=== PATIENT | female | born 1970 | race Caucasian/White ===

== ENCOUNTER 2023-07-17 15:14 | Outpatient (OUT) | payer MEDICAID, SELFPAY ==
[2023-07-17 16:07] LABS: Basophils Percent Auto 0.3 % (0.2-2.0); Eosinophils Absolute Auto 0.1 10^3/uL (0.0-0.7); Eosinophils Percent Auto 1.8 % (0.9-7.0); Hematocrit 46.3 % (36.0-48.0); Hemoglobin 15.2 g/dL (12.0-16.0); Immature Granulocytes Abs Auto 0.02 10^3/uL (0.00-0.03); Immature Granulocytes Pct Auto 0.3 % (0.0-0.5); Lymphocytes Absolute Auto 2.8 10^3/uL (1.2-3.8); Lymphocytes Percent Auto 35.2 % (20.5-60.0); Mean Corpuscular HGB Conc 32.8 g/dL (29.9-35.2); Mean Corpuscular Volume 88.4 fL (81.0-99.0); Mean Platelet Volume 8.9 fL (9.5-13.5); Monocytes Absolute Auto 0.5 10^3/uL (0.3-0.8); Monocytes Percent Auto 6.2 % (1.7-12.0); Neutrophils Absolute Auto 4.4 10^3/uL (1.4-6.5); Neutrophils Percent Auto 56.2 % (43.0-75.0); Platelet Count 373 10^3/uL (150-450); Red Blood Count 5.24 10^6/uL (4.20-5.40); Red Cell Distribution Width 13.2 % (11.0-15.0); White Blood Count 7.9 10^3/uL (4.0-11.0)
[2023-07-17 16:32] LABS: Alanine Aminotransferase 20 U/L (14-59); Albumin Globulin Ratio 0.8; Albumin Level 3.3 g/dL (3.4-5.0); Alkaline Phosphatase 130 U/L (46-116); Aspartate Amino Transferase 17 U/L (15-37); Bilirubin Total 0.3 mg/dL (0.2-1.0); Calcium 8.7 mg/dL (8.5-10.1); Carbon Dioxide 30.3 mmol/L (21.0-32.0); Chloride 104 mmol/L (98-107); Estimated GFR (African America >60 (>=60); Estimated GFR (Non-African Ame >60 (>=60); Globulin 3.9 g/dL; Glucose 76 mg/dL (74-106); Potassium 3.3 mmol/L (3.5-5.1); Sodium 143 mmol/L (136-145); Total Protein 7.2 g/dL (6.4-8.2)
[2023-07-17 16:43] LABS: Percent Iron Saturation 12.9 %
[2023-07-20 03:07] LABS: Vitamin B1 (Thiamine), Blood 121.6 nmol/L (66.5-200.0)
== END 2023-07-17 15:15 | disposition home or self-care (01) ==
PROVIDERS: PCP Nurse Practitioner Primary Care
DX: E55.9 Vitamin D deficiency, unspecified (principal); Z98.84 Bariatric surgery status; I10 Essential (primary) hypertension; K90.9 Intestinal malabsorption, unspecified
CPT/HCPCS: 36415; 80053; 82607; 82728; 82746; 83540; 83550; 83735; 84100; 84425; 85025

== ENCOUNTER 2023-08-09 14:00 | Emergency (ER) | payer MEDICAID, SELFPAY ==
[2023-08-09 14:04] VITALS: BP 152/90; PULSE 76; RESP 18; TEMP 37; O2SAT 99; BMI 34.5
--- OUTSIDE RECORDS SUMMARY | 2023-08-09 14:10 | XMS_ITS | CCD ---
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 Primary Care Unavailable CHRISTIE, DR RIVERA Consulting Unavailable CHRISTIE, DR RIVERA Admitting Unavailable CHRISTIE, DR RIVERA Attending Unavailable [employer] Consulting Unavailable GERA TORRES Admitting Unavailable GERA TORRES Attending Unavailable [facility] Primary Care Unavailable SOLOMON, DR KETURAH Leach Consulting Unavailable GERA TORRES Consulting Unavailable [facility] Primary Care Unavailable CHRISTIE, DR RIVERA Admitting Unavailable CHRISTIE, DR RIVERA Attending Unavailable JIMBO, DR GAMALIEL Yoo Consulting Unavailable LISET LYLE Consulting Unavailable Asaad, Imad Unavailable NO FAMILY, PHYSICIAN Primary Care Unavailable Asaad, Imad Admitting Unavailable Asaad, Imad Attending Unavailable Kristin Fernández Admitting Unavailable Kristin Fernández Attending Unavailable NO FAMILY, PHYSICIAN Primary Care Unavailable Medications Current Medications Medication Drug Class(es) Dates Sig (Normalized) Sig (Original) Calcium Citrate (3 sources) Calcium Citrate Active Capsaicin (3 sources) Capsaicin Active cyclobenzaprine hydrochloride 10 mg oral tablet (1 source) Muscle Relaxant Start: 2 take 1 tablet by mouth every twenty-four hours Cyclobenzaprine HCl 10 MG 1 tablet at bedtime as needed Orally Once a day for 7 day(s) Mar, Active 12 hr dextromethorphan hydrobromide 30 mg / guaiFENesin 600 mg extended release oral tablet (1 source) Uncompetitive V-bjmhgt-N-asparta te Receptor Antagonist, Sigma-1 Agonist Start: 2 take 1 tablet by mouth every twelve hours Mucinex DM 30-600 MG 1 tablet as needed Orally every 12 hrs Aug, Active dextromethorphan hydrobromide 1.5 mg/ml / pyrilamine maleate 1.5 mg/ml oral solution (1 source) Uncompetitive P-gbwryj-H-asparta te Receptor Antagonist, Sigma-1 Agonist Start: 3 take 10 mL by mouth every eight hours [place] DM 7.5-7.5 MG/5ML 10 mL Orally every 8 hours for 5 days May, Active Diclofenac (3 sources) Nonsteroidal Anti-inflammatory Drug Diclofenac Sodium Active enalapril maleate 5 mg oral tablet (3 sources) Angiotensin Converting Enzyme Inhibitor take 1 tablet by mouth once daily Enalapril 5 mg one tab orally daily Active Escitalopram (3 sources) Serotonin Reuptake Inhibitor Lexapro Active lovastatin 10 mg oral tablet (3 sources) HMG-CoA Reductase Inhibitor Lovastatin 10 MG Orally Once a day Active methylPREDNISolone 4 mg oral tablet (8 sources) Corticosteroid Start: 3 methylPREDNISolone 4 MG as directed Orally for daily dose take half with breakfast, half with dinner for 6 days May, Active Start: 03-31-2022 methylPREDNISo lone 4 MG as directed Orally for daily dose take half with breakfast, half with dinner for 6 days Mar, Active Start: 09-12-2021 methylPREDNISo lone 4 MG start tomorrow as directed Orally Once a day for 6 days Aug, Active Start: 10-20-2014 Depo-Medrol 40 mg Oct, 40 mg Multi For Her (3 sources) Multi For Her Ac tive predniSONE 20 mg oral tablet (1 source) Start: 08-02-2021 take 1 tablet by mouth every eight hours predniSONE 20 MG 1 tablet Orally tid for 5 day(s) Jul, Active sertraline 50 mg oral tablet (3 sources) Serotonin Reuptake Inhibitor Sertraline HCl 50 MG Oral for 32 Days Active Sertraline HCl 5 0 MG Oral for 32 Days Active Trelegy Ellipta (3 sources) Trelegy Ellipta Active Completed/Discontinued Medications Medication Drug Class(es) Dates Sig (Normalized) Sig (Original) Nebulizer (6 sources) Start: 10-22-2015 Nebulizer as directed Oct, Not-Taking nitrofurantoin, macrocrystals 25 mg / nitrofurantoin, monohydrate 75 mg oral capsule (2 sources) Nitrofuran Antibacterial Start: 03-16-2023 take 1 capsule by mouth every twelve hours Macrobid 100 MG 1 capsule with food Orally every 12 hrs for 7 days Mar, Not-Taking phenazopyridine hydrochloride 200 mg oral tablet (2 sources) Start: 03-16-2023 take 1 tablet by mouth every eight hours Pyridium 200 MG 1 tablet after meals Orally Three times a day for 2 day(s) Mar, Not-Taking Toradol 30 mg/ml (4 sources) Start: 03-31-2022 Toradol 30 mg/ml Mar, 30 mg triamcinolone acetonide 40 mg/ml injectable suspension (14 sources) Corticosteroid Start: 03-31-2022 Kenalog-40 Mar, 40 mg Start: 09-12-2021 KENALOG - 10 m g Aug, 40 mg Start: 08-02-2021 KENALOG - 10 m g Jul, 40 mg Problems Active Problems Problem Classification Problem Date Documented Date Episodic/Chronic Acute bronchitis (12 sources) Acute bronchitis; Translations: [Acute bronchitis] Episodic Chronic obstructive pulmonary disease and bronchiectasis (14 sources) Acute exacerbation of chronic obstructive airways disease; Translations: [Chronic obstructive pulmonary disease with (acute) exacerbation] Onset: 2 Resolved: 2 Chronic Disorders of lipid metabolism (1 source) Pure hypercholesterolemia, unspecified; Translations: [PURE HYPERCHOLESTEROLEMIA UNSPEC] Onset: 3 Chronic E Codes: Fall (1 source) Unspecified fall, initial encounter; Translations: [UNSPECIFIED FALL INITIAL ENCOUNTER] Onset: 3 Episodic Essential hypertension (1 source) Essential (primary) hypertension; Translations: [ESSENTIAL PRIMARY HYPERTENSION] Onset: 3 Chronic Genitourinary symptoms and ill-defined conditions (1 source) Dysuria; Translations: [Dysuria] Onset: 3 Episodic Mood disorders (1 source) Major depressive disorder, single episode, unspecified; Translations: [HAKAN DEPRESS D/O SINGLE EPIS UNS] Onset: 2 Chronic Mood disorders (1 source) Mood disorders; Translations: [DEPRESSION UNSPECIFIED] Onset: 3 Osteoarthritis (6 sources) Osteoarthritis of left knee joint; Translations: [Unilateral primary osteoarthritis, left knee] Chronic Other aftercare (1 source) Other intermission coordinator (current) drug therapy; Translations: [OTH RETIREMENT CURRENT DRUG THERAPY] Onset: 3 Episodic Other injuries and conditions due to external causes (3 sources) Unspecified injury of right wrist, hand and finger(s), initial encounter; Translations: [UNS INJ RT WRIST HAND FINGERS INIT] Onset: 2 Episodic Other injuries and conditions due to external causes (1 source) Other specified injuries of head, initial encounter; Translations: [OTH SPEC INJURIES HEAD INITIAL ENC] Onset: 3 Episodic Other liver diseases (3 sources) Focal nodular hyperplasia of liver; Translations: [Other specified diseases of liver] Chronic Other liver diseases (1 source) Other specified diseases of liver Chronic Other nutritional; endocrine; and metabolic disorders (1 source) Obesity, unspecified; Translations: [OBESITY UNSPECIFIED] Onset: 3 Chronic Other nutritional; endocrine; and metabolic disorders (1 source) Body mass index (BMI) 45.0-49.9, adult; Translations: [BODY MASS INDEX BMI 45.0-49.9 ADULT] Onset: 3 Chronic Other nutritional; endocrine; and metabolic disorders (1 source) Body mass index (BMI) 50.0-59.9, adult; Translations: [BODY MASS INDEX BMI 50.0-59.9 ADULT] Onset: 2 Chronic Other screening for suspected conditions (not mental disorders or infectious disease) (1 source) Other specified abnormal findings of blood chemistry; Translations: [Other specified abnormal findings of blood chemistry] Onset: 3 Episodic Other upper respiratory infections (1 source) Acute upper respiratory infection, unspecified Episodic Spondylosis; intervertebral disc disorders; other back problems (1 source) Muscle spasm of back Episodic Substance-related disorders (1 source) Nicotine dependence, cigarettes, uncomplicated; Translations: [NICOTINE DEPEND CIGARETTES UNCOMP] Onset: 3 Chronic Superficial injury; contusion (6 sources) Contusion of left front wall of thorax, initial encounter; Translations: [Contusion of right shoulder, initial encounter] Onset: 3 Episodic Unclassified (1 source) PERSONAL HISTORY OF COVID-19; Translations: [PERSONAL HISTORY OF COVID-19] Onset: 2 Unclassified (1 source) CONTACT W/AND (SUSP) EXPOS COVID-19; Translations: [CONTACT W/AND (SUSP) EXPOS COVID-19] Onset: 2 Past or Other Problems Problem Classification Problem Date Documented Da te Episodic/Chronic Other connective tissue disease (1 source) Other specified soft tissue disorders; Translations: [OTHER SPEC SOFT TISSUE DISORDERS] Onset: 09-15-2021 Episodic Other lower respiratory disease (4 sources) Shortness of breath; Translations: [SHORTNESS OF BREATH] Onset: 09-13-2021 Episodic Results Test Name Value Interpretation Reference Range Facil ity Urine Cultureon 03-16-2023 Bacteria identified Cx Nom (U) ORGANISM: Escherichia coli (O:ESCCOL) [place] Count >100,000 Aerobic LAZ Charge (NMIC56) ----- SUSCEPTIBILITY ---- ORGANISM: O:ESCCOL ANTIBIOTIC INTERPRETATION LAZ Amikacin S <16 Amoxacillin/K Clavulanate S <8 Ampicillin S <8 Ampicillin/Sulbactam S <4 Aztreonam S <4 Cefazolin S <2 Cefepime S <2 Ceftazidime S <1 Ceftazidime/Avibacta m S <4 Ceftolozane/Tazobact am S <2 Ceftriaxone S <1 Cefuroxime S <4 Ciprofloxacin S <0.25 Ertapenem S <0.5 Gentamicin S <2 Levofloxacin S <0.5 Meropenem S <1 Meropenem/Vaborbacta m S <2 Nitrofurantoin S <32 Piperacillin/Tazobac hallman S <8 Tetracycline S <4 Tigecycline S <2 Tobramycin S 4 Trimethoprim/Sulfame thoxazole S <0.5 S = SUSCEPTIBLE I = INTERMEDIATE R = RESISTANT BLANK = DATA NOT AVAILABLE, OR DRUG NOT ADVISABLE OR TESTED R* = RESISTANCE DUE TO EXTENDED SPECTRUM BETA-LACTAMASES ESBL = EXTENDED SPECTRUM BETA-LACTAMASE TFG = THYMIDINE-DEPENDENT STRAIN EBONIE = BETA-LACTAMASE POSITIVE IB = INDUCIBLE BETA-LACTAMASE. APPEARS IN PLACE OF 'S' WITH SPECIES KNOWN TO POSSESS INDUCIBLE BETA-LACTAMASES. POTENTIALLY THEY MAY BECOME RESISTANT TO ALL B-LACTAM DRUGS. PERFORMED BY: [place] [address] PATHOLOGIST JAVA SDET TUTU CAPONE M.D. Normal [facility] Comment on above: Performed By: #### C UU #### [address] XR RIBS LT PA Teodora 3 XR RIBS LT PA CH EXAMINATION: XR RIBS LT PA CH HISTORY: Contusion of rib ; acute right clavicle and left rib pain after falling COMPARISON: XR chest 09/13/2021 FINDINGS: LUNGS: Mild opacity within lateral right lung base. PLEURA: No pneumothorax, effusion, or pleural thickening. MEDIASTINUM: No visible mass or adenopathy. CARDIAC: No cardiomegaly or cardiac silhouette abnormality. RIBS: Normal. No significant arthropathy or acute abnormality. OTHER: Negative. IMPRESSION: 1. No appreciable rib fracture, or fracture of the scapula. 2. Trace amount of infiltrate versus atelectasis within right lateral costophrenic angle. Electronically authenticated by: KETURAH CARBAJAL Date: 2022-07-07 11:31 Normal [facility] CBC AUTO DIFFon 07-02-2022 BASO # 0.0 103/ul Normal 0.0-0.1 [facility] Comment on above: Performed By: #### C BC ####[facility] [address] [place] [address]Dr. Helen Luis Basophils/100 WBC (Bld) 0.2 % Normal 0.2-2.0 [facility] Comment on above: Performed By: #### C BC ####[facility] [address] [place] [id number] Luis EO # 0.1 103/ul Normal 0.0-0.7 [facility] Comment on above: Performed By: #### C BC ####[facility] [address] [place] [id number]. Helen Luis Eosinophils/100 WBC (Bld) 0.8 % Critically low 0.9-7.0 [facility] Comment on above: Performed By: #### C BC ####[facility] [address] [place], [place] [address]Dr. Helen Luis Erythrocyte distribution width (RBC) [Ratio] 14.3 % Normal 11.0-15.0 [facility] Comment on above: Performed By: #### C BC ####[facility] [address] [place], [place] [address]Dr. Helen Luis Hematocrit (Bld) [Volume fraction] 48.0 % Normal 36.0-48.0 [facility] Comment on above: Performed By: #### C BC ####[facility] [address] [place], [place] [address]DrApril Luis Hemoglobin (Bld) [Mass/Vol] 15.5 g/dL Normal 12.0-16.0 [facility] Comment on above: Performed By: #### C BC ####[facility] [address] [place], [place] [address]Dr. Helen Luis IG # 0.03 10e3/ul Normal 0.00-0.03 [facility] Comment on above: Performed By: #### C BC ####[facility] [address] [place], [place] [address]DrApril Luis IG % 0.3 % Normal 0.0-0.5 [facility] Comment on above: Performed By: #### C BC ####[facility] [address] [place], [place] [address]DrApril Luis LYMPH # 2.6 103/ul Normal 1.2-3.8 [facility] Comment on above: Performed By: #### C BC ####[facility] [address] [place], [place] [address]DrApril Luis Lymphocytes/100 WBC (Bld) 26.7 % Normal 20.5-60.0 [facility] Comment on above: Performed By: #### C BC ####[facility] [address] [place], [place] [address]DrApril Luis MANUAL DIFF REQ NO Normal [facility] Comment on above: Performed By: #### C BC ####[facility] [address] [place] [id number]. Helen Luis MCH (RBC) [Entitic mass] 29.3 pg Normal 26.7-34.0 [facility] Comment on above: Performed By: #### C BC ####[facility] [address] [place] [address]Dr. Helen Luis MCHC (RBC) [Mass/Vol] 32.3 g/dL Normal 29.9-35.2 [facility] Comment on above: Performed By: #### C BC ####[facility] [address] [place], [place] [address]DrApril Luis MCV (RBC) [Entitic vol] 90.7 fL Normal 81.0-99.0 [facility] Comment on above: Performed By: #### C BC ####[facility] [address] [place], [place] [address]DrApril Luis MONO # 0.7 103/ul Normal 0.3-0.8 [facility] Comment on above: Performed By: #### C BC ####[facility] [address] [place], [place] [address]DrApril Luis Monocytes/100 WBC (Bld) 7.2 % Normal 1.7-12.0 [facility] Comment on above: Performed By: #### C BC ####[facility] [address] [place], [place] [address]DrApril Luis NEUT # 6.2 103/ul Normal 1.4-6.5 [facility] Comment on above: Performed By: #### C BC ####[facility] [address] [place], [place] [address]DrApril Luis Neutrophils/100 WBC (Bld) 64.8 % Normal 43.0-75.0 [facility] Comment on above: Performed By: #### C BC ####[facility] [address] [place], [place] [address]DrApril Luis Platelet mean volume (Bld) [Entitic vol] 8.9 fL Critically low 9.5-13.5 [facility] Comment on above: Performed By: #### C BC ####[facility] [address] [place] [address]DrApril Luis PLT 413 103/ul Normal 150-450 [facility] Comment on above: Performed By: #### C BC ####[facility] [address] [place] [address]Dr. Helen Luis RBC 5.29 106/ul Normal 4.20-5.40 [facility] Comment on above: Performed By: #### C BC ####[facility] [address] [place] [address]Dr. Helen Luis WBC 9.6 103/ul Normal 4.0-11.0 [facility] Comment on above: Performed By: #### C BC ####[facility] [address] [place] [address]Dr. Helen Luis PROF CHEM 8 (BAS METB)on Anion gap [Moles/Vol] 9.3 mmol/L Normal [facility] Comment on above: Performed By: #### B MP #### [facility] [address] [address] [address] Helen Luis Calcium [Mass/Vol] 8.9 mg/dL Normal 8.5-10.1 [facility] Comment on above: Performed By: #### B MP #### [facility] [address] [address] [address] Helen Luis Chloride [Moles/Vol] 104 mmol/L Normal 98-107 [facility] Comment on above: Performed By: #### B MP #### [facility] [address] [address] [address] Helen Luis CO2 [Moles/Vol] 33.2 mmol/L Critically high 21.0-32.0 [facility] Comment on above: Performed By: #### B MP #### [facility] [address] [address] [address] Helen Luis Creatinine [Mass/Vol] 0.58 mg/dL Normal 0.55-1.02 [facility] Comment on above: Performed By: #### B MP #### [facility] [address] [address] [address] Helen Luis EGFR-AF FRENCH >60 Normal >=60 [facility] Comment on above: Performed By: #### B MP #### [facility] [address] [address] [address] Helen Luis EGFR-NON AF FRENCH >60 Normal >=60 [facility] Comment on above: Performed By: #### B MP #### [facility] [address] [address] [address] Helen Luis Glucose [Mass/Vol] 96 mg/dL Normal 74-106 [facility] Comment on above: Performed By: #### B MP #### [facility] [address] [address] [address] Helen Luis Potassium [Moles/Vol] 3.5 mmol/L Normal 3.5-5.1 [facility] Comment on above: Performed By: #### B MP #### [facility] [address] [address] [address] Helen Luis Sodium [Moles/Vol] 143 mmol/L Normal 136-145 [facility] Comment on above: Performed By: #### B MP #### [facility] [address] [address] [address] Helen Luis Urea nitrogen [Mass/Vol] 11.0 mg/dL Normal 7.0-18.0 [facility] Comment on above: Performed By: #### B MP #### [facility] [address] [address] [address] Helen Luis Urea nitrogen/Creatinine [Mass ratio] 19.0 mg/mg Normal [facility] Comment on above: Performed By: #### B MP #### [facility] [address] [address] [address] Helen Luis XR HAND RT MIN 3Von 07-02-20 22 XR HAND RT MIN 3V EXAM: PLAIN FILM HAND RIGHT INDICATION: Pain. TECHNIQUE: 3 views of right hand are submitted for review. COMPARISON: None FINDINGS: There is an age-indeterminate fracture seen involving the neck of the middle phalanx of the fifth digit right hand. Diffuse soft tissue swelling is demonstrated. Bone mineralization is decreased. Bone mineralization is within normal. Joint spaces are maintained with degenerative change.. Soft tissues are edematous greatest overlying the index finger. IMPRESSION: 1. Age-indeterminate nondisplaced fracture of the neck of the middle phalanx fifth digit right hand. 2. Soft tissue swelling, greatest overlying the index finger. Electronically authenticated by: SANFORD HAQ Date: 2022-07-02 17:24 Normal [facility] BNPon 09-13-2021 Natriuretic peptide B (Bld) [Mass/Vol] 30.0 pg/mL Normal <=900.0 [facility] Comment on above: Performed By: #### B MEMBERSHIP SALES MANAGER, HSTROPN, CMP #### [facility] [address] [place], [place] [address] Dr. Helen Luis CBC AUTO DIFFon 09-13-2021 BASO # 0.0 103/ul Normal 0.0-0.1 [facility] Comment on above: Performed By: #### C BC ####[facility] [address] [place] [address]DrApril Luis Basophils/100 WBC (Bld) 0.3 % Normal 0.2-2.0 [facility] Comment on above: Performed By: #### C BC ####[facility] [address] [place] [address]DrApril Luis EO # 0.1 103/ul Normal 0.0-0.7 [facility] Comment on above: Performed By: #### C BC ####[facility] [address] [place] [address]DrApril Luis Eosinophils/100 WBC (Bld) 1.2 % Normal 0.9-7.0 [facility] Comment on above: Performed By: #### C BC ####[facility] [address] [place] [address]DrApril Luis Erythrocyte distribution width (RBC) [Ratio] 15.8 % Critically high 11.0-15.0 [facility] Comment on above: Performed By: #### C BC ####[facility] [address] [place] [address]Dr. Helen Luis Hematocrit (Bld) [Volume fraction] 45.9 % Normal 36.0-48.0 [facility] Comment on above: Performed By: #### C BC ####[facility] [address] [place], [place] [address]Dr. Helen Luis Hemoglobin (Bld) [Mass/Vol] 14.2 g/dL Normal 12.0-16.0 [facility] Comment on above: Performed By: #### C BC ####[facility] [address] [place], [place] [address]Dr. Helen Luis IG # 0.02 10e3/ul Normal 0.00-0.03 [facility] Comment on above: Performed By: #### C BC ####[facility] [address] [place], [place] [address]Dr. Helen Luis IG % 0.3 % Normal 0.0-0.5 [facility] Comment on above: Performed By: #### C BC ####[facility] [address] [place], [place] [address]DrApril Luis LYMPH # 1.0 103/ul Critically low 1.2-3.8 [facility] Comment on above: Performed By: #### C BC ####[facility] [address] [place], [place] [address]Dr. Helen Luis Lymphocytes/100 WBC (Bld) 13.7 % Critically low 20.5-60.0 [facility] Comment on above: Performed By: #### C BC ####[facility] [address] [place], [place] [address]DrApril Luis MANUAL DIFF REQ NO Normal [facility] Comment on above: Performed By: #### C BC ####[facility] [address] [place], [place] [address]Dr. Helen Luis MCH (RBC) [Entitic mass] 28.9 pg Normal 26.7-34.0 [facility] Comment on above: Performed By: #### C BC ####[facility] [address] [place] [address]Dr. Helne Luis MCHC (RBC) [Mass/Vol] 30.9 g/dL Normal 29.9-35.2 [facility] Comment on above: Performed By: #### C BC ####[facility] [address] [place] [address]Dr. Helen Luis MCV (RBC) [Entitic vol] 93.3 fL Normal 81.0-99.0 [facility] Comment on above: Performed By: #### C BC ####[facility] [address] [place], [place] [address]DrApril Luis MONO # 0.7 103/ul Normal 0.3-0.8 [facility] Comment on above: Performed By: #### C BC ####[facility] [address] [place], [place] [address]Dr. Helen Luis Monocytes/100 WBC (Bld) 8.8 % Normal 1.7-12.0 [facility] Comment on above: Performed By: #### C BC ####[facility] [address] [place], [place] [address]Dr. Helen Luis NEUT # 5.6 103/ul Normal 1.4-6.5 [facility] Comment on above: Performed By: #### C BC ####[facility] [address] [place], [place] [address]Dr. Helen Luis Neutrophils/100 WBC (Bld) 75.7 % Critically high 43.0-75.0 [facility] Comment on above: Performed By: #### C BC ####[facility] [address] [place], [place] [address]DrApril Luis Platelet mean volume (Bld) [Entitic vol] 8.4 fL Critically low 9.5-13.5 [facility] Comment on above: Performed By: #### C BC ####[facility] [address] [place], [place] [address]Dr. Helen Luis PLT 292 103/ul Normal 150-450 [facility] Comment on above: Performed By: #### C BC ####[facility] [address] [place], [place] [address]Qz. Helen Luis RBC 4.92 106/ul Normal 4.20-5.40 [facility] Comment on above: Performed By: #### C BC ####[facility] [address] [place], [place] [address]Dl. Helen Luis WBC 7.4 103/ul Normal 4.0-11.0 [facility] Comment on above: Performed By: #### C BC ####[facility] [address] [place], [place] [address]Dh. Helen Luis Covid-19 PCR (CVDTB)on 08-31 SARS-CoV-2 (COVID-19) RNA NIKKI+probe Ql (Unsp spec) Not detected Normal NOT DETECTED [facility] Comment on above: Result Comment: When diagnostic testing is negative, the possibility of a false negative should be considered in the context of a patient's recent exposures and the presence of clinical signs and symptoms consistent with SARS-CoV-2. This test is not yet approved or cleared by the [place] FDA. When there are no FDA-approved or cleared tests available, and other criteria are met, FDA can make tests available under an emergency access mechanism called an Emergency Use Authorization (EUA). The EUA for this test is supported by the Aircraft Instrument Repairer of Health and Human Service's declaration that circumstances exist to justify the emergency use of in vitro diagnostics for the detection and/or diagnosis of the virus that causes COVID-19. This EUA will remain in effect for the duration of the COVID-19 declaration justifying emergency of IVDs, unless it is terminated or revoked by the FDA (after which the test may no longer be used). Performed By: #### C VDTBH #### [facility] [address] [place], [place] [address] Dr. Helen Luis LACTATE/LACTIC ACIDon 2021 Lactate [Moles/Vol] 1.3 mmol/L Normal 0.7-2.0 [facility] Comment on above: Performed By: #### L ACT #### [facility] [address] [place] [address] Dr. Helen Luis PROF 14(COMP METB)on 022 Albumin [Mass/Vol] 2.9 g/dL Critically low 3.5-5.0 Th [facility] Comment on above: Performed By: #### B MEMBERSHIP SALES MANAGER, HSTROPN, CMP #### [facility] [address] [place] [address] Dr. Helen Luis Albumin/Globulin [Mass ratio] 0.7 {ratio} Normal [facility] Comment on above: Performed By: #### B MEMBERSHIP SALES MANAGER, HSTROPN, CMP #### [facility] [address] [place] [address] Dr. Helen Luis ALP [Catalytic activity/Vol] 121 U/L Normal 38-126 [facility] Comment on above: Performed By: #### B MEMBERSHIP SALES MANAGER, HSTROPN, CMP #### [facility] [address] [place] [address] Dr. Helen Luis ALT [Catalytic activity/Vol] 23 U/L Normal 9-52 [facility] Comment on above: Performed By: #### B MEMBERSHIP SALES MANAGER, HSTROPN, CMP #### [facility] [address] [place] [address] Dr. Helen Luis Anion gap [Moles/Vol] 7.9 mmol/L Normal [facility] Comment on above: Performed By: #### B MEMBERSHIP SALES MANAGER, HSTROPN, CMP #### [facility] [address] [place] [address] Dr. Helen Luis AST [Catalytic activity/Vol] 14 U/L Normal 14-36 [facility] Comment on above: Performed By: #### B MEMBERSHIP SALES MANAGER, HSTROPN, CMP #### [facility] [address] [place] [address] Dr. Helen Luis Bilirubin [Mass/Vol] 0.4 mg/dL Normal 0.2-1.3 [facility] Comment on above: Performed By: #### B MEMBERSHIP SALES MANAGER, HSTROPN, CMP #### [facility] [address] [place] [address] Dr. Helen Luis Calcium [Mass/Vol] 8.4 mg/dL Normal 8.4-10.2 [facility] Comment on above: Performed By: #### B MEMBERSHIP SALES MANAGER, HSTROPN, CMP #### [facility] [address] [address] [address] Helen Luis Chloride [Moles/Vol] 102 mmol/L Normal 98-107 [facility] Comment on above: Performed By: #### B MEMBERSHIP SALES MANAGER, HSTROPN, CMP #### [facility] [address] [place] [address] Dr. Helen Luis CO2 [Moles/Vol] 34.3 mmol/L Critically high 22.0-30.0 [facility] Comment on above: Performed By: #### B MEMBERSHIP SALES MANAGER, HSTROPN, CMP #### [facility] [address] [place] [address] Dr. Helen Luis Creatinine [Mass/Vol] 1.19 mg/dL Critically high 0.52-1.04 [facility] Comment on above: Performed By: #### B MEMBERSHIP SALES MANAGER, HSTROPN, CMP #### [facility] [address] [address] [address] Helen Luis EGFR-AF FRENCH 58 mL/min/1.73m2 Critically low >=60 [facility] Comment on above: Performed By: #### B MEMBERSHIP SALES MANAGER, HSTROPN, CMP #### [facility] [address] [place] [address] Dr. Helen Luis EGFR-NON AF FRENCH 48 mL/min/1.73m2 Critically low >=60 [facility] Comment on above: Performed By: #### B MEMBERSHIP SALES MANAGER, HSTROPN, CMP #### [facility] [address] [address] [address] Helen Luis Globulin (S) [Mass/Vol] 3.9 g/dL Normal [facility] Comment on above: Performed By: #### B MEMBERSHIP SALES MANAGER, HSTROPN, CMP #### [facility] [address] [address] [address] Helen Luis Glucose [Mass/Vol] 145 mg/dL Critically high 74-106 [facility] Comment on above: Performed By: #### B MEMBERSHIP SALES MANAGER, HSTROPN, CMP #### [facility] [address] [address] [address] Helen Luis Potassium [Moles/Vol] 4.2 mmol/L Normal 3.4-5.0 [facility] Comment on above: Performed By: #### B MEMBERSHIP SALES MANAGER, HSTROPN, CMP #### [facility] [address] [address] [address] Helen Luis Protein [Mass/Vol] 6.8 g/dL Normal 6.1-8.2 [facility] Comment on above: Performed By: #### B MEMBERSHIP SALES MANAGER, HSTROPN, CMP #### [facility] [address] [place] [address] Dr. Helen Luis Sodium [Moles/Vol] 140 mmol/L Normal 137-145 [facility] Comment on above: Performed By: #### B MEMBERSHIP SALES MANAGER, HSTROPN, CMP #### [facility] [address] [place] [address] Dr. Helen Luis Urea nitrogen [Mass/Vol] 18.0 mg/dL Critically high 7.0-17.0 [facility] Comment on above: Performed By: #### B MEMBERSHIP SALES MANAGER, HSTROPN, CMP #### [facility] [address] [place] [address] Dr. Helen Luis Urea nitrogen/Creatinine [Mass ratio] 15.1 mg/mg Normal [facility] Comment on above: Performed By: #### B MEMBERSHIP SALES MANAGER, HSTROPN, CMP #### [facility] [address] [place] [address] Dr. Helen Luis PROTIMEon 09-13-2021 INR Coag (PPP) [Relative time] 1.04 {INR} Normal [facility] Comment on above: Performed By: #### P TT, PT ####[facility] [address] [address]Dr. Helen Luis INR GUIDELINES SEE BELOW Normal [facility] Comment on above: Result Comment: YOHAN RED INR: 2.0 - 3.0 CONDITIONS NOT LISTED BELOW 2.5 - 3.5 FOR PROSTHETIC HEART VALVE REPLACEMENT 2.5 - 3.5 RECURRENT THROMBOSIS Performed By: #### P TT, PT ####[facility] [id number] [id number]. Helen Luis PT Coag (PPP) [Time] 11.2 s Normal 9.0-11.6 [facility] Comment on above: Performed By: #### P TT, PT ####[facility] [address] [place], [place] [address]XpDr. Helen Luis PTTon 09-13-2021 aPTT Coag (Bld) [Time] 27.3 s Normal 22.3-36.2 [facility] Comment on above: Performed By: #### P TT, PT ####[facility] [address] [id number] Luis TROPONIN, HIGH SENSITIVITYon 09-13-2021 HSTROP 7.5 pg/mL Normal 4.0-35.5 [facility] Comment on above: Result Comment: CUT- OFF POINTS HAVE BEEN ESTABLISHED BASED ON THE FOURTH UNIVERSAL DEFINITIONS OF MYOCARDIAL INFARCTION. THE UPPER REFERENCE LIMIT (URL) OF TROPONIN, DEFINED THE 99TH PERCENTILE OF cTnI DISTRIBUTION IN A REFERENCE POPULATION, HAS BEEN CONFIRMED THE DECISION THRESHOLD FOR [place] DIAGNOSIS. Performed By: #### B MEMBERSHIP SALES MANAGER, HSTROPN, CMP #### [facility] [address] [place], [place] [address] Dr. Helen Luis XR CHEST 1 Von 09-13-2021 XR CHEST 1 V EXAMINATION: XR CHEST 1 V HISTORY: SHORTNESS OF BREATH COMPARISON: 12/28/2020 TECHNIQUE: AP portable erect FINDINGS: LUNGS: No significant pulmonary parenchymal abnormalities. VASCULATURE: No increased pulmonary vasculature. PLEURA: No pneumothorax, effusion, or pleural thickening. CARDIAC: No cardiomegaly or cardiac silhouette abnormality. MEDIASTINUM: No visible mass or adenopathy. BONES: No fracture or visible bone lesion. OTHER: Negative. IMPRESSION: No acute disease. Electronically authenticated by: GAMALIEL CHOI Date: 2021-09-13 14:10 Normal [facility] HOSPon 01-04-2017 [facility] Get Medical Advice (LOORRM) --------LUIS PEREZ ([id number]) 1970 [facility] Time Provider Department01/04/17 KIAN MENDOZA During your visit today, we recorded the following information about you:Allergies As of Date: 01/04/2017(No Known Allergies)Date Reviewed: 11/11/2016Reviewed by: Erika Fong Ma - Fully AssessedPrimary Visit Diagnosis:Plantar fasciitis [M72.2]Order(s):CONS ULT TO PHYSICAL THERAPY [9032] Order #: [id number]: 1Prescriptions as of 01/04/2017 Sig: MOBIC ORAL Take by mouth. ENALAPRIL MALEATE 2.5 MG TABL* LOVASTATIN 20 MG TABLET ALBUTEROL SULFATE 2.5 MG/3 ML*Problem List As Of Date 01/04/2017 Noted Resolved Osteoarthritis of subtalar joints, bilateral [M*INVALID FOR* Chronic ankle pain, bilateral [M25.571, G89.29,*INVALID FOR* Difficulty walking [R26.2] INVALID FOR* Essential hypertension [I10] INVALID FOR* Mixed hyperlipidemia [E78.2] INVALID FOR* Follow-up examination following surgery [Z09] INVALID FOR* Status:Closed by KIAN MENDOZA DPM on 01/19/17 Normal [facility] Vital Signs Date Time Vital Sign Value Performing Clinician Facility 05-23-2023 13:15-0500 Body height 149.86 cm Kristin Fernández Other [facility] Other 05-23-2023 13:15-0500 Body mass index (BMI) [Ratio] 34.33 kg/m2 Kristin Fernández Other [facility] Other 05-23-2023 13:15-0500 Body temperature 97.8 [degF] Kristin Fernández Other [facility] Other 05-23-2023 13:15-0500 Body weight 77.11 kg Kristin Fernández Other [facility] Other 05-23-2023 13:15-0500 Respiratory rate 20 /min Kristin Fernández Other [facility] Other 05-23-2023 13:15-0500 SaO2% (BldA) [Mass fraction] 96 % Kristin Fernández Other [facility] Other 01-12-2023 09:00-0400 Body height 149.86 cm Imad Asaad Other [facility] Other 01-12-2023 09:00-0400 Body mass index (BMI) [Ratio] 37.64 kg/m2 Imad Asaad Other [facility] Other 01-12-2023 09:00-0400 Body weight 84.55 kg Imad Asaad Other [facility] Other 01-12-2023 09:00-0400 Diastolic blood pressure 72 mm[Hg] Imad Asaad Other [facility] Other 01-12-2023 09:00-0400 Systolic blood pressure 140 mm[Hg] Imad Asaad Other [facility] Other 03-31-2022 10:00-0400 Body height 149.86 cm Kristin Fernández Other [facility] Other 03-31-2022 10:00-0400 Body temperature 97.8 [degF] Kristin Fernández Other [facility] Other 03-31-2022 10:00-0400 Diastolic blood pressure 68 mm[Hg] Kristin Fernández Other [facility] Other 03-31-2022 10:00-0400 Respiratory rate 20 /min Kristin Pradeep Other [facility] Other 03-31-2022 10:00-0400 SaO2% (BldA) [Mass fraction] 96 % Kristin Pradeep Other [facility] Other 03-31-2022 10:00-0400 Systolic blood pressure 143 mm[Hg] Kristin Pradeep Other [facility] Other 09-12-2021 15:45-0400 Body height 149.86 cm Astrid Hawkins Other [facility] Other 09-12-2021 15:45-0400 Body mass index (BMI) [Ratio] 53.52 kg/m2 Astrid Greenfieldault Other [facility] Other 09-12-2021 15:45-0400 Body temperature 96.8 [degF] Astrid Shruthi Other [facility] Other 09-12-2021 15:45-0400 Body weight 120.2 kg Astrid Greenfieldault Other [facility] Other 09-12-2021 15:45-0400 SaO2% (BldA) [Mass fraction] 94 % Astrid Greenfieldault Other [facility] Other 08-02-2021 14:45-0500 Body height 149.86 cm Zoraida Silveira Other [facility] Other 08-02-2021 14:45-0500 Body mass index (BMI) [Ratio] 53.52 kg/m2 Zoraida Silveira Other [facility] Other 08-02-2021 14:45-0500 Body temperature 97 [degF] Zoraida Silveira Other [facility] Other 08-02-2021 14:45-0500 Body weight 120.2 kg Zoraida Silveira Other [facility] Other 08-02-2021 14:45-0500 SaO2% (BldA) [Mass fraction] 97 % Zoraida Silveira Other [facility] Other Encounters Encounter Date Encounter Type Care Provider Facility Start: 05-23-2023 End: 05-23-2023 ambulatory Kristin Fernández Other [facility] Other Start: 05-23-2023 Office outpatient visit 25 minutes Kristin Fernández [facility] Start: 03-20-2023 End: 03-20-2023 ambulatory Kristin Fernández Other [facility] Other Start: 03-20-2023 Telephone encounter Kristin Fernández [facility] Start: 03-16-2023 End: 03-16-2023 ambulatory Kristin Fernández Facility:[facility] Start: 01-24-2023 End: 01-24-2023 ambulatory PHYSICIAN NO FAMILY Facility:[facility] Start: 01-12-2023 End: 01-12-2023 ambulatory Imad Asaad Other [facility] Other Start: 01-12-2023 Office outpatient ne w 45 minutes Imad Asaad [facility] Start: 07-07-2022 End: 07-08-2022 ambulatory GERA TORRES Facility:[facility] Start: 07-02-2022 End: 07-02-2022 ambulatory [facility] Facility:[facility] Start: 03-31-2022 End: 03-31-2022 ambulatory Kristin Fernández Other [facility] Other Start: 03-31-2022 Office outpatient visit 25 minutes Kristin Fernández [facility] Start: 09-13-2021 End: 09-13-2021 ambulatory [facility] Facility:[facility] Start: 09-12-2021 End: 09-12-2021 ambulatory Astrid Hawkisn Other [facility] Other Start: 09-12-2021 Office outpatient visit 15 minutes Astrid Hawkins [facility] Start: 08-02-2021 End: 08-02-2021 ambulatory Zoraida Silveira Other [facility] Other Start: 08-02-2021 Office outpatient visit 15 minutes Zoraida Silveira [facility] Payers Date Payer Category Payer Medicaid [id number] 2. [id number] 2023 Self-pay 1970 Unknown [id number] 2.16.84 [id number] 1970 Unknown [id number] 2.16.84 [id number] 1970 Unknown [id number] 2.16.84 [id number] 1960 Unknown [id number] 2.1 [id number] 1960 Unknown Unknown [id number] 2.1 [id number] Unknown [id number] 2.16.8 [id number] Unknown [id number] 2.16.8 [id number] Social History Date Type Detail Facility Unknown if ever smoked [facility] Other Sex Assigned At Sex Assigned At Bir th [facility] Other Evaluation note 05-23-2023 Note Date & Type Note Facility 05-23-2023 Evaluation note Encounter Date Diagnosis Assessment Notes May, Viral URI with cough (ICD-10 - J06.9) Patient declines/refusing testing today in office. Discussed diagnosis with patient today. Advised that we will treat as viral URI. Advised that viral illnesses may last 7-10 days, antibiotics are not indicated at this time. Symptoms do not improve in the next 2 to 3 days, may call in for Rx of antibiotic, Z-Thomas. Encouraged supportive care as directed, increase fluids and rest, Tylenol as directed, packs of steroid and [place] as Directed, OTC Flonase, cool mist humidifier, throat lozenges. Discussed infection control practices such as good hand washing and mask wearing. Patient to follow up with PCP if symptoms persist or worsen despite treatment. Immediate eval for SOB, difficulty breathing, chest pain, fevers that do not break with antipyretic or any other concerning symptoms as reviewed on patient education handout. Patient verbalizes understanding and is agreeable to treatment plan. Patient left in stable condition [facility] Other Evaluation note 01-12-2023 Note Date & Type Note Facility 01-12-2023 Evaluation note Encounter Date Diagnosis Assessment Notes Dec, Focal nodular hyperplasia of liver (ICD-10 - K76.89) [facility] Other Clinical Note 07-07-2022 Note Date & Type Note Facility 07-07-2022 Note PROCEDURE: XR CLAVIC LE RT HISTORY: Contusion ; right clavicle pain after falling COMPARISON: None. FINDINGS: BONES:Mild degenerative changes of the acromioclavicular joint. No fracture of the clavicle. Unremarkable glenohumeral joint. SOFT TISSUES:No visible soft tissue swelling. EFFUSION:None visible. OTHER: Negative. IMPRESSION: 1. No acute bone abnormality. 2. Mild degenerative joint disease of the right acromioclavicular joint. Electronically authenticated by: KETURAH CARBAJAL Date: 2022-07-07 11:33 [facility] Evaluation note 03-31-2022 Note Date & Type Note Facility 03-31-2022 Evaluation note Encounter Date Diagnosis Assessment Notes Mar, Spasm of muscle of lower back (ICD-10 - M62.830) Discussed diagnosis with patient. Toradol and Kenalog injection given today in office. Advised patient to take medications as directed. Use muscle relaxer at night time as it may cause drowsiness. May use OTC Tylenol and icy hot application for additional relief. Encouraged warm compresses, light stretches, and massage may also help with pain. Avoid strenuous activity, perform activity as tolerated, do not stay stationary for long periods of time as it might make symptoms worse. Follow up with PCP in 1 week if symptoms do not improve. Immediate eval for chest pain, shortness of breath, fever, numbness or tingling, loss of bowel or bladder control, pain becomes severe, difficulty moving neck, back, arms or legs, dizziness, headache, or any other new or concerning symptoms arise. Patient verbalizes understanding and is agreeable to treatment plan Mar, Other Back spasm home care material was printed [facility] Other Evaluation note 09-12-2021 Note Date & Type Note Facility 09-12-2021 Evaluation note Encounter Date Diagnosis Assessment Notes Aug, Chronic obstructive pulmonary disease with acute exacerbation (ICD-10 - J44.1) Steroid given in office. Start oral steroid in the morning.Take medications as directed. Use nebulizer or inhaler as directed. Take medication with food to prevent stomach upset. . Follow up with primary care provider is highly recommended since you had to cancel last appointment [facility] Other Evaluation note 08-02-2021 Note Date & Type Note Facility 08-02-2021 Evaluation note Encounter Date Diagnosis Assessment Notes Jul, COPD exacerbation (ICD-10 - J44.1) Continue your home medications as prescribed. Take the prednisone as prescribed until gone. Follow-up with your geophysical manager as soon as possible. Go to the ER for worsening symptoms or concerns. [facility] Other Evaluation note Note Date & Type Note Facility Evaluation note No Information [employer] Other History general Narrative - Reported Note Date & Type Note Facility History general Narrative - Reported Type Medical History Congestive Heart Failure Medical History hyperlipidemia Medical History Arthritis Medical History mood disorder Surgical History melanoma excision Surgical History tubal ligation Surgical History umbilical hernia repair Surgical History ankle surgery 2017 Hospitalization History depression 08/2013 Hospitalization History see above Hospitalization History upper resp 2018 [facility] Other History general Narrative - Reported Note Date & Type Note Facility History general Narrative - Reported Type Medical History Congestive Heart Failure Medical History hyperlipidemia Medical History Arthritis Medical History mood disorder Surgical History melanoma excision Surgical History tubal ligation Surgical History umbilical hernia repair Surgical History ankle surgery 2016 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 Hospitalization History depression 08/2013 Hospitalization History see above Hospitalization History [facility] 2017 [facility] Other Summary Purpose Family History No Family History Records FoundNo Family History Records FoundNo Family History Records Found Advance Directives No Advanced Directives Records FoundNo Advanced Directives Records FoundNo Advanced Directives Records Found Additional Source Comments INFORMATION SOURCE (unrecogn ized section and content) DATE CREATED AUTHOR 12/27/2017 [facility] DATE CREATED AUTHOR AUTHOR'S ORGANIZ ATION 07/14/[address] [facility] DATE CREATED AUTHOR AUTHOR'S ORGANIZ ATION 03/24/2023 [facility] REASON FOR VISIT (unrecogniz ed section and content) #8 DONALDSON EQUINOX, COUGH, MERLIN ESTION,#12 COUGH, SOBLOW BACK PAINPATIENT IS HERE AT THE REQUEST OF LESLIE GRIGSBY FOR FOCAL NODULAR HYPERPLASIA OF LIVER. CT SCAN FROM [facility] IN DI TABNo InformationCOUGH, CHEST TIGHTNESS, DRAINAGE, EARS STARTING TO BOTHER HER FOR RECORDS PERTAINING TO PATIENTS WHO ARE OR HAVE BEEN ENROLLED IN A CHEMICAL DEPENDENCY/SUBSTANCEABUSE PROGRAM, SOME INFORMATION MAY BE OMITTED. This clinical summary was aggregated from multiple sources. Caution should be exercised in using it in the provision of clinical care. This summary normalizes information from multiple sources, and as a consequence, information in this document may materially change the coding, format and clinical context of patient data. In addition, data may be omitted in some cases. CLINICAL DECISIONS SHOULD BE BASED ON THE PRIMARY CLINICAL RECORDS. [facility]. provides no warranty or guarantee of the accuracy or completeness of information in this document.
--- NOTE | 2023-08-09 14:29 | CT_ITS ---
The [address] [address] Patient Name: LUIS PEREZ MRN: [id number] date: 1970 Sex: F Assigned Patient Location: ER Current Patient Location: Accession/Order Number: [id number] Exam Date: 08/09/2023 15:20 Report Date: 08/09/2023 15:40 At the request of: MERI IVERSON Procedure: CT soft tissue neck w con EXAM: CT scan of the neck using 98 mL of IV iodinated contrast. Dose reduction technique used: Automated exposure control and/or adjustment of the mA and/or kV according to patient size and/or use of iterative reconstruction technique. REASON FOR EXAM: left mandibular/neck swelling COMPARISON: None FINDINGS: Enlargement of the left parotid gland relative to the right. Fat stranding surrounding the left parotid gland. No sialolith cholelithiasis evident. No abscess, fluid collection or soft tissue emphysema in the neck. No other inflammatory changes in the neck. No cervical lymphadenopathy. No abnormal soft tissue masses. Patent vascular structures in the neck. Remainder unremarkable. CT/CT soft tissue neck w con IMPRESSION: Findings compatible with sialadenitis of the left parotid gland. Electronically authenticated by: CHETAN ZENDEJAS Date: 08/09/2023 15:40
[2023-08-09 15:02] LABS: Basophils Percent Auto 0.3 % (0.2-2.0); Eosinophils Absolute Auto 0.2 10^3/uL (0.0-0.7); Eosinophils Percent Auto 1.4 % (0.9-7.0); Hematocrit 43.2 % (36.0-48.0); Hemoglobin 14.2 g/dL (12.0-16.0); Immature Granulocytes Abs Auto 0.02 10^3/uL (0.00-0.03); Immature Granulocytes Pct Auto 0.2 % (0.0-0.5); Lymphocytes Absolute Auto 2.6 10^3/uL (1.2-3.8); Mean Corpuscular HGB Conc 32.9 g/dL (29.9-35.2); Mean Corpuscular Volume 88.3 fL (81.0-99.0); Mean Platelet Volume 9.1 fL (9.5-13.5); Monocytes Absolute Auto 0.6 10^3/uL (0.3-0.8); Monocytes Percent Auto 5.8 % (1.7-12.0); Neutrophils Absolute Auto 7.3 10^3/uL (1.4-6.5); Neutrophils Percent Auto 68.3 % (43.0-75.0); Platelet Count 308 10^3/uL (150-450); Red Blood Count 4.89 10^6/uL (4.20-5.40); Red Cell Distribution Width 13.2 % (11.0-15.0); White Blood Count 10.7 10^3/uL (4.0-11.0)
[2023-08-09] MEDS: DEXAMETHASONE SOD PHOS 10 MG/ML VIAL IV (15:03)
[2023-08-09 15:11] LABS: Internal Control Within Normal Limits; Strep A Antigen Screen Negative
[2023-08-09 15:15] LABS: BUN Creatinine Ratio 21.4; Calcium 8.5 mg/dL (8.5-10.1); Carbon Dioxide 29.8 mmol/L (21.0-32.0); Chloride 106 mmol/L (98-107); Estimated GFR (African America >60 (>=60); Estimated GFR (Non-African Ame >60 (>=60); Glucose 96 mg/dL (74-106); Potassium 3.8 mmol/L (3.5-5.1); Sodium 143 mmol/L (136-145)
--- NOTE | 2023-08-09 15:15 | ED.GENADUL1 ---
HPI - General Adult General Chief complaint: Allergic Reaction Stated complaint: FACIAL SWELLING/TENDERNESS Time Seen by Provider: 08/09/23 14:06 Source: patient Mode of arrival: walk-in Limitations: no limitations History of Present Illness HPI narrative: 53-year-old female presents to the emergency department with chief complaint of left-sided facial swelling. First noticed by a coworker this morning. States she would not have noticed that had the coworker not said something. States she has a little tightness to the area. However, denies any signs or symptoms. Denies any fever, chills, difficulty swallowing, difficulty breathing, tenderness. Quality:?as above Severity:?moderate Timing:?first noticed today, constant Context: Normal setting and activity? Modifying factors:?none Associated symptoms: as above Related Data Previous Rx's Medication Instructions Recorded amoxicillin 875 mg-potassium 1 tab PO BID 10 days #20 tabs 08/09/23 clavulanate 125 mg tablet ibuprofen 600 mg tablet 600 mg PO QID pain, swelling #20 08/09/23 tabs Allergies Allergy/AdvReac Type Severity Reaction Status Date / Time No Known Drug Allergies Allergy Verified 08/09/23 14:06 Review of Systems ROS Narrative Constitutional: Denies fever, chills, fatigue HENT: + facial/jaw swelling. Denies congestion, ear pain, rhinorrhea, sneezing, sore throat, diff swallowing, voice change Eyes: Denies discharge, eye redness Respiratory: Denies cough, shortness of breath Cardiovascular: Denies chest pain, palpitations PFSH PFSH Social History Smoking status: Current every day smoker Exam Narrative Exam Narrative: Vital signs noted Nurses notes reviewed CONST:? Nontoxic, well appearing, well nourished, in no distress.? HENT: normocephalic, atraumatic.? Normal hearing.? Normal appearing ext ears, canals, TM's.? No nasal discharge.? Moist mucous membranes, no increased oropharyngeal erythema, edema, exudate.? No trismus, maintaining own secretions. + STS with mild tenderness at the angle of the left mandible. No erythema, induration, fluctuence. EYES: No injection, discharge NECK: supple, no lymphadenopathy CV: normal rate, regular rhythm, no murmur RESP: normal effort, speaking in complete sentences. Lung sounds clear and equal bilat.? No wheezes, rales, rhonchi? NEURO: A&Ox3, steady gait, normal station SKIN: intact, warm, dry, no pallor PSYCHIATRIC: normal mood, affect Constitutional Vital Signs, click to edit/add: Last Vital Signs Temp 98.6 F 08/09/23 14:04 Pulse 76 08/09/23 14:04 Resp 18 08/09/23 14:04 BP 152/90 H 08/09/23 14:04 Pulse Ox 99 08/09/23 14:04 O2 Del Method Room Air 08/09/23 14:04 Course Reevaluation(s) Reevaluation #1: Patient reports overall improvement of her symptoms after treatment. Discussed with patient results, plan, and disposition. She is agreeable with plan Time: 16:18 Vital Signs Vital signs: Vital Signs Temperature 98.6 F 08/09/23 14:04 Pulse Rate 76 08/09/23 14:04 Respiratory Rate 18 08/09/23 14:04 Blood Pressure 152/90 H 08/09/23 14:04 Pulse Oximetry 99 08/09/23 14:04 Oxygen Delivery Method Room Air 08/09/23 14:04 Temperature 98.6 F 08/09/23 14:04 Pulse Rate 76 08/09/23 14:04 Respiratory Rate 18 08/09/23 14:04 Blood Pressure 152/90 H 08/09/23 14:04 Pulse Oximetry 99 08/09/23 14:04 Oxygen Delivery Method Room Air 08/09/23 14:04 Medical Decision Making [facility] Narrative Medical decision making narrative: This is a pleasant 53-year-old female who presented to the emergency department with complaint of left-sided facial swelling. First noticed by a coworker today. States she has some mild tenderness to the area, tightness. Denies any fever, difficulty swallowing, shortness of breath. On arrival, afebrile, vital signs are stable. On exam, nontoxic, well-appearing patient in no apparent distress. She has mild to moderate amount of swelling at the angle of the left jaw. The tissue is soft. There is no induration, erythema, fluctuance. There is mild amount of tenderness. She is maintaining own secretions. No other remarkable findings in HEENT exam. Labs reveal no leukocytosis, anemia, electrolyte imbalance, renal impairment. CT Neck/Soft tissue with IV contrast imaging, per radiologist reveals sialadenitis. Sialadenitis favored due to H&P, imaging [place] less likely based on negative testing Abscess less likely based on imaging Patient made stable during ED course. She was treated with Decadron, given oral dose of Augmentin and will be discharged with the same. Disposition ? The patient was discharged. Plan: Patient will be discharged to home. Condition at time of disposition: stable Prescription for Augmentin and Motrin sent to her pharmacy. Patient advised to massage the area.? Advised to follow up with her provider. Advised to return for any worsening and/or development of new, concerning signs or symptoms Medical Records Medical records reviewed: Yes I reviewed the patient's medical records Lab Data Lab results reviewed: Yes I reviewed the patient's lab results Labs: Lab Results 08/09/23 08/09/23 Range/Units 14:26 14:54 WBC 10.7 (4.0-11.0) 10^3/uL RBC 4.89 (4.20-5.40) 10^6/uL Hgb 14.2 (12.0-16.0) g/dL Hct 43.2 (36.0-48.0) % MCV 88.3 (81.0-99.0) fL MCH 29.0 (26.7-34.0) pg MCHC 32.9 (29.9-35.2) g/dL RDW 13.2 (11.0-15.0) % Plt Count 308 (150-450) 10^3/uL MPV 9.1 L (9.5-13.5) fL Neut % (Auto) 68.3 (43.0-75.0) % Lymph % (Auto) 24.0 (20.5-60.0) % [place] % (Auto) 5.8 (1.7-12.0) % Eos % (Auto) 1.4 (0.9-7.0) % Baso % (Auto) 0.3 (0.2-2.0) % Neut # (Auto) 7.3 H (1.4-6.5) 10^3/uL Lymph # (Auto) 2.6 (1.2-3.8) 10^3/uL [place] # (Auto) 0.6 (0.3-0.8) 10^3/uL Eos # (Auto) 0.2 (0.0-0.7) 10^3/uL Baso # (Auto) 0.0 (0.0-0.1) 10^3/uL Abs Immat Gran (auto) 0.02 (0.00-0.03) 10^3/uL Imm/Tot Granulo (auto) 0.2 (0.0-0.5) % Sodium 143 (136-145) mmol/L Potassium 3.8 (3.5-5.1) mmol/L Chloride 106 (98-107) mmol/L Carbon Dioxide 29.8 (21.0-32.0) mmol/L Anion Gap 11.0 BUN 12.0 (7.0-18.0) mg/dL Creatinine 0.56 (0.55-1.02) mg/dL Est GFR ( Amer) >60 (>=60) Est GFR (Non-Af Amer) >60 (>=60) BUN/Creatinine Ratio 21.4 Glucose 96 (74-106) mg/dL Calcium 8.5 (8.5-10.1) mg/dL Monoscreen Negative (NEGATIVE) Streptococcus Screen Negative Imaging Data CT Soft Tissue Neck: Attestation: I have reviewed the pertinent imaging results. Radiologist's impression: ITS Impressions Soft Tissue Neck CT 08/09/23 14:29 IMPRESSION: Findings compatible with sialadenitis of the left parotid gland. Electronically authenticated by: CHETAN ZENDEJAS Date: 08/09/2023 15:40 Discharge Plan Discharge Chief Complaint: Allergic Reaction Clinical Impression: Acute parotitis, Sialadenitis Patient Disposition: Home, Self-Care Time of Disposition Decision: 15:55 Condition: Good Mode of Transportation: Private Vehicle Prescriptions / Home Meds: New ibuprofen 600 mg tablet 600 mg PO QID Qty: 20 0RF amoxicillin-pot clavulanate 875-125 mg tablet 1 tab PO BID 10 Days Qty: 20 0RF Instructions: Sialoadenitis (ED) Stand Alone Forms: Portal Instructions Referrals: LESLIE GRIGSBY APRN [Primary Care Provider] - 1 week Discharge Date/Time: 08/09/23 16:29
[2023-08-09 15:25] LABS: Mono Screen NEGATIVE (NEGATIVE)
[2023-08-09] MEDS: AMOXICILLIN/POTASSIUM CLAV 1 TAB TABLET PO (16:25)
== END 2023-08-09 16:29 | disposition home or self-care (01) ==
PROVIDERS: Physician Assistant; Emergency Provider Emergency Medicine; PCP Nurse Practitioner Primary Care
DX: K11.21 Acute sialoadenitis (principal); F17.200 Nicotine dependence, unspecified, uncomplicated
CPT/HCPCS: 36415; 70491; 80048; 85025; 86308; 87070; 87880; 96374; 99285; J1100; Q9967

== ENCOUNTER 2023-10-02 00:43 | Emergency (ER) | payer MEDICAID, SELFPAY ==
[2023-10-02 00:50] VITALS: BP 142/88; PULSE 73; TEMP 36.6; O2SAT 97; BMI 34.5
--- OUTSIDE RECORDS SUMMARY | 2023-10-02 00:50 | XMS_ITS | CCD ---
Author Organization [facility] Care Team Providers Care Product Support Engineer Name Role Phone Zoraida Silveira Unavailable Astrid Hawkins Unavailable Kristin Fernández Unavailable [facility] Primary Care Unavailable CHRISTIE, DR RIVERA Consulting Unavailable CHRISTIE, DR RIVERA Admitting Unavailable CHRISTIE, DR RIVERA Attending Unavailable [employer] Unavailable MELISSA, GERA Admitting Unavailable GERA TORRES Attending Unavailable [facility] Primary Care Unavailable SOLOMON, DR KETURAH Leach Consulting Unavailable GERA TORRES Consulting Unavailable [facility] Primary Care Unavailable CHRISTIE, DR RIVERA Admitting [...] extended release oral tablet (1 source) Uncompetitive U-bfafow-U-asparta te Receptor Antagonist, Sigma-1 Agonist Start: 2 take 1 tablet by mouth every twelve hours Mucinex DM 30-600 MG 1 tablet as needed Orally every 12 hrs Aug, Active dextromethorphan hydrobromide 1.5 mg/ml / pyrilamine maleate 1.5 mg/ml oral solution (1 source) Uncompetitive M-pcugzr-Q-asparta te Receptor Antagonist, Sigma-1 Agonist Start: 3 take 10 mL by mouth every eight hours [place] DM 7.5-7.5 MG/5ML 10 mL Orally every [...] knee] Chronic Other aftercare (1 source) Other mcfp (current) drug therapy; Translations: [OTH UI SOFTWARE DEVELOPER CURRENT DRUG THERAPY] Onset: 3 Episodic Other [...] Cx Nom (U) ORGANISM: Escherichia coli (O:ESCCOL) Amigo Count >100,000 Aerobic LAZ Charge (NMIC56) ----- [...] RESISTANT TO ALL B-LACTAM DRUGS. PERFORMED BY: [place] [address] PATHOLOGIST ONLINE SERVICES MANAGER TUTU CAPONE M.D. Normal [facility] Comment on above: Performed By: #### C UU #### [address] XR RIBS LT PA Teodora 3 [...] KETURAH CARBAJAL Date: 2022-07-07 11:31 Normal [facility] CBC AUTO DIFFon 07-02-2022 BASO # 0.0 103/ul Normal 0.0-0.1 [facility] Comment on above: Performed By: #### C BC ####[facility] [address] [place] [address]Dr. Helen Luis Basophils/100 WBC (Bld) 0.2 % Normal 0.2-2.0 [facility] Comment on above: Performed By: #### C BC ####[facility] [address] [place] [id number]. Helen Luis EO # 0.1 103/ul Normal 0.0-0.7 [facility] Comment on above: Performed By: #### C BC ####[facility] [address] [place] [id number]. Helen Luis Eosinophils/100 WBC (Bld) 0.8 % Critically low 0.9-7.0 [facility] Comment on above: Performed By: #### C BC ####[facility] [address] [place] [address]Dr. Helen Luis Erythrocyte distribution width (RBC) [Ratio] 14.3 % Normal 11.0-15.0 [facility] Comment on above: Performed By: #### C BC ####[facility] [address] [place], [place] [address]Dr. Helen Luis Hematocrit (Bld) [Volume fraction] 48.0 % Normal 36.0-48.0 [facility] Comment on above: Performed By: #### C BC ####[facility] [address] [place], [place] [address]Dr. Helen Luis Hemoglobin (Bld) [Mass/Vol] 15.5 g/dL Normal 12.0-16.0 [facility] Comment on above: Performed By: #### C BC ####[facility] [address] [place], [place] [address]Dr. Helen Luis IG # 0.03 10e3/ul Normal 0.00-0.03 [facility] Comment on above: Performed By: #### C BC ####[facility] [address] [place], [place] [address]Dr. Helen Luis IG % 0.3 % Normal 0.0-0.5 [facility] Comment on above: Performed By: #### C BC ####[facility] [address] [place], [place] [address]Dr. Helen Luis LYMPH # 2.6 103/ul Normal 1.2-3.8 [facility] Comment on above: Performed By: #### C BC ####[facility] [address] [place], [place] [address]Dr. Helen Luis Lymphocytes/100 WBC (Bld) 26.7 % Normal 20.5-60.0 [facility] Comment on above: Performed By: #### C BC ####[facility] L[address] [place], [place] [address]Dr. Helen Luis MANUAL DIFF REQ NO Normal [facility] Comment on above: Performed By: #### C BC ####[facility] [address] [place] [id number]. Helen Luis MCH (RBC) [Entitic mass] 29.3 pg Normal 26.7-34.0 [facility] Comment on above: Performed By: #### C BC ####[facility] [address]sox[address] [place] [address]Dr. Helen Toby MCHC (RBC) [Mass/Vol] 32.3 g/dL Normal 29.9-35.2 [facility] Comment on above: Performed By: #### C BC ####[facility] [address] [place] [address]Dr. Shaniapriscila Luis MCV (RBC) [Entitic vol] 90.7 fL Normal 81.0-99.0 [facility] Comment on above: Performed By: #### C BC ####[facility] [address] [place], [place] [address]Dr. Helen Luis MONO # 0.7 103/ul Normal 0.3-0.8 [facility] Comment on above: Performed By: #### C BC ####[facility] [address] [place], [place] [address]Dr. Shaniapriscila Luis Monocytes/100 WBC (Bld) 7.2 % Normal 1.7-12.0 [facility] Comment on above: Performed By: #### C BC ####[facility] [address] [place], [place] [address]Dr. Helen Luis NEUT # 6.2 103/ul Normal 1.4-6.5 [facility] Comment on above: Performed By: #### C BC ####[facility] [address] [place], [place] [address]Dr. Helen Luis Neutrophils/100 WBC (Bld) 64.8 % Normal 43.0-75.0 [facility] Comment on above: Performed By: #### C BC ####[facility] [address] [place], [place] [address]Dr. Helen Luis Platelet mean volume (Bld) [Entitic vol] 8.9 fL Critically low 9.5-13.5 [facility] Comment on above: Performed By: #### C BC ####[facility] [address] [place], [place] [address]Mf. Helen Luis PLT 413 103/ul Normal 150-450 [facility] Comment on above: Performed By: #### C BC ####[facility] [address] [place], [place] [address]Cv. Helen Luis RBC 5.29 106/ul Normal 4.20-5.40 [facility] Comment on above: Performed By: #### C BC ####[facility] [address] [place], [place] [address]Oq. Helen Luis WBC 9.6 103/ul Normal 4.0-11.0 [facility] Comment on above: Performed By: #### C BC ####[facility] [address] [place] [id number] Luis PROF CHEM 8 (BAS METB)on Anion gap [Moles/Vol] 9.3 mmol/L Normal [facility] Comment on above: Performed By: #### B MP #### [facility] [address] [place] [address] [address] Helen Luis Calcium [Mass/Vol] 8.9 mg/dL Normal 8.5-10.1 [facility] Comment on above: Performed By: #### B MP #### [facility] [address] [place] [address] [address] Helen Luis Chloride [Moles/Vol] 104 mmol/L Normal 98-107 [facility] Comment on above: Performed By: #### B MP #### [facility] [address] [place] [address] [address] Helen Luis CO2 [Moles/Vol] 33.2 mmol/L Critically high 21.0-32.0 [facility] Comment on above: Performed By: #### B MP #### [facility] [address] [address] [address] Helen Luis Creatinine [Mass/Vol] 0.58 mg/dL Normal 0.55-1.02 [facility] Comment on above: Performed By: #### B MP #### [facility] [address] [address] [address] Helen Luis EGFR-AF GAMBIAN >60 Normal >=60 [facility] Comment on above: Performed By: #### B MP #### [facility] [address] [address] [address] Helen Luis EGFR-NON AF GAMBIAN >60 Normal >=60 [facility] Comment on above: Performed By: #### B MP #### [facility] [address] [address] [address] Helen Luis Glucose [Mass/Vol] 96 mg/dL Normal 74-106 [facility] Comment on above: Performed By: #### B MP #### [facility] [address] [address] [address] Helen Luis Potassium [Moles/Vol] 3.5 mmol/L Normal 3.5-5.1 [facility] Comment on above: Performed By: #### B MP #### [facility] [address] [address] [address] Helen Luis Sodium [Moles/Vol] 143 mmol/L Normal 136-145 [facility] Comment on above: Performed By: #### B MP #### [facility] [address] [address] [address] Helen Luis Urea nitrogen [Mass/Vol] 11.0 mg/dL Normal 7.0-18.0 [facility] Comment on above: Performed By: #### B MP #### [facility] [address] [address] [address] Helen Luis Urea nitrogen/Creatinine [Mass ratio] 19.0 mg/mg Normal [facility] Comment on above: Performed By: #### B MP #### [facility] [address] [address] [address] Helen Luis XR HAND RT MIN [...] SANFORD HAQ Date: 2022-07-02 17:24 Normal [facility] BNPon 09-13-2021 Natriuretic peptide B (Bld) [Mass/Vol] 30.0 pg/mL Normal <=900.0 [facility] Comment on above: Performed By: #### B BUILDING STONECUTTER, HSTROPN, CMP #### [facility] [address] [address] [address] Helen Luis CBC AUTO DIFFon 09-13-2021 BASO # 0.0 103/ul Normal 0.0-0.1 [facility] Comment on above: Performed By: #### C BC ####[facility] [address] [place] [id number]. Helen Luis Basophils/100 WBC (Bld) 0.3 % Normal 0.2-2.0 [facility] Comment on above: Performed By: #### C BC ####[facility] [address] [place] [address]Dr. Helen Luis EO # 0.1 103/ul Normal 0.0-0.7 [facility] Comment on above: Performed By: #### C BC ####[facility] [address] [place] [address]Dr. Helen Luis Eosinophils/100 WBC (Bld) 1.2 % Normal 0.9-7.0 [facility] Comment on above: Performed By: #### C BC ####[facility] [address] [place] [address]Dr. Helen Luis Erythrocyte distribution width (RBC) [Ratio] 15.8 % Critically high 11.0-15.0 [facility] Comment on above: Performed By: #### C BC ####[facility] [address] [place] [address]Dr. Shaniapriscila Luis Hematocrit (Bld) [Volume fraction] 45.9 % Normal 36.0-48.0 [facility] Comment on above: Performed By: #### C BC ####[facility] [address] [place], [place] [address]Dr. Helen Luis Hemoglobin (Bld) [Mass/Vol] 14.2 g/dL Normal 12.0-16.0 [facility] Comment on above: Performed By: #### C BC ####[facility] [address] [place], [place] [address]Dr. Helen Luis IG # 0.02 10e3/ul Normal 0.00-0.03 [facility] Comment on above: Performed By: #### C BC ####[facility] [address] [place], [place] [address]Dr. Helen Luis IG % 0.3 % Normal 0.0-0.5 [facility] Comment on above: Performed By: #### C BC ####[facility] [address] [place], [place] [address]Dr. Helen Luis LYMPH # 1.0 103/ul Critically low 1.2-3.8 [facility] Comment on above: Performed By: #### C BC ####[facility] [address] [place], [place] [address]Dr. Helen Luis Lymphocytes/100 WBC (Bld) 13.7 % Critically low 20.5-60.0 [facility] Comment on above: Performed By: #### C BC ####[facility] [address] [place], [place] [address]Dr. Helen Luis MANUAL DIFF REQ NO Normal [facility] Comment on above: Performed By: #### C BC ####[facility] [address] [place], [place] [address]Dr. Helen Luis MCH (RBC) [Entitic mass] 28.9 pg Normal 26.7-34.0 [facility] Comment on above: Performed By: #### C BC ####[facility] [address] [place] [address]Dr. Helen Toby MCHC (RBC) [Mass/Vol] 30.9 g/dL Normal 29.9-35.2 [facility] Comment on above: Performed By: #### C BC ####[facility] [address] [place] [address]Dr. Hleen Luis MCV (RBC) [Entitic vol] 93.3 fL Normal 81.0-99.0 [facility] Comment on above: Performed By: #### C BC ####[facility] [address] [place], [place] [address]Dr. Helen Luis MONO # 0.7 103/ul Normal 0.3-0.8 [facility] Comment on above: Performed By: #### C BC ####[facility] [address] [place], [place] [address]Dr. Helen Luis Monocytes/100 WBC (Bld) 8.8 % Normal 1.7-12.0 [facility] Comment on above: Performed By: #### C BC ####[facility] [address] [place], [place] [address]Dr. Helen Luis NEUT # 5.6 103/ul Normal 1.4-6.5 [facility] Comment on above: Performed By: #### C BC ####[facility] [address] [place], [place] [address]Dr. Helen Luis Neutrophils/100 WBC (Bld) 75.7 % Critically high 43.0-75.0 [facility] Comment on above: Performed By: #### C BC ####[facility] [address] [place], [place] [address]Dr. Helen Luis Platelet mean volume (Bld) [Entitic vol] 8.4 fL Critically low 9.5-13.5 [facility] Comment on above: Performed By: #### C BC ####[facility] [address] [place], [place] [address]Dr. Helen Luis PLT 292 103/ul Normal 150-450 [facility] Comment on above: Performed By: #### C BC ####[facility] [address] [place], [place] [address]Be. Helen Luis RBC 4.92 106/ul Normal 4.20-5.40 [facility] Comment on above: Performed By: #### C BC ####[facility] [address] [place], [place] [address]Wd. Helen Luis WBC 7.4 103/ul Normal 4.0-11.0 [facility] Comment on above: Performed By: #### C BC ####[facility] [address] [place], [place] [address]Ng. Helen Luis Covid-19 PCR (CVDTBH)on 08-31 SARS-CoV-2 (COVID-19) RNA NIKKI+probe Ql (Unsp spec) Not detected Normal NOT DETECTED [facility] Comment on above: Result Comment: When diagnostic [...] for this test is supported by the [place] of Health and Human Service's declaration that [...] used). Performed By: #### C VDTBH #### [facility] [address] [place], [place] [address] Dr. Helen Luis LACTATE/LACTIC ACIDon 2021 Lactate [Moles/Vol] 1.3 mmol/L Normal 0.7-2.[address] [facility] Comment on above: Performed By: #### L ACT #### [facility] [address] [place] [id number] [address] Helen Luis PROF 14(COMP METB)on 022 Albumin [Mass/Vol] 2.9 g/dL Critically low 3.5-5.0 [facility] Comment on above: Performed By: #### B BUILDING STONECUTTER, HSTROPN, CMP #### [facility] [address] [place] [address] Dr. Helen Luis Albumin/Globulin [Mass ratio] 0.7 {ratio} Normal [facility] Comment on above: Performed By: #### B BUILDING STONECUTTER, HSTROPN, CMP #### [facility] [address] [place] [address] Dr. Helen Luis ALP [Catalytic activity/Vol] 121 U/L Normal 38-126 [facility] Comment on above: Performed By: #### B BUILDING STONECUTTER, HSTROPN, CMP #### [facility] [address] [place] [address] Dr. Helen Luis ALT [Catalytic activity/Vol] 23 U/L Normal 9-52 [facility] Comment on above: Performed By: #### B BUILDING STONECUTTER, HSTROPN, CMP #### [facility] [address] [place] [address] Dr. Helen Luis Anion gap [Moles/Vol] 7.9 mmol/L Normal [facility] Comment on above: Performed By: #### B BUILDING STONECUTTER, HSTROPN, CMP #### [facility] [address] [place] [address] Dr. Helen Luis AST [Catalytic activity/Vol] 14 U/L Normal 14-36 [facility] Comment on above: Performed By: #### B BUILDING STONECUTTER, HSTROPN, CMP #### [facility] [address] [place] [address] Dr. Helen Luis Bilirubin [Mass/Vol] 0.4 mg/dL Normal 0.2-1.3 [facility] Comment on above: Performed By: #### B BUILDING STONECUTTER, HSTROPN, CMP #### [facility] [address] [place] [address] Dr. Helen Luis Calcium [Mass/Vol] 8.4 mg/dL Normal 8.4-10.2 [facility] Comment on above: Performed By: #### B BUILDING STONECUTTER, HSTROPN, CMP #### [facility] [address] [place] [address] Dr. Helen Luis Chloride [Moles/Vol] 102 mmol/L Normal 98-107 [facility] Comment on above: Performed By: #### B BUILDING STONECUTTER, HSTROPN, CMP #### [facility] [address] [place] [address] Dr. Helen Luis CO2 [Moles/Vol] 34.3 mmol/L Critically high 22.0-30.0 [facility] Comment on above: Performed By: #### B BUILDING STONECUTTER, HSTROPN, CMP #### [facility] [address] [place] [address] Dr. Helen Luis Creatinine [Mass/Vol] 1.19 mg/dL Critically high 0.52-1.04 [facility] Comment on above: Performed By: #### B BUILDING STONECUTTER, HSTROPN, CMP #### [facility] [address] [place] [address] Dr. Helen Luis EGFR-AF GAMBIAN 58 mL/min/1.73m2 Critically low >=60 [facility] Comment on above: Performed By: #### B BUILDING STONECUTTER, HSTROPN, CMP #### [facility] [address] [place] [address] Dr. Helen Luis EGFR-NON AF GAMBIAN 48 mL/min/1.73m2 Critically low >=60 [facility] Comment on above: Performed By: #### B BUILDING STONECUTTER, HSTROPN, CMP #### [facility] [address] [place] [address] Dr. Helen Luis Globulin (S) [Mass/Vol] 3.9 g/dL Normal [facility] Comment on above: Performed By: #### B BUILDING STONECUTTER, HSTROPN, CMP #### [facility] [address] [place] [address] Dr. Helen Luis Glucose [Mass/Vol] 145 mg/dL Critically high 74-106 [facility] Comment on above: Performed By: #### B BUILDING STONECUTTER, HSTROPN, CMP #### [facility] [address] [address] [address] Helen Luis Potassium [Moles/Vol] 4.2 mmol/L Normal 3.4-5.0 [facility] Comment on above: Performed By: #### B BUILDING STONECUTTER, HSTROPN, CMP #### [facility] [address] [address] [address] Helen Luis Protein [Mass/Vol] 6.8 g/dL Normal 6.1-8.2 [facility] Comment on above: Performed By: #### B BUILDING STONECUTTER, HSTROPN, CMP #### [facility] [address] [address] [address] Helen Luis Sodium [Moles/Vol] 140 mmol/L Normal 137-145 [facility] Comment on above: Performed By: #### B BUILDING STONECUTTER, HSTROPN, CMP #### [facility] [address] [place] [address] Dr. Helen Luis Urea nitrogen [Mass/Vol] 18.0 mg/dL Critically high 7.0-17.0 [facility] Comment on above: Performed By: #### B BUILDING STONECUTTER, HSTRSHARA, CMP #### [facility] [address] [place] [address] Dr. Helen Luis Urea nitrogen/Creatinine [Mass ratio] 15.1 mg/mg Normal [facility] Comment on above: Performed By: #### B BUILDING STONECUTTER, HSTROPN, CMP #### [facility] [address] [place] [address] Dr. Helen Luis PROTIMEon 09-13-2021 INR Coag (PPP) [Relative time] 1.04 {INR} Normal [facility] Comment on above: Performed By: #### P TT, PT ####[facility] [address] [place] [address]Dr. Helen Luis INR GUIDELINES SEE BELOW Normal [facility] Comment on above: Result Comment: YOHAN RED INR: 2.0 - 3.0 CONDITIONS NOT LISTED BELOW 2.5 - 3.5 FOR PROSTHETIC HEART VALVE REPLACEMENT 2.5 - 3.5 RECURRENT THROMBOSIS Performed By: #### P TT, PT ####[facility] [address] [place] [id number] Luis PT Coag (PPP) [Time] 11.2 s Normal 9.0-11.6 [facility] Comment on above: Performed By: #### P TT, PT ####[facility] [address] [place], [place] [address]FzDr. Helen Luis PTTon 09-13-2021 aPTT Coag (Bld) [Time] 27.3 s Normal 22.3-36.2 [facility] Comment on above: Performed By: #### P TT, PT ####[facility] [address] [place] [address]Dr. Helen Luis TROPONIN, HIGH SENSITIVITYon 09-13-2021 HSTROP 7.5 pg/mL Normal 4.0-35.5 [facility] Comment on above: Result Comment: CUT- OFF POINTS HAVE BEEN ESTABLISHED BASED ON THE FOURTH UNIVERSAL DEFINITIONS OF MYOCARDIAL INFARCTION. THE UPPER REFERENCE LIMIT (URL) OF TROPONIN, DEFINED THE 99TH PERCENTILE OF cTnI DISTRIBUTION IN A REFERENCE POPULATION, HAS BEEN CONFIRMED THE DECISION THRESHOLD FOR MS DIAGNOSIS. Performed By: #### B BUILDING STONECUTTER, HSTROPN, CMP #### [facility] [address] [address] [address] Helen Luis XR CHEST 1 Von [...] GAMALIEL CHOI Date: 2021-09-13 14:10 Normal [facility] HOSPon 01-04-2017 [facility] Get Medical Advice (LOORRM) --------LUIS PEREZ ([id number]) 1970 FDate Time Provider Department01/04/17 KIAN MENDOZA During your visit today, we recorded the following information about you:Allergies As of Date: 01/04/2017(No Known Allergies)Date Reviewed: 11/11/2016Reviewed by: Erika Fong Ma - Fully AssessedPrimary Visit Diagnosis:Plantar fasciitis [M72.2]Order(s):CONS ULT TO PHYSICAL THERAPY [9032] Order #: [id number]: 1Prescriptions as of 01/04/2017 Sig: MOBIC ORAL [...] by KIAN MENDOZA DPM on 01/19/17 Normal [facility] Vital Signs Date Time Vital Sign Value Performing Clinician Facility 05-23-2023 13:15-0500 Body height 149.86 cm Kristin Fernández Other [facility] Other 05-23-2023 13:15-0500 Body mass index (BMI) [Ratio] 34.33 kg/m2 Kristin Fernández Other [facility] Other 05-23-2023 13:15-0500 Body temperature 97.8 [degF] Kristin Fernández Other [facility] Other 05-23-2023 13:15-0500 Body weight 77.11 kg Kristin Fernández Other [facility] Other 05-23-2023 13:15-0500 Respiratory rate 20 /min Kristin Fernández Other [facility] Other 05-23-2023 13:15-0500 SaO2% (BldA) [Mass fraction] 96 % Kristin Fernández Other [facility] Other 01-12-2023 09:00-0400 Body height 149.86 cm Imad Asaad Other [facility] Other 01-12-2023 09:00-0400 Body mass index (BMI) [Ratio] 37.64 kg/m2 Imad Asaad Other [facility] Other 01-12-2023 09:00-0400 Body weight 84.55 kg Imad Asaad Other [facility] Other 01-12-2023 09:00-0400 Diastolic blood pressure 72 mm[Hg] Imad Asaad Other [facility] Other 01-12-2023 09:00-0400 Systolic blood pressure 140 mm[Hg] Imad Asaad Other [facility] Other 03-31-2022 10:00-0400 Body height 149.86 cm Kristin Fernández Other [facility] Other 03-31-2022 10:00-0400 Body temperature 97.8 [degF] Kristin Fernández Other [facility] Other 03-31-2022 10:00-0400 Diastolic blood pressure 68 mm[Hg] Kristin Fernández Other [facility] Other 03-31-2022 10:00-0400 Respiratory rate 20 /min Kristin Fernández Other [facility] Other 03-31-2022 10:00-0400 SaO2% (BldA) [Mass fraction] 96 % Kristin Fernández Other [facility] Other 03-31-2022 10:00-0400 Systolic blood pressure 143 mm[Hg] Kristin Fernández Other [facility] Other 09-12-2021 15:45-0400 Body height 149.86 cm Astrid Hawkins Other [facility] Other 09-12-2021 15:45-0400 Body mass index (BMI) [Ratio] 53.52 kg/m2 Astrid Greenfieldault Other [facility] Other 09-12-2021 15:45-0400 Body temperature 96.8 [degF] Astrid Greenfieldault Other [facility] Other 09-12-2021 15:45-0400 Body weight 120.2 kg Astrid Shruthi Other [facility] Other 09-12-2021 15:45-0400 SaO2% (BldA) [Mass fraction] 94 % Astrid Shruthi Other [facility] Other 08-02-2021 14:45-0500 Body height 149.86 cm Zoraida Silveira Other [facility] Other 08-02-2021 14:45-0500 Body mass index (BMI) [Ratio] 53.52 kg/m2 Zoraida Silveira Other [facility] Other 08-02-2021 14:45-0500 Body temperature 97 [degF] Zoraida Silveira Other [facility] Other 08-02-2021 14:45-0500 Body weight 120.2 kg Zoraida Silveira Other [facility] Other 08-02-2021 14:45-0500 SaO2% (BldA) [Mass fraction] 97 % Zoraida Silveira Other [facility] Other Encounters Encounter Date Encounter Type Care Provider Facility Start: 05-23-2023 End: 05-23-2023 ambulatory Kristin Fernández Other [facility] Other Start: 05-23-2023 Office outpatient visit 25 minutes Kristin Fernández [facility] Start: 03-20-2023 End: 03-20-2023 ambulatory Kristin Fernández Other [facility] Other Start: 03-20-2023 Telephone encounter Kristin Fernández [facility] Start: 03-16-2023 End: 03-16-2023 ambulatory Kristin Fernández Facility:[facility] Start: 01-24-2023 End: 01-24-2023 ambulatory PHYSICIAN NO FAMILY Facility:[facility] Start: 01-12-2023 End: 01-12-2023 ambulatory Imad Asaad Other [facility] Other Start: 01-12-2023 Office outpatient ne w 45 minutes Imad Asaad [facility] Start: 07-07-2022 End: 07-08-2022 ambulatory GERA TORRES Facility:[facility] Start: 07-02-2022 End: 07-02-2022 ambulatory [facility] Facility:[facility] Start: 03-31-2022 End: 03-31-2022 ambulatory Kristin Fernández Other [facility] Other Start: 03-31-2022 Office outpatient visit 25 minutes Kristin Fernández [facility] Start: 09-13-2021 End: 09-13-2021 ambulatory [facility] Facility:[facility] Start: 09-12-2021 End: 09-12-2021 ambulatory Astrid Shruthi Other [facility] Other Start: 09-12-2021 Office outpatient visit 15 minutes Astridellen Hawkins [facility] Start: 08-02-2021 End: 08-02-2021 ambulatory Zoraida Silveira Other [facility] Other Start: 08-02-2021 Office outpatient visit 15 minutes Zoraida Silveira [facility] Payers Date Payer Category Payer Medicaid [id number] 2. [id number] 2023 Self-pay 1970 Unknown [id number] [id number] [id number] 1970 Unknown [id number] [id number] 1970 Unknown [id number] .16.84 [id number] 1960 Unknown [id number] 2.1 [id number] 1960 Unknown Unknown [id number] 2.1 [id number] Unknown [id number] 2.16.8 [id number] Unknown [id number] 2.16.8 [id number] Social History Date Type Detail Facility Unknown if ever smoked [facility] Other Sex Assigned At Sex Assigned At Bir th [facility] Other Evaluation note 05-23-2023 Note Date & [...] Tylenol as directed, packs of steroid and [place] as Directed, OTC Flonase, cool mist humidifier, [...] treatment plan. 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 Take the prednisone as prescribed until gone. Follow-up with your crm dynamics developer as soon as possible. Go to the ER for worsening symptoms or concerns. [facility] Other Evaluation note Note Date & Type Note Facility Evaluation note No Information [employer] Other History general Narrative - Reported Note Date & Type Note Facility History general Narrative - Reported Type Medical History Congestive Heart Failure Medical History hyperlipidemia Medical History Arthritis Medical History mood disorder Surgical History melanoma excision Surgical History tubal ligation Surgical History umbilical hernia repair Surgical History ankle surgery 2017 Hospitalization History depression 08/2013 Hospitalization History see above Hospitalization History upper resp 2017 [facility] Other History general Narrative - Reported Note Date & Type Note Facility History general Narrative - Reported Type Medical History Congestive Heart Failure Medical History hyperlipidemia Medical History Arthritis Medical History mood disorder Surgical History melanoma excision Surgical History tubal ligation Surgical History umbilical hernia repair Surgical History ankle surgery 2017 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 Hospitalization History depression 08/2013 Hospitalization History see above Hospitalization History upper resp 2017 [facility] Other Summary Purpose Family History No Family History Records FoundNo Family History Records FoundNo Family History Records Found Advance Directives No Advanced Directives Records FoundNo Advanced Directives Records FoundNo Advanced Directives Records Found Additional Source Comments INFORMATION SOURCE (unrecogn ized section and content) DATE CREATED AUTHOR 12/27/2017 [facility] DATE CREATED AUTHOR AUTHOR'S ORGANIZ ATION 07/14/2022 [facility] DATE CREATED AUTHOR AUTHOR'S ORGANIZ ATION 03/24/2023 [facility] REASON FOR VISIT (unrecogniz ed section [...] BE BASED ON THE PRIMARY CLINICAL RECORDS. [employer] provides no warranty or guarantee of the accuracy or completeness of information in this document.
--- NOTE | 2023-10-02 00:56 | ED_ITS ---
HPI HPI - General Adult General Chief complaint: Upper Respiratory Infection Stated complaint: SORE THROAT Time Seen by Provider: 10/02/23 00:47 Source: patient Mode of arrival: walk-in Limitations: no limitations History of Present Illness HPI narrative: 53-year-old female presents to the emergency department for sore throat that she has had for few days. She feels like she has some sinus drainage. She took a few leftover prednisone pills at home and it helped for a day or 2 but then it wore off. No fever or productive cough. She does not complain of shortness of breath. She was worried about having strep throat. Related Data Previous Rx's ?Medication ?Instructions ?Recorded amoxicillin 875 mg-potassium 1 tab PO BID 10 days #20 tabs 08/09/23 clavulanate 125 mg tablet ibuprofen 600 mg tablet 600 mg PO QID pain, swelling #20 08/09/23 tabs amoxicillin 500 mg capsule 500 mg PO TID 10 days #30 caps 10/02/23 Allergies Allergy/AdvReac Type Severity Reaction Status Date / Time No Known Drug Allergies Allergy Verified 10/02/23 00:50 Opioid HPI Opioid Management Most Recent Opioid Data: No Data to Display Review of Systems ROS Narrative A ten point review of systems is negative except as noted above. PFSH PFSH Social History Smoking status: Current every day smoker Exam Narrative Exam Narrative: Nurses note and vital signs reviewed and patient is not hypoxic. General: The patient appears well and in no apparent distress. Patient is resting comfortably on cart. Skin: Warm, dry, no pallor noted. There is no rash noted. Head: Normocephalic, atraumatic Eye: Normal conjunctiva, no drainage Ears, Nose, Mouth, and Throat: oral mucosa is moist. Nares patent. Pharyngeal erythema present. Uvula midline. She is handling her oral secretions well. Cardiovascular: Regular Rate and Rhythm Respiratory: Patient is in no distress, no accessory muscle use, lungs are clear to auscultation, no wheezing, rales or rhonchi Back: non-tender GI: Soft and nontender Musculoskeletal: No joint swelling Neurological: A&O, normal speech Psychiatric: Cooperative Constitutional Vital Signs, click to edit/add: Last Vital Signs Temp 97.8 F 10/02/23 00:50 Pulse 73 10/02/23 00:50 Resp 16 10/02/23 00:50 BP 142/88 H 10/02/23 00:50 Pulse Ox 97 10/02/23 00:50 O2 Del Method Room Air 10/02/23 01:03 Course Vital Signs Vital signs: Vital Signs Temperature 97.8 F 10/02/23 00:50 Pulse Rate 73 10/02/23 00:50 Respiratory Rate 16 10/02/23 00:50 Blood Pressure 142/88 H 10/02/23 00:50 Pulse Oximetry 97 10/02/23 00:50 Oxygen Delivery Method Room Air 10/02/23 00:50 Temperature 97.8 F 10/02/23 00:50 Pulse Rate 73 10/02/23 00:50 Respiratory Rate 16 10/02/23 00:50 Blood Pressure 142/88 H 10/02/23 00:50 Pulse Oximetry 97 10/02/23 00:50 Oxygen Delivery Method Room Air 10/02/23 01:03 Medical Decision Making MDM Narrative Medical decision making narrative: Strep test is positive. She was given her first dose of amoxicillin and prescribed amoxicillin. She was given IM Decadron. Treatment diagnosis and follow-up were discussed with the patient. Differential Diagnosis Differential Diagnosis: Strep throat, viral pharyngitis Lab Data Lab results reviewed: Yes I reviewed the patient's lab results Labs: Lab Results 10/02/23 Range/Units 00:55 Streptococcus Screen Positive A Discharge Plan Discharge Stand Alone Forms: Portal Instructions Chief Complaint: Upper Respiratory Infection Clinical Impression: Strep throat Patient Disposition: Home, Self-Care Time of Disposition Decision: 01:22 Condition: Good Mode of Transportation: Private Vehicle Prescriptions / Home Meds: New amoxicillin 500 mg capsule 500 mg PO TID 10 Days Qty: 30 0RF No Action ibuprofen 600 mg tablet 600 mg PO QID Qty: 20 0RF amoxicillin-pot clavulanate 875-125 mg tablet 1 tab PO BID 10 Days Qty: 20 0RF Print Language: [place] Islander Instructions: Strep Throat (ED) Referrals: LESLIE GRIGSBY APRN [Primary Care Provider] - 1 week
[2023-10-02 01:10] LABS: Internal Control Within Normal Limits; Strep A Antigen Screen Positive
[2023-10-02] MEDS: DEXAMETHASONE SOD PHOS 10 MG/ML VIAL IM (01:46)
[2023-10-02] MEDS: AMOXICILLIN 500 MG CAPSULE PO (01:46)
== END 2023-10-02 02:02 | disposition home or self-care (01) ==
PROVIDERS: Emergency Provider Emergency Medicine; PCP Nurse Practitioner Primary Care
DX: J02.0 Streptococcal pharyngitis (principal); F17.210 Nicotine dependence, cigarettes, uncomplicated
CPT/HCPCS: 87880; 99283; J1100

== ENCOUNTER 2024-02-12 16:03 | Emergency (ER) | payer OTHER, SELFPAY ==
[2024-02-12] VITALS (52 sets, daily range): BP systolic 108–205; BP diastolic 60–133; PULSE 63–117; TEMP 36.6; O2SAT 64–100; BMI 34.5
[2024-02-12 16:21] LABS: Glucometer 87 mg/dL (74-106)
--- NOTE | 2024-02-12 16:25 | ED.ABDPAIN1 ---
HPI - Abdominal Pain General Chief Complaint: Abdominal Pain Stated Complaint: Abdominal Pain Time Seen by Provider: 02/12/24 16:11 Source: patient Mode of arrival: Wheelchair History of Present Illness HPI narrative: 53-year-old female presents for abdominal pain. It is in her right upper quadrant and she has had it for months. She states she had a CAT scan a few months ago at another hospital. No fever or diarrhea. She thinks she might be constipated. There is been no trauma and she does not complain of chest pain or shortness of breath or back pain. No dysuria or hematuria or lower abdominal pain. She states the pain is severe. Related Data Home Medications ?Medication ?Instructions ?Recorded ?Confirmed bupropion HCl 300 mg 24 hr tablet, 300 mg PO DAILY 02/12/24 02/12/24 extended release hydroxyzine pamoate 25 mg capsule 25 mg PO Q8H PRN nausea and 02/12/24 02/12/24 vomiting Allergies Allergy/AdvReac Type Severity Reaction Status Date / Time No Known Drug Allergies Allergy Verified 02/12/24 16:15 Review of Systems ROS Narrative A ten point review of systems is negative except as noted above. PFSH [facility] Social History Smoking status: Current every day smoker Exam Narrative Exam Narrative: Nurses note and vital signs reviewed and patient is not hypoxic. General: The patient appears comfortable and is tearful Skin: Warm, dry, no pallor noted. There is no rash noted. Head: Normocephalic, atraumatic Eye: Normal conjunctiva, no drainage Ears, Nose, Mouth, and Throat: oral mucosa is moist. Nares patent. Cardiovascular: Regular Rate and Rhythm Respiratory: Patient is in no distress, no accessory muscle use, lungs are clear to auscultation, no wheezing, rales or rhonchi Back: non-tender GI: Soft and nondistended. Tenderness present in the right upper quadrant without mass Musculoskeletal: The patient has no evidence of calf tenderness, no pitting edema, symmetrical pulses noted bilaterally Neurological: A&O, normal speech Psychiatric: Cooperative, tearful Constitutional Vital Signs, click to edit/add: Last Vital Signs Temp 97.8 F 02/12/24 16:11 Pulse 96 H 02/12/24 18:20 Resp 20 02/12/24 18:20 BP 134/91 02/12/24 18:00 Pulse Ox 97 02/12/24 18:10 O2 Del Method Room Air 02/12/24 16:11 Course Vital Signs Vital signs: Vital Signs Temperature 97.8 F 02/12/24 16:11 Pulse Rate 72 02/12/24 16:11 Respiratory Rate 18 02/12/24 16:11 Blood Pressure 205/133 H 02/12/24 16:11 Pulse Oximetry 100 02/12/24 16:11 Oxygen Delivery Method Room Air 02/12/24 16:11 Temperature 97.8 F 02/12/24 16:11 Pulse Rate 96 H 02/12/24 18:20 Respiratory Rate 20 02/12/24 18:20 Blood Pressure 134/91 02/12/24 18:00 Pulse Oximetry 97 02/12/24 18:10 Oxygen Delivery Method Room Air 02/12/24 16:11 MDM - Abdominal Pain MDM Narrative Medical decision making narrative: Initial troponin is 75 and the repeat is 622. It is not entirely clear to me whether she has been having chest pain or not. Most of her pain over the last several months has been in the right upper quadrant of her abdomen and that was her presenting complaint. She has no personal history of heart disease. She had a stress test about 2-1/2 years ago for clearance for her bariatric surgery. She was given aspirin and started on IV heparin. Differential Diagnosis Differential diagnosis: Likely abdominal pain, constipation, gastroenteritis and pancreatitis Lab Data Attestation: I reviewed the patient's lab results. Labs: Lab Results 02/12/24 02/12/24 02/12/24 Range/Units 16:20 16:50 17:38 WBC 9.1 (4.0-11.0) 10^3/uL RBC 5.56 H (4.20-5.40) 10^6/uL Hgb 16.0 (12.0-16.0) g/dL Hct 49.3 H (36.0-48.0) % MCV 88.7 (81.0-99.0) fL MCH 28.8 (26.7-34.0) pg MCHC 32.5 (29.9-35.2) g/dL RDW 13.0 (11.0-15.0) % Plt Count 344 (150-450) 10^3/uL MPV 8.6 L (9.5-13.5) fL Neut % (Auto) 61.4 (43.0-75.0) % Lymph % (Auto) 30.7 (20.5-60.0) % [place] % (Auto) 6.5 (1.7-12.0) % Eos % (Auto) 1.0 (0.9-7.0) % Baso % (Auto) 0.2 (0.2-2.0) % Neut # (Auto) 5.6 (1.4-6.5) 10^3/uL Lymph # (Auto) 2.8 (1.2-3.8) 10^3/uL [place] # (Auto) 0.6 (0.3-0.8) 10^3/uL Eos # (Auto) 0.1 (0.0-0.7) 10^3/uL Baso # (Auto) 0.0 (0.0-0.1) 10^3/uL Abs Immat Gran (auto) 0.02 (0.00-0.03) 10^3/uL Imm/Tot Granulo (auto) 0.2 (0.0-0.5) % Sodium 143 (136-145) mmol/L Potassium 3.3 L (3.5-5.1) mmol/L Chloride 104 (98-107) mmol/L Carbon Dioxide 28.0 (21.0-32.0) mmol/L Anion Gap 14.3 BUN 16.0 (7.0-18.0) mg/dL Creatinine 0.67 (0.55-1.02) mg/dL Est GFR ( Amer) >60 (>=60) Est GFR (Non-Af Amer) >60 (>=60) BUN/Creatinine Ratio 23.9 Glucose 109 H (74-106) mg/dL Calcium 9.0 (8.5-10.1) mg/dL Total Bilirubin 0.7 (0.2-1.0) mg/dL Direct Bilirubin 0.3 H (0.0-0.2) mg/dL AST 94 H (15-37) U/L ALT 57 (14-59) U/L Alkaline Phosphatase 164 H (46-116) U/L Troponin I High Sens 75.3 H* 621.8 H* (4.0-51.3) pg/mL Total Protein 7.2 (6.4-8.2) g/dL Albumin 3.6 (3.4-5.0) g/dL Globulin 3.6 g/dL Albumin/Globulin Ratio 1.0 Amylase 63 (25-115) U/L Lipase 40.0 (16.0-77.0) U/L POC Glucose 87 (74-106) mg/dL ECG Data Attestation: I personally reviewed and interpreted this ECG as follows: (EKG on my interpretation shows normal sinus rhythm without acute change and rate of 68. The second EKG also on my interpretation shows normal sinus rhythm without acute change and a rate of 86.) Discharge Plan Discharge Chief Complaint: Abdominal Pain Clinical Impression: Non-ST elevation DE (NSTEMI) Patient Disposition: General Acute Hospital Time of Disposition Decision: 18:16 Discharge Location: [facility] Condition: Fair Mode of Transportation: Private Vehicle
--- NOTE | 2024-02-12 16:31 | ECG_ITS ---
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
[2024-02-12] MEDS: ONDANSETRON PF 4 MG/2 ML VIAL IV ×2 (16:43→18:25)
[2024-02-12] MEDS: LORAZEPAM 2 MG/ML VIAL 1 MG IV (16:50)
[2024-02-12 16:58] LABS: Basophils Percent Auto 0.2 % (0.2-2.0); Eosinophils Absolute Auto 0.1 10^3/uL (0.0-0.7); Hematocrit 49.3 % (36.0-48.0); Immature Granulocytes Abs Auto 0.02 10^3/uL (0.00-0.03); Immature Granulocytes Pct Auto 0.2 % (0.0-0.5); Lymphocytes Absolute Auto 2.8 10^3/uL (1.2-3.8); Lymphocytes Percent Auto 30.7 % (20.5-60.0); Mean Corpuscular HGB Conc 32.5 g/dL (29.9-35.2); Mean Corpuscular Hemoglobin 28.8 pg (26.7-34.0); Mean Corpuscular Volume 88.7 fL (81.0-99.0); Mean Platelet Volume 8.6 fL (9.5-13.5); Monocytes Absolute Auto 0.6 10^3/uL (0.3-0.8); Monocytes Percent Auto 6.5 % (1.7-12.0); Neutrophils Absolute Auto 5.6 10^3/uL (1.4-6.5); Neutrophils Percent Auto 61.4 % (43.0-75.0); Platelet Count 344 10^3/uL (150-450); Red Blood Count 5.56 10^6/uL (4.20-5.40); White Blood Count 9.1 10^3/uL (4.0-11.0)
--- NOTE | 2024-02-12 17:09 | XR_ITS ---
The [address] [address] Patient Name: LUIS PEREZ MRN: [id number] date: 1970 Sex: F Assigned Patient Location: ER Current Patient Location: ER Accession/Order Number: [id number] Exam Date: 02/12/2024 17:02 Report Date: 02/12/2024 19:25 At the request of: MELLISA FLORES Procedure: XR abdomen 1V EXAM: XR abdomen 1V HISTORY: Pain, possible constipation COMPARISON: None. TECHNIQUE: Supine AP view of abdomen and pelvis FINDINGS: Multiple surgical clips are seen in the epigastric region. No definite free intraperitoneal air, portal venous gas or pneumatosis intestinalis. Nondilated small and large bowel loops are seen within the [id number]-zo-arie. Moderate stool burden. No suspicious calcifications. The regional bones demonstrate degenerative changes. The soft tissues are grossly normal. XR/XR abdomen 1V IMPRESSION: Nondilated small bowel large bowel loops are seen within the [id number]. Moderate stool burden. Electronically authenticated by: VITALIY KENYON Date: 02/12/2024 19:25
[2024-02-12 17:13] LABS: Alanine Aminotransferase 57 U/L (14-59); Albumin Level 3.6 g/dL (3.4-5.0); Alkaline Phosphatase 164 U/L (46-116); Amylase 63 U/L (25-115); Anion Gap 14.3; Aspartate Amino Transferase 94 U/L (15-37); BUN Creatinine Ratio 23.9; Bilirubin Direct 0.3 mg/dL (0.0-0.2); Bilirubin Total 0.7 mg/dL (0.2-1.0); Chloride 104 mmol/L (98-107); Estimated GFR (African America >60 (>=60); Estimated GFR (Non-African Ame >60 (>=60); Globulin 3.6 g/dL; Glucose 109 mg/dL (74-106); Potassium 3.3 mmol/L (3.5-5.1); Sodium 143 mmol/L (136-145); Total Protein 7.2 g/dL (6.4-8.2)
[2024-02-12 17:17] LABS: Troponin I High Sensitivity 75.3 pg/mL (4.0-51.3)
[2024-02-12 18:07] LABS: Troponin I High Sensitivity 621.8 pg/mL (4.0-51.3)
--- NOTE | 2024-02-12 18:19 | ECG_ITS ---
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
[2024-02-12 18:27] LABS: INR 1.13; Partial Thromboplastin Time 30.3 sec (22.3-36.2); Prothrombin Time 11.8 sec (9.0-11.6)
--- NOTE | 2024-02-12 18:30 | XR_ITS ---
[address] [address] Patient Name: LUIS PEREZ MRN: [id number] date: 1970 Sex: F Assigned Patient Location: ER Current Patient Location: ER Accession/Order Number: [id number] Exam Date: 02/12/2024 19:40 Report Date: 02/12/2024 20:56 At the request of: MELLISA FLORES Procedure: XR chest 1V EXAMINATION: XR chest 1V, , 02/12/2024 7:40 PM EDT INDICATION: NSTEMI HISTORY: Ordering Provider Reason for Exam: NSTEMI Technologist Note: Additional: COMPARISON: None. TECHNIQUE: Chest x-ray: One view. FINDINGS: No pneumothorax, pleural effusion or focal airspace consolidation. Heart is normal in size. Bony thorax is unremarkable. XR/XR chest 1V IMPRESSION: No acute cardiopulmonary process. Electronically authenticated by: UDAY WICK Date: 02/12/2024 20:56
--- NOTE | 2024-02-12 18:40 | CT_ITS ---
The [address] [address] Patient Name: LUIS PEREZ MRN: [id number] date: 1970 Sex: F Assigned Patient Location: ER Current Patient Location: ER Accession/Order Number: [id number] Exam Date: 02/12/2024 18:27 Report Date: 02/12/2024 20:08 At the request of: MELLISA FLORES Procedure: CT abdomen pelvis w con CT ABDOMEN AND PELVIS WITH CONTRAST: INDICATION: Right upper quadrant pain. COMPARISON: None. TECHNIQUE: Helical CT images of the abdomen and pelvis were obtained after the administration of intravenous contrast. Dose reduction techniques were achieved by using automated exposure control and/or adjustment of mA and/or kV according to patient size and/or use of iterative reconstruction technique. FINDINGS: LOWER CHEST: Normal. LIVER: Normal in size and attenuation. No focal lesions. GALLBLADDER AND BILIARY SYSTEM: The gallbladder is mildly distended measuring 4.3 cm in width and there is layering hyperdense material suggestive of sludge. There is mild intrahepatic biliary ductal dilatation. The common bile duct measures approximately 5 mm in diameter. There is a hyperdense filling defect in the distal CBD measuring 4 x 9 mm, image 34 series 5 which is suspicious for a stone. SPLEEN: Normal. PANCREAS: Normal. ADRENAL GLANDS: Normal. KIDNEYS AND URETERS: Normal left kidney. 2.3 cm right renal cyst. VASCULATURE: Normal. RETROPERITONEUM AND LYMPH NODES: Normal, with no lymphadenopathy. GASTROINTESTINAL TRACT/MESENTERY: Small hiatal hernia. Postsurgical changes consistent with gastric bypass. Bowel mesentery otherwise appear unremarkable. The appendix is not well visualized but appears likely normal. BLADDER: Normal. REPRODUCTIVE SYSTEM: Normal uterus and adnexa. BODY WALL: Normal. BONES: Mild to moderate multilevel degenerative changes of the lumbar spine and mild levoscoliosis. CT/CT abdomen pelvis w con IMPRESSION: 1. Mild intrahepatic biliary duct dilatation. The common bile duct appears normal in diameter, however there are findings consistent with a stone in the distal common bile duct measuring 9 x 4 mm. The gallbladder is also distended with sludge. Consider further evaluation with MRCP or ERCP. 2. Small hiatal hernia. 3. Right renal cyst. Electronically authenticated by: KETURAH JEWELL Date: 02/12/2024 20:08
[2024-02-12] MEDS: ASPIRIN 81 MG TAB.CHEW 324 MG PO (18:45)
[2024-02-12] MEDS: HEPARIN SODIUM (PORCINE) 5,000 UNIT/ML VIAL 3400 UNIT IV (18:45)
[2024-02-12] MEDS: HEPARIN SODIUM,PORCINE/D5W 25,000 UNIT/500 ML IV.SOLN 14 UNIT IV (18:46)
--- NOTE | 2024-02-12 20:15 | ED_ITS ---
HPI HPI - General Adult General Chief complaint: Abdominal Pain Stated complaint: Abdominal Pain Time Seen by Provider: 02/12/24 16:11 Source: patient Mode of arrival: Wheelchair History of Present Illness HPI narrative: This 53-year-old female was signed out to me at shift change pending transfer arrangements. The patient presented with abdominal pain and then complained of chest pain. She had 2 EKGs that were normal but had an elevated troponin at 75 initially and repeat troponin was 621. Dr. Flores had ordered a CT scan of the abdomen pelvis as the patient had presented with right upper quadrant abdominal pain initially. CT scan which is included in the body of this report shows a possible stone in the distal common bile duct and sludge in the gallbladder. Recommendation is for ERCP/MRCP. We were informed by [facility] that there is a wait for a bed. In addition to this and the fact that [facility] does not do ERCPs or MRCP's a change in the plan for transfer will be required. The patient is agreeable to transfer to [facility]. She is tearful after discussion about her CT scan and the troponins. She requested something for anxiety and was given 0.5 mg of oral Ativan. She is currently stable on a heparin drip and denies any chest pain at this time. Case was discussed with Dr. Devlin, [facility] cardiology who will see the patient in consult. Case was also discussed with JARED Hoff for the hospitalist service. Patient is excepted for admission to the stepdown unit. She requested addition of a lactic acid. Repeat troponin is pending at this time. The CT scan results were discussed with her and she stated that she would need to be cleared from a cardiac perspective before she would be evaluated from GI. Repeat Troponin is 6799.8 abd lactic acid is 2.3. I ordered her a 500cc NS bolus and 100cc/hr as well as 5mg IV Lopressor as she is persistantly tachycardic since hearing of her 2 diagnosis and is quite anxious. Related Data Home Medications ?Medication ?Instructions ?Recorded ?Confirmed bupropion HCl 300 mg 24 hr tablet, 300 mg PO DAILY 02/12/24 02/12/24 extended release hydroxyzine pamoate 25 mg capsule 25 mg PO Q8H PRN nausea and 02/12/24 02/12/24 vomiting Allergies Allergy/AdvReac Type Severity Reaction Status Date / Time No Known Drug Allergies Allergy Verified 02/12/24 16:15 Opioid HPI Opioid Management Most Recent Opioid Data: 2 Last Pain Scale 8 02/12/24 16:22 PFSH PFSH Social History Smoking status: Current every day smoker Exam Constitutional Vital Signs, click to edit/add: Last Vital Signs Temp 97.8 F 02/12/24 16:11 Pulse 113 H 02/12/24 23:50 Resp 21 H 02/12/24 23:50 BP 108/60 02/12/24 23:47 Pulse Ox 91 L 02/12/24 23:50 O2 Del Method Room Air 02/12/24 19:26 Course Vital Signs Vital signs: Vital Signs Temperature 97.8 F 02/12/24 16:11 Pulse Rate 72 02/12/24 16:11 Respiratory Rate 18 02/12/24 16:11 Blood Pressure 205/133 H 02/12/24 16:11 Pulse Oximetry 100 02/12/24 16:11 Oxygen Delivery Method Room Air 02/12/24 16:11 Temperature 97.8 F 02/12/24 16:11 Pulse Rate 113 H 02/12/24 23:50 Respiratory Rate 21 H 02/12/24 23:50 Blood Pressure 108/60 02/12/24 23:47 Pulse Oximetry 91 L 02/12/24 23:50 Oxygen Delivery Method Room Air 02/12/24 19:26 Medical Decision Making Medical Records Medical records narrative: [place] [address] CT Scan Report Signed Patient: LUIS PEREZ MR#: [id number] : 1970 Acct:[id number] Age/Sex: 53 / F ADM Date: 02/12/24 Loc: ER Attending Dr: Ordering Physician: Mellisa Flores M.D. Date of Service: 02/12/24 Procedure(s): CT abdomen pelvis w con Accession Number(s): [id number] cc: [facility] ~ [place] [id number] Patient Name: LUIS PEREZ MRN: [id number] date: 1970 Sex: F Assigned Patient Location: ER Current Patient Location: ER Accession/Order Number: [id number] Exam Date: 02/12/2024 18:27 Report Date: 02/12/2024 20:08 At the request of: MELLISA FLORES Procedure: CT abdomen pelvis w con CT ABDOMEN AND PELVIS WITH CONTRAST: INDICATION: Right upper quadrant pain. COMPARISON: None. TECHNIQUE: Helical CT images of the abdomen and pelvis were obtained after the administration of intravenous contrast. Dose reduction techniques were achieved by using automated exposure control and/or adjustment of mA and/or kV according to patient size and/or use of iterative reconstruction technique. FINDINGS: LOWER CHEST: Normal. LIVER: Normal in size and attenuation. No focal lesions. GALLBLADDER AND BILIARY SYSTEM: The gallbladder is mildly distended measuring 4.3 cm in width and there is layering hyperdense material suggestive of sludge. There is mild intrahepatic biliary ductal dilatation. The common bile duct measures approximately 5 mm in diameter. There is a hyperdense filling defect in the distal CBD measuring 4 x 9 mm, image 34 series 5 which is suspicious for a stone. SPLEEN: Normal. PANCREAS: Normal. ADRENAL GLANDS: Normal. KIDNEYS AND URETERS: Normal left kidney. 2.3 cm right renal cyst. VASCULATURE: Normal. RETROPERITONEUM AND LYMPH NODES: Normal, with no lymphadenopathy. GASTROINTESTINAL TRACT/MESENTERY: Small hiatal hernia. Postsurgical changes consistent with gastric bypass. Bowel mesentery otherwise appear unremarkable. The appendix is not well visualized but appears likely normal. BLADDER: Normal. REPRODUCTIVE SYSTEM: Normal uterus and adnexa. BODY WALL: Normal. BONES: Mild to moderate multilevel degenerative changes of the lumbar spine and mild levoscoliosis. CT/CT abdomen pelvis w con IMPRESSION: 1. Mild intrahepatic biliary duct dilatation. The common bile duct appears normal in diameter, however there are findings consistent with a stone in the distal common bile duct measuring 9 x 4 mm. The gallbladder is also distended with sludge. Consider further evaluation with MRCP or ERCP. 2. Small hiatal hernia. 3. Right renal cyst. Electronically authenticated by: KETURAH JEWELL Date: 02/12/2024 20:08 Lab Data Labs: Lab Results 02/12/24 02/12/24 02/12/24 Range/Units 16:20 16:50 17:38 WBC 9.1 (4.0-11.0) 10^3/uL RBC 5.56 H (4.20-5.40) 10^6/uL Hgb 16.0 (12.0-16.0) g/dL Hct 49.3 H (36.0-48.0) % MCV 88.7 (81.0-99.0) fL MCH 28.8 (26.7-34.0) pg MCHC 32.5 (29.9-35.2) g/dL RDW 13.0 (11.0-15.0) % Plt Count 344 (150-450) 10^3/uL MPV 8.6 L (9.5-13.5) fL Neut % (Auto) 61.4 (43.0-75.0) % Lymph % (Auto) 30.7 (20.5-60.0) % [place] % (Auto) 6.5 (1.7-12.0) % Eos % (Auto) 1.0 (0.9-7.0) % Baso % (Auto) 0.2 (0.2-2.0) % Neut # (Auto) 5.6 (1.4-6.5) 10^3/uL Lymph # (Auto) 2.8 (1.2-3.8) 10^3/uL [place] # (Auto) 0.6 (0.3-0.8) 10^3/uL Eos # (Auto) 0.1 (0.0-0.7) 10^3/uL Baso # (Auto) 0.0 (0.0-0.1) 10^3/uL Abs Immat Gran (auto) 0.02 (0.00-0.03) 10^3/uL Imm/Tot Granulo (auto) 0.2 (0.0-0.5) % PT 11.8 H (9.0-11.6) sec INR 1.13 APTT 30.3 (22.3-36.2) sec Sodium 143 (136-145) mmol/L Potassium 3.3 L (3.5-5.1) mmol/L Chloride 104 (98-107) mmol/L Carbon Dioxide 28.0 (21.0-32.0) mmol/L Anion Gap 14.3 BUN 16.0 (7.0-18.0) mg/dL Creatinine 0.67 (0.55-1.02) mg/dL Est GFR ( Amer) >60 (>=60) Est GFR (Non-Af Amer) >60 (>=60) BUN/Creatinine Ratio 23.9 Glucose 109 H (74-106) mg/dL Lactate (0.4-2.0) mmol/L Calcium 9.0 (8.5-10.1) mg/dL Total Bilirubin 0.7 (0.2-1.0) mg/dL Direct Bilirubin 0.3 H (0.0-0.2) mg/dL AST 94 H (15-37) U/L ALT 57 (14-59) U/L Alkaline Phosphatase 164 H (46-116) U/L Troponin I High Sens 75.3 H* 621.8 H* (4.0-51.3) pg/mL Total Protein 7.2 (6.4-8.2) g/dL Albumin 3.6 (3.4-5.0) g/dL Globulin 3.6 g/dL Albumin/Globulin Ratio 1.0 Amylase 63 (25-115) U/L Lipase 40.0 (16.0-77.0) U/L POC Glucose 87 (74-106) mg/dL 02/12/24 Range/Units 21:35 WBC (4.0-11.0) 10^3/uL RBC (4.20-5.40) 10^6/uL Hgb (12.0-16.0) g/dL Hct (36.0-48.0) % MCV (81.0-99.0) fL MCH (26.7-34.0) pg MCHC (29.9-35.2) g/dL RDW (11.0-15.0) % Plt Count (150-450) 10^3/uL MPV (9.5-13.5) fL Neut % (Auto) (43.0-75.0) % Lymph % (Auto) (20.5-60.0) % [place] % (Auto) (1.7-12.0) % Eos % (Auto) (0.9-7.0) % Baso % (Auto) (0.2-2.0) % Neut # (Auto) (1.4-6.5) 10^3/uL Lymph # (Auto) (1.2-3.8) 10^3/uL [place] # (Auto) (0.3-0.8) 10^3/uL Eos # (Auto) (0.0-0.7) 10^3/uL Baso # (Auto) (0.0-0.1) 10^3/uL Abs Immat Gran (auto) (0.00-0.03) 10^3/uL Imm/Tot Granulo (auto) (0.0-0.5) % PT (9.0-11.6) sec INR APTT (22.3-36.2) sec Sodium (136-145) mmol/L Potassium (3.5-5.1) mmol/L Chloride (98-107) mmol/L Carbon Dioxide (21.0-32.0) mmol/L Anion Gap BUN (7.0-18.0) mg/dL Creatinine (0.55-1.02) mg/dL Est GFR ( Amer) (>=60) Est GFR (Non-Af Amer) (>=60) BUN/Creatinine Ratio Glucose (74-106) mg/dL Lactate 2.3 H* (0.4-2.0) mmol/L Calcium (8.5-10.1) mg/dL Total Bilirubin (0.2-1.0) mg/dL Direct Bilirubin (0.0-0.2) mg/dL AST (15-37) U/L ALT (14-59) U/L Alkaline Phosphatase (46-116) U/L Troponin I High Sens 6799.8 H* (4.0-51.3) pg/mL Total Protein (6.4-8.2) g/dL Albumin (3.4-5.0) g/dL Globulin g/dL Albumin/Globulin Ratio Amylase (25-115) U/L Lipase (16.0-77.0) U/L POC Glucose (74-106) mg/dL Critical Care Time Critical Care Time Total Critical Care Time: 40 Attestation: Patient received treatment for non-STEMI including IV fluids, aspirin, heparin drip, and Lopressor. Consultation with cardiology as well as hospitalist service at [facility]. Discharge Plan Discharge Chief Complaint: Abdominal Pain Clinical Impression: Non-ST elevation HI (NSTEMI), Bile duct stone Patient Disposition: [facility] Time of Disposition Decision: 21:04 Discharge Location: [facility] Condition: Fair Mode of Transportation: Private Vehicle
[2024-02-12] MEDS: LORAZEPAM 0.5 MG TABLET PO (20:26)
[2024-02-12 22:05] LABS: Lactate/Lactic Acid 2.3 mmol/L (0.4-2.0)
[2024-02-12 22:06] LABS: Troponin I High Sensitivity 6799.8 pg/mL (4.0-51.3)
[2024-02-13] VITALS (8 sets, daily range): BP systolic 95–99; BP diastolic 67–72; PULSE 95–112; O2SAT 90–93
[2024-02-13] MEDS: METOPROLOL TARTRATE 5 MG/5 ML VIAL IVP
[2024-02-13] MEDS: 0.9 % SODIUM CHLORIDE 500 ML IV
[2024-02-13] MEDS: ACETAMINOPHEN 325 MG TABLET 650 MG PO
--- NOTE | 2024-02-13 01:23 | PC.NURSE ---
Aline arrives at this time for transport.
--- NOTE | 2024-02-13 01:30 | PC.NURSE ---
Report called to JERED Castellano at [facility].
== END 2024-02-13 01:31 | disposition short-term general hospital (02) ==
PROVIDERS: Emergency Medicine; Emergency Provider Emergency Medicine
DX: I21.4 Non-ST elevation (NSTEMI) myocardial infarction (principal); F17.200 Nicotine dependence, unspecified, uncomplicated
CPT/HCPCS: 36415; 71045; 74018; 74177; 80048; 80076; 82150; 82948; 83605; 83690; 84484; 85025; 85610; 85730; 93005; 96374; 96375; 96376; 99285; J1644; J2060; J2405; Q9967

== ENCOUNTER 2024-05-11 06:35 | Emergency (ER) | payer OTHER, SELFPAY ==
[2024-05-11] VITALS (8 sets, daily range): BP systolic 134–168; BP diastolic 93–113; PULSE 50–56; O2SAT 94–100; BMI 31.3
--- OUTSIDE RECORDS SUMMARY | 2024-05-11 06:46 | XMS_ITS | CCD ---
Author Organization [facility] CliniSynv Care Team Providers Care Soda Dialyzer Name Role Phone Zoraida Silveira Unavailable ShruthiAstrid Unavailable Kristin Fernández Unavailable [facility] Primary Care Unavailable CHRISTIE, DR RIVERA Consulting Unavailable CHRISTIE, DR RIVERA Admitting Unavailable CHRISTIE, DR RIVERA Attending Unavailable Uma Petersen Consulting Unavailable GERA TORRES Admitting Unavailable GERA TORRES Attending Unavailable [facility] Primary Care Unavailable SOLOMON, DR KETURAH Leach Consulting Unavailable GERA TORRES Consulting Unavailable [facility] Primary Care Unavailable CHRISTIE, DR RIVERA Admitting Unavailable CHRISTIE, DR RIVERA Attending Unavailable JIMBO, DR GAMALIEL Yoo Consulting Unavailable LISET LYLE Consulting Unavailable Asaad, Imad Unavailable NO FAMILY, PHYSICIAN Primary Care Unavailable Asaad, Imad Admitting Unavailable Asaad, Imad Attending Unavailable Kristin Fernández Admitting Unavailable Kristin Fernández Attending Unavailable NO FAMILY, PHYSICIAN Primary Care Unavailable SHAMMO, LESLIE Primary Care Unavailable MERI AN Attending Unavailab le RUMSCHLAG, SHASHANK K Referring Unavailable RUMSCHLAG, SHASHANK K Primary Care Unavailable SHAMMO, LESLIE Referring Unavailable RUMSCHLAG, SHASHANK K Primary Care Unavailable SHAHEEN, KYLIE Primary Care Unavailable CHETAN PEREZ Attending Unavailable HARDIK DAVILA Attending Unavailable HORANI, KIARA Referring Unavailable ALLISON, RONNIE Referring Unavailable HANNAH GUERRERO Attending Unavailable HORANI, KIARA Referring Unavailable INGRIS PIERRE Referring Unavailable HORANI, KIARA Admitting Unavailable KIARA, FANG Consulting Unavailable PORTIA JOHANSEN Attending Unavailable HORANI, KIARA Referring Unavailable HORANI, KIARA Referring Unavailable HORANI, KIARA Referring Unavailable HORANI, KIARA Referring Unavailable HAILY, PORTIA T Referring Unavailable [place] Admitting Unavailable [place] Attending Unavailable HILARY COTE Referring Unavailable Medications Current Medications Medication Drug Class(es) [...] extended release oral tablet (1 source) Uncompetitive A-zsdasx-R-asparta te Receptor Antagonist, Sigma-1 Agonist Start: 2 take 1 tablet by mouth every twelve hours Mucinex DM 30-600 MG 1 tablet as needed Orally every 12 hrs Aug, Active dextromethorphan hydrobromide 1.5 mg/ml / pyrilamine maleate 1.5 mg/ml oral solution (1 source) Uncompetitive G-eknboe-I-asparta te Receptor Antagonist, Sigma-1 Agonist Start: 3 take 10 mL by mouth every eight hours [place] DM 7.5-7.5 MG/5ML 10 mL Orally every [...] sources) Acute bronchitis; Translations: [Acute bronchitis] Episodic Acute myocardial infarction (2 sources) Non-ST elevation (NSTEMI) myocardial infarction; Translations: [Non-ST elevation (NSTEMI) myocardial infarction] Onset: 02-13-20 Chronic Bacterial infection; unspecified site (2 sources) Bacteremia; Translations: [Bacteremia] Onset: 02-13-20 Episodic Biliary tract disease (2 sources) Other specified diseases of biliary tract; Translations: [Other specified diseases of biliary tract] Onset: 02-13-20 Chronic Biliary tract disease (2 sources) Acute cholecystitis; Translations: [Acute cholecystitis] Onset: 02-13-20 Episodic Chronic obstructive pulmonary disease and bronchiectasis (14 sources) Acute exacerbation of chronic obstructive airways disease; Translations: [Chronic obstructive pulmonary disease with (acute) exacerbation] Onset: 08-02-19 Resolved : 09-13-19 Chronic Congestive heart failure; nonhypertensive (4 sources) Chronic systolic (congestive) heart failure; Translations: [Acute systolic (congestive) heart failure] Onset: 02-13-20 Chronic Disorders of lipid metabolism (1 source) Pure hypercholesterolemia, unspecified; Translations: [PURE HYPERCHOLESTEROLEMIA UNSPEC] Onset: 07-05-19 Chronic E Codes: Fall (1 source) Unspecified fall, initial encounter; Translations: [UNSPECIFIED FALL INITIAL ENCOUNTER] Onset: 07-05-19 Episodic Essential hypertension (1 source) Essential (primary) hypertension; Translations: [ESSENTIAL PRIMARY HYPERTENSION] Onset: 07-05-19 Chronic Gastrointestinal hemorrhage (4 sources) Acute gastric ulcer with hemorrhage; Translations: [Melena] Onset: 02-13-20 Episodic Mood disorders (1 source) Major depressive disorder, single episode, unspecified; Translations: [HAKAN DEPRESS D/O SINGLE EPIS UNS] Onset: 09-16-19 Chronic Mood disorders (1 source) Mood disorders; Translations: [DEPRESSION UNSPECIFIED] Onset: 07-05-19 Osteoarthritis (6 sources) Osteoarthritis of left knee joint; Translations: [Unilateral primary osteoarthritis, left knee] Chronic Other aftercare (1 source) Other residential (current) drug therapy; Translations: [OTH HEAT TREATER CURRENT DRUG THERAPY] Onset: 07-05-19 Episodic Other circulatory disease (1 source) Low blood pressure Onset: 02-23-20 24 Episodic Other injuries and conditions due to external causes (3 sources) Unspecified injury of right wrist, hand and finger(s), initial encounter; Translations: [UNS INJ RT WRIST HAND FINGERS INIT] Onset: 07-02-20 Episodic Other injuries and conditions due to external causes (1 source) Other specified injuries of head, initial encounter; Translations: [OTH SPEC INJURIES HEAD INITIAL ENC] Onset: 07-05-19 Episodic Other liver diseases (3 sources) Focal nodular hyperplasia of liver; Translations: [Other specified diseases of liver] Chronic Other liver diseases (1 source) Other specified diseases of liver Chronic Other nutritional; endocrine; and metabolic disorders (1 source) Obesity, unspecified; Translations: [OBESITY UNSPECIFIED] Onset: 07-05-19 Chronic Other nutritional; endocrine; and metabolic disorders (1 source) Body mass index (BMI) 45.0-49.9, adult; Translations: [BODY MASS INDEX BMI 45.0-49.9 ADULT] Onset: 07-05-19 Chronic Other nutritional; endocrine; and metabolic disorders (1 source) Body mass index (BMI) 50.0-59.9, adult; Translations: [BODY MASS INDEX BMI 50.0-59.9 ADULT] Onset: 09-16-19 Chronic Other screening for suspected conditions (not mental disorders or infectious disease) (2 sources) Other specified abnormal findings of blood chemistry; Translations: [Encounter for screening, unspecified] Onset: 01-25-20 Episodic Other upper respiratory infections (1 source) Acute upper respiratory infection, unspecified Episodic Spondylosis; intervertebral disc disorders; other back problems (1 source) Muscle spasm of back Episodic Substance-related disorders (1 source) Nicotine dependence, cigarettes, uncomplicated; Translations: [NICOTINE DEPEND CIGARETTES UNCOMP] Onset: 07-05-19 Chronic Superficial injury; contusion (6 sources) Contusion of left front wall of thorax, initial encounter; Translations: [Contusion of right shoulder, initial encounter] Onset: 07-05-19 Episodic Unclassified (1 source) PERSONAL HISTORY OF COVID-19; Translations: [PERSONAL HISTORY OF COVID-19] Onset: 09-16-19 Unclassified (1 source) CONTACT W/AND (SUSP) EXPOS COVID-19; Translations: [CONTACT W/AND (SUSP) EXPOS COVID-19] Onset: 09-16-19 Past or Other Problems Problem Classification Problem Date Documented Da te Episodic/Chronic Abdominal pain (2 sources) Unspecified abdominal pain; Translations: [Flank pain] Onset: 10-21-2023 Episodic Genitourinary symptoms and ill-defined conditions (5 sources) Dysuria; Translations: [Hematuria, unspecified] Onset: 03-16-2023 Episodic Other connective tissue disease (1 source) Other specified soft tissue disorders; Translations: [OTHER SPEC SOFT TISSUE DISORDERS] Onset: 09-15-2021 Episodic Other lower respiratory disease (4 sources) Shortness of breath; Translations: [SHORTNESS OF BREATH] Onset: 09-13-2021 Episodic Urinary tract infections (1 source) Urinary tract infection, site not specified; Translations: [Urinary tract infection, site not specified] Onset: 10-21-2023 Episodic Results Test Name Value Interpretation Reference Range Facility [facility] 04-30-2024 History Of Present Illness Neela Medrano is a 54 y.o. female presenting for EGD in the setting of large anastamotic ulcer on 02/16/24 with hx of RYGB. She denies bleeding or abdominal pain. Past Medical History She has a past medical history of Anxiety, Cardiomyopathy (CMS/HCC), Choledocholithiasis, Depression, GI (gastrointestinal bleed), Hypertension, Myocardial infarction (CMS/HCC), and Obesity. Surgical History She has a past surgical history that includes Colonoscopy; Ankle arthroplasty; Tubal ligation; Bariatric Surgery; Hernia repair; Cardiac catheterization; and Upper gastrointestinal endoscopy. Social History She reports that she has quit smoking. Her smoking use included cigarettes. She has a 8.75 pack-year smoking history. She has been exposed to tobacco smoke. She has never used smokeless tobacco. She reports that she does not drink alcohol and does not use drugs. Family History No family history on file. Allergies Patient has no known allergies. Medications (Not in a hospital admission) Review of Systems a 14 point ROS was otherwise negative from her [facility] Last Recorded Vitals Visit Vitals OB Status Postmenopausal Smoking Status Former Physical Exam Vitals and nursing note reviewed. Constitutional: General: She is not in acute distress. Appearance: Normal appearance. She is obese. She is not ill-appearing, toxic-appearing or diaphoretic. HENT: Head: Normocephalic and atraumatic. Nose: Nose normal. Eyes: General: No scleral icterus. Pupils: Pupils are equal, round, and reactive to light. Cardiovascular: Rate and Rhythm: Normal rate and regular rhythm. Pulses: Normal pulses. Heart sounds: Normal heart sounds. Pulmonary: Effort: Pulmonary effort is normal. No respiratory distress. Breath sounds: Normal breath sounds. No wheezing. Abdominal: General: Abdomen is flat. There is no distension. Palpations: Abdomen is soft. There is no mass. Tenderness: There is no abdominal tenderness. There is no guarding. Musculoskeletal: Cervical back: Normal range of motion. Right lower leg: No edema. Left lower leg: No edema. Skin: General: Skin is warm. Coloration: Skin is not jaundiced. Neurological: General: No focal deficit present. Mental Status: She is alert and oriented to person, place, and time. Mental status is at baseline. Cranial Nerves: No cranial nerve deficit. Motor: No weakness. Gait: Gait normal. Psychiatric: Mood and Affect: Mood normal. Behavior: Behavior normal. Thought Content: Thought content normal. Judgment: Judgment normal. Relevant Lab Results Lab Results Component Value Date NA 142 02/20/2024 K 3.2 (L) 02/20/2024 CL 104 02/20/2024 CO2 31 02/20/2024 BUN 5 (L) 02/20/2024 CREATININE 0.48 (L) 02/20/2024 GLUCOSE 82 02/20/2024 CALCIUM 7.5 (L) 02/20/2024 ANIONGAP 10 02/20/2024 EGFR 112.5 02/20/2024 BCR 10.4 02/20/2024 Relevant Imaging Results Transthoracic Echo (TTE) Complete [facility] [address] [place] [address] [phone] (fax) Echocardiogram-[facility] Name: NEELA MEDRANO Study Date: 04/02/2024 07:52 AM B/P: 93 mmHg/55 mmHg HR: 48 bpm Date of : 1970 Location: [facility] Height: 59 in. Age: 54 year(s) Patient Room: Weight: 162 lb. Gender: Female Patient Status: OutPt BSA: 1.69 m2 Indication: Acute systolic heart failure, previous echo 02/13/24 showed 30 % EF, suggesting Takotsubo cardiomyopathy Examination: Echocardiogram (Complete) Image Quality: Good Patient Consent: Procedure explained to patient Conclusions Left Ventricle: The left ventricle is normal size. Global left ventricular systolic function is normal. The EF is 60 % visually. Left ventricular wall thickness is normal. No regional wall motion abnormality. Normal diastolic function. No left ventricular hypertrophy. Right Ventricle: The right ventricle is normal in size. Normal right ventricular systolic function. Doppler studies suggest mildly elevated right sided pressures. Left Atrium: The left atrium is normal in size. Measurements Left Ventricle Label Value Normal Value LVOTd 1.9 cm (18cm - 20cm) LVOT VTI 28.9 cm (18cm - 22cm) LVOT PGmax 6 mmHg LVEF visual 60 % LVDd, 2D 4.9 cm (3.9cm - 5.3cm) LVDs, 2D 3.24 cm (2.1cm - 4cm) IVSd, 2D 0.7 cm (0.6cm - 1.1cm) LVPWd, 2D 0.76 cm (0.6cm - 0.9cm) LV Mass, 2D ASE 116.76 g LV Mass Index, 2D ASE 69.1 g/m?? (44g/m?? - 88.4g/m??) RWT, MM 0.31 (0 - 0.42) LVSVI, 2D 42 ml/m2 LVOT PGmean 3 mmHg LVSV_LVOT 82 ml Right Ventricle Label Value Normal Value RVDd, 2D 3.49 cm (1.9cm - 3.8cm) TAPSE 2.4 cm Left Atrium Label Value Normal Value LA Volume, BP 54 ml (22ml - 52ml) LADs, 2D 3.8 cm (2.7cm - 3.8cm) LAESV index, BP 32 ml/m?? Right Atrium Label Value Normal Value RA Area 16.5 cm?? Aortic Valve Label Value Normal Value AV DVI 0.88 AV VTI 34.7 cm Mitral Valve Label Value Normal Valu (more content not included)... Normal [facility] POCT GLUCOSE METER UNSOLICIT ED RESULTSon 04-30-2024 Glucose [Mass/Vol] 88 mg/dL Normal 70-105 [facility] Comment on above: Order Comment: Waive d Testing in the ED is performed under the ED CLIA certificate #[id number]. Result Comment: ngro alirio Performed By: #### L [id number] ####[facility] (BEAKER)[address] [place] [address] Prep for Procedureon 024 Prep for Procedure [id number] Rikki Medrano 1970 F Date Provider Department Center 04/22/2024 Andreia-[facility] JESSICA No family history on file [facility] Orders Onlyon 03-05-2024 Orders Only [id number] Rikki Medrano ie 1970 F Date Provider Department Center 03/05/[id number] COTE [facility] No family history on file [facility] Telephoneon 03-01-2024 Telephone [id number] Rikki Medrano 1970 F Date Provider Department Center 03/01/2024 Kathy-ANDREW GARCIA [facility] Medical Pavi No family history on file [facility] Abstracton 02-29-2024 Abstract [id number] Rikki Medrano 1970 F Date Provider Department [place] 02/29/2024 Stephanie4-BOBBY SIMONS No family history on file [facility] Follow-Upon 02-28-2024 Follow-Up [id number] Rikki Medrano 1970 F Date Provider Department Center 02/28/2024 [id number] FRANK No family history on file Level of Service:37247 OK OFFICE/OUTPATIENT ESTABLISHED MOD MDM 30 MIN [facility] 36on 02-21-2024 36 Discharge date: 02/19 Call date: 02/21/24 Spoke with: patient HF Follow-up date: 02/28/24 Med reconciliation completed: yes Questions/Concerns: Home meds reviewed with pt. Per pt, she was experiencing some lightheadedness/dizzine ss yesterday, but has improved today. Pt is monitoring BP and HR. Pt was instructed to continue to move slowly when standing and walking. Pt stated BP have been stable. Pt educated on which meds will affect her BP and when to hold them and call the office. Pt mentioned her father being prescribed lisinopril and developing a cough with blood. Pt stated she did have one occurrence of coughing up clear phlegm this morning that had a couple speckles of blood. Pt instructed to call the office if this continues. Pt is monitoring daily weights. Pt is aware of her follow up appt. No other questions or concerns at this time. Normal [facility] Documentationon 02-21-2024 Documentation [id number] Rikki Medrano ie 1970 F Date Provider Department [place] 02/21/2024 [id number], MANDY C [facility] No family history on file Reason for Visit and Comments: HF inpatient satisfaction survey sent. [Other] Normal [facility] Telephoneon 02-21-2024 Telephone [id number] Rikki Medrano ie 1970 Date [facility] Department [place] 02/21/[id number], MANDY HVC VASC [facility] No family history on file Reason for Visit and Comments: HF post discharge call. [Other] Normal [facility] 30on 02-20-2024 30 The patient is Moderately Stable - Low risk of patient condition declining or worsening The patient's goals for the shift include comfort and rest The clinical goals for the shift include stable hemodynamics Normal [facility] BASIC METABOLIC PANELon 08 Anion gap [Moles/Vol] 10 mmol/L Normal - [facility] Comment on above: Performed By: #### L [id number] #### [facility] (BEAKER) [address] [place] [address] Calcium [Mass/Vol] 7.5 mg/dL Low 8.6-10.3 [facility] Comment on above: Performed By: #### L [id number] #### [facility] (BEAKER) [address] [place] [address] Chloride [Moles/Vol] 104 mmol/L Normal 98-107 [facility] Comment on above: Performed By: #### L [id number] #### [facility] ([facility]ER) [address] [place] [address] CO2 [Moles/Vol] 31 mmol/L Normal 21- [facility] Comment on above: Performed By: #### L [id number] #### [facility] (BE[facility]ER) [address] [place] [address] Creatinine [Mass/Vol] 0.48 mg/dL Low 0.60-1.20 [facility] Comment on above: Performed By: #### L [id number] #### [facility] ([facility]) [address] [place] [address] GLOMERULAR FILTRATION RATE ML/MIN/1.73 SQ M.PREDICTED 112.5 mL/min/1.73m*2 Normal >60.0 [facility] Comment on above: Result Comment: The [facility]???s estimated glomerular filtration rate (eGFR) will no longer include consideration of race in its calculation. The National Kidney Foundation???s eGFR Task Force developed new recommendations for the estimation of the glomerular filtration rate in the [place] They recommend immediate implementation of the new equation refit without the race variable in all laboratories because the calculation does not include race. In addition to not including race in the calculation and reporting, it included diversity in its development, and has acceptable performance characteristics and potential consequences that do not disproportionately affect any one group of individuals. Performed By: #### L [id number] #### [facility] ([facility]) [address] [place] [address] Glucose [Mass/Vol] 82 mg/dL Normal 70-100 [facility] Comment on above: Performed By: #### L [id number] #### [facility] ([facility]) [address] [place] [address] Potassium [Moles/Vol] 3.2 mmol/L Low 3.5-5.1 [facility] Comment on above: Performed By: #### L [id number] #### [facility] ([facility]) [address] [place] [address] Sodium [Moles/Vol] 142 mmol/L Normal 136-145 [facility] Comment on above: Performed By: #### L [id number] #### [facility] ([facility]) [address] [place] [address] Urea nitrogen [Mass/Vol] 5 mg/dL Low 7-25 [facility] Comment on above: Performed By: #### L [id number] #### [facility] ([facility]) [address] [place] [address] UREA NITROGEN/CREATININE (MASS RATIO) IN SER/PLAS 10.4 Normal [facility] Comment on above: Performed By: #### L [id number] #### [facility] ([facility]) [address] [place] [address] CBC WITH AUTO DIFFERENTIALon 02-20-2024 Basophils (Bld) [#/Vol] 0.01 10*3/uL Normal 0.00-0.20 [facility] Comment on above: Performed By: #### L [id number] ####[facility] ([facility])[address] [place] [address] Basophils/100 WBC (Bld) 0.2 % Normal 0.0-1.0 [facility] Comment on above: Performed By: #### L [id number] ####[facility] ([facility])[address] [place] [address] Eosinophils (Bld) [#/Vol] 0.12 10*3/uL Normal 0.00-0.50 [facility] Comment on above: Performed By: #### L [id number] ####[facility] ([facility])[address] [place] [address] Eosinophils/100 WBC (Bld) 1.8 % Normal 0.0-6.0 [facility] Comment on above: Performed By: #### L [id number] ####[facility] ([facility])[address] [place] [address] Erythrocyte distribution width (RBC) [Ratio] 14.2 % Normal 11.5-15.0 [facility] Comment on above: Performed By: #### L [id number] ####[facility] ([facility])[address] [place] [address] ERYTHROCYTE MEAN CORPUSCULAR HEMOGLOBIN CONCENTRATION (G/DL) BY AUTOMATED 31.9 g/dL Low 32.0-35.0 [facility] Comment on above: Performed By: #### L [id number] ####[facility] (BEAKER)[address] [place] [address] Hematocrit (Bld) [Volume fraction] 28.2 % Low 36.0-48.0 [facility] Comment on above: Performed By: #### L [id number] ####[facility] (BE[facility]ER)[address] [place] [address] Hemoglobin (Bld) [Mass/Vol] 9.0 g/dL Low 12.0-15.0 [facility] Comment on above: Performed By: #### L [id number] ####[facility] (BE[facility]ER)[address] [place] [address] Immature granulocytes (Bld) [#/Vol] 0.07 10*3/uL Normal 0.00-0.20 [facility] Comment on above: Performed By: #### L [id number] ####[facility] (BE[facility]ER)[address] [place] [address] Immature granulocytes/100 WBC (Bld) 1.1 % High 0.0-1.0 [facility] Comment on above: Performed By: #### L [id number] ####[facility] (BE[facility])[address] [place] [address] Lymphocytes (Bld) [#/Vol] 1.44 10*3/uL Normal 1.20-4.00 [facility] Comment on above: Performed By: #### L [id number] ####[facility] ([facility]ER)[address] [place] [address] Lymphocytes/100 WBC (Bld) 22.2 % Normal 20.0-45.0 [facility] Comment on above: Performed By: #### L [id number] ####[facility] (BEAKER)[address] [place] [address] MCH (RBC) [Entitic mass] 28.8 pg Normal 27.0-33.0 [facility] Comment on above: Performed By: #### L [id number] ####[facility] (BEAKER)[address] [place] [address] MCV (RBC) [Entitic vol] 90.4 fL Normal 82.0-98.0 [facility] Comment on above: Performed By: #### L [id number] ####[facility] (BE[facility])[address] [place] [address] Monocytes (Bld) [#/Vol] 0.60 10*3/uL Normal 0.10-1.00 [facility] Comment on above: Performed By: #### L [id number] ####[facility] ([facility])[address] [place] [address] Monocytes/100 WBC (Bld) 9.2 % Normal 5.0-12.0 [facility] Comment on above: Performed By: #### L [id number] ####[facility] ([facility])[address] [place] [address] Neutrophils (Bld) [#/Vol] 4.26 10*3/uL Normal 1.60-7.60 [facility] Comment on above: Performed By: #### L [id number] ####[facility] (BE[facility]ER)[address] [place] [address] Neutrophils/100 WBC (Bld) 65.5 % Normal 40.0-72.0 [facility] Comment on above: Performed By: #### L [id number] ####[facility] ([facility])[address] [place] [address] NRBC (PER 100 WBCS) BY AUTOMATED COUNT 0.0 % Normal 0 [facility] Comment on above: Performed By: #### L [id number] ####[facility] (BE[facility])[address] [place] [address] PLATELETS (10*3/UL) IN BLOOD AUTOMATED COUNT 368 10*3/uL Normal 150-400 [facility] Comment on above: Performed By: #### L [id number] ####[facility] (BE[facility]ER)[address] [place] [address] RBC (Bld) [#/Vol] 3.12 10*6/uL Low 3.80-5.00 [facility] Comment on above: Performed By: #### L [id number] ####[facility] ([facility])[address] [place] [address] WBC (Bld) [#/Vol] 6.50 10*3/uL Normal 4.00-10.60 [facility] Comment on above: Performed By: #### L [id number] ####[facility] ([facility])[address] [place] [address] HEPATIC FUNCTION PANELon Albumin [Mass/Vol] 2.8 g/dL Low 3.5-5.7 [facility] Comment on above: Performed By: #### L [id number] ####[facility] ([facility])[address] [place] [address] ALP [Catalytic activity/Vol] 77 U/L Normal 34-104 [facility] Comment on above: Performed By: #### L [id number] ####[facility] ([facility])[address] [place] [address] ALT [Catalytic activity/Vol] 15 U/L Normal 7-52 [facility] Comment on above: Performed By: #### L [id number] ####[facility] ([facility])[address] [place] [address] AST [Catalytic activity/Vol] 11 U/L Low 13-39 [facility] Comment on above: Performed By: #### L [id number] ####[facility] ([facility])[address] [place] [address] Bilirubin [Mass/Vol] 0.3 mg/dL Normal 0.3-1.0 [facility] Comment on above: Performed By: #### L [id number] ####[facility] ([facility])[address] [place] [address] Magnesium [Mass/Vol] 0.0 mg/dL Normal 0-0.2 [facility] Comment on above: Performed By: #### L [id number] ####[facility] ([facility])[address] [place] [address] Protein [Mass/Vol] 5.2 g/dL Low 6.0-8.3 [facility] Comment on above: Performed By: #### L [id number] ####[facility] ([facility])[address] [place] [address] CBCon 02-19-2024 Erythrocyte distribution width (RBC) [Ratio] 14.3 % Normal 11.5-15.0 [facility] Comment on above: Performed By: #### L [id number] ####[facility] ([facility])[address] [place] [address] ERYTHROCYTE MEAN CORPUSCULAR HEMOGLOBIN CONCENTRATION (G/DL) BY AUTOMATED 30.7 g/dL Low 32.0-35.0 [facility] Comment on above: Performed By: #### L [id number] ####[facility] ([facility])[address] [place] [address] Hematocrit (Bld) [Volume fraction] 29.3 % Low 36.0-48.0 [facility] Comment on above: Performed By: #### L [id number] ####[facility] ([facility])[address] [place] [address] Hemoglobin (Bld) [Mass/Vol] 9.0 g/dL Low 12.0-15.0 [facility] Comment on above: Performed By: #### L [id number] ####[facility] ([facility])[address] [place] [address] MCH (RBC) [Entitic mass] 28.2 pg Normal 27.0-33.0 [facility] Comment on above: Performed By: #### L [id number] ####[facility] ([facility])[address] [place] [address] MCV (RBC) [Entitic vol] 91.8 fL Normal 82.0-98.0 [facility] Comment on above: Performed By: #### L [id number] ####[facility] ([facility])[address] [place] [address] PLATELETS (10*3/UL) IN BLOOD AUTOMATED COUNT 217 10*3/uL Normal 150-400 [facility] Comment on above: Performed By: #### L [id number] ####[facility] ([facility])[address] [place] [address] RBC (Bld) [#/Vol] 3.19 10*6/uL Low 3.80-5.00 [facility] Comment on above: Performed By: #### L [id number] ####[facility] ([facility])[address] [place] [address] WBC (Bld) [#/Vol] 5.94 10*3/uL Normal 4.00-10.60 [facility] Comment on above: Performed By: #### L [id number] ####[facility] ([facility])[address] [place] [address] HEPATIC FUNCTION PANELon Albumin [Mass/Vol] 2.8 g/dL Low 3.5-5.7 [facility] Comment on above: Performed By: #### L [id number] #### [facility] ([facility]) [address] [place] [address] ALP [Catalytic activity/Vol] 85 U/L Normal 34-104 [facility] Comment on above: Performed By: #### L [id number] #### [facility] ([facility]) [address] [place] [address] ALT [Catalytic activity/Vol] 23 U/L Normal 7-52 [facility] Comment on above: Performed By: #### L [id number] #### [facility] ([facility]) [address] [place] [address] AST [Catalytic activity/Vol] 17 U/L Normal 13-39 [facility] Comment on above: Performed By: #### L [id number] #### [facility] ([facility]) [address] [place] [address] Bilirubin [Mass/Vol] 0.2 mg/dL Low 0.3-1.0 [facility] Comment on above: Performed By: #### L [id number] #### [facility] ([facility]) [address] [place] [address] Magnesium [Mass/Vol] 0.0 mg/dL Normal 0-0.2 [facility] Comment on above: Performed By: #### L [id number] #### [facility] ([facility]) [address] [place] [address] Protein [Mass/Vol] 5.4 g/dL Low 6.0-8.3 [facility] Comment on above: Performed By: #### L [id number] #### [facility] ([facility]) [address] [place] [address] POCT GLUCOSE METER UNSOLICIT ED RESULTSon 02-19-2024 Glucose [Mass/Vol] 120 mg/dL High 70-105 [facility] Comment on above: Order Comment: Waive d Testing in the ED is performed under the ED CLIA certificate #[id number]. Result Comment: [email or web address] Performed By: #### L [id number] ####[facility] ([facility])[address] [place] [address] 30on 02-18-2024 30 The patient is Moderately Stable - Low risk of patient condition declining or worsening The patient's goals for the shift include rest The clinical goals for the shift include VSS Problem: Pain - Adult Goal: Verbalizes/displays adequate comfort level or baseline comfort level Outcome: Progressing Problem: Safety - Adult Goal: Free from fall injury Outcome: Progressing Problem: Discharge Planning Goal: Discharge to home or other facility with appropriate resources Outcome: Progressing Problem: Chronic Conditions and Co-morbidities Goal: Patient's chronic conditions and co-morbidity symptoms are monitored and maintained or improved Outcome: Progressing Normal [facility] 30 The patient is Moderately Stable - Low risk of patient condition declining or worsening The patient's goals for the shift include rest The clinical goals for the shift include VSS Problem: Pain - Adult Goal: Verbalizes/displays adequate comfort level or baseline comfort level Outcome: Progressing Flowsheets (Taken 02/18/2024844) Verbalizes/displays adequate comfort level or baseline comfort level: Encourage patient to monitor pain and request assistance Problem: Safety - Adult Goal: Free from fall injury Outcome: Progressing Flowsheets (Taken 02/18/2024 09) Free from fall injury: Assess patient frequently for physical needs Problem: Discharge Planning Goal: Discharge to home or other facility with appropriate resources Outcome: Progressing Problem: Chronic Conditions and Co-morbidities Goal: Patient's chronic conditions and co-morbidity symptoms are monitored and maintained or improved Outcome: Progressing Flowsheets (Taken 02/18/2024844) Care Plan - Patient's Chronic Conditions and Co-Morbidity Symptoms are Monitored and Maintained or Improved: Monitor and assess patient's chronic conditions and comorbid symptoms for stability, deterioration, or improvement Problem: Neurosensory - Adult Goal: Achieves stable or improved neurological status Outcome: Progressing Flowsheets (Taken 02/18/2024844) Achieves stable or improved neurological status: Assess for and report changes in neurological status Goal: Absence of seizures Outcome: Progressing Flowsheets (Taken 02/18/2024844) Absence of seizures: Monitor for seizure activity. If seizure occurs, document type and location of movements and any associated apnea Goal: Remains free of injury related to seizures activity Outcome: Progressing Flowsheets (Taken 02/18/2024844) Remains free of injury related to seizure activity: Maintain airway, patient safety and administer oxygen as ordered Goal: Achieves maximal functionality and self care Outcome: Progressing Flowsheets (Taken 02/18/2024844) Achieves maximal functionality and self care: Monitor swallowing and airway patency with patient fatigue and changes in neurological status Problem: Respiratory - Adult Goal: Achieves optimal ventilation and oxygenation Outcome: Progressing Flowsheets (Taken 02/18/2024844) Achieves optimal ventilation and oxygenation: Assess for changes in respiratory status Problem: Cardiovascular - Adult Goal: Maintains optimal cardiac output and hemodynamic stability Outcome: Progressing Flowsheets (Taken 02/18/2024844) Maintains optimal cardiac output and hemodynamic stability: Monitor blood pressure and heart rate Goal: Absence of cardiac dysrhythmias or at baseline Outcome: Progressing Flowsheets (Taken 02/18/2024844) Absence of cardiac dysrhythmias or at baseline: Monitor cardiac rate and rhythm Problem: Skin/Tissue Integrity - Adult Goal: Skin integrity remains intact Outcome: Progressing Flowsheets (Taken 02/18/2024 0845) Skin integrity remains intact: Monitor for areas of redness and/or skin breakdown Goal: Incisions, wounds, or drain sites healing without S/S of infection Outcome: Progressing Flowsheets (Taken 02/18/2024844) Incisions, wounds, or drain sites healing without sign and symptoms of infection: ADMISSION and DAILY: Assess and document risk factors for pressure ulcer development Goal: Oral mucous membranes remain intact Outcome: Progressing Flowsheets (Taken 02/18/2024844) Oral mucous membranes remain intact: Assess oral mucosa and hygiene practices Problem: Musculoskeletal - Adult Goal: Return mobility to safest level of function Outcome: Progressing Flowsheets (Taken 02/18/2024844) Return mobility to safest level of function: Assess patient stability and activity tolerance for standing, transferring and ambulating with or without assistive devices Goal: Maintain proper alignment of affected body part Outcome: Progressing Flowsheets (Taken 02/18/2024844) Maintain proper alignment of affected body part: Support and protect limb and body alignment per provider's orders Goal: Return ADL status to a safe level of function Outcome: Progressing Flowsheets (Taken 02/18/2024844) Return ADL status to a safe level of function: Administer medication as ordered Problem: Gastrointestinal - Adult Goal: Minimal or absence of nausea and vomiting Outcome: Progressing Flowsheets (Taken 02/18/2024844) Minimal or absence of nausea and vomiting: Administer IV fluids as ordered to ensure adequate hydration Goal: Maintains or returns to baseline bowel function Outcome: Progressing Flowsheets (Taken 02/18/2024844) Maintains or returns to baseline bowel function: Assess bowel function Goal: Maintains adequate nutritional intake Outcome: Progressing Flowsheets (Taken 02/18/2024844) Maintains adequate nutritional intake: Monitor percentage of each meal consumed Goal: Est (more content not included)... Normal [facility] 30 The patient is Moderately Stable - Low risk of patient condition declining or worsening The patient's goals for the shift include rest The clinical goals for the shift include VSS, hemodynamically stable Problem: Cardiovascular - Adult Goal: Maintains optimal cardiac output and hemodynamic stability Outcome: Progressing Flowsheets (Taken 02/17/2024 2100) Maintains optimal cardiac output and hemodynamic stability: Monitor blood pressure and heart rate Monitor urine output and notify Licensed Independent Practitioner for values outside of normal range Problem: Gastrointestinal - Adult Goal: Maintains or returns to baseline bowel function Outcome: Progressing Problem: Gastrointestinal - Adult Goal: Maintains adequate nutritional intake Outcome: Progressing Problem: Infection - Adult Goal: Absence of infection at discharge Outcome: Progressing Problem: Metabolic/Fluid and Electrolytes - Adult Goal: Electrolytes maintained within normal limits Outcome: Progressing Normal [facility] BASIC METABOLIC PANELon 01-31 Anion gap [Moles/Vol] 12 mmol/L Normal 7-20 [facility] Comment on above: Performed By: #### L [id number] ####[facility] ([facility])[address] [facility] [address] Calcium [Mass/Vol] 7.2 mg/dL Low 8.6-10.3 [facility] Comment on above: Performed By: #### L [id number] ####[facility] ([facility])[address] [facility] [place] [address] Chloride [Moles/Vol] 110 mmol/L High 98-107 [facility] Comment on above: Performed By: #### L [id number] ####[facility])[address] [place] [address] CO2 [Moles/Vol] 22 mmol/L Normal 21-31 [facility] Comment on above: Performed By: #### L [id number] ####[facility])[address] [place] [address] Creatinine [Mass/Vol] 0.42 mg/dL Low 0.60-1.20 [facility] Comment on above: Performed By: #### L [id number] ####[facility])[address] [facility] [place] [address] GLOMERULAR FILTRATION RATE ML/MIN/1.73 SQ M.PREDICTED 116.2 mL/min/1.73m*2 Normal >60.0 [facility] Comment on above: Result Comment: The [facility]???s estimated glomerular filtration rate (eGFR) will no longer include consideration of race in its calculation. The National Kidney Foundation???s eGFR Task Force developed new recommendations for the estimation of the glomerular filtration rate in the [place] They recommend immediate implementation of the new equation refit without the race variable in all laboratories because the calculation does not include race. In addition to not including race in the calculation and reporting, it included diversity in its development, and has acceptable performance characteristics and potential consequences that do not disproportionately affect any one group of individuals. Performed By: #### L [id number] ####[facility] ([facility])[address] [place] [address] Glucose [Mass/Vol] 86 mg/dL Normal 70-100 [facility] Comment on above: Performed By: #### L [id number] ####[facility] ([facility])[address] [place] [address] Potassium [Moles/Vol] 3.5 mmol/L Normal 3.5-5.1 [facility] Comment on above: Performed By: #### L [id number] ####[facility] ([facility])[address] [place] [address] Sodium [Moles/Vol] 140 mmol/L Normal 136-145 [facility] Comment on above: Performed By: #### L [id number] ####[facility] ([facility])[address] [place] [address] Urea nitrogen [Mass/Vol] 3 mg/dL Low 7-25 [facility] Comment on above: Performed By: #### L [id number] ####[facility] ([facility])[address] [place] [address] UREA NITROGEN/CREATININE (MASS RATIO) IN SER/PLAS 7.1 Normal [facility] Comment on above: Performed By: #### L [id number] ####[facility] ([facility])[address] [place] [address] HEMOGLOBIN AND HEMATOCRIT, B LOODon 02-18-2024 Hematocrit (Bld) [Volume fraction] 27.2 % Low 36.0-48.0 [facility] Comment on above: Performed By: #### L [id number] #### [facility] ([facility]) [address] [place] [address] Hemoglobin (Bld) [Mass/Vol] 8.8 g/dL Low 12.0-15.0 [facility] Comment on above: Performed By: #### L [id number] #### [facility] ([facility]) [address] [place] [address] HEPATIC FUNCTION PANELon Albumin [Mass/Vol] 2.5 g/dL Low 3.5-5.7 [facility] Comment on above: Performed By: #### L [id number] #### [facility] ([facility]) [address] [place] [place] [address] ALP [Catalytic activity/Vol] 76 U/L Normal 34-104 [facility] Comment on above: Performed By: #### L [id number] #### [facility] ([facility]) [address] [place] [place] [address] ALT [Catalytic activity/Vol] 25 U/L Normal 7-52 [facility] Comment on above: Performed By: #### L [id number] #### [facility] ([facility]) [address] [place] [place] [address] AST [Catalytic activity/Vol] 29 U/L Normal 13-39 [facility] Comment on above: Performed By: #### L [id number] #### [facility] ([facility]) [address] [place] [address] Bilirubin [Mass/Vol] 0.3 mg/dL Normal 0.3-1.0 [facility] Comment on above: Performed By: #### L [id number] #### [facility] ([facility]) [address] [place] [address] Magnesium [Mass/Vol] 0.1 mg/dL Normal 0-0.2 [facility] Comment on above: Performed By: #### L [id number] #### [facility] ([facility]) [address] [place] [place] [address] Protein [Mass/Vol] 4.7 g/dL Low 6.0-8.3 [facility] Comment on above: Performed By: #### L [id number] #### [facility] ([facility]) [address] [place] [address] 30on 02-17-2024 30 The patient is Moderately Stable - Low risk of patient condition declining or worsening The patient's goals for the shift include comfort, rest The clinical goals for the shift include VSS, hymodynamic stability Normal [facility] 30 The patient is Moderately Stable - Low risk of patient condition declining or worsening The patient's goals for the shift include comfort, rest The clinical goals for the shift include VSS, hemodynamic stability Problem: Respiratory - Adult Goal: Achieves optimal ventilation and oxygenation Outcome: Progressing Flowsheets (Taken 02/16/20241953) Achieves optimal ventilation and oxygenation: Assess for changes in respiratory status Assess for changes in mentation and behavior Normal [facility] BASIC METABOLIC PANELon 01-31 Anion gap [Moles/Vol] 10 mmol/L Normal - [facility] Comment on above: Performed By: #### L [id number] ####[facility] ([facility])[address] [place] [address] Calcium [Mass/Vol] 6.9 mg/dL Low 8.6-10.3 [facility] Comment on above: Performed By: #### L [id number] ####[facility] ([facility])[address] [place] [address] Chloride [Moles/Vol] 109 mmol/L High 98-107 [facility] Comment on above: Performed By: #### L [id number] ####[facility] ([facility])[address] [place] [address] CO2 [Moles/Vol] 23 mmol/L Normal 21-31 [facility] Comment on above: Performed By: #### L [id number] ####[facility] ([facility])[address] [place] [address] Creatinine [Mass/Vol] 0.36 mg/dL Low 0.60-1.20 [facility] Comment on above: Performed By: #### L [id number] ####[facility] ([facility])[address] [place] [address] GLOMERULAR FILTRATION RATE ML/MIN/1.73 SQ M.PREDICTED 120.6 mL/min/1.73m*2 Normal >60.0 [facility] Comment on above: Result Comment: The [facility]???s estimated glomerular filtration rate (eGFR) will no longer include consideration of race in its calculation. The National Kidney Foundation???s eGFR Task Force developed new recommendations for the estimation of the glomerular filtration rate in the [place] They recommend immediate implementation of the new equation refit without the race variable in all laboratories because the calculation does not include race. In addition to not including race in the calculation and reporting, it included diversity in its development, and has acceptable performance characteristics and potential consequences that do not disproportionately affect any one group of individuals. Performed By: #### L [id number] ####[facility] ([facility])[address] [place] [address] Glucose [Mass/Vol] 77 mg/dL Normal 70-100 [facility] Comment on above: Performed By: #### L [id number] ####[facility] ([facility])[address] [place] [address] Potassium [Moles/Vol] 3.2 mmol/L Low 3.5-5.1 [facility] Comment on above: Performed By: #### L [id number] ####[facility] ([facility])[address] [place] [address] Sodium [Moles/Vol] 139 mmol/L Normal 136-145 [facility] Comment on above: Performed By: #### L [id number] ####[facility] ([facility])[address] [place] [address] Urea nitrogen [Mass/Vol] 4 mg/dL Low 7-25 [facility] Comment on above: Performed By: #### L [id number] ####[facility] ([facility])[address] [place] [address] UREA NITROGEN/CREATININE (MASS RATIO) IN SER/PLAS 11.1 Normal [facility] Comment on above: Performed By: #### L [id number] ####[facility] ([facility])[address] [place] [address] CBCon 08-17-2024 Erythrocyte distribution width (RBC) [Ratio] 14.1 % Normal 11.5-15.0 [facility] Comment on above: Performed By: #### L [id number] #### [facility] ([facility]) [address] [place] [place] [address] ERYTHROCYTE MEAN CORPUSCULAR HEMOGLOBIN CONCENTRATION (G/DL) BY AUTOMATED 32.5 g/dL Normal 32.0-35.0 [facility] Comment on above: Performed By: #### L [id number] #### [facility] ([facility]) [address] [place] [address] Hematocrit (Bld) [Volume fraction] 27.7 % Low 36.0-48.0 [facility] Comment on above: Performed By: #### L [id number] #### [facility] ([facility]) [address] [place] [address] Hemoglobin (Bld) [Mass/Vol] 9.0 g/dL Low 12.0-15.0 [facility] Comment on above: Performed By: #### L [id number] #### [facility] ([facility]) [address] [place] [address] MCH (RBC) [Entitic mass] 29.0 pg Normal 27.0-33.0 [facility] Comment on above: Performed By: #### L [id number] #### [facility] ([facility]) [address] [place] [address] MCV (RBC) [Entitic vol] 89.4 fL Normal 82.0-98.0 [facility] Comment on above: Performed By: #### L [id number] #### [facility] ([facility]) [address] [place] [address] PLATELETS (10*3/UL) IN BLOOD AUTOMATED COUNT 136 10*3/uL Low 150-400 [facility] Comment on above: Performed By: #### L [id number] #### [facility] ([facility]) [address] [place] [address] RBC (Bld) [#/Vol] 3.10 10*6/uL Low 3.80-5.00 [facility] Comment on above: Performed By: #### L [id number] #### [facility] ([facility]) [address] [place] [address] WBC (Bld) [#/Vol] 3.39 10*3/uL Low 4.00-10.60 [facility] Comment on above: Performed By: #### L [id number] #### [facility] ([facility]) [address] [address] FERRITINon 02-17-2024 FERRITIN (NG/ML) IN SER/PLAS 125.0 ng/mL Normal 11.0-307.0 [facility] Comment on above: Performed By: #### L [id number] ####[facility] ([facility])[address] [place] [address] HEMOGLOBIN AND HEMATOCRIT, B LOODon 02-17-2024 Hematocrit (Bld) [Volume fraction] 27.0 % Low 36.0-48.0 [facility] Comment on above: Performed By: #### L [id number] #### [facility] ([facility]) [address] [place] [address] Hemoglobin (Bld) [Mass/Vol] 8.7 g/dL Low 12.0-15.0 [facility] Comment on above: Performed By: #### L [id number] #### [facility] ([facility]) [address] [place] [address] HEPATIC FUNCTION PANELon Albumin [Mass/Vol] 2.5 g/dL Low 3.5-5.7 [facility] Comment on above: Performed By: #### L [id number] ####[facility] ([facility])[address] [place] [address] ALP [Catalytic activity/Vol] 80 U/L Normal 34-104 [facility] Comment on above: Performed By: #### L [id number] ####[facility] ([facility])[address] [place] [address] ALT [Catalytic activity/Vol] 24 U/L Normal 7-52 [facility] Comment on above: Performed By: #### L [id number] ####[facility] ([facility])[address] [place] [address] AST [Catalytic activity/Vol] 21 U/L Normal 13-39 [facility] Comment on above: Performed By: #### L [id number] ####[facility] ([facility])[address] [place] [address] Bilirubin [Mass/Vol] 0.3 mg/dL Normal 0.3-1.0 [facility] Comment on above: Performed By: #### L [id number] ####[facility] ([facility])[address] [place] [address] Magnesium [Mass/Vol] 0.0 mg/dL Normal 0-0.2 [facility] Comment on above: Performed By: #### L [id number] ####[facility] ([facility])[address] [place] [address] Protein [Mass/Vol] 4.6 g/dL Low 6.0-8.3 [facility] Comment on above: Performed By: #### L [id number] ####[facility] ([facility])[address] [place] [address] IRON AND TIBCon 02-17-2024 IRON (UG/DL) IN SER/PLAS 15 ug/dL Low 50-212 [facility] Comment on above: Performed By: #### L [id number] #### [facility] ([facility]) [address] [place] [address] IRON BINDING CAPACITY (UG/DL) IN SER/PLAS 190 ug/dL Low 250-450 [facility] Comment on above: Performed By: #### L [id number] #### [facility] ([facility]) [address] [place] [address] IRON BINDING CAPACITY.UNSATURATE D (UG/DL) IN SER/PLAS 175.0 ug/dL Normal 155.0-355.0 [facility] Comment on above: Performed By: #### L [id number] #### [facility] ([facility]) [address] [place] [address] IRON SATURATION (%) IN SER/PLAS 8 % Low 20-50 [facility] Comment on above: Performed By: #### L [id number] #### [facility]) [address] [place] [address] MAGNESIUMon 02-17-2024 Magnesium [Mass/Vol] 1.9 mg/dL Normal 1.9-2.7 [facility] Comment on above: Performed By: #### L [id number] #### [facility] [address] [place] [address] 30on 02-16-2024 30 Daily Case Managemen t Update Multidisciplinary rounds have been completed. Barriers to Discharge: continue to have RUQ pain, S/P MRCP. Hgb 8.8 this morning (10.7), due to this drop patient went for EGD today, plan for PPI drip for 72 hours. Discharge dispo: When patient is medically ready plan at this time is for patient to dc home. Diet: Dietary Orders (From admission, onward) Start Ordered 02/16/24 1254 Special Kitchen Request Once Comments: Please send 1 jello any flavor, 2 beef broths. Thank you 02/16/24 1254 02/16/24 1116 Clear Liquid Diet Diet effective now Question: Room Service? Answer: No 02/16/24 1115 02/15/24 1811 Special Kitchen Request Once Comments: Please send chicken broth, beef broth, and jello. Thanks! 02/15/24 1810 02/14/24 1839 Special Kitchen Request Once Comments: Please send 2 regular cans of sprite 02/14/24 1838 Physician Expected Discharge Date: 02/16/2024 Discharge Delays: PT Six Click Score: 24 OT Six Click Score: PT Recommendations: OT Recommendations: New Consults: Normal [facility] 30 Problem: Pain - Adul t Goal: Verbalizes/displays adequate comfort level or baseline comfort level 02/16/2024 1047 by Georgina Soto RN Outcome: Progressing 02/16/2024 1047 by Georgina Soto RN Outcome: Progressing Problem: Safety - Adult Goal: Free from fall injury 02/16/20241046 by Georgina Soto RN Outcome: Progressing 02/16/20241046 by Georgina Soto RN Outcome: Progressing Problem: Discharge Planning Goal: Discharge to home or other facility with appropriate resources Outcome: Progressing Problem: Chronic Conditions and Co-morbidities Goal: Patient's chronic conditions and co-morbidity symptoms are monitored and maintained or improved Outcome: Progressing The patient is Moderately Stable - Low risk of patient condition declining or worsening The patient's goals for the shift include comfort The clinical goals for the shift include VSS, hemodynamic stability Normal [facility] 30 The patient is Moderately Stable - Low risk of patient condition declining or worsening The patient's goals for the shift include comfort The clinical goals for the shift include VSS, hemodynamically stable Problem: Respiratory - Adult Goal: Achieves optimal ventilation and oxygenation Outcome: Progressing Flowsheets (Taken 02/15/20241943) Achieves optimal ventilation and oxygenation: Assess for changes in respiratory status Assess for changes in mentation and behavior Problem: Cardiovascular - Adult Goal: Maintains optimal cardiac output and hemodynamic stability Outcome: Progressing Flowsheets (Taken 02/15/20241943) Maintains optimal cardiac output and hemodynamic stability: Monitor blood pressure and heart rate Monitor urine output and notify Licensed Independent Practitioner for values outside of normal range Problem: Gastrointestinal - Adult Goal: Minimal or absence of nausea and vomiting Outcome: Progressing Flowsheets (Taken 02/15/20241943) Minimal or absence of nausea and vomiting: Administer IV fluids as ordered to ensure adequate hydration Administer ordered antiemetic medications as needed Provide nonpharmacologic comfort measures as appropriate Problem: Gastrointestinal - Adult Goal: Maintains or returns to baseline bowel function Outcome: Progressing Flowsheets (Taken 02/15/20241943) Maintains or returns to baseline bowel function: Assess bowel function Administer IV fluids as ordered to ensure adequate hydration Encourage oral fluids to ensure adequate hydration Problem: Gastrointestinal - Adult Goal: Maintains adequate nutritional intake Outcome: Progressing Flowsheets (Taken 02/15/20241943) Maintains adequate nutritional intake: Monitor percentage of each meal consumed Identify factors contributing to decreased intake, treat as appropriate Problem: Hematologic - Adult Goal: Maintains hematologic stability Outcome: Progressing Normal [facility] BASIC METABOLIC PANELon 08- Anion gap [Moles/Vol] 9 mmol/L Normal 7-20 [facility] Comment on above: Performed By: #### L [id number] ####[facility] ([facility])[address] [place] [address] Calcium [Mass/Vol] 6.9 mg/dL Low 8.6-10.3 [facility] Comment on above: Performed By: #### L [id number] ####[facility] ([facility])[address] [place] [address] Chloride [Moles/Vol] 110 mmol/L High 98-107 [facility] Comment on above: Performed By: #### L [id number] ####[facility] ([facility])[address] [place] [address] CO2 [Moles/Vol] 24 mmol/L Normal 21-31 [facility] Comment on above: Performed By: #### L [id number] ####[facility] ([facility])[address] [place] [address] Creatinine [Mass/Vol] 0.38 mg/dL Low 0.60-1.20 [facility] Comment on above: Performed By: #### L [id number] ####[facility] ([facility])[address] [place] [address] GLOMERULAR FILTRATION RATE ML/MIN/1.73 SQ M.PREDICTED 119.0 mL/min/1.73m*2 Normal >60.0 [facility] Comment on above: Result Comment: The [facility]???s estimated glomerular filtration rate (eGFR) will no longer include consideration of race in its calculation. The National Kid[employer] Foundation???s eGFR Task Force developed new recommendations for the estimation of the glomerular filtration rate in the [place] They recommend immediate implementation of the new equation refit without the race variable in all laboratories because the calculation does not include race. In addition to not including race in the calculation and reporting, it included diversity in its development, and has acceptable performance characteristics and potential consequences that do not disproportionately affect any one group of individuals. Performed By: #### L [id number] ####[facility] ([facility])[address] [place] [address] Glucose [Mass/Vol] 79 mg/dL Normal 70-100 [facility] Comment on above: Performed By: #### L [id number] ####[facility] ([facility])[address] [place] [address] Potassium [Moles/Vol] 3.3 mmol/L Low 3.5-5.1 [facility] Comment on above: Performed By: #### L [id number] ####[facility] ([facility])[address] [place] [address] Sodium [Moles/Vol] 140 mmol/L Normal 136-145 [facility] Comment on above: Performed By: #### L [id number] ####[facility] ([facility])[address] [place] [address] Urea nitrogen [Mass/Vol] 9 mg/dL Normal 7-25 [facility] Comment on above: Performed By: #### L [id number] ####[facility] ([facility])[address] [place] [address] UREA NITROGEN/CREATININE (MASS RATIO) IN SER/PLAS 23.7 Normal [facility] Comment on above: Performed By: #### L [id number] ####[facility] ([facility])[address] [place] [address] CBCon 02-16-2024 Erythrocyte distribution width (RBC) [Ratio] 14.0 % Normal 11.5-15.0 [facility] Comment on above: Performed By: #### L [id number] ####[facility] ([facility])[address] [place] [address] ERYTHROCYTE MEAN CORPUSCULAR HEMOGLOBIN CONCENTRATION (G/DL) BY AUTOMATED 32.6 g/dL Normal 32.0-35.0 [facility] Comment on above: Performed By: #### L [id number] ####[facility] ([facility])[address] [place] [address] Hematocrit (Bld) [Volume fraction] 27.0 % Low 36.0-48.0 [facility] Comment on above: Performed By: #### L [id number] ####[facility] ([facility])[address] [place] [address] Hemoglobin (Bld) [Mass/Vol] 8.8 g/dL Low 12.0-15.0 [facility] Comment on above: Performed By: #### L [id number] ####[facility] ([facility])[address] [place] [address] MCH (RBC) [Entitic mass] 28.5 pg Normal 27.0-33.0 [facility] Comment on above: Performed By: #### L [id number] ####[facility] ([facility])[address] [address] MCV (RBC) [Entitic vol] 87.4 fL Normal 82.0-98.0 [facility] Comment on above: Performed By: #### L [id number] ####[facility] ([facility])[address] [place] [address] PLATELETS (10*3/UL) IN BLOOD AUTOMATED COUNT 102 10*3/uL Low 150-400 [facility] Comment on above: Performed By: #### L [id number] ####[facility] ([facility])[address] [address] RBC (Bld) [#/Vol] 3.09 10*6/uL Low 3.80-5.00 [facility] Comment on above: Performed By: #### L [id number] ####[facility] ([facility])[address] [place] [address] WBC (Bld) [#/Vol] 4.61 10*3/uL Normal 4.00-10.60 [facility] Comment on above: Performed By: #### L [id number] ####[facility] ([facility])[address] [place] [address] CONSULTon 02-16-2024 CONSULT discharge planning: to return home Patient came to [facility] 02/13/2024 with primary concern of abdominal pain and chest pain. no HHC needs identified at this time - no OT or PT orders in place at this time - LDAs not indicating any wounds at this moment - oxygen flowsheet indicating Patient on nasal cannula barriers: - pending clinical course Normal [facility] HEMOGLOBIN AND HEMATOCRIT, B LOODon 02-16-2024 Hematocrit (Bld) [Volume fraction] 27.9 % Low 36.0-48.0 [facility] Comment on above: Performed By: #### L [id number] ####[facility] ([facility])[address] [place] [address] Hemoglobin (Bld) [Mass/Vol] 8.9 g/dL Low 12.0-15.0 [facility] Comment on above: Performed By: #### L [id number] ####[facility] ([facility])[address] [place] [address] HEPATIC FUNCTION PANELon Albumin [Mass/Vol] 2.4 g/dL Low 3.5-5.7 [facility] Comment on above: Performed By: #### L [id number] #### [facility] ([facility]) [address] [place] [address] ALP [Catalytic activity/Vol] 76 U/L Normal 34-104 [facility] Comment on above: Performed By: #### L [id number] #### [facility] ([facility]) [address] [place] [address] ALT [Catalytic activity/Vol] 28 U/L Normal 7-52 [facility] Comment on above: Performed By: #### L [id number] #### [facility] ([facility]) [address] [place] [address] AST [Catalytic activity/Vol] 16 U/L Normal 13-39 [facility] Comment on above: Performed By: #### L [id number] #### [facility] ([facility]) [address] [place] [address] Bilirubin [Mass/Vol] 0.2 mg/dL Low 0.3-1.0 [facility] Comment on above: Performed By: #### L [id number] #### [facility] ([facility]) [address] [place] [address] Magnesium [Mass/Vol] 0.0 mg/dL Normal 0-0.2 [facility] Comment on above: Performed By: #### L [id number] #### [facility] ([facility]) [address] [place] [address] Protein [Mass/Vol] 4.4 g/dL Low 6.0-8.3 [facility] Comment on above: Performed By: #### L [id number] #### [facility] ([facility]) [address] [place] [address] HISTOLOGY - TISSUE EXAMon LAB AP ASR DISCLAIMER The interpretation of this case included the use of immunohistochemistry or special stains. These tests have not been cleared or approved by the U.S. Food and Drug Administration. The FDA has determined that such clearance or approval is not necessary. These tests are used for clinical purposes and should not be regarded as investigational or for research. This laboratory is certified to perform high complexity testing under the Clinical Laboratory Improvement Amendments of 1998. Normal [facility] Comment on above: Performed By: #### L [id number] ####[facility] ([facility])[address] [place] [address] LAB AP CASE REPORT Normal [facility] Comment on above: Result Comment: Surg ical Pathology Case: [id number] Authorizing Provider: Hannah Guerrero MD Collected: 02/16/2024 1105 Ordering Location: [facility] Received: 02/16/2024 1239 Pathologist: Sheree Vallejo MD Specimen: Gastric, r/o H-Pylori Performed By: #### L [id number] ####[facility] ([facility])[address] [place] [address] LAB AP CLINICAL INFORMATION Order Diagnoses [facility] Comment on above: Result Comment: K83. 8 - Dilated cbd, acquired [ICD-10-CM] I21.4 - NSTEMI (non-ST elevated myocardial infarction) (CMS/HCC) [ICD-10-CM] I50.22 - Chronic systolic heart failure (CMS/HCC) [ICD-10-CM] K92.1 - Melena [ICD-10-CM] Performed By: #### L [id number] ####[facility] ([facility])[address] [place] [address] LAB AP DIAGNOSIS COMMENT [facility] Comment on above: Result Comment: Immu nohistochemical stains were performed with adequate controls. No H.pylori organisms are identified on immunostain. Performed By: #### L [id number] ####[facility] ([facility])[address] [place] [address] LAB AP GROSS DESCRIPTION A. Gastric. [facility] Comment on above: Result Comment: Rece ived in formalin labeled Neela Medrano, gastric, rule out H. pylori are 3 kaiser-brown mucosal tissue fragments that measure 0.4 x 0.2 x 0.3 cm, 0.6 x 0.2 x 0.1 cm, and 0.7 x 0.1 x 0.1 cm. The specimen is submitted entirely in one cassette. Daniela Jones, PGY-1 Performed By: #### L [id number] ####[facility] ([facility])[address] [place] [address] LAB AP MICROSCOPIC DESCRIPTION Microscopic examination performed. [facility] Comment on above: Performed By: #### L [id number] ####[facility] ([facility])[address] [place] [address] LAB AP REPORT FINAL DIAGNOSIS NARRATIVE [facility] Comment on above: Result Comment: Stom ach, biopsy: - Mild chronic inactive gastritis (see comment) Performed By: #### L [id number] ####[facility] ([facility])[address] [place] [address] HPon 02-16-2024 HP --- Attestation signed by Hannah Guerrero MD at 02/16/2024 10:23 AM I personally saw and examined the patient on the same date of service as fellow. I discussed the findings and therapeutic plan with the fellow. I agree with the documentation, except for any edits/updates below. H&P reviewed. The patient was examined. Patient has had recurrent bloody bowel movements overnight with black stool. Hemoglobin 8.8 this morning. Concern for upper GI bleeding. Plan for EGD today. Normal [facility] MAGNESIUMon 02-16-2024 Magnesium [Mass/Vol] 1.7 mg/dL Low 1.9-2.7 [facility] Comment on above: Performed By: #### L [id number] ####[facility] ([facility])[address] [place] [address] POCT GLUCOSE METER UNSOLICIT ED RESULTSon 02-16-2024 Glucose [Mass/Vol] 90 mg/dL Normal 70-105 [facility] Comment on above: Order Comment: Waive d Testing in the ED is performed under the ED CLIA certificate #[id number]. Result Comment: [facility] Performed By: #### L [id number] #### [facility] ([facility]) [address] [place] [address] 30on 02-15-2024 30 Daily Case Managemen t Update Multidisciplinary rounds have been completed. Barriers to Discharge: Patient had repeat MRCP done today, pending results. Overnight patient had bloody Bms, possible plan for scope by GI due to this. Trending H&H. Discharge dispo: pending clinical course, plan at this time is for patient to dc home when medically ready. Diet: Dietary Orders (From admission, onward) Start Ordered 02/15/24 1102 Clear Liquid Diet Diet effective now Question: Room Service? Answer: No 02/15/24 1101 02/14/24 1839 Special Kitchen Request Once Comments: Please send 2 regular cans of paulie 02/14/24 1838 Physician Expected Discharge Date: 02/16/2024 Discharge Delays: PT Six Click Score: 24 OT Six Click Score: PT Recommendations: OT Recommendations: New Consults: Ancillary Consults (From admission, onward) Start Ordered 02/15/24 0654 Inpatient consult to Social Work Once Provider: (Not yet assigned) Question Answer Comment Select all services needed for the patient Other Other: acute heart failure 02/15/24 0654 Normal [facility] 30 The patient is Moderately Stable - Low risk of patient condition declining or worsening The patient's goals for the shift include comfort The clinical goals for the shift include hemodynamically stable Problem: Pain - Adult Goal: Verbalizes/displays adequate comfort level or baseline comfort level Outcome: Progressing Problem: Safety - Adult Goal: Free from fall injury Outcome: Progressing Problem: Discharge Planning Goal: Discharge to home or other facility with appropriate resources Outcome: Progressing Problem: Chronic Conditions and Co-morbidities Goal: Patient's chronic conditions and co-morbidity symptoms are monitored and maintained or improved Outcome: Progressing Problem: Neurosensory - Adult Goal: Achieves stable or improved neurological status Outcome: Progressing Flowsheets (Taken 02/15/2024799) Achieves stable or improved neurological status: Assess for and report changes in neurological status Initiate measures to prevent increased intracranial pressure Goal: Absence of seizures Outcome: Progressing Flowsheets (Taken 02/15/2024799) Absence of seizures: Monitor for seizure activity. If seizure occurs, document type and location of movements and any associated apnea Goal: Remains free of injury related to seizures activity Outcome: Progressing Flowsheets (Taken 02/15/2024799) Remains free of injury related to seizure activity: Maintain airway, patient safety and administer oxygen as ordered Monitor patient for seizure activity, document and report duration and description of seizure to Licensed Independent Practitioner Goal: Achieves maximal functionality and self care Outcome: Progressing Problem: Respiratory - Adult Goal: Achieves optimal ventilation and oxygenation Outcome: Progressing Problem: Cardiovascular - Adult Goal: Maintains optimal cardiac output and hemodynamic stability Outcome: Progressing Flowsheets (Taken 02/15/2024799) Maintains optimal cardiac output and hemodynamic stability: Monitor blood pressure and heart rate Monitor urine output and notify Licensed Independent Practitioner for values outside of normal range Goal: Absence of cardiac dysrhythmias or at baseline Outcome: Progressing Flowsheets (Taken 02/15/2024799) Absence of cardiac dysrhythmias or at baseline: Monitor cardiac rate and rhythm Assess for signs of decreased cardiac output Problem: Skin/Tissue Integrity - Adult Goal: Skin integrity remains intact Outcome: Progressing Flowsheets (Taken 02/15/2024799) Skin integrity remains intact: Monitor for areas of redness and/or skin breakdown Assess vascular access sites hourly Goal: Incisions, wounds, or drain sites healing without S/S of infection Outcome: Progressing Flowsheets (Taken 02/15/2024799) Incisions, wounds, or drain sites healing without sign and symptoms of infection: ADMISSION and DAILY: Assess and document risk factors for pressure ulcer development TWICE DAILY: Assess and document skin integrity Goal: Oral mucous membranes remain intact Outcome: Progressing Flowsheets (Taken 02/15/2024799) Oral mucous membranes remain intact: Assess oral mucosa and hygiene practices Problem: Musculoskeletal - Adult Goal: Return mobility to safest level of function Outcome: Progressing Flowsheets (Taken 02/15/2024799) Return mobility to safest level of function: Assess patient stability and activity tolerance for standing, transferring and ambulating with or without assistive devices Assist with transfers and ambulation using safe patient handling equipment as needed Goal: Maintain proper alignment of affected body part Outcome: Progressing Flowsheets (Taken 02/15/2024799) Maintain proper alignment of affected body part: Support and protect limb and body alignment per provider's orders Goal: Return ADL status to a safe level of function Outcome: Progressing Flowsheets (Taken 02/15/2024799) Return ADL status to a safe level of function: Administer medication as ordered Assess activities of daily living deficits and provide assistive devices as needed Problem: Gastrointestinal - Adult Goal: Minimal or absence of nausea and vomiting Outcome: Progressing Flowsheets (Taken 02/15/2024799) Minimal or absence of nausea and vomiting: Administer IV fluids as ordered to ensure adequate hydration Goal: Maintains or returns to baseline bowel function Outcome: Progressing Flowsheets (Taken 02/15/2024799) Maintains or returns to baseline bowel function: Assess bowel function Encourage oral fluids to ensure adequate hydration Goal: Maintains adequate nutritional intake Outcome: Progressing Flowsheets (Taken 02/15/2024799) Maintains adequate nutritional intake: Monitor percentage of each meal consumed Identify factors contributing to decreased intake, treat as appropriate Goal: Establish and maintain optimal ostomy function Outcome: Progressing Flowsheets (Taken 02/15/2024799) Establish (more content not included)... Normal [facility] CBCon 02-15-2024 Erythrocyte distribution width (RBC) [Ratio] 14.0 % Normal 11.5-15.0 [facility] Comment on above: Performed By: #### L [id number] ####[facility] ([facility])[address] [place] [address] ERYTHROCYTE MEAN CORPUSCULAR HEMOGLOBIN CONCENTRATION (G/DL) BY AUTOMATED 32.1 g/dL Normal 32.0-35.0 [facility] Comment on above: Performed By: #### L [id number] ####[facility] ([facility])[address] [place] [address] Hematocrit (Bld) [Volume fraction] 35.5 % Low 36.0-48.0 [facility] Comment on above: Performed By: #### L [id number] ####[facility] ([facility])[address] [place] [address] Hemoglobin (Bld) [Mass/Vol] 11.4 g/dL Low 12.0-15.0 [facility] Comment on above: Performed By: #### L [id number] ####[facility] ([facility])[address] [place] [address] MCH (RBC) [Entitic mass] 28.6 pg Normal 27.0-33.0 [facility] Comment on above: Performed By: #### L [id number] ####[facility] ([facility])[address] [place] [address] MCV (RBC) [Entitic vol] 89.2 fL Normal 82.0-98.0 [facility] Comment on above: Performed By: #### L [id number] ####[facility] ([facility])[address] [place] [address] PLATELETS (10*3/UL) IN BLOOD AUTOMATED COUNT 117 10*3/uL Low 150-400 [facility] Comment on above: Performed By: #### L [id number] ####[facility] ([facility])[address] [place] [address] RBC (Bld) [#/Vol] 3.98 10*6/uL Normal 3.80-5.00 [facility] Comment on above: Performed By: #### L [id number] ####[facility] ([facility])[address] [place] [address] WBC (Bld) [#/Vol] 9.04 10*3/uL Normal 4.00-10.60 [facility] Comment on above: Performed By: #### L [id number] ####[facility] ([facility])[address] [place] [address] COMPREHENSIVE METABOLIC PANE Jesus 02-15-2024 Albumin [Mass/Vol] 2.6 g/dL Low 3.5-5.7 [facility] Comment on above: Performed By: #### L [id number] #### [facility] ([facility]) [address] [place] [address] ALP [Catalytic activity/Vol] 105 U/L High 34-104 [facility] Comment on above: Performed By: #### L [id number] #### [facility] ([facility]) [address] [place] [address] ALT [Catalytic activity/Vol] 50 U/L Normal 7-52 [facility] Comment on above: Performed By: #### L [id number] #### [facility] ([facility]) [address] [place] [address] Anion gap [Moles/Vol] 12 mmol/L Normal 7-20 [facility] Comment on above: Performed By: #### L [id number] #### [facility] ([facility]) [address] [place] [address] AST [Catalytic activity/Vol] 34 U/L Normal 13-39 [facility] Comment on above: Performed By: #### L [id number] #### [facility] ([facility]) [address] [place] [address] Bilirubin [Mass/Vol] 0.4 mg/dL Normal 0.3-1.0 [facility] Comment on above: Performed By: #### L [id number] #### [facility] ([facility]) [address] [place] [address] Calcium [Mass/Vol] 7.5 mg/dL Low 8.6-10.3 [facility] Comment on above: Performed By: #### L [id number] #### [facility] ([facility]) [address] [place] [address] Chloride [Moles/Vol] 108 mmol/L High 98-107 [facility] Comment on above: Performed By: #### L [id number] #### [facility] ([facility]) [address] [place] [address] CO2 [Moles/Vol] 24 mmol/L Normal 21-31 [facility] Comment on above: Performed By: #### L [id number] #### [facility] ([facility]) [address] [place] [address] Creatinine [Mass/Vol] 0.40 mg/dL Low 0.60-1.20 [facility] Comment on above: Performed By: #### L [id number] #### [facility] ([facility]) [address] [place] [address] GLOMERULAR FILTRATION RATE ML/MIN/1.73 SQ M.PREDICTED 117.5 mL/min/1.73m*2 Normal >60.0 [facility] Comment on above: Result Comment: The [facility]???s estimated glomerular filtration rate (eGFR) will no longer include consideration of race in its calculation. The National Kidney Foundation???s eGFR Task Force developed new recommendations for the estimation of the glomerular filtration rate in the [place] They recommend immediate implementation of the new equation refit without the race variable in all laboratories because the calculation does not include race. In addition to not including race in the calculation and reporting, it included diversity in its development, and has acceptable performance characteristics and potential consequences that do not disproportionately affect any one group of individuals. Performed By: #### L [id number] #### [facility] ([facility]) [address] [place] [address] Glucose [Mass/Vol] 105 mg/dL High 70-100 [facility] Comment on above: Performed By: #### L [id number] #### [facility] ([facility]) [address] [place] [address] Potassium [Moles/Vol] 3.7 mmol/L Normal 3.5-5.1 [facility] Comment on above: Performed By: #### L [id number] #### [facility] ([facility]) [address] [place] [address] Protein [Mass/Vol] 5.1 g/dL Low 6.0-8.3 [facility] Comment on above: Performed By: #### L [id number] #### [facility] ([facility]) [address] [place] [address] Sodium [Moles/Vol] 140 mmol/L Normal 136-145 [facility] Comment on above: Performed By: #### L [id number] #### [facility] ([facility]) [address] [place] [address] Urea nitrogen [Mass/Vol] 20 mg/dL Normal 7-25 [facility] Comment on above: Performed By: #### L [id number] #### [facility] ([facility]) [address] [place] [address] UREA NITROGEN/CREATININE (MASS RATIO) IN SER/PLAS 50.0 Normal [facility] Comment on above: Performed By: #### L [id number] #### [facility] ([facility]) [address] [place] [address] CONSULTon 02-15-2024 CONSULT Adult Nutrition Cons ult Name: Neela Medrano Date: 1970 Date of Visit: 02/15/24 Admission Dx: Dilated cbd, acquired [K83.8] NSTEMI, bacteremia Reason for assessment: MD referral heart failure education Information obtained from: patient and medical record PMH: Choledocholithiasis Gastric bypass ([place] en [place], 2021) Tobacco dependence Anxiety and depression Elevated lactic acid level Intrahepatic bile duct dilation Cholecystitis 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 COPD HTN Current Medications: buPROPion XL, 300 mg, oral, q AM cefTRIAXone, 2 g, intravenous, q24h [Held by provider] metoprolol tartrate, 25 mg, oral, BID metroNIDAZOLE, 500 mg, intravenous, q12h multivitamin with folic acid, 1 tablet, oral, Daily before breakfast Oxygen Therapy, , inhalation, Continuous pantoprazole, 40 mg, intravenous, q12h SOFIA sodium chloride, 125 mL/hr, Last Rate: 125 mL/hr (02/15/24 0733) Labs: 0 Lab Value Date/Time BUN 20 02/15/2024 0525 CREATININE 0.40 (L) 02/15/2024 0525 NA 140 02/15/2024 0525 K 3.7 02/15/2024 0525 MG 1.7 (L) 02/15/2024 0525 HGBA1C 5.3 02/14/2024 0900 HGB 11.4 (L) 02/15/2024 0525 WBC 9.04 02/15/2024 0525 CHOL 75 (L) 02/14/2024 0900 HDL 22 (L) 02/14/2024 0900 I/O: Intake/Output Summary (Last 24 hours) at 02/15/2024 1108 Last data filed at 02/14/2024 2300 Gross per 24 hour Intake 721.67 ml Output -- Net 721.67 ml Allergies: No Known Allergies Pt confirmed no food allergies. Nutrition Problems: Swallowing Assessment: Pt denied swallowing difficulties. Mouth: Pt denied chewing difficulties. Abdominal Assessment: Pt denies N/V/D, experiences constipation from time to time. Appetite: fair pt states appetite has been decreased while admitted. Reports good appetite before admission. Pt has been NPO on and off since Sunday 02/11. Other factors: edema bilateral LE nonpitting Nutrition Data/Clinical Indicators of Nutrition Status: Height: 149.9 cm (4' 11 ) Weight: 75.7 kg (166 lb 12.8 oz) BMI (Calculated): 33.67 Wt change: Pt states UBW of 165# and denies noticing any weight change. Wt Readings from Last 10 Encounters: 02/15/24 75.7 kg (166 lb 12.8 oz) 02/14/24 76.4 kg 02/13/24 76.7 kg Nutrition Assessment: Pt reports low PO intake since Monday, eating a few bites of Jello or Indonesian Ice, mostly due to NPO status as well as not feeling hungry Pt NPO today for MRCP to check for choledocholithiasis, GI suggesting clear liquid diet after procedure Pt has started cooking more at home since her gastric bypass in 2021. Pt lives with her boyfriend and is able to cook and grocery shop herself. Dietary Orders (From admission, onward) Start Ordered 02/15/24 1102 Clear Liquid Diet Diet effective now Question: Room Service? Answer: No 02/15/24 1101 02/14/24 1839 Special Kitchen Request Once Comments: Please send 2 regular cans of sprite 02/14/24 1838 Meal Intakes: none reported, pt states eating <25% of normal intakes since Monday (x4 days) Nutrition Risk: Moderate Nutrition Needs: Needs based on: ideal body weight (95 lbs, 43 kg) Calorie needs: 5067-5609 kcals/day based on Equation: 30-35 kcal/kg, 25-30 kcal/kg too low Protein needs: 43-52 g/day based on 1.0-1.2 g/kg Fluid needs: 1290 ml/day based on 30 ml/kg Nutrition Diagnosis: Inadequate oral food/beverage intake related to clinical course requiring NPO status as evidenced by on and off NPO x4 days, diet recall per patient for last 4 days. Malnutrition Assessment: Patient at risk for malnutrition according to hospital criteria, but does not meet the clinical characteristics per the Academy of Nutrition and Dietetics, and the [place] Society of Enteral and Parenteral Nutrition to support the diagnosis of malnutrition. Nutrition Education: Diet literature: Heart Healthy Nutrition Therapy from Nutrition Care Manual. Pt does add table salt to her food so educated patient about 1 teaspoon having 2300 mg of sodium, and a packet of salt that comes on her tray typically having ~500 mg of salt per packet. Patient stated being familiar with a food label, explained where to look for sodium amount and checking serving size. Pt has a way to weight herself at home. Educated patient to weigh herself every morning and if she notices 2-3 lb change in a day or 5 lb change in a week, to call her doctor. Explained to patient why following this diet is important, to keep her heart working and to not hold on to fluid. Expected compliance/patient understanding: Good Teach back method: Yes Time spent: 15 minutes Treatment Plan: Continue current diet Advance diet as medically feasible Monitor intakes and adjust recommendations as needed Nutrition counseling completed and instruction materials provided Pt was agreeable to weighing herself daily, switching from canned vegetables to froze (more content not included)... Normal [facility] HEMOGLOBIN AND HEMATOCRIT, B LOODon 02-15-2024 Hematocrit (Bld) [Volume fraction] 33.4 % Low 36.0-48.0 [facility] Comment on above: Performed By: #### L [id number] #### [facility] ([facility]) [address] [place] [address] Hemoglobin (Bld) [Mass/Vol] 10.7 g/dL Low 12.0-15.0 [facility] Comment on above: Performed By: #### L [id number] #### [facility] ([facility]) [address] [place] [address] MAGNESIUMon 02-15-2024 Magnesium [Mass/Vol] 1.7 mg/dL Low 1.9-2.7 [facility] Comment on above: Performed By: #### L [id number] ####[facility] ([facility])[address] [place] [address] TYPE AND SCREENon 02-15-2024 AB SCREEN Negative Normal [facility] Comment on above: Performed By: #### L [id number] ####[facility], ABO group Nom (Bld) O Normal [facility] Comment on above: Performed By: #### L [id number] ####[facility], RH TYPE IN BLOOD Positive Normal [facility] Comment on above: Performed By: #### L [id number] ####[facility], 30on 02-14-2024 30 The patient is Moderately Stable - Low risk of patient condition declining or worsening The patient's goals for the shift include cpmfort The clinical goals for the shift include VSS, safety Normal [facility] 30 Daily Case Managemen t Update Multidisciplinary rounds have been completed. Barriers to Discharge: Pending clinical course and improvement in clinical condition. Patient underwent HIDA scan today which was normal. Gastroenterology planning for MRCP and potential lap-assisted ERCP. Discharge plan is home when medically ready. Diet: Dietary Orders (From admission, onward) Start Ordered 02/14/24 1601 Clear Liquid Diet Diet effective now Question: Room Service? Answer: No 02/14/24 1600 Physician Expected Discharge Date: 02/16/2024 Discharge Delays: PT Six Click Score: 24 OT Six Click Score: PT Recommendations: OT Recommendations: New Consults: [facility] 30 The patient is Moderately Stable - Low risk of patient condition declining or worsening The patient's goals for the shift include COMFORT The clinical goals for the shift include VSS Over the shift, the patient did not make progress toward the following goals. Barriers to progression include na. Recommendations to address these barriers include na. Normal [facility] ANTI-XA (HEPARIN LEVEL)on HEPARIN UNFRACTIONATED (U/ML) IN PPP BY CHROMOGENIC METHOD <0.10 Invalid Interpretation Code 0.3-0.7 [facility] Comment on above: Order Comment: Check anti-Xa level every 6 hours while on heparin infusion, or per protocol. Result Comment: [place] roxaban and Apixaban will interfere with the anti Xa assay used to monitor UFH and LMWH. Performed By: #### L [id number] ####[facility] ([facility])[address] [place] [address] BASIC METABOLIC PANELon 01-31 Anion gap [Moles/Vol] 13 mmol/L Normal 7-20 [facility] Comment on above: Performed By: #### L [id number] ####[facility] ([facility])[address] [place] [address] Calcium [Mass/Vol] 7.6 mg/dL Low 8.6-10.3 [facility] Comment on above: Performed By: #### L [id number] ####[facility] ([facility])[address] [place] [address] Chloride [Moles/Vol] 107 mmol/L Normal 98-107 [facility] Comment on above: Performed By: #### L [id number] ####[facility] ([facility])[address] [place] [address] CO2 [Moles/Vol] 22 mmol/L Normal 21-31 [facility] Comment on above: Performed By: #### L [id number] ####[facility] ([facility])[address] [facility] [address] Creatinine [Mass/Vol] 0.56 mg/dL Low 0.60-1.20 [facility] Comment on above: Performed By: #### L [id number] ####[facility] ([facility])[address] [place] [address] GLOMERULAR FILTRATION RATE ML/MIN/1.73 SQ M.PREDICTED 108.4 mL/min/1.73m*2 Normal >60.0 [facility] Comment on above: Result Comment: The [facility]???s estimated glomerular filtration rate (eGFR) will no longer include consideration of race in its calculation. The National Kidney Foundation???s eGFR Task Force developed new recommendations for the estimation of the glomerular filtration rate in the [place] They recommend immediate implementation of the new equation refit without the race variable in all laboratories because the calculation does not include race. In addition to not including race in the calculation and reporting, it included diversity in its development, and has acceptable performance characteristics and potential consequences that do not disproportionately affect any one group of individuals. Performed By: #### L [id number] ####[facility] ([facility])[address] [place] [address] Glucose [Mass/Vol] 96 mg/dL Normal 70-100 [facility] Comment on above: Performed By: #### L [id number] ####[facility] (BEAKER)[address] [place] [address] Potassium [Moles/Vol] 3.5 mmol/L Normal 3.5-5.1 [facility] Comment on above: Performed By: #### L [id number] ####[facility] ([facility])[address] [place] [address] Sodium [Moles/Vol] 138 mmol/L Normal 136-145 [facility] Comment on above: Performed By: #### L [id number] ####[facility] ([facility])[address] [place] [address] Urea nitrogen [Mass/Vol] 11 mg/dL Normal 7-25 [facility] Comment on above: Performed By: #### L [id number] ####[facility] ([facility])[address] [place] [address] UREA NITROGEN/CREATININE (MASS RATIO) IN SER/PLAS 19.6 Normal [facility] Comment on above: Performed By: #### L [id number] ####[facility] ([facility])[address] [place] [address] BLOOD CULTUREon 02-14-2024 Bacteria identified Cx Nom (Bld) No growth at 5 days Normal [facility] Comment on above: Order Comment: From a different site than #1. Performed By: #### L [id number] #### [facility] ([facility]) [address] [place] [address] CBCon 02-14-2024 Erythrocyte distribution width (RBC) [Ratio] 14.2 % Normal 11.5-15.0 [facility] Comment on above: Performed By: #### L [id number] ####[facility] ([facility])[address] [place] [address] ERYTHROCYTE MEAN CORPUSCULAR HEMOGLOBIN CONCENTRATION (G/DL) BY AUTOMATED 32.7 g/dL Normal 32.0-35.0 [facility] Comment on above: Performed By: #### L [id number] ####[facility] ([facility])[address] [place] [address] Hematocrit (Bld) [Volume fraction] 41.0 % Normal 36.0-48.0 [facility] Comment on above: Performed By: #### L [id number] ####[facility] ([facility])[address] [place] [address] Hemoglobin (Bld) [Mass/Vol] 13.4 g/dL Normal 12.0-15.0 [facility] Comment on above: Performed By: #### L [id number] ####[facility] ([facility])[address] [place] [address] MCH (RBC) [Entitic mass] 28.9 pg Normal 27.0-33.0 [facility] Comment on above: Performed By: #### L [id number] ####[facility] ([facility])[address] [place] [address] MCV (RBC) [Entitic vol] 88.6 fL Normal 82.0-98.0 [facility] Comment on above: Performed By: #### L [id number] ####[facility] ([facility])[address] [place] [address] PLATELETS (10*3/UL) IN BLOOD AUTOMATED COUNT 149 10*3/uL Low 150-400 [facility] Comment on above: Performed By: #### L [id number] ####[facility] ([facility])[address] [place] [address] RBC (Bld) [#/Vol] 4.63 10*6/uL Normal 3.80-5.00 [facility] Comment on above: Performed By: #### L [id number] ####[facility])[address] [place] [address] WBC (Bld) [#/Vol] 14.19 10*3/uL High 4.00-10.60 [facility] Comment on above: Performed By: #### L [id number] ####[facility])[address] [place] [address] HEMOGLOBIN A1Con 02-14-2024 Glucose [Mass/Vol] 105 mg/dL Normal [facility] Comment on above: Performed By: #### L [id number] #### [facility] ([facility]) [address] [place] [address] HbA1c (Bld) [Mass fraction] 5.3 % Normal 4.0-6.0 [facility] Comment on above: Performed By: #### L [id number] #### [facility] ([facility]) [address] [place] [address] HEPATIC FUNCTION PANELon Albumin [Mass/Vol] 2.9 g/dL Low 3.5-5.7 [facility] Comment on above: Performed By: #### L [id number] #### [facility] ([facility]) [address] [place] [address] ALP [Catalytic activity/Vol] 128 U/L High 34-104 [facility] Comment on above: Performed By: #### L [id number] #### [facility] ([facility]) [address] [place] [address] ALT [Catalytic activity/Vol] 78 U/L High 7-52 [facility] Comment on above: Performed By: #### L [id number] #### [facility] ([facility]) [address] [place] [address] AST [Catalytic activity/Vol] 79 U/L High 13-39 [facility] Comment on above: Performed By: #### L [id number] #### [facility] ([facility]) [address] [place] [address] Bilirubin [Mass/Vol] 0.8 mg/dL Normal 0.3-1.0 [facility] Comment on above: Performed By: #### L [id number] #### [facility] ([facility]) [address] [place] [address] Magnesium [Mass/Vol] 0.2 mg/dL Normal 0-0.2 [facility] Comment on above: Performed By: #### L [id number] #### [facility] ([facility]) [address] [place] [address] Protein [Mass/Vol] 5.2 g/dL Low 6.0-8.3 [facility] Comment on above: Performed By: #### L [id number] #### [facility] ([facility]) [address] [place] [address] LIPID PANELon 02-14-2024 CHOL/HDL 3.4 mg/dL Normal [facility] Comment on above: Performed By: #### L [id number] ####[facility] ([facility])[address] [place] [address] Cholesterol [Mass/Vol] 75 mg/dL Low 120-200 [facility] Comment on above: Performed By: #### L [id number] ####[facility] ([facility])[address] [place] [address] Magnesium [Mass/Vol] 113 mg/dL Normal 40-149 [facility] Comment on above: Result Comment: TRIG LYCERIDE REFERENCE RANGE: 20 YEARS AND OLDER CARDIOVASCULAR RISK LESS THAN 150 mg/dL LOW RISK 150 TO 199 mg/dL BORDERLINE RISK 200 mg/dL AND GREATER HIGH RISK Performed By: #### L [id number] ####[facility] ([facility])[address] [place] [address] Magnesium [Mass/Vol] 30 mg/dL Normal 0-160 [facility] Comment on above: Performed By: #### L [id number] ####[facility] ([facility])[address] [place] [address] Magnesium [Mass/Vol] 22 mg/dL Low 23-92 [facility] Comment on above: Performed By: #### L [id number] ####[facility] ([facility])[address] [place] [address] NON HDL CHOL. (LDL+VLDL) 53 Normal [facility] Comment on above: Performed By: #### L [id number] ####[facility] ([facility])[address] [place] [address] TOTAL VLDL-C 23 mg/dL Normal 0-40 [facility] Comment on above: Performed By: #### L [id number] ####[facility] ([facility])[address] [place] [address] MAGNESIUMon 02-14-2024 Magnesium [Mass/Vol] 1.8 mg/dL Low 1.9-2.7 [facility] Comment on above: Performed By: #### L [id number] ####[facility] ([facility])[address] [place] [address] MR ABDOMEN WO CONTRAST MRCPo n 02-14-2024 MR ABDOMEN WO CONTRAST MRCP History: Elevated liver enzymes. Significant artifact on recent 3T MRI obscured portions the common duct. Evaluate for choledocholithiasis. EXAM: MRI MRCP without contrast COMPARISON: MRI abdomen 02/13/2024, HIDA scan 02/14/2024, CT abdomen 02/12/2024. TECHNIQUE: Routine multiplanar multisequence MR imaging of the abdomen was performed without contrast. M.R.C.P. was performed with 3-D volume rendered reformatted and maximum intensity projection rotational images for the evaluation of the pancreatic and biliary ductal system at the MR console under concurrent physician supervision. FINDINGS: Significantly improved image quality with no limiting artifact.Small dependent gallstones reidentified in the gallbladder. Stable mild gallbladder distention, minimal pericholecystic fluid. Intrahepatic biliary tree, common duct, pancreatic duct within normal limits. IMPRESSION: No evidence for biliary obstruction or choledocholithiasis. Cholelithiasis, minimal pericholecystic fluid unchanged. (No evidence for acute cholecystitis on recent HIDA scan). Electronically signed: Keturah Chicas. Reba Vlcynthia Invalid Interpretation Code [facility] URINALYSIS WITH MICROSCOPICo n 02-14-2024 BILIRUBIN, TOTAL PRESENCE IN URINE Negative Normal Negative [facility] Comment on above: Performed By: #### L [id number] #### [facility] ([facility]) [address] [place] [address] Clarity (U) Slightly Cloudy Abnormal [facility] Comment on above: Performed By: #### L [id number] #### [facility] ([facility]) [address] [place] [address] Color (U) Kristin Abnormal Yellow [facility] Comment on above: Performed By: #### L [id number] #### [facility] ([facility]) [address] [place] [address] Glucose (U) [Mass/Vol] Negative Normal Negative [facility] Comment on above: Performed By: #### L [id number] #### [facility] ([facility]) [address] [place] [address] HEMOGLOBIN PRESENCE IN URINE Moderate Abnormal Negative [facility] Comment on above: Performed By: #### L [id number] #### [facility] ([facility]) [address] [place] [address] Ketones Ql (U) 20 mg/dL Abnormal Negative [facility] Comment on above: Performed By: #### L [id number] #### [facility] ([facility]) [address] [place] [address] LEUKOCYTE ESTERASE PRESENCE IN URINE BY TEST STRIP Moderate Abnormal Negative [facility] Comment on above: Performed By: #### L [id number] #### [facility] ([facility]) [address] [place] [address] MUCUS (#/HPF) IN URINE SEDIMENT Many Abnormal None Seen, Occasional, Few [facility] Comment on above: Performed By: #### L [id number] #### [facility] ([facility]) [address] [place] [address] NITRITE PRESENCE IN URINE Negative Normal Negative [facility] Comment on above: Performed By: #### L [id number] #### [facility] ([facility]) [address] [place] [address] pH (U) 5.0 [pH] Normal 5.0-8.0 [facility] Comment on above: Performed By: #### L [id number] #### [facility] ([facility]) [address] [place] [address] Protein (U) [Mass/Vol] 100 mg/dL Abnormal Negative [facility] Comment on above: Performed By: #### L [id number] #### [facility] ([facility]) [address] [place] [address] RBC (#/HPF) IN URINE SEDIMENT >100 Abnormal None Seen [facility] Comment on above: Performed By: #### L [id number] #### [facility] ([facility]) [address] [place] [address] Specific gravity (U) [Rel density] 1.025 High 1.015-1.020 [facility] Comment on above: Performed By: #### L [id number] #### [facility] ([facility]) [address] [place] [address] SQUAMOUS EPITHELIAL CELLS (#/HPF) IN URINE SEDIMENT Moderate Abnormal None Seen, Occasional [facility] Comment on above: Performed By: #### L [id number] #### [facility] ([facility]) [address] [place] [address] UROBILINOGEN (EU/DL) IN URINE 4.0 EU/dL Abnormal Negative [facility] Comment on above: Performed By: #### L [id number] #### [facility] ([facility]) [address] [place] [address] WBC (LEUKOCYTE) (#/HPF) IN URINE SEDIMENT >100 Abnormal None Seen [facility] Comment on above: Performed By: #### L [id number] #### [facility] ([facility]) [address] [place] [address] 30on 02-13-2024 30 Daily Case Managemen t Update Multidisciplinary rounds have been completed. Barriers to Discharge: Pending clinical course and improvement in clinical condition. Echocardiogram showing reduced EF. Patient planned for cardiac catheterization per Cardiology. Patient on Heparin infusion. Discharge plan is home when medically ready. Diet: Dietary Orders (From admission, onward) Start Ordered 02/13/24412 Diet NPO Diet effective now Comments: Ice Chips Question: Reason for NPO: Answer: Operation/Procedure 02/13/24415 Physician Expected Discharge Date: 02/16/2024 Discharge Delays: PT Six Click Score: 24 OT Six Click Score: PT Recommendations: OT Recommendations: New Consults: Normal [facility] 30 The patient is Moderately Stable - Low risk of patient condition declining or worsening The patient's goals for the shift include comfort The clinical goals for the shift include stable vitals Over the shift, the patient did not make progress toward the following goals. Barriers to progression include na. Recommendations to address these barriers include na. Normal [facility] ANTI-XA (HEPARIN LEVEL)on HEPARIN UNFRACTIONATED (U/ML) IN PPP BY CHROMOGENIC METHOD 0.27 IU/mL Low 0.3-0.7 [facility] Comment on above: Result Comment: [place] roxaban and Apixaban will interfere with the anti Xa assay used to monitor UFH and LMWH. Performed By: #### L [id number] ####[facility] ([facility])[address] [place] [address] HEPARIN UNFRACTIONATED (U/ML) IN PPP BY CHROMOGENIC METHOD <0.10 Invalid Interpretation Code 0.3-0.7 [facility] Comment on above: Order Comment: Check anti-Xa level every 6 hours while on heparin infusion, or per protocol. Result Comment: [place] roxaban and Apixaban will interfere with the anti Xa assay used to monitor UFH and LMWH. Performed By: #### L [id number] ####[facility] ([facility])[address] [place] [address] APTTon 02-13-2024 ACTIVATED PARTIAL THROMBOPLASTIN TIME IN PPP BY COAGULATION ASSAY 42.5 Seconds High 25.0-35.0 [facility] Comment on above: Result Comment: Clin ical significance of the APTT is questionable in the presence of heparin. Performed By: #### L [id number] ####[facility] ([facility])[address] [place] [address] BASIC METABOLIC PANELon 01-31 Anion gap [Moles/Vol] 11 mmol/L Normal 7-20 [facility] Comment on above: Performed By: #### L [id number] #### [facility] ([facility]) [address] [place] [address] Calcium [Mass/Vol] 7.3 mg/dL Low 8.6-10.3 [facility] Comment on above: Performed By: #### L [id number] #### [facility] ([facility]) [address] [place] [address] Chloride [Moles/Vol] 107 mmol/L Normal 98-107 [facility] Comment on above: Performed By: #### L [id number] #### [facility] ([facility]) [address] [place] [address] CO2 [Moles/Vol] 21 mmol/L Normal 21-31 [facility] Comment on above: Performed By: #### L [id number] #### [facility] ([facility]) [address] [place] [address] Creatinine [Mass/Vol] 0.53 mg/dL Low 0.60-1.20 [facility] Comment on above: Performed By: #### L [id number] #### [facility] ([facility]) [address] [place] [address] GLOMERULAR FILTRATION RATE ML/MIN/1.73 SQ M.PREDICTED 109.8 mL/min/1.73m*2 Normal >60.0 [facility] Comment on above: Result Comment: The [facility]???s estimated glomerular filtration rate (eGFR) will no longer include consideration of race in its calculation. The National Kidney Foundation???s eGFR Task Force developed new recommendations for the estimation of the glomerular filtration rate in the [place] They recommend immediate implementation of the new equation refit without the race variable in all laboratories because the calculation does not include race. In addition to not including race in the calculation and reporting, it included diversity in its development, and has acceptable performance characteristics and potential consequences that do not disproportionately affect any one group of individuals. Performed By: #### L [id number] #### [facility] ([facility]) [address] [place] [address] Glucose [Mass/Vol] 105 mg/dL High 70-100 [facility] Comment on above: Performed By: #### L [id number] #### [facility] ([facility]) [address] [place] [address] Potassium [Moles/Vol] 3.5 mmol/L Normal 3.5-5.1 [facility] Comment on above: Performed By: #### L [id number] #### [facility] ([facility]) [address] [place] [address] Sodium [Moles/Vol] 135 mmol/L Low 136-145 [facility] Comment on above: Performed By: #### L [id number] #### [facility] ([facility]) [address] [place] [address] Urea nitrogen [Mass/Vol] 11 mg/dL Normal 7-25 [facility] Comment on above: Performed By: #### L [id number] #### [facility] ([facility]) [address] [place] [address] UREA NITROGEN/CREATININE (MASS RATIO) IN SER/PLAS 20.8 Normal [facility] Comment on above: Performed By: #### L [id number] #### [facility] ([facility]) [address] [place] [address] BLOOD CULTUREon 02-13-2024 Bacteria identified Cx Nom (Bld) Abnormal [facility] Comment on above: Order Comment: From a different site than #1. Result Comment: KLEB SIELLA PNEUMONIAE Klebsiella pneumoniae For Susceptibility Results Please Refer to ESCHERICHIA COLI Escherichia coli For Susceptibility Results Please Refer to Performed By: #### L [id number] ####[facility] ([facility])[address] [facility] [address] Result Comment: KLEB SIELLA PNEUMONIAE Klebsiella pneumoniae Susceptibility to Follow ESCHERICHIA COLI Escherichia coli Susceptibility to Follow Performed By: #### L [id number] #### [facility] ([facility]) [address] [place] [address] GRAM STAIN RESULT Abnormal [facility] Comment on above: Order Comment: From a different site than #1. Result Comment: Anae robic Bottle Yields Gram negative bacilli Aerobic Bottle Yields Gram negative bacilli Performed By: #### L [id number] ####[facility] ([facility])[address] [place] [address] Performed By: #### L [id number] #### [facility] ([facility]) [address] [address] CBCon 02-13-2024 Erythrocyte distribution width (RBC) [Ratio] 13.9 % Normal 11.5-15.0 [facility] Comment on above: Performed By: #### L [id number] #### [facility] ([facility]) [address] [place] [address] ERYTHROCYTE MEAN CORPUSCULAR HEMOGLOBIN CONCENTRATION (G/DL) BY AUTOMATED 34.2 g/dL Normal 32.0-35.0 [facility] Comment on above: Performed By: #### L [id number] #### [facility] ([facility]) [address] [place] [address] Hematocrit (Bld) [Volume fraction] 39.8 % Normal 36.0-48.0 [facility] Comment on above: Performed By: #### L [id number] #### [facility] ([facility]) [address] [place] [address] Hemoglobin (Bld) [Mass/Vol] 13.6 g/dL Normal 12.0-15.0 [facility] Comment on above: Performed By: #### L [id number] #### [facility] ([facility]) [address] [place] [address] MCH (RBC) [Entitic mass] 28.7 pg Normal 27.0-33.0 [facility] Comment on above: Performed By: #### L [id number] #### [facility] ([facility]) [address] [place] [address] MCV (RBC) [Entitic vol] 84.0 fL Normal 82.0-98.0 [facility] Comment on above: Performed By: #### L [id number] #### [facility] ([facility]) [address] [place] [address] PLATELETS (10*3/UL) IN BLOOD AUTOMATED COUNT 160 10*3/uL Normal 150-400 [facility] Comment on above: Performed By: #### L [id number] #### [facility] ([facility]) [address] [place] [address] RBC (Bld) [#/Vol] 4.74 10*6/uL Normal 3.80-5.00 [facility] Comment on above: Performed By: #### L [id number] #### [facility] ([facility]) [address] [place] [address] WBC (Bld) [#/Vol] 13.46 10*3/uL High 4.00-10.60 [facility] Comment on above: Performed By: #### L [id number] #### [facility] ([facility]) [address] [place] [address] CBC WITH AUTO DIFFERENTIALon 02-13-2024 Basophils (Bld) [#/Vol] 0.02 10*3/uL Normal 0.00-0.20 [facility] Comment on above: Performed By: #### L [id number] ####[facility] ([facility])[address] [place] [address] Basophils/100 WBC (Bld) 0.2 % Normal 0.0-1.0 [facility] Comment on above: Performed By: #### L [id number] ####[facility] ([facility])[address] [place] [address] Eosinophils (Bld) [#/Vol] 0.01 10*3/uL Normal 0.00-0.50 [facility] Comment on above: Performed By: #### L [id number] ####[facility] ([facility])[address] [place] [address] Eosinophils/100 WBC (Bld) 0.1 % Normal 0.0-6.0 [facility] Comment on above: Performed By: #### L [id number] ####[facility] ([facility])[address] [place] [address] Erythrocyte distribution width (RBC) [Ratio] 13.3 % Normal 11.5-15.0 [facility] Comment on above: Performed By: #### L [id number] ####[facility] ([facility])[address] [place] [address] ERYTHROCYTE MEAN CORPUSCULAR HEMOGLOBIN CONCENTRATION (G/DL) BY AUTOMATED 32.9 g/dL Normal 32.0-35.0 [facility] Comment on above: Performed By: #### L [id number] ####[facility] ([facility])[address] [place] [address] Hematocrit (Bld) [Volume fraction] 43.1 % Normal 36.0-48.0 [facility] Comment on above: Performed By: #### L [id number] ####[facility] ([facility])[address] [place] [address] Hemoglobin (Bld) [Mass/Vol] 14.2 g/dL Normal 12.0-15.0 [facility] Comment on above: Performed By: #### L [id number] ####[facility] ([facility])[address] [place] [address] Immature granulocytes (Bld) [#/Vol] 0.24 10*3/uL High 0.00-0.20 [facility] Comment on above: Performed By: #### L [id number] ####[facility] ([facility])[address] [place] [address] Immature granulocytes/100 WBC (Bld) 1.9 % High 0.0-1.0 [facility] Comment on above: Performed By: #### L [id number] ####[facility] ([facility])[address] [place] [address] Lymphocytes (Bld) [#/Vol] 0.60 10*3/uL Low 1.20-4.00 [facility] Comment on above: Performed By: #### L [id number] ####[facility] ([facility])[address] [place] [address] Lymphocytes/100 WBC (Bld) 4.7 % Low 20.0-45.0 [facility] Comment on above: Performed By: #### L [id number] ####[facility] ([facility])[address] [place] [address] MCH (RBC) [Entitic mass] 28.9 pg Normal 27.0-33.0 [facility] Comment on above: Performed By: #### L [id number] ####[facility] ([facility])[address] [place] [address] MCV (RBC) [Entitic vol] 87.8 fL Normal 82.0-98.0 [facility] Comment on above: Performed By: #### L [id number] ####[facility] ([facility])[address] [place] [address] Monocytes (Bld) [#/Vol] 0.46 10*3/uL Normal 0.10-1.00 [facility] Comment on above: Performed By: #### L [id number] ####[facility] ([facility])[address] [place] [address] Monocytes/100 WBC (Bld) 3.6 % Low 5.0-12.0 [facility] Comment on above: Performed By: #### L [id number] ####[facility] ([facility])[address] [place] [address] Neutrophils (Bld) [#/Vol] 11.36 10*3/uL High 1.60-7.60 [facility] Comment on above: Performed By: #### L [id number] ####[facility] ([facility])[address] [place] [address] Neutrophils/100 WBC (Bld) 89.5 % High 40.0-72.0 [facility] Comment on above: Performed By: #### L [id number] ####[facility] ([facility])[address] [place] [address] NRBC (PER 100 WBCS) BY AUTOMATED COUNT 0.0 % Normal 0 [facility] Comment on above: Performed By: #### L [id number] ####[facility] ([facility])[address] [place] [address] PLATELETS (10*3/UL) IN BLOOD AUTOMATED COUNT 250 10*3/uL Normal 150-400 [facility] Comment on above: Performed By: #### L [id number] ####[facility] ([facility])[address] [place] [address] RBC (Bld) [#/Vol] 4.91 10*6/uL Normal 3.80-5.00 [facility] Comment on above: Performed By: #### L [id number] ####[facility] ([facility])[address] [place] [address] WBC (Bld) [#/Vol] 12.69 10*3/uL High 4.00-10.60 [facility] Comment on above: Performed By: #### L [id number] ####[facility] ([facility])[address] [place] [address] COMPREHENSIVE METABOLIC PANE Jesus 02-13-2024 Albumin [Mass/Vol] 3.4 g/dL Low 3.5-5.7 [facility] Comment on above: Performed By: #### L [id number] #### [facility] ([facility]) [address] [place] [address] ALP [Catalytic activity/Vol] 123 U/L High 34-104 [facility] Comment on above: Performed By: #### L [id number] #### [facility] ([facility]) [address] [place] [address] ALT [Catalytic activity/Vol] 68 U/L High 7-52 [facility] Comment on above: Performed By: #### L [id number] #### [facility] ([facility]) [address] [place] [address] Anion gap [Moles/Vol] 14 mmol/L Normal 7-20 [facility] Comment on above: Performed By: #### L [id number] #### [facility] ([facility]) [address] [place] [address] AST [Catalytic activity/Vol] 93 U/L High 13-39 [facility] Comment on above: Performed By: #### L [id number] #### [facility] ([facility]) [address] [place] [address] Bilirubin [Mass/Vol] 0.8 mg/dL Normal 0.3-1.0 [facility] Comment on above: Performed By: #### L [id number] #### [facility] ([facility]) [address] [place] [address] Calcium [Mass/Vol] 7.8 mg/dL Low 8.6-10.3 [facility] Comment on above: Performed By: #### L [id number] #### [facility] ([facility]) [address] [place] [address] Chloride [Moles/Vol] 104 mmol/L Normal 98-107 [facility] Comment on above: Performed By: #### L [id number] #### [facility] ([facility]) [address] [place] [address] CO2 [Moles/Vol] 24 mmol/L Normal 21-31 [facility] Comment on above: Performed By: #### L [id number] #### [facility] ([facility]) [address] [place] [address] Creatinine [Mass/Vol] 0.48 mg/dL Low 0.60-1.20 [facility] Comment on above: Performed By: #### L [id number] #### [facility] ([facility]) [address] [place] [address] GLOMERULAR FILTRATION RATE ML/MIN/1.73 SQ M.PREDICTED 112.5 mL/min/1.73m*2 Normal >60.0 [facility] Comment on above: Result Comment: The [facility]???s estimated glomerular filtration rate (eGFR) will no longer include consideration of race in its calculation. The National Kidney Foundation???s eGFR Task Force developed new recommendations for the estimation of the glomerular filtration rate in the [place] They recommend immediate implementation of the new equation refit without the race variable in all laboratories because the calculation does not include race. In addition to not including race in the calculation and reporting, it included diversity in its development, and has acceptable performance characteristics and potential consequences that do not disproportionately affect any one group of individuals. Performed By: #### L [id number] #### [facility] ([facility]) [address] [place] [address] Glucose [Mass/Vol] 136 mg/dL High 70-100 [facility] Comment on above: Performed By: #### L [id number] #### [facility] ([facility]) [address] [place] [address] Potassium [Moles/Vol] 3.3 mmol/L Low 3.5-5.1 [facility] Comment on above: Performed By: #### L [id number] #### [facility] ([facility]) [address] [place] [address] Protein [Mass/Vol] 5.6 g/dL Low 6.0-8.3 [facility] Comment on above: Performed By: #### L [id number] #### [facility] ([facility]) [address] [place] [address] Sodium [Moles/Vol] 139 mmol/L Normal 136-145 [facility] Comment on above: Performed By: #### L [id number] #### [facility] ([facility]) [address] [place] [address] Urea nitrogen [Mass/Vol] 14 mg/dL Normal 7-25 [facility] Comment on above: Performed By: #### L [id number] #### [facility] ([facility]) [address] [place] [place] [address] UREA NITROGEN/CREATININE (MASS RATIO) IN SER/PLAS 29.2 Normal [facility] Comment on above: Performed By: #### L [id number] #### [facility] ([facility]) [address] [place] [address] CONSULTon 02-13-2024 CONSULT --- Attestation signed by Daryl Devlin MD at 02/13/2024 3:37 PM GC: I saw this patient. I personally performed the critical/beasley portions that determines the level of service. I was directly involved in the management and treatment plan of the patient. I reviewed fellow Dr. Álvarez's note and agree with the documentation Patient had a history of cholelithiasis. While she was in the emergency room at [facility] she had chest pain and chest discomfort. Later on she developed elevated enzyme consistent with NSTEMI. Echo showed EF is very low around 20% with significant wall motion abnormality that might be suggestive of stress-induced cardiomyopathy. Based on this presentation the patient need to have heart catheterization before any further GI intervention. Cardiology Consult Note Reason for Consult: NSTEMI HPI: Neela Medrano is a 53 y.o. female patient is presenting as a transfer from [facility] for continuity of care. Past medical history includes: HTN Anxiety COPD Smoking Patient was evaluated by the cardiology team 2 years ago for pre-op risk stratification for bariatric surgery. Stress testing was done at that time showing low risk. Patient has been experiencing right sided abdominal pain intermittently for the last period. Last night, it has been progressively worsening, so she presented to the ED. In the ED, she started experiencing epigastric chest discomfort, radiating to all over her chest, described as heaviness, lasting for an hour, no associated nausea, vomiting or arm numbness. Patient reports that she has never had this type of chest pain before. Her lifestyle is sedentary. 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 Upon presentation to the ED, high-sensitivity troponin was elevated, ACS protocol was initiated. CT scan of the abdomen pelvis showed gallbladder distention with sludge, intrahepatic biliary ductal dilatation suspicious for stone. Troponin level at our facility 3.72--3.11; EKG NSR no new ST T wave changes. Patient was seen and examined today AM. She is chest pain free, anxious, tearful. Cardiology ROS: GENERAL: Denies fever, chills, night sweats, weight loss. CARDIOVASCULAR: refer to HPI RESPIRATORY: Denies SOB, coughing, wheezing GI: Denies abdominal pain, nausea/vomiting. PSYCH: Denies anxiety. Past Medical History She has no past medical history on file. Surgical History She has no past surgical history on file. Social History She reports that she has been smoking cigarettes. She has a 8.75 pack-year smoking history. She has been exposed to tobacco smoke. She has never used smokeless tobacco. No history on file for alcohol use and drug use. Family History No family history on file. Allergies Patient has no known allergies. Medications Medications Prior to Admission Medication Sig Dispense Refill Last Dose buPROPion XL (Wellbutrin XL) 300 mg 24 hr tablet Take 300 mg by mouth in the morning. Do not crush, chew, or split. multivitamin tablet Take 1 tablet by mouth in the morning. Last Recorded Vitals Patient Vitals for the past 24 hrs: BP Temp Pulse Resp SpO2 Height Weight 02/13/24 0400 84/52 36.4 ???C (97.5 ???F) 96 22 95 % -- -- 02/13/24 0322 (!) 82/49 -- 96 12 99 % -- -- 02/13/24 0300 (!) 77/43 -- 99 21 99 % 1.499 m (4' 11 ) 76.7 kg (169 lb) Physical Examination: GENERAL: AOx3, in no acute distress. HEAD: Atraumatic, normocephalic. EYES: MEETA, EOMI. NECK: No JVD present. CARDIAC: RRR. No murmur, rubs, or gallops. RESPIRATORY: CTAB, no increased effort of breathing. ABDOMEN: Soft, nontender, nondistended. EXTREMITIES: No lower extremity edema, peripheral pulses are 2+ bilaterally. NEURO: No focal deficits Relevant Lab Results Encounter Date: 02/13/24 ECG 12 lead Result Value Ventricular Rate 91 Atrial Rate 91 OK Interval 156 QRS DURATION 92 QT Interval 394 QTC CALCULATION(BAZETT) 484 P Carmen 27 R-Carmen 258 T Wave Carmen 1 Impression Normal sinus rhythm Right superior axis deviation Pulmonary disease pattern Prolonged QT Abnormal ECG No previous ECGs available Lab Results Component Value Date TROPONINI 3.72 (HH) 02/13/2024 No echocardiogram results found for the past 12 months No nuclear medicine results found for the past 12 months Relevant Imaging Results ECG 12 lead Normal sinus rhythm Right superior axis deviation Pulmonary disease pattern Prolonged QT Abnormal ECG No previous ECGs available Assessment: NSTEMI, Troponin level of 3.72 HTN HLD Status post bariatric surgery Obesity Choledocholithiasis Plan: Serial troponin and EKG Will obtain TTE to assess cardiac function Continue heparin drip Continue aspirin and statin Address modifiable risk factors includi (more content not included)... Normal [facility] CONSULT --- Attestation signed by Cooper Love MD at 02/13/2024 1:53 PM I saw and evaluated the patient. I reviewed the resident's/fellow's note and agree with the findings and plan documents in the resident's/fellow's note Concern for choledocholithiasis with filling defect in the distal CBD measuring 4 x 9 mm, suspicious for a stone, seen on CT at outside hospital. CBD measures 5 mm with mild intrahepatic biliary dilation. MRCP is limited by artifact. There is no sign of cholangitis. Patient has concern of NSTEMI possibly going for cardiac cath today. PLAN We agree to proceed with cardiac cath Consider repeating MRCP Trend LFT's We will follow Initial Gastroenterology/Hepato logy Consultation Note IDENTIFYING DATA PATIENT: Neela Medrano ADMIT DATE: 02/13/2024 TIME OF EVALUATION: 02/13/2024 7:16 AM Reason for Consult: Choledocholithiasis Admitting Physician: Kiara Tineo MD HISTORY OF PRESENT ILLNESS Neela Medrano is a 53 y.o. female with history of gastric bypass in 2021, obesity with BMI 34. The patient presented to [facility] with worsening right upper quadrant pain associated with nausea. At the outside hospital, the patient then developed severe substernal chest pain. Reportedly, EKG x 2 was normal, but troponins were elevated. The patient received aspirin and was started on heparin infusion for suspected NSTEMI. LFTs were mildly elevated with AST 94, ALT 57, alkaline phosphatase 164, bilirubin normal. CT abdomen and pelvis showed hyperdense filling defect in the distal CBD measuring 4 x 9 mm, suspicious for a stone, CBD measuring 5 mm, mild intrahepatic biliary ductal dilation, mildly distended gallbladder, and layering hyperdense material in the gallbladder suggestive of sludge. The patient was transferred to [facility] for GI and cardiology evaluation. Patient was seen this morning. She is doing well. Reports her pain improved significantly. She looks comfortable. Reports that she has been complaining of right upper quadrant pain for the last 9 months. Her pain is intermittent about 10 episodes per month. Pain can last from few hours to an entire day. No clear triggers. Reports associated nausea but no vomiting. No diarrhea or constipation. She is not on blood thinners. PAST MEDICAL, SURGICAL, FAMILY, and SOCIAL HISTORY Past Medical History: History reviewed. No pertinent past medical history. Past Surgical History: History reviewed. No pertinent surgical history. Family History: No family history on file. Social History: Social History Tobacco Use Smoking status: Every Day Packs/day: 0.25 Years: 35.00 Additional pack years: 0.00 Total pack years: 8.75 Types: Cigarettes Passive exposure: Current Smokeless tobacco: Never Vaping Use Vaping Use: Every day Passive vaping exposure: Yes Allergies: No Known Allergies MEDICATIONS Home Medications: Prior to Admission medications Medication Sig Start Date End Date Taking? Authorizing Provider buPROPion XL (Wellbutrin XL) 300 mg 24 hr tablet Take 300 mg by mouth in the morning. Do not crush, chew, or split. Historical Provider, multivitamin tablet Take 1 tablet by mouth in the morning. Historical Provider, Current Medications: aspirin, 81 mg, oral, Daily with breakfast atorvastatin, 80 mg, oral, Nightly buPROPion XL, 300 mg, oral, q AM metoprolol tartrate, 25 mg, oral, BID multivitamin with folic acid, 1 tablet, oral, Daily before breakfast Oxygen Therapy, , inhalation, Continuous PRNs: acetaminophen, 650 mg, q6h PRN HYDROcodone-acetaminoph en, 1 tablet, q6h PRN HYDROcodone-acetaminoph en, 1 tablet, q6h PRN naloxone, 0.2 mg, PRN Or naloxone, 0.2 mg, PRN Or naloxone, 0.2 mg, PRN nitroglycerin, 0.4 mg, q5 min PRN ondansetron ODT, 4 mg, q8h PRN Or ondansetron, 4 mg, q6h PRN REVIEW OF SYSTEMS See HPI, otherwise ROS negative as below CONSTITUTIONAL: negative HEENT: negative RESPIRATORY: negative CARDIOVASCULAR: negative GASTROINTESTINAL: as in HPI GENITOURINARY: negative OBJECTIVE DATA Vitals: BP 84/52 Pulse 96 Temp 36.4 ???C (97.5 ???F) Resp 22 Ht 1.499 m (4' 11 ) Wt 76.7 kg (169 lb) SpO2 95% BMI 34.13 kg/m??? GEN: Alert and oriented x3, NAD HEENT: Atraumatic, normocephalic CV: Regular rate and rhythm PULM: Breathing comfortably ABD: Soft, non-tender, non-distended NEURO: Moves all 4 extremities spontaneously LABS AND IMAGING CBC: Results from last 7 days Lab Units 02/13/24 0432 WBC AUTO 10*3/uL 12.69* RBC AUTO 10*6/uL 4.91 HEMOGLOBIN g/dL 14.2 HEMATOCRIT % 43.1 MCV fL 87.8 RDW % 13.3 PLATELETS AUTO 10*3/uL 250 PT/INR Results from last 7 days Lab Units 02/13/24 0432 PROTIME Seconds 16.0* INR 1.29* BMP: Results from last 7 day (more content not included)... [facility] HPon 02-13-2024 H&P reviewed. The patient was examined and there are no changes to the H&P. Normal [facility] --- Attestation signed by Daryl Devlin MD at 02/13/2024 3:37 PM GC: I saw this patient. I personally performed the critical/beasley portions that determines the level of service. I was directly involved in the management and treatment plan of the patient. I reviewed fellow Dr. Álvarez's note and agree with the documentation Patient had a history of cholelithiasis. While she was in the emergency room at [facility] she had chest pain and chest discomfort. Later on she developed elevated enzyme consistent with NSTEMI. Echo showed EF is very low around 20% with significant wall motion abnormality that might be suggestive of stress-induced cardiomyopathy. Based on this presentation the patient need to have heart catheterization before any further GI intervention. Cardiology Consult Note Reason for Consult: NSTEMI HPI: Neela Medrano is a 53 y.o. female patient is presenting as a transfer from [facility] for continuity of care. Past medical history includes: HTN Anxiety COPD Smoking Patient was evaluated by the cardiology team 2 years ago for pre-op risk stratification for bariatric surgery. Stress testing was done at that time showing low risk. Patient has been experiencing right sided abdominal pain intermittently for the last period. Last night, it has been progressively worsening, so she presented to the ED. In the ED, she started experiencing epigastric chest discomfort, radiating to all over her chest, described as heaviness, lasting for an hour, no associated nausea, vomiting or arm numbness. Patient reports that she has never had this type of chest pain before. Her lifestyle is sedentary. 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 Upon presentation to the ED, high-sensitivity troponin was elevated, ACS protocol was initiated. CT scan of the abdomen pelvis showed gallbladder distention with sludge, intrahepatic biliary ductal dilatation suspicious for stone. Troponin level at our facility 3.72--3.11; EKG NSR no new ST T wave changes. Patient was seen and examined today AM. She is chest pain free, anxious, tearful. Cardiology ROS: GENERAL: Denies fever, chills, night sweats, weight loss. CARDIOVASCULAR: refer to HPI RESPIRATORY: Denies SOB, coughing, wheezing GI: Denies abdominal pain, nausea/vomiting. PSYCH: Denies anxiety. Past Medical History She has no past medical history on file. Surgical History She has no past surgical history on file. Social History She reports that she has been smoking cigarettes. She has a 8.75 pack-year smoking history. She has been exposed to tobacco smoke. She has never used smokeless tobacco. No history on file for alcohol use and drug use. Family History No family history on file. Allergies Patient has no known allergies. Medications Medications Prior to Admission Medication Sig Dispense Refill Last Dose buPROPion XL (Wellbutrin XL) 300 mg 24 hr tablet Take 300 mg by mouth in the morning. Do not crush, chew, or split. multivitamin tablet Take 1 tablet by mouth in the morning. Last Recorded Vitals Patient Vitals for the past 24 hrs: BP Temp Pulse Resp SpO2 Height Weight 02/13/24 0400 84/52 36.4 ???C (97.5 ???F) 96 22 95 % -- -- 02/13/24 0322 (!) 82/49 -- 96 12 99 % -- -- 02/13/24 0300 (!) 77/43 -- 99 21 99 % 1.499 m (4' 11 ) 76.7 kg (169 lb) Physical Examination: GENERAL: AOx3, in no acute distress. HEAD: Atraumatic, normocephalic. EYES: MEETA, EOMI. NECK: No JVD present. CARDIAC: RRR. No murmur, rubs, or gallops. RESPIRATORY: CTAB, no increased effort of breathing. ABDOMEN: Soft, nontender, nondistended. EXTREMITIES: No lower extremity edema, peripheral pulses are 2+ bilaterally. NEURO: No focal deficits Relevant Lab Results Encounter Date: 02/13/24 ECG 12 lead Result Value Ventricular Rate 91 Atrial Rate 91 OK Interval 156 QRS DURATION 92 QT Interval 394 QTC CALCULATION(BAZETT) 484 P Carmen 27 R-Carmen 258 T Wave Carmen 1 Impression Normal sinus rhythm Right superior axis deviation Pulmonary disease pattern Prolonged QT Abnormal ECG No previous ECGs available Lab Results Component Value Date TROPONINI 3.72 (HH) 02/13/2024 No echocardiogram results found for the past 12 months No nuclear medicine results found for the past 12 months Relevant Imaging Results ECG 12 lead Normal sinus rhythm Right superior axis deviation Pulmonary disease pattern Prolonged QT Abnormal ECG No previous ECGs available Assessment: NSTEMI, Troponin level of 3.72 HTN HLD Status post bariatric surgery Obesity Choledocholithiasis Plan: Serial troponin and EKG Will obtain TTE to assess cardiac function Continue heparin drip Continue aspirin and statin Address modifiable risk factors includi (more content not included)... Normal [facility] HP --- Attestation signed by Cooper Love MD at 02/13/2024 1:53 PM I saw and evaluated the patient. I reviewed the resident's/fellow's note and agree with the findings and plan documents in the resident's/fellow's note Concern for choledocholithiasis with filling defect in the distal CBD measuring 4 x 9 mm, suspicious for a stone, seen on CT at outside hospital. CBD measures 5 mm with mild intrahepatic biliary dilation. MRCP is limited by artifact. There is no sign of cholangitis. Patient has concern of NSTEMI possibly going for cardiac cath today. PLAN We agree to proceed with cardiac cath Consider repeating MRCP Trend LFT's We will follow Initial Gastroenterology/Hepato logy Consultation Note IDENTIFYING DATA PATIENT: Neela Medrano ADMIT DATE: 02/13/2024 TIME OF EVALUATION: 02/13/2024 7:16 AM Reason for Consult: Choledocholithiasis Admitting Physician: Kiara Tineo MD HISTORY OF PRESENT ILLNESS Neela Medrano is a 53 y.o. female with history of gastric bypass in 2021, obesity with BMI 34. The patient presented to [facility] with worsening right upper quadrant pain associated with nausea. At the outside hospital, the patient then developed severe substernal chest pain. Reportedly, EKG x 2 was normal, but troponins were elevated. The patient received aspirin and was started on heparin infusion for suspected NSTEMI. LFTs were mildly elevated with AST 94, ALT 57, alkaline phosphatase 164, bilirubin normal. CT abdomen and pelvis showed hyperdense filling defect in the distal CBD measuring 4 x 9 mm, suspicious for a stone, CBD measuring 5 mm, mild intrahepatic biliary ductal dilation, mildly distended gallbladder, and layering hyperdense material in the gallbladder suggestive of sludge. The patient was transferred to [facility] for GI and cardiology evaluation. Patient was seen this morning. She is doing well. Reports her pain improved significantly. She looks comfortable. Reports that she has been complaining of right upper quadrant pain for the last 9 months. Her pain is intermittent about 10 episodes per month. Pain can last from few hours to an entire day. No clear triggers. Reports associated nausea but no vomiting. No diarrhea or constipation. She is not on blood thinners. PAST MEDICAL, SURGICAL, FAMILY, and SOCIAL HISTORY Past Medical History: History reviewed. No pertinent past medical history. Past Surgical History: History reviewed. No pertinent surgical history. Family History: No family history on file. Social History: Social History Tobacco Use Smoking status: Every Day Packs/day: 0.25 Years: 35.00 Additional pack years: 0.00 Total pack years: 8.75 Types: Cigarettes Passive exposure: Current Smokeless tobacco: Never Vaping Use Vaping Use: Every day Passive vaping exposure: Yes Allergies: No Known Allergies MEDICATIONS Home Medications: Prior to Admission medications Medication Sig Start Date End Date Taking? Authorizing Provider buPROPion XL (Wellbutrin XL) 300 mg 24 hr tablet Take 300 mg by mouth in the morning. Do not crush, chew, or split. Historical Provider, multivitamin tablet Take 1 tablet by mouth in the morning. Historical Provider, Current Medications: aspirin, 81 mg, oral, Daily with breakfast atorvastatin, 80 mg, oral, Nightly buPROPion XL, 300 mg, oral, q AM metoprolol tartrate, 25 mg, oral, BID multivitamin with folic acid, 1 tablet, oral, Daily before breakfast Oxygen Therapy, , inhalation, Continuous PRNs: acetaminophen, 650 mg, q6h PRN HYDROcodone-acetaminoph en, 1 tablet, q6h PRN HYDROcodone-acetaminoph en, 1 tablet, q6h PRN naloxone, 0.2 mg, PRN Or naloxone, 0.2 mg, PRN Or naloxone, 0.2 mg, PRN nitroglycerin, 0.4 mg, q5 min PRN ondansetron ODT, 4 mg, q8h PRN Or ondansetron, 4 mg, q6h PRN REVIEW OF SYSTEMS See HPI, otherwise ROS negative as below CONSTITUTIONAL: negative HEENT: negative RESPIRATORY: negative CARDIOVASCULAR: negative GASTROINTESTINAL: as in HPI GENITOURINARY: negative OBJECTIVE DATA Vitals: BP 84/52 Pulse 96 Temp 36.4 ???C (97.5 ???F) Resp 22 Ht 1.499 m (4' 11 ) Wt 76.7 kg (169 lb) SpO2 95% BMI 34.13 kg/m??? GEN: Alert and oriented x3, NAD HEENT: Atraumatic, normocephalic CV: Regular rate and rhythm PULM: Breathing comfortably ABD: Soft, non-tender, non-distended NEURO: Moves all 4 extremities spontaneously LABS AND IMAGING CBC: Results from last 7 days Lab Units 02/13/24 0432 WBC AUTO 10*3/uL 12.69* RBC AUTO 10*6/uL 4.91 HEMOGLOBIN g/dL 14.2 HEMATOCRIT % 43.1 MCV fL 87.8 RDW % 13.3 PLATELETS AUTO 10*3/uL 250 PT/INR Results from last 7 days Lab Units 02/13/24 0432 PROTIME Seconds 16.0* INR 1.29* BMP: Results from last 7 day (more content not included)... Normal [facility] MAGNESIUMon 02-13-2024 Magnesium [Mass/Vol] 1.4 mg/dL Low 1.9-2.7 [facility] Comment on above: Performed By: #### L [id number] #### [facility] [address] [place] [address] MR ABDOMEN W AND WO CONTRAST MRCPon 02-13-2024 MR ABDOMEN W AND WO CONTRAST MRCP MRI ABDOMEN WITHOUT AND WITH CONTRAST AND MRCP HISTORY: Right upper quadrant pain, elevated LFTs, dilated bile ducts COMPARISON: None TECHNIQUE: Multiplanar multisequence MR imaging of the abdomen performed without and with contrast. 3D reformatted images obtained and reviewed for evaluation of the pancreatic and biliary ductal system at the MR console under concurrent physician supervision. FINDINGS: Artifact precludes detailed evaluation of the common bile duct, however on the MRCP images the common bile duct measures approximately 0.6 cm in greatest dimension. Unable to confidently exclude choledocholithiasis due to artifact. No significant intrahepatic duct dilatation. There are multiple small stones in the gallbladder. The gallbladder is distended and there is mild gallbladder wall thickening. The pancreatic duct is not dilated. No signal abnormalities in the lung bases. The spleen, adrenal glands, pancreas, and left kidney are unremarkable. Simple right renal cyst. No signal abnormalities in the visualized osseous structures. No focal liver mass is identified. There is reticular T2 hyperintense signal in the posterior aspect of the right hepatic lobe without abnormal enhancement in this area on postcontrast images. Hepatic and portal veins are patent. IMPRESSION: *Detailed assessment of the common bile duct compromised on this study due to artifact. Common bile duct appears to measure 0.6 cm in greatest dimension and there is no significant intrahepatic ductal dilatation. Lumen of common bile duct not visualized well enough to exclude choledocholithiasis in the appropriate clinical setting. *Multiple small stones in the gallbladder with mild distention of the gallbladder and bilateral thickening, findings which raises possibility for cholecystitis. Consider HIDA scan. *Reticular T2 hyperintense signal in the posterior aspect of the right hepatic lobe may represent fibrotic changes, without evidence of discrete mass or abnormal enhancement in this region. Electronically signed: Enzo Ramírez MD. Not Vldtd Invalid Interpretation Code [facility] PROCALCITONIN TESTon 024 PROCALCITONIN IN BLOOD 1.61 ng/mL High 0.00-0.10 [facility] Comment on above: Result Comment: Susp ected Lower Respiratory Tract Infection: 0.1-0.25 ng/mL - Low likelihood for bacterial infection;Antibiotics discouraged.* >0.25 ng/mL - Increased likelihood bacterial infection;Antibiotics encouraged. Suspected Sepsis: Strongly consider initiating antibiotics in all unstable patients. 0.1-0.5 ng/mL - Low likelihood for sepsis; Antibiotics discouraged.* >0.5 ng/mL - Increased likelihood sepsis; Antibiotics encouraged. >2.0 ng/mL - High risk of sepsis/septic shock; Antibiotics strongly encouraged. *Recommend retesting PCT within 6-12 hours if clinically indicated and initial PCT<0.5ng/mL Performed By: #### L [id number] #### [facility]) [address] [place] [place] [address] PROTIME-INRon 02-13-2024 INR IN PPP BY COAGULATION ASSAY 1.29 High 0.90-1.10 [facility] Comment on above: Result Comment: ACC P RECOMMENDED INR FOR WARFARIN THERAPY CONDITION INR PROPHYLAXIS OF VENOUS THROMBOSIS 2-3 (HIGH-RISK SURGERY) TREATMENT OF VENOUS THROMBOSIS 2-3 TREATMENT OF PULMONARY EMBOLISM 2-3 PREVENTION OF SYSTEMIC EMBOLISM: 2-3 ACUTE MYOCARDIAL INFARCTION TISSUE HEART VALVES VALVULAR HEART DISEASE ATRIAL FIBRILLATION RECURRENT SYSTEMIC EMBOLISM MECHANICAL HEART VALVE 2.5-3.5 FROM: ORAL ANTICOAGULANTS. MECHANISM OF ACTION, CLINICAL EFFECTIVENESS, AND OPTIMAL THERAPEUTIC RANGE. CHEST 1995;108:231S-246S. Performed By: #### L [id number] ####[facility] [place] [address] PROTHROMBIN TIME (PT) IN PPP BY COAGULATION ASSAY 16.0 Seconds High 12.3-14.8 [facility] Comment on above: Performed By: #### L [id number] ####[facility] [place] [address] TROPONIN Ion 02-13-2024 Troponin I.cardiac [Mass/Vol] 3.20 ng/mL Critically high 0.00-0.04 [facility] Comment on above: Result Comment: M-OK EVIOUS CRITICAL RESULT Previous result verified on 02/13/2024 1133 on specimen/case [id number] called with component Troponin I for procedure Troponin I with value 3.38 ng/mL. Performed By: #### L [id number] ####[facility] [place] [address] Troponin I.cardiac [Mass/Vol] 3.38 ng/mL Critically high 0.00-0.04 [facility] Comment on above: Result Comment: Prev ious result verified on 02/13/2024 0907 on specimen/case [id number] called with component Troponin I for procedure Troponin I with value 3.11 ng/mL. Performed By: #### L [id number] ####[facility] [place] [address] Troponin I.cardiac [Mass/Vol] 3.11 ng/mL Critically high 0.00-0.04 [facility] Comment on above: Result Comment: Prev ious result verified on 02/13/2024 0611 on specimen/case [id number] called with component Troponin I for procedure Troponin I with value 3.72 ng/mL. Performed By: #### L [id number] ####[facility] ([facility])[address] [place] [address] Troponin I.cardiac [Mass/Vol] 3.72 ng/mL Critically high 0.00-0.04 [facility] Comment on above: Result Comment: M-TR OPONIN INITIAL CRITICAL HIGH; RESPUN AND RETESTED Performed By: #### L [id number] #### [facility] ([facility]) [address] [place] [address] COMPREHENSIVE METABOLIC PANE Jesus 10-26-2023 Albumin [Mass/Vol] 4.0 g/dL Normal 3.2-5.3 [facility] Comment on above: Performed By: #### C MP #### [facility] ([id number]) [address], [address] [place] [address] ALP [Catalytic activity/Vol] 131 U/L High 39-130 [facility] Comment on above: Performed By: #### C MP #### [facility] ([id number]) [address], [address] [place] [address] ALT [Catalytic activity/Vol] 21 U/L Normal 0-31 [facility] Comment on above: Performed By: #### C MP #### [facility] ([id number]) [address], [address] [place] [address] Anion gap [Moles/Vol] 7 mmol/L Normal 5-15 [facility] Comment on above: Performed By: #### C MP #### [facility] ([id number]) [address], [address] [place] [address] AST [Catalytic activity/Vol] 18 U/L Normal 0-41 [facility] Comment on above: Performed By: #### C MP #### [facility] ([id number]) [address], [address] [place], [place] [address] Bilirubin [Mass/Vol] 0.5 mg/dL Normal 0.3-1.2 [facility] Comment on above: Performed By: #### C MP #### [facility] ([id number]) [address], [address] [place], [place] [address] Calcium [Mass/Vol] 9.2 mg/dL Normal 8.5-10.5 [facility] Comment on above: Performed By: #### C MP #### [facility] ([id number]) [address], [address] [place], [place] [address] Chloride [Moles/Vol] 103 mmol/L Normal 98-109 [facility] Comment on above: Performed By: #### C MP #### [facility] ([id number]) [address], [address] [place], [place] [address] CO2 [Moles/Vol] 31 mmol/L Normal 22-32 [facility] Comment on above: Performed By: #### C MP #### [facility] ([id number]) [address], [address] [place], [place] [address] Creatinine [Mass/Vol] 0.53 mg/dL Normal 0.40-1.00 [facility] Comment on above: Result Comment: METH OD TRACEABLE TO IDMS STANDARD Performed By: #### C MP #### [facility] ([id number]) [address], [address] [place], [place] [address] eGFR (CKD-EPI) NON-RACE DEPENDENT >90 Normal >59 [facility] Comment on above: Result Comment: Reported eGFR is based on the CKD-EPI 2020 equation that does not use a race coefficient. Performed By: #### C MP #### [facility] ([id number]) [address], [address] [place] [address] Glucose [Mass/Vol] 94 mg/dL Normal 65-99 [facility] Comment on above: Performed By: #### C MP #### [facility] ([id number]) [address] [address] [place] [address] Potassium [Moles/Vol] 4.1 mmol/L Normal 3.5-5.0 [facility] Comment on above: Performed By: #### C MP #### [facility] ([id number]) [address] [place] [address] Protein [Mass/Vol] 7.2 g/dL Normal 6.0-8.0 [facility] Comment on above: Performed By: #### C MP #### [facility] ([id number]) [address] [address] [address] [place] [address] Sodium [Moles/Vol] 141 mmol/L Normal 134-146 [facility] Comment on above: Performed By: #### C MP #### [facility] ([id number]) [address] [address] [address] [place] [address] Urea nitrogen [Mass/Vol] 16 mg/dL Normal 5-23 [facility] Comment on above: Performed By: #### C MP #### [facility] ([id number]) [address] [address] [place] [address] CT ABDOMEN AND PELVIS WO CON Ton 10-26-2023 CT ABDOMEN AND PELVIS WO CONT CT ABDOMEN AND PELVIS WO CONT CLINICAL INFORMATION: Right flank pain. TECHNIQUE: CT Abdomen and Pelvis without intravenous contrast. All CT scans at this facility use dose modulation, iterative reconstruction, and/or weight based dosing when appropriate to reduce radiation dose to as low as reasonably achievable. COMPARISON: 12/17/2022 FINDINGS: Lung bases are clear. The liver and spleen are homogeneous. There is been bariatric surgery. The pancreas and gallbladder are unremarkable. No adrenal masses are seen. There is no nephrolithiasis. There is a right renal cyst which is stable. There is no hydronephrosis. No obstructing urinary tract calculi are seen. There is no bowel obstruction. There is no free air or free fluid. There are no acute osseous abnormalities. There is no free fluid. There are no adnexal masses. The urinary bladder is intact. The perirectal fat planes are preserved. IMPRESSION: * No evidence of acute process Finalized by Janki Rebollar DO on 10/26/2023 5:39 PM Normal [facility] URN MACROSCOPIC NURon 2023 BILIRUBIN LEONELA Negative Normal NEG [facility] Comment on above: Performed By: #### N UM #### [facility] ([id number]) [address] [place] [address] BLOOD/HGB LEONELA Large Abnormal NEG [facility] Comment on above: Performed By: #### N UM #### [facility] ([id number]) [address] [place] [address] GLUCOSE LEONELA Negative Normal NEG [facility] Comment on above: Performed By: #### N UM #### [facility] ([id number]) [address] [place] [address] KETONES LEONELA Trace Abnormal NEG [facility] Comment on above: Performed By: #### N UM #### [facility] ([id number]) [address] [place] [address] LEUKOCYTE ESTERASE LEONELA Small Abnormal NEG [facility] Comment on above: Performed By: #### N UM #### [facility] ([id number]) [address] [place] [address] NITRITE LEONELA Positive Abnormal NEG [facility] Comment on above: Performed By: #### N UM #### [facility] ([id number]) [address] [place] [address] PH LEONELA 7.0 Normal 5.0-8.5 [facility] Comment on above: Performed By: #### N UM #### [facility] ([id number]) [address] [place] [address] PROTEIN LEONELA 100 mg/dL Abnormal NEG [facility] Comment on above: Performed By: #### N UM #### [facility] ([id number]) [address] [place] [address] SPECIFIC GRAVITY LEONELA 1.025 Normal 1.003-1.035 [facility] Comment on above: Performed By: #### N UM #### [facility] ([id number]) [address] [place] [address] UROBILINOGEN LEONELA 2.0 eu/dL High <1.1 [facility] Comment on above: Performed By: #### N UM #### [facility] ([id number]) [address] [place] [address] Urine Cultureon 03-16-2023 Bacteria identified Cx Nom (U) ORGANISM: Escherichia coli (O:ESCCOL) [place] Count >100,000 Aerobic LAZ Charge (NMIC56) -- SUSCEPTIBILITY - ORGANISM: O:ESCCOL ANTIBIOTIC INTERPRETATION LAZ Amikacin S <16 Amoxacillin/K Clavulanate S <8 Ampicillin S <8 Ampicillin/Sulbactam S <4 Aztreonam S <4 Cefazolin S <2 Cefepime S <2 Ceftazidime S <1 Ceftazidime/Avibactam S <4 Ceftolozane/Tazobactam S <2 Ceftriaxone S <1 Cefuroxime S <4 Ciprofloxacin S <0.25 Ertapenem S <0.5 Gentamicin S <2 Levofloxacin S <0.5 Meropenem S <1 Meropenem/Vaborbactam S <2 Nitrofurantoin S <32 Piperacillin/Tazobactam S <8 Tetracycline S <4 Tigecycline S <2 Tobramycin S 4 Trimethoprim/Sulfametho xazole S <0.5 S = SUSCEPTIBLE I = [...] RESISTANT TO ALL B-LACTAM DRUGS. PERFORMED BY: [place] [address] PATHOLOGIST FREIGHT RATE ANALYST TUTU CAPONE M.D. Normal [facility] Comment on above: Performed By: #### C UU #### [address] XR RIBS LT PA Teodora 3 [...] by: KETURAH CARBAJAL Date: 2022-07-07 11:31 Normal [facility] CBC AUTO DIFFon 07-02-2022 BASO # 0.0 103/ul Normal 0.0-0.1 [facility] Comment on above: Performed By: #### C BC ####[facility] [address] [place] [address]DrApril Helen Luis Basophils/100 WBC (Bld) 0.2 % Normal 0.2-2.0 [facility] Comment on above: Performed By: #### C BC ####[facility] [address] [place] [id number]. Helen Luis EO # 0.1 103/ul Normal 0.0-0.7 [facility] Comment on above: Performed By: #### C BC ####[facility] [address] [place] [address]Dr. Helen Luis Eosinophils/100 WBC (Bld) 0.8 % Critically low 0.9-7.0 [facility] Comment on above: Performed By: #### C BC ####[facility] [address] [place] [address]Dr. Helen Luis Erythrocyte distribution width (RBC) [Ratio] 14.3 % Normal 11.0-15.0 [facility] Comment on above: Performed By: #### C BC ####[facility] [address] [place], [place] [address]Dr. Helen Luis Hematocrit (Bld) [Volume fraction] 48.0 % Normal 36.0-48.0 [facility] Comment on above: Performed By: #### C BC ####[facility] [address] [place], [place] [address]Dr. Helen Luis Hemoglobin (Bld) [Mass/Vol] 15.5 g/dL Normal 12.0-16.0 [facility] Comment on above: Performed By: #### C BC ####[facility] [address] [place], [place] [address]Dr. Helen Luis IG # 0.03 10e3/ul Normal 0.00-0.03 [facility] Comment on above: Performed By: #### C BC ####[facility] [address] [place], [place] [address]Dr. Helen Luis IG % 0.3 % Normal 0.0-0.5 [facility] Comment on above: Performed By: #### C BC ####[facility] [address] [place], [place] [address]Dr. Helen Luis LYMPH # 2.6 103/ul Normal 1.2-3.8 [facility] Comment on above: Performed By: #### C BC ####[facility] [address] [place], [place] [address]Dr. Helen Luis Lymphocytes/100 WBC (Bld) 26.7 % Normal 20.5-60.0 [facility] Comment on above: Performed By: #### C BC ####[facility] [address] [place] [address]Dr. Helen Luis MANUAL DIFF REQ NO Normal [facility] Comment on above: Performed By: #### C BC ####[facility] [address] [place] [address]Dr. Helen Luis MCH (RBC) [Entitic mass] 29.3 pg Normal 26.7-34.0 [facility] Comment on above: Performed By: #### C BC ####[facility] [address] [place] [address]Dr. Helen Luis MCHC (RBC) [Mass/Vol] 32.3 g/dL Normal 29.9-35.2 [facility] Comment on above: Performed By: #### C BC ####[facility] [address] [place] [address]Dr. Helen Luis MCV (RBC) [Entitic vol] 90.7 fL Normal 81.0-99.0 [facility] Comment on above: Performed By: #### C BC ####[facility] [address] [place] [address]Dr. Helen Luis MONO # 0.7 103/ul Normal 0.3-0.8 [facility] Comment on above: Performed By: #### C BC ####[facility] [address] [place] [address]Dr. Helen Luis Monocytes/100 WBC (Bld) 7.2 % Normal 1.7-12.0 [facility] Comment on above: Performed By: #### C BC ####[facility] [address] [place], [place] [address]DrApril Luis NEUT # 6.2 103/ul Normal 1.4-6.5 [facility] Comment on above: Performed By: #### C BC ####[facility] [address] [place], [place] [address]Dr. Helen Luis Neutrophils/100 WBC (Bld) 64.8 % Normal 43.0-75.0 [facility] Comment on above: Performed By: #### C BC ####[facility] [address] [place] [address]DrApril Luis Platelet mean volume (Bld) [Entitic vol] 8.9 fL Critically low 9.5-13.5 [facility] Comment on above: Performed By: #### C BC ####[facility] [address] [place] [address]DrApril Luis PLT 413 103/ul Normal 150-450 [facility] Comment on above: Performed By: #### C BC ####[facility] [address] [place] [address]DrApril Luis RBC 5.29 106/ul Normal 4.20-5.40 [facility] Comment on above: Performed By: #### C BC ####[facility] [address] [place] [address]DrApril Luis WBC 9.6 103/ul Normal 4.0-11.0 [facility] Comment on above: Performed By: #### C BC ####[facility] [address] [place] [address]Dr. Helen Luis PROF CHEM 8 (BAS METB)on Anion gap [Moles/Vol] 9.3 mmol/L Normal [facility] Comment on above: Performed By: #### B MP #### [facility] [address] [place] [address] Dr. Helen Luis Calcium [Mass/Vol] 8.9 mg/dL Normal 8.5-10.1 [facility] Comment on above: Performed By: #### B MP #### [facility] [address] [address] [address] Helen Luis Chloride [Moles/Vol] 104 mmol/L Normal 98-107 [facility] Comment on above: Performed By: #### B MP #### [facility] [address] [place] [address] Dr. Helen Luis CO2 [Moles/Vol] 33.2 mmol/L Critically high 21.0-32.0 [facility] Comment on above: Performed By: #### B MP #### [facility] [address] [address] [address] Helen Luis Creatinine [Mass/Vol] 0.58 mg/dL Normal 0.55-1.02 [facility] Comment on above: Performed By: #### B MP #### [facility] [address] [address] [address] Helen Luis EGFR-AF SOMALI >60 Normal >=60 [facility] Comment on above: Performed By: #### B MP #### [facility] [address] [address] [address] Helen Luis EGFR-NON AF SOMALI >60 Normal >=60 [facility] Comment on above: Performed By: #### B MP #### [facility] [address] [address] [address] Helen Luis Glucose [Mass/Vol] 96 mg/dL Normal 74-106 [facility] Comment on above: Performed By: #### B MP #### [facility] [address] [place] [address] Dr. Hleen Luis Potassium [Moles/Vol] 3.5 mmol/L Normal 3.5-5.1 [facility] Comment on above: Performed By: #### B MP #### [facility] [address] [address] [address] Helen Luis Sodium [Moles/Vol] 143 mmol/L Normal 136-145 [facility] Comment on above: Performed By: #### B MP #### [facility] [address] [address] [address] Helen Luis Urea nitrogen [Mass/Vol] 11.0 mg/dL Normal 7.0-18.0 [facility] Comment on above: Performed By: #### B MP #### [facility] [address] [address] [address] Helen Luis Urea nitrogen/Creatinine [Mass ratio] 19.0 mg/mg Normal [facility] Comment on above: Performed By: #### B MP #### [facility] [address] [address] [address] Helen Luis XR HAND RT MIN 3Von 07-02-20 22 XR HAND RT MIN 3V EXAM: PLAIN FILM KENYON D RIGHT INDICATION: Pain. TECHNIQUE: 3 views of [...] overlying the index finger. Electronically authenticated by: UMA PETERSEN Date: 2022-07-02 17:24 Normal [facility] BNPon 09-13-2021 Natriuretic peptide B (Bld) [Mass/Vol] 30.0 pg/mL Normal <=900.0 [facility] Comment on above: Performed By: #### B ROTARY ADJUSTER, HSTROPN, CMP #### [facility] [address] [address] [address] Helen Luis CBC AUTO DIFFon 09-13-2021 BASO # 0.0 103/ul Normal 0.0-0.1 [facility] Comment on above: Performed By: #### C BC ####[facility] [address] [place] [address]DrApril Luis Basophils/100 WBC (Bld) 0.3 % Normal 0.2-2.0 [facility] Comment on above: Performed By: #### C BC ####[facility] [address] [place] [address]DrApril Luis EO # 0.1 103/ul Normal 0.0-0.7 [facility] Comment on above: Performed By: #### C BC ####[facility] [address] [place] [address]DrApril Luis Eosinophils/100 WBC (Bld) 1.2 % Normal 0.9-7.0 [facility] Comment on above: Performed By: #### C BC ####[facility] [address] [place] [address]Dr. Helen Luis Erythrocyte distribution width (RBC) [Ratio] 15.8 % Critically high 11.0-15.0 [facility] Comment on above: Performed By: #### C BC ####[facility] [address] [place], [place] [address]Dr. Helen Luis Hematocrit (Bld) [Volume fraction] 45.9 % Normal 36.0-48.0 [facility] Comment on above: Performed By: #### C BC ####[facility] [address] [place], [place] [address]DrApril Luis Hemoglobin (Bld) [Mass/Vol] 14.2 g/dL Normal 12.0-16.0 [facility] Comment on above: Performed By: #### C BC ####[facility] [address] [place], [place] [address]Dr. Helen Luis IG # 0.02 10e3/ul Normal 0.00-0.03 [facility] Comment on above: Performed By: #### C BC ####[facility] [address] [place], [place] [address]DrApril Luis IG % 0.3 % Normal 0.0-0.5 [facility] Comment on above: Performed By: #### C BC ####[facility] [address] [place], [place] [address]DrApril Luis LYMPH # 1.0 103/ul Critically low 1.2-3.8 [facility] Comment on above: Performed By: #### C BC ####[facility] [address] [place], [place] [address]DrApril Luis Lymphocytes/100 WBC (Bld) 13.7 % Critically low 20.5-60.0 [facility] Comment on above: Performed By: #### C BC ####[facility] [address] [place], [place] [address]DrApril Luis MANUAL DIFF REQ NO Normal [facility] Comment on above: Performed By: #### C BC ####[facility] [address] [place] [address]Dr. Helen Luis MCH (RBC) [Entitic mass] 28.9 pg Normal 26.7-34.0 [facility] Comment on above: Performed By: #### C BC ####[facility] [address] [place] [address]DrApril Luis MCHC (RBC) [Mass/Vol] 30.9 g/dL Normal 29.9-35.2 [facility] Comment on above: Performed By: #### C BC ####[facility] [address] [place], [place] [address]DrApril Luis MCV (RBC) [Entitic vol] 93.3 fL Normal 81.0-99.0 [facility] Comment on above: Performed By: #### C BC ####[facility] [address] [place], [place] [address]DrApril Luis MONO # 0.7 103/ul Normal 0.3-0.8 [facility] Comment on above: Performed By: #### C BC ####[facility] [address] [place], [place] [address]DrApril Luis Monocytes/100 WBC (Bld) 8.8 % Normal 1.7-12.0 [facility] Comment on above: Performed By: #### C BC ####[facility] [address] [place], [place] [address]DrApril Luis NEUT # 5.6 103/ul Normal 1.4-6.5 [facility] Comment on above: Performed By: #### C BC ####[facility] [address] [place], [place] [address]DrApril Luis Neutrophils/100 WBC (Bld) 75.7 % Critically high 43.0-75.0 [facility] Comment on above: Performed By: #### C BC ####[facility] [address] [place], [place] [address]DrApril Luis Platelet mean volume (Bld) [Entitic vol] 8.4 fL Critically low 9.5-13.5 [facility] Comment on above: Performed By: #### C BC ####[facility] [address] [place], [place] [address]Oy. Helen Luis PLT 292 103/ul Normal 150-450 [facility] Comment on above: Performed By: #### C BC ####[facility] [address] [place], [place] [address]Aj. Helen Luis RBC 4.92 106/ul Normal 4.20-5.40 [facility] Comment on above: Performed By: #### C BC ####[facility] [address] [place], [place] [address]Ue. Helen Luis WBC 7.4 103/ul Normal 4.0-11.0 [facility] Comment on above: Performed By: #### C BC ####[facility] [address] [place], [place] [address]Vm. Helen Luis Covid-19 PCR (CVDTB)on 08-31 SARS-CoV-2 (COVID-19) RNA NIKKI+probe Ql (Unsp spec) Not detected Normal NOT DETECTED [facility] Comment on above: Result Comment: When diagnostic [...] for this test is supported by the [place] of [employer] and Human Service's declaration that [...] used). Performed By: #### C VDTBH #### [facility] [address] [place] [address] Dr. Helen Luis LACTATE/LACTIC ACIDon 2021 Lactate [Moles/Vol] 1.3 mmol/L Normal 0.7-2.0 [facility] Comment on above: Performed By: #### L ACT #### [facility] [address] [place] [address] Dr. Helen Luis PROF 14(COMP METB)on 022 Albumin [Mass/Vol] 2.9 g/dL Critically low 3.5-5.0 [facility] Comment on above: Performed By: #### B ROTARY ADJUSTER, HSTROPN, CMP #### [facility] [address] [place] [address] Dr. Helen Luis Albumin/Globulin [Mass ratio] 0.7 {ratio} Normal [facility] Comment on above: Performed By: #### B ROTARY ADJUSTER, HSTROPN, CMP #### [facility] [address] [place] [address] Dr. Helen Luis ALP [Catalytic activity/Vol] 121 U/L Normal 38-126 [facility] Comment on above: Performed By: #### B ROTARY ADJUSTER, HSTROPN, CMP #### [facility] [address] [place] [address] Dr. Helen Luis ALT [Catalytic activity/Vol] 23 U/L Normal 9-52 [facility] Comment on above: Performed By: #### B ROTARY ADJUSTER, HSTROPN, CMP #### [facility] [address] [place] [address] Dr. Helen Luis Anion gap [Moles/Vol] 7.9 mmol/L Normal [facility] Comment on above: Performed By: #### B ROTARY ADJUSTER, HSTROPN, CMP #### [facility] [address] [place] [address] Dr. Helen Luis AST [Catalytic activity/Vol] 14 U/L Normal 14-36 [facility] Comment on above: Performed By: #### B ROTARY ADJUSTER, HSTROPN, CMP #### [facility] [address] [place] [address] Dr. Helen Luis Bilirubin [Mass/Vol] 0.4 mg/dL Normal 0.2-1.3 [facility] Comment on above: Performed By: #### B ROTARY ADJUSTER, HSTROPN, CMP #### [facility] [address] [place] [address] Dr. Helen Luis Calcium [Mass/Vol] 8.4 mg/dL Normal 8.4-10.2 [facility] Comment on above: Performed By: #### B ROTARY ADJUSTER, HSTROPN, CMP #### [facility] [address] [place] [address] Dr. Helen Luis Chloride [Moles/Vol] 102 mmol/L Normal 98-107 [facility] Comment on above: Performed By: #### B ROTARY ADJUSTER, HSTROPN, CMP #### [facility] [address] [place] [address] Dr. Helen Luis CO2 [Moles/Vol] 34.3 mmol/L Critically high 22.0-30.0 [facility] Comment on above: Performed By: #### B ROTARY ADJUSTER, HSTROPN, CMP #### [facility] [address] [place] [address] Dr. Helen Luis Creatinine [Mass/Vol] 1.19 mg/dL Critically high 0.52-1.04 [facility] Comment on above: Performed By: #### B ROTARY ADJUSTER, HSTROPN, CMP #### [facility] [address] [place] [address] Dr. Helen Luis EGFR-AF SOMALI 58 mL/min/1.73m2 Critically low >=60 [facility] Comment on above: Performed By: #### B ROTARY ADJUSTER, HSTROPN, CMP #### [facility] [address] [place] [address] Dr. Helen Luis EGFR-NON AF SOMALI 48 mL/min/1.73m2 Critically low >=60 [facility] Comment on above: Performed By: #### B ROTARY ADJUSTER, HSTROPN, CMP #### [facility] [address] [place] [address] Dr. Helen Luis Globulin (S) [Mass/Vol] 3.9 g/dL Normal [facility] Comment on above: Performed By: #### B ROTARY ADJUSTER, HSTROPN, CMP #### [facility] [address] [place] [address] Dr. Helen Luis Glucose [Mass/Vol] 145 mg/dL Critically high 74-106 [facility] Comment on above: Performed By: #### B ROTARY ADJUSTER, HSTROPN, CMP #### [facility] Laboratory [address] [address] [address] Helen Luis Potassium [Moles/Vol] 4.2 mmol/L Normal 3.4-5.0 [facility] Comment on above: Performed By: #### B ROTARY ADJUSTER, HSTROPN, CMP #### [facility] [address] [place] [address] Dr. Helen Luis Protein [Mass/Vol] 6.8 g/dL Normal 6.1-8.2 [facility] Comment on above: Performed By: #### B ROTARY ADJUSTER, HSTROPN, CMP #### [facility] [address] [place] [address] Dr. Helen Luis Sodium [Moles/Vol] 140 mmol/L Normal 137-145 [facility] Comment on above: Performed By: #### B ROTARY ADJUSTER, HSTROPN, CMP #### [facility] [address] [place] [address] Dr. Helen Luis Urea nitrogen [Mass/Vol] 18.0 mg/dL Critically high 7.0-17.0 [facility] Comment on above: Performed By: #### B ROTARY ADJUSTER, HSTROPN, CMP #### [facility] [address] [place] [address] Dr. Helen Luis Urea nitrogen/Creatinine [Mass ratio] 15.1 mg/mg Normal [facility] Comment on above: Performed By: #### B ROTARY ADJUSTER, HSTROPN, CMP #### [facility] [address] [place] [address] Dr. Helen Luis PROTIMEon 09-13-2021 INR Coag (PPP) [Relative time] 1.04 {INR} Normal [facility] Comment on above: Performed By: #### P TT, PT ####[facility] [id number] [id number] Helen Luis INR GUIDELINES SEE BELOW Normal [facility] Comment on above: Result Comment: YOHAN RED INR: 2.0 - 3.0 CONDITIONS NOT LISTED BELOW 2.5 - 3.5 FOR PROSTHETIC HEART VALVE REPLACEMENT 2.5 - 3.5 RECURRENT THROMBOSIS Performed By: #### P TT, PT ####[facility] [id number] [id number]. Helen Luis PT Coag (PPP) [Time] 11.2 s Normal 9.0-11.6 [facility] Comment on above: Performed By: #### P TT, PT ####[facility] [id number] [id number]. Helen Luis PTTon 09-13-2021 aPTT Coag (Bld) [Time] 27.3 s Normal 22.3-36.2 [facility] Comment on above: Performed By: #### P TT, PT ####[facility] [id number] [address]Dr. Helen Luis TROPONIN, HIGH SENSITIVITYon 09-13-2021 HSTROP 7.5 pg/mL Normal 4.0-35.5 [facility] Comment on above: Result Comment: CUT- OFF POINTS HAVE BEEN ESTABLISHED BASED ON THE FOURTH UNIVERSAL DEFINITIONS OF MYOCARDIAL INFARCTION. THE UPPER REFERENCE LIMIT (URL) OF TROPONIN, DEFINED THE 99TH PERCENTILE OF cTnI DISTRIBUTION IN A REFERENCE POPULATION, HAS BEEN CONFIRMED THE DECISION THRESHOLD FOR TX DIAGNOSIS. Performed By: #### B ROTARY ADJUSTER, HSTROPN, CMP #### [facility] [address] [place], [place] [address] Dr. Helen Luis XR CHEST 1 Von 09-13-2021 XR CHEST 1 V EXAMINATION: XR CHES T 1 V HISTORY: SHORTNESS OF BREATH COMPARISON: [...] by: GAMALIEL CHOI Date: 2021-09-13 14:10 Normal [facility] HOSP 01-04-2017 [facility] Get Medical Advic e (ENDYORRM) NEELA MEDRANO ([id number]) 1970 [facility] Time Provider Department01/04/17 KIAN MENDOZA During your visit today, we recorded the following information about you:Allergies As of Date: 01/04/2017(No Known Allergies)Date Reviewed: 11/11/2016Reviewed by: Erika Fong Ma - Fully AssessedPrimary Visit Diagnosis:Plantar fasciitis [M72.2]Order(s):CONSULT TO PHYSICAL THERAPY [9032] Order #: [id number]: 1Prescriptions as of 01/04/2017 Sig: MOBIC ORAL [...] [Z09] INVALID FOR* Status:Closed by KIAN MENDOZA DPJoseph on 01/19/17 Normal [facility] Vital Signs Date Time Vital Sign Value Performing Clinician Facility 05-23-2023 13:15-0500 Body height 149.86 cm Kristin Fern[facility]dez Other [facility] Other 05-23-2023 13:15-0500 Body mass index (BMI) [Ratio] 34.33 kg/m2 Kristin Fern[facility]dez Other [facility] 05-23-2023 13:15-0500 Body temperature 97.8 [degF] Kristin Fern[facility]dez Other [facility] Other 05-23-2023 13:15-0500 Body weight 77.11 kg Kristin Fern[facility]dez [facility] Other 05-23-2023 13:15-0500 Respiratory rate 20 /min Kristin Fern[facility]dez [facility] 05-23-2023 13:15-0500 SaO2% (BldA) [Mass fraction] 96 % Kristin Fern[facility]dez Other [facility] 01-12-2023 09:00-0400 Body height 149.86 cm Imad Asaad Other [facility] Other 01-12-2023 09:00-0400 Body mass index (BMI) [Ratio] 37.64 kg/m2 Imad Asaad Other [facility] Other 01-12-2023 09:00-0400 Body weight 84.55 kg Imad Asaad Other [facility] Other 01-12-2023 09:00-0400 Diastolic blood pressure 72 mm[Hg] Imad Asaad Other [facility] Other 01-12-2023 09:00-0400 Systolic blood pressure 140 mm[Hg] Imad Asaad Other [facility] Other 03-31-2022 10:00-0400 Body height 149.86 cm Kristin Fern[facility]dez Other [facility] Other 03-31-2022 10:00-0400 Body temperature 97.8 [degF] Kristin Fern[facility]dez Other [facility] Other 03-31-2022 10:00-0400 Diastolic blood pressure 68 mm[Hg] Kristin Fern[facility]dez Other [facility] Other 03-31-2022 10:00-0400 Respiratory rate 20 /min Kristin Fern[facility]dez Other [facility] Other 03-31-2022 10:00-0400 SaO2% (BldA) [Mass fraction] 96 % Kristin Fern[facility]dez [facility] Other 03-31-2022 10:00-0400 Systolic blood pressure 143 mm[Hg] Kristin Fern[facility]dez Other [facility] Other 09-12-2021 15:45-0400 Body height 149.86 cm Astrid Hawkins Other [facility] Other 09-12-2021 15:45-0400 Body mass index (BMI) [Ratio] 53.52 kg/m2 Astrid Shruthi Other [facility] Other 09-12-2021 15:45-0400 Body temperature 96.8 [degF] Astrid Shruthi Other [facility] Other 09-12-2021 15:45-0400 Body weight 120.2 kg Astrid Shruthi Other [facility] Other 09-12-2021 15:45-0400 SaO2% (BldA) [Mass fraction] 94 % Astrid Hawkins Other [facility] Other 08-02-2021 14:45-0500 Body height 149.86 cm Zoraida Silveira Other [facility] Other 08-02-2021 14:45-0500 Body mass index (BMI) [Ratio] 53.52 kg/m2 Zoraida Silveira Other [facility] Other 08-02-2021 14:45-0500 Body temperature 97 [degF] Zoraida Silveira Other [facility] Other 08-02-2021 14:45-0500 Body weight 120.2 kg Zoraida Silveira Other [facility] Other 08-02-2021 14:45-0500 SaO2% (BldA) [Mass fraction] 97 % Zoraida Silveira [facility] Other Encounters Encounter Date Encounter Type Care Provider Facility Start: 04-30-2024 End: 04-30-2024 ambulatory LEX LOUIS [facility] Start: 04-02-2024 End: 04-02-2024 ambulatory PORTIA JOHANSEN [facility] Start: 02-28-2024 End: 02-28-2024 ambulatory HARDIK DAVILA [facility] Start: 02-23-2024 End: 02-23-2024 Emergency department patient visit [facility] Start: 02-16-2024 Evaluation and management of inpatient HANNAH GUERRERO [facility] Start: 02-15-2024 Evaluation and management of inpatient KIARA TINEO [facility] Start: 02-14-2024 ambulatory KIARA TINEO [facility] Start: 02-13-2024 Evaluation and management of inpatient KIARA TINEO [facility] Start: 02-13-2024 Evaluation and management of inpatient KIARA [facility] Start: 02-13-2024 Evaluation and management of inpatient KIARA [facility] Start: 02-13-2024 End: 02-20-2024 Evaluation and management of inpatient INGRIS PIERRE [facility] Start: 10-26-2023 End: 10-26-2023 [facility] Start: 10-21-2023 End: 10-21-2023 Emergency department patient visit [facility] Start: 05-23-2023 End: 05-23-2023 ambulatory Kristin Fern[facility]dez [facility] Start: 05-23-2023 Office outpatient visit 25 minutes Kristin Fernández [facility] Start: 03-20-2023 End: 03-20-2023 ambulatory Kristin Fern[facility]dez [facility] Start: 03-20-2023 Telephone encounter Kristin Fernández [facility] Start: 03-16-2023 End: 03-16-2023 ambulatory Kristin Fernández Facility:[facility] Start: 01-24-2023 End: 01-24-2023 ambulatory PHYSICIAN NO FAMILY Facility:[facility] Start: 01-12-2023 End: 01-12-2023 ambulatory Imad Asaad [facility] Start: 01-12-2023 Office outpatient ne w 45 minutes Imad Asaad [facility] Start: 07-07-2022 End: 07-08-2022 ambulatory GERA TORRES Facility: Start: 07-02-2022 End: 07-02-2022 ambulatory [facility] Facility:[facility] Start: 03-31-2022 End: 03-31-2022 ambulatory Kristin Fernández [facility] Start: 03-31-2022 Office outpatient visit 25 minutes Kristin Fernández [facility] Start: 09-13-2021 End: 09-13-2021 ambulatory [facility] Facility: Start: 09-12-2021 End: 09-12-2021 ambulatory Astrid Hawkins Other [facility] Start: 09-12-2021 Office outpatient visit 15 minutes Astrid Hawkins [facility] Start: 08-02-2021 End: 08-02-2021 ambulatory Zoraida Silveira [facility] Start: 08-02-2021 Office outpatient visit 15 minutes Zoraida Silveira [facility] Payers Date Payer Category Payer Unknown [id number] 2023 Self-pay 2022 Medicaid [id number] 2. [id number] 1970 Unknown [id number] 2.16.84 [id number] 1970 Unknown [id number] 2.16.84 [id number] 1970 Unknown [id number] 2.16.84 [id number] 1970 Unknown [id number] 2.16.8 [id number] 1970 Unknown [id number] 2.16.8 [id number] 1970 Unknown [id number] 2.16.8 [id number] 1970 Unknown [id number] 2.16.8 [id number] 1959 Unknown [id number] 2.1 [id number] 1959 Unknown Unknown [id number] 2.1 [id number] Unknown [id number] 2.16.8 [id number] Unknown [id number] 2.16.8 [id number] Social History Date Type Detail Facility Unknown if ever smoked [facility] Other Sex Assigned At Sex Assigned At Bir th [facility] Other Clinical Notes 08-02-2021 to 04-30-2024 Note Date & Type Note Facility 04-30-2024 Note Patient: Neela Treadwell okeo Procedure Summary Date: 04/30/24 Room / Location: [facility] Anesthesia Start: 1035 Anesthesia Stop: 1056 Procedure: EGD Diagnosis: Acute gastric ulcer with hemorrhage Scheduled Providers: Lex Louis MD; Diamond Gordillo MD; DIEGO Mckeon Responsible Provider: Diamond Gordillo MD Anesthesia Type: MAC ASA Status: 3 Anesthesia Type: MAC Vitals Value Taken Time BP 93/56 04/30/24 1125 Temp 36.2 ???C (97.2 ???F) 04/30/24 1125 Pulse 52 04/30/24 1125 Resp 18 04/30/24 1110 SpO2 100 % 04/30/24 1125 Anesthesia Post Evaluation Patient location during evaluation: bedside Patient participation: complete - patient participated Level of consciousness: awake and alert Pain score: 0 Pain management: adequate Airway patency: patent Cardiovascular status: acceptable Respiratory status: acceptable Hydration status: acceptable Patient is hemodynamically stable and is able to be discharged from PACU per anesthesia protocol. No notable events documented. [facility] 04-30-2024 Note Patient: Neela Sequeira C okeo Procedure Summary Date: 04/30/24 Room / Location: [facility] Anesthesia Start: 1035 Anesthesia Stop: Procedure: EGD Diagnosis: Acute gastric ulcer with hemorrhage Scheduled Providers: Lex Louis MD; Diamond Gordillo MD; DIEGO Mckeon Responsible Provider: Diamond Gordillo MD Anesthesia Type: MAC ASA Status: 3 Anesthesia Post Transport Note Transport to: [facility] PAC[facility] O2 Route: face mask Oxygen Flow (L/min): 8 Patient Monitor: direct observation Transport: uneventful Patient condition is: stable [facility] 04-30-2024 Note Patient: Neela rogel Procedure Information Date/Time: 02/16/24 1100 Scheduled providers: Hannah Guerrero MD Procedure: EGD Location: [facility] Main Operating Room Past Medical History: Diagnosis Date Anxiety Cardiomyopathy (CMS/HCC) Choledocholithiasis Depression GI (gastrointestinal bleed) Hypertension Myocardial infarction (CMS/HCC) Obesity Relevant Problems Cardio (+) Essential hypertension (+) Gastric ulcer with hemorrhage (+) NSTEMI (non-ST elevated myocardial infarction) (CMS/HCC) GI (+) Gastric ulcer with hemorrhage Clinical information reviewed: Tobacco Allergies Meds Med Hx Surg Hx Physical Exam Airway Mallampati: II TM distance: >3 FB Neck ROM: full Cardiovascular - normal exam Dental - normal exam Pulmonary - normal exam Abdominal - normal exam Other findings: 02/12 takotsubo cardiomyopathy with EF 20%, has now recovered to 60% on echo 04/02. Sp gastric bypass. Scope to check on previous ulcer. Last scope midaz/lido/P@75 Anesthesia Plan ASA 3 MAC The patient is a current smoker. Patient was previously instructed to abstain from smoking on day of procedure. Patient did not smoke on day of procedure. intravenous induction Anesthetic plan and risks discussed with patient. Plan discussed with CAA. Additional Equipment Requests [facility] 02-28-2024 Note [place] Cardiology - [facility] Subjective Neela Medrano is a 53 y.o. year old female patient being seen for follow-up for heart failure. H&P Patient was earlier this month in the hospital, she presented with right upper quadrant pain as well as nausea and later on she developed chest pain with elevated troponin and left ventricular dysfunction ejection fraction 30%. Cardiac catheterization showed normally normal coronary arteries. It was felt that she probably had Takotsubo cardiomyopathy. While in the hospital she underwent MRCP and there was evidence of cholelithiasis but no CBD stone obstruction, she had negative HIDA scan, she had large anastomotic ulcer with adherent clot at the junctional side of the GJ anastomosis on EGD. Patient also has history of hypertension, obesity, status post bariatric surgery 2021, history of smoking and anemia. Patient states that she has been doing much better. She denies any chest pain or shortness of breath at rest or with exertion. She denies orthopnea or paroxysmal nocturnal dyspnea or dizziness or palpitations. She states that sometimes she has mild legs edema towards the end of the day. 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 Social History Tobacco Use Smoking status: Every Day Packs/day: 0.25 Years: 35.00 Additional pack years: 0.00 Total pack years: 8.75 Types: Cigarettes Passive exposure: Current Smokeless tobacco: Never Vaping Use Vaping Use: Every day Substances: Nicotine, Flavoring Passive vaping exposure: Yes Substance Use Topics Alcohol use: Never Drug use: Never Allergies No Known Allergies Medications Current Outpatient Medications: buPROPion XL (Wellbutrin XL) 300 mg 24 hr tablet, Take 300 mg by mouth in the morning. Do not crush, chew, or split., Disp: , Rfl: furosemide (Lasix) 20 mg tablet, Take 1 tablet (20 mg) by mouth if needed each day (For swelling). (Patient taking differently: Take 20 mg by mouth in the morning.), Disp: 30 tablet, Rfl: 0 lisinopril 2.5 mg tablet, Take 1 tablet (2.5 mg) by mouth in the morning., Disp: 30 tablet, Rfl: 0 metoprolol succinate XL (Toprol-XL) 50 mg 24 hr tablet, Take 1 tablet (50 mg) by mouth in the morning. Do not crush or chew., Disp: 30 tablet, Rfl: 0 pantoprazole (ProtoNix) 40 mg EC tablet, Take 1 tablet (40 mg) by mouth before breakfast and before evening meal. Do not crush, chew, or split., Disp: 112 tablet, Rfl: 0 spironolactone (Aldactone) 25 mg tablet, Take 1 tablet (25 mg) by mouth in the morning., Disp: 30 tablet, Rfl: 0 Objective Visit Vitals BP 120/64 Pulse 60 Ht 1.499 m (4' 11 ) Wt 73.5 kg (162 lb) SpO2 97% BMI 32.72 kg/m??? OB Status Postmenopausal Smoking Status Every Day BSA 1.75 m??? Physical exam: GENERAL: alert and oriented x3, well developed, in no acute distress. HEAD: atraumatic, normocephalic. EYES: MEETA, EOMI. NECK: trachea midline, no JVD present, no carotid bruits present. CARDIAC: S1, S2 present. RRR. No murmur, rubs, or gallops. RESPIRATORY: CTAB, no increased effort of breathing, no rales, rhonchi, or wheezing. ABDOMEN: soft, nontender, nondistended. EXTREMITIES: no lower extremity edema. No rash/skin discoloration present. NEURO: strength/sensation equal and symmetric in bilateral upper and lower extremities. PSYCH: appropriate mood, affect, and judgement. Recent Labs Lab Results Component Value Date GLUCOSE 82 02/20/2024 CALCIUM 7.5 (L) 02/20/2024 NA 142 02/20/2024 K 3.2 (L) 02/20/2024 CO2 31 02/20/2024 CL 104 02/20/2024 BUN 5 (L) 02/20/2024 CREATININE 0.48 (L) 02/20/2024 Lab Results Component Value Date WBC 6.50 02/20/2024 HGB 9.0 (L) 02/20/2024 HCT 28.2 (L) 02/20/2024 MCV 90.4 02/20/2024 PLT 368 02/20/2024 Lab Results Component Value Date CHOL 75 (L) 02/14/2024 Lab Results Component Value Date HDL 22 (L) 02/14/2024 Lab Results Component Value Date LDLCALC 30 02/14/2024 Lab Results Component Value Date TRIG 113 02/14/2024 No components found for: CHOLHDL Lab Results Component Valu (more content not included)... [facility] 02-20-2024 Note Hospital Medicine Discharge Summary Final Discharge Diagnosis: Acute blood loss anemia Cholelithiasis Admission Diagnosis: Dilated cbd, acquired [K83.8] Hospital course: 53yoF who was admitted to [facility] on 02/12 for RUQ abdominal pain with associated N/V. She has a history of gastric bypass in 2021, obesity with BMI 34. The patient presented to [facility] with worsening right upper quadrant pain associated with nausea. At the outside hospital, the patient then developed severe substernal chest pain. Reportedly, EKG x 2 was normal, but troponins were elevated. The patient received aspirin and was started on heparin infusion for suspected NSTEMI. LFTs were mildly elevated with AST 94, ALT 57, alkaline phosphatase 164, bilirubin normal. CT abdomen and pelvis showed hyperdense filling defect in the distal CBD measuring 4 x 9 mm, suspicious for a stone, CBD measuring 5 mm, mild intrahepatic biliary ductal dilation, mildly distended gallbladder, and layering hyperdense material in the gallbladder suggestive of sludge. The patient was transferred to [facility] for GI and cardiology evaluation. LFTs initially showing cholestatic pattern. GI was consulted who performed MRCP 02/13 showing cholelithiasis but negative for CBD stone obstruction and negative HIDA 02/13. There was concern for GI bleed so EGD performed on 02/15 that showed large anastomotic ulcer with adherent clot at jejunal side of GJ anastomosis. She was treated with PPI infusion and ultimately transitioned to oral on discharge. She was instructed to follow up with GI in 8 weeks after discharge for repeat EGD. Cardiology was consulted for NSTEMI and HFrEF 20% with WMA that was c/w stress cardiomyopathy. She underwent cardiac cath that showed normal coronaries. She was started on diuresis and GDMT, the latter of which was impeded by soft BP. Discharged in good condition 02/19. Surgical, Invasive or Diagnostic Procedures Done During Admission: Cardiac Cath and EGD Consultations During Admission: Cardiology and Gastroenterology Dear Dr. Hidalgo primary care provider on file.Neela is advised to follow up with you within 1-2 weeks. Items to follow up in ambulatory setting: EGD in 8 weeks Follow-up with: Cardiology and Gastroenterology Scheduled appointments: Future Appointments Date Time Provider Department Center 02/28/2024 3:20 PM Hardik Davila MD [facility] Laverne Patel. Your medication list ASK your doctor about these medications Instructions Last Dose Given Next Dose Due buPROPion XL 300 mg 24 hr tablet Commonly known as: Wellbutrin XL multivitamin tablet Neela has No Known Allergies. Disposition: Home or Self Care () Discharge Condition: Stable Code Status: Full Code Diagnostic Results Hematology: Results from last 7 days Lab Units 02/20/2475502/19/24432 WBC AUTO 10*3/uL 6.50 5.94 HEMOGLOBIN g/dL 9.0* 9.0* HEMATOCRIT % 28.2* 29.3* MCV fL 90.4 91.8 PLATELETS AUTO 10*3/uL 368 217 Chemistry: Results from last 7 days Lab Units 02/20/246 02/18/24 0431 02/17/24 0541 02/16/24441 SODIUM mmol/L 142 140 139 140 POTASSIUM mmol/L 3.2* 3.5 3.2* 3.3* CHLORIDE mmol/L 104 110* 109* 110* CO2 mmol/L 31 22 23 24 BUN mg/dL 5* 3* 4* 9 CREATININE mg/dL 0.48* 0.42* 0.36* 0.38* GLUCOSE mg/dL 82 86 77 79 MAGNESIUM mg/dL -- -- 1.9 1.7* CALCIUM mg/dL 7.5* 7.2* 6.9* 6.9* Results from last 7 days Lab Units 02/20/24 0459 02/19/24 0433 02/18/24430 AST U/L 11* 17 29 ALT U/L 15 23 25 ALK PHOS U/L 77 85 76 BILIRUBIN TOTAL mg/dL 0.3 0.2* 0.3 BILIRUBIN DIRECT mg/dL 0.0 0.0 0.1 Test Results Pending At Discharge: Pending Labs Order Current Status Lactic acid, venous, whole blood with reflex Collected (02/13/24431) Platelet count Collected (02/13/24528) aPTT - baseline Collected (02/13/24528) Diet at the time of discharge: cardiac diet Nutrition Screen Activity: Patient currently has no discharge activity orders Objective Blood pressure 116/65, pulse 79, temperature 36.8 ???C (98.2 ???F), temperature source Temporal, resp. rate 20, height 1.499 m (4' 11 ), weight 79.3 kg (174 lb 14.4 oz), SpO2 99 %. General: Alert and oriented x3. Cardiology: Normal rate, regular rhythm. Lungs: Clear to auscultation, no wheezes, rales or rhonchi, symmetric air entry. Abdomen: Soft, non tender, non distended. Extremities: No pitting edema. Neurology: No focal neuro deficit noted. Total time for discharge - review of data, exam, discussion with providers and care-team, med-rec and orders, arranging follow up, counseling of patient and/or family and documentation was 30 minutes. Signed Portia Johansen MD [facility] Medicine 02/20/2024 3:23 PM CC: No primary care provider on file. [facility] 02-20-2024 Note [facility] Teaching GI Ser vice Consult Gastroenterology/Hepatology Progress Note IDENTIFYING DATA PATIENT: Neela Medrano ADMIT DATE: 02/13/2024 TIME OF EVALUATION: 02/20/2024 8:59 AM HOSPITAL STAY: LOS: 7 days REASON FOR HOSPITALIZATION: Abd and chest pain SUBJECTIVE/INTERVAL HISTORY Neela Medrano's overnight events were reviewed. LFT's remain WNL, Hgb pending. Patient denies any bloody or black BM's. OBJECTIVE MEDICATIONS SCHEDULED: @MEDSCURRENTMD@ PRNs: acetaminophen, 650 mg, q6h PRN HYDROcodone-acetaminophen, 1 tablet, q6h PRN ondansetron ODT, 4 mg, q8h PRN Or ondansetron, 4 mg, q6h PRN Physical VITALS: BP 106/66 (BP Location: Right arm, Patient Position: Sitting) Pulse 74 Temp 36.4 ???C (97.5 ???F) (Temporal) Resp 20 Ht 1.499 m (4' 11 ) Wt 79.3 kg (174 lb 14.4 oz) SpO2 99% BMI 35.33 kg/m??? GEN: Alert and oriented x3, NAD HEENT: Atraumatic, normocephalic CV: No edema visualized PULM: Respirations even and unlabored ABD: Soft, non-tender, non-distended NEURO: Moves all 4 extremities spontaneously, answers questions appropriately LABS AND IMAGING CBC: Lab Results Component Value Date WBC 5.94 02/19/2024 RBC 3.19 (L) 02/19/2024 HGB 9.0 (L) 02/19/2024 HCT 29.3 (L) 02/19/2024 MCV 91.8 02/19/2024 RDW 14.3 02/19/2024 PLT 217 02/19/2024 CMP: Lab Results Component Value Date NA 140 02/18/2024 K 3.5 02/18/2024 CL 110 (H) 02/18/2024 CO2 22 02/18/2024 BUN 3 (L) 02/18/2024 PROT 5.2 (L) 02/20/2024 IMAGING: Esophagogastroduodenoscopy (EGD) Procedure Note 02/16/2024 Endoscopic findings: Normal esophagus Small sliding hiatal hernia Surgical changes consistent with known Clayton-en-Y gastric bypass Large anastomotic ulcer with adherent clot seen on the jejunal side of the gastrojejunal anastomosis Normal gastric pouch otherwise. Biopsies were taken from the stomach to rule out H pylori Normal afferent and efferent jejunal limbs Recommendations: Clear liquid diet today Await pathology results Protonix infusion for 72 hours Repeat EGD in 8 weeks to confirm healing of anastomotic ulcer Counseled to avoid smoking HIDA scan 02/14/24 No cystic duct obstruction. Negative HIDA study. MRCP 02/13/24 *Detailed assessment of the common bile duct compromised on this study due to artifact. Common bile duct appears to measure 0.6 cm in greatest dimension and there is no significant intrahepatic ductal dilatation. Lumen of common bile duct not visualized well enough to exclude choledocholithiasis in the appropriate clinical setting. *Multiple small stones in the gallbladder with mild distention of the gallbladder and bilateral thickening, findings which raises possibility for cholecystitis. Consider HIDA scan. *Reticular T2 hyperintense signal in the posterior aspect of the right hepatic lobe may represent fibrotic changes, without evidence of discrete mass or abnormal enhancement in this region. ASSESSMENT AND PLAN Neela Medrano is a 53 y.o. female with history of gastric bypass in 2021, obesity with BMI 34. The patient presented to [facility] with worsening right upper quadrant pain associated with nausea. At the outside hospital, the patient then developed severe substernal chest pain. Reportedly, EKG x 2 was normal, but troponins were elevated. The patient received aspirin and was started on heparin infusion for suspected NSTEMI. LFTs were mildly elevated with AST 94, ALT 57, alkaline phosphatase 164, bilirubin normal. CT abdomen and pelvis showed hyperdense filling defect in the distal CBD measuring 4 x 9 mm, suspicious for a stone, CBD measuring 5 mm, mild intrahepatic biliary ductal dilation, mildly distended gallbladder, and layering hyperdense material in the gallbladder suggestive of sludge. The patient was transferred to [facility] for GI and cardiology evaluation. Patient was seen this morning. She is doing well. Reports her pain improved significantly. She looks comfortable. Reports that she has been complaining of right upper quadrant pain for the last 9 months. Her pain is intermittent about 10 episodes per month. Pain can last from few hours to an entire day. No clear triggers. Reports associated nausea but no vomiting. No diarrhea or constipation. She is not on blood thinners. Assessment Acute blood loss anemia with concerns of GI bleeding s/p EGD on 02/16/2024, improved. EGD showed findings positive for large anastomotic ulcer with adherent clot seen at the jejunal side of the gastrojejunal anastomosis. Patient was started on IV Protonix infusion 02/16/2024. Concern for choledocholithiasis, improved. Suspicion for cholangitis given possible choledocholithiasis and bacteremia. However no definite CBD stone on imaging, LFTs almost normalized with most recent bilirubin 0.4, and no CBD dilation on imaging studies, which go against cholangitis CT at OSH with filling defect in the distal CBD me (more content not included)... [facility] 02-19-2024 Note Hospital Medicine Daily Progress Note - 02/19/2024 1:39 PM; Room: 3135/3135-01 Admission: 02/13/2024 2:37 AM; Length of stay: 6 days THE HOSPITALIST TEAM PREFERS TO USE [employer] FOR COMMUNICATION 7AM-7PM. IF I DO NOT RESPOND WITHIN 15 MINUTES, PLEASE PAGE ME/CALL THROUGH THE PROJECT MANAGER [employer]. FROM 7PM-7AM, PLEASE PAGE [phone](COVR) Code Status: Full Code Barriers to Discharge: Pending clinical improvement. Active bleeding. PPI for 72 hours Expected Discharge Date: Discharge Destination: home Overview Patient is seen for evaluation and management of bacteremia and NSTEMI. Subjective She had no acute events overnight. Denies N/V, SOB, CP. RUQ pain improved Tolerating GDMT for heart failure, BP remains soft. Physical Exam Visit Vitals BP 92/52 Pulse 65 Temp 36.3 ???C (97.3 ???F) (Temporal) Resp 26 Intake/Output Summary (Last 24 hours) at 02/19/2024 1339 Last data filed at 02/19/2024 1258 Gross per 24 hour Intake 560 ml Output 1050 ml Net -490 ml Physical Exam Constitutional: Appearance: Normal appearance. Cardiovascular: Rate and Rhythm: Normal rate and regular rhythm. Pulmonary: Effort: Pulmonary effort is normal. Breath sounds: Normal breath sounds. Abdominal: General: Abdomen is flat. Palpations: Abdomen is soft. Tenderness: There is abdominal tenderness (RUQ, mild). Neurological: General: No focal deficit present. Mental Status: She is alert and oriented to person, place, and time. Estimated body mass index is 36.19 kg/m??? as calculated from the following: Height as of this encounter: 1.499 m (4' 11 ). Weight as of this encounter: 81.3 kg (179 lb 3.2 oz). 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 - EGD showed large anastomotic ulcer with adherent clot seen on the jejunal side of the gastrojejunal anastomosis. - will transition from PPI drip to 40 mg twice daily - Plan to Repeat EGD in 8 weeks per GI. - regular diet # Sepsis, improving: # E.coli and Klebsiella bacteremia: - Source is likely UTI. - MRCP showed no biliary obstructive. HIDA scan was negative for cholecystitis. - Continue ceftriaxone while inpatient. Discharge on oral Bactrim to complete 10 days. - CT at OSH with filling defect in the distal CBD measuring 4 x 9 mm, suspicious for a stone, CBD measures 5 mm with mild intrahepatic biliary dilation. Reviewed by radiologist at [facility] with no definite evidence for stone MRCP 02/12 could not see CBD 2/2 artifact, CBD 6 mm, no intrahepatic ductal dilation, cholelithiasis, mild distention of GB MRCP on 02/13 did not show CBD stones or obstruction. However, was positive for cholelithiasis. HIDA scan on 02/14/2024 was negative. # NSTEMI: # Takotsubo cardiomyopathy 30%: - Cath showed normal coronaries. - Tolerating GDMT, blood pressure is soft. Will give one-time 20 mg IV Lasix since patient is getting orthopnea and she is about 10 L since admit. - Discussed with custom furrier. No need for lifevest on discharge # Hx of Clayton-en-Y gastric bypass. # Tobacco use: - Counseled. Nutrition Screen: Malnutrition Attestation: No dietitian assessment is available at this time. VTE Prophylaxis: Contraindicated due to GI bleed Scheduled Meds buPROPion XL, 300 mg, oral, q AM cefTRIAXone, 2 g, intravenous, q24h furosemide, 20 mg, intravenous, Once lisinopril, 2.5 mg, oral, Daily metoprolol succinate XL, 50 mg, oral, Daily multivitamin with folic acid, 1 tablet, oral, Daily before breakfast Oxygen Therapy, , inhalation, Continuous pantoprazole, 40 mg, oral, BID AC spironolactone, 25 mg, oral, Daily Pertinent Investigations Imaging EGD Table formatting from the original result was not included. Esophagogastroduodenoscopy (EGD) Procedure Note Procedure: EGD with biopsies Indications: Melena, hematochezia, blood loss anemia Sedation: MAC Attending Physician: Hannah Guerrero MD [employer] Markup Clerk: Олег Kumar MD Procedure Details: Informed consent was obtained for the procedure, including sedation. Risks of infection, perforation, hemorrhage, adverse drug reaction, and aspiration were discussed. The patient was placed in the left lateral decubitus position. The patient was monitored continuously with ECG tracing, pulse oximetry, blood pressure monitoring, and direct observation. The gastroscope was inserted into the mouth and advanced under direct vision to afferen (more content not included)... [facility] 02-19-2024 Note [facility] Teaching GI Ser vice Consult Gastroenterology/Hepatology Progress Note IDENTIFYING DATA PATIENT: Neela Medrano ADMIT DATE: 02/13/2024 TIME OF EVALUATION: 02/19/2024 10:14 AM HOSPITAL STAY: LOS: 6 days REASON FOR HOSPITALIZATION: Abd and chest pain SUBJECTIVE/INTERVAL HISTORY Neela Medrano's overnight events were reviewed. Patient resting in a chair comfortably, denies any abd pain, LFT's WNL. Patient denies any black or bloody BM's. Hgb 9.0 from 8.8. OBJECTIVE MEDICATIONS SCHEDULED: @MEDSCURRENTMD@ PRNs: acetaminophen, 650 mg, q6h PRN HYDROcodone-acetaminophen, 1 tablet, q6h PRN ondansetron ODT, 4 mg, q8h PRN Or ondansetron, 4 mg, q6h PRN Physical VITALS: BP 92/52 Pulse 65 Temp 36.3 ???C (97.3 ???F) (Temporal) Resp 26 Ht 1.499 m (4' 11 ) Wt 81.3 kg (179 lb 3.2 oz) SpO2 97% BMI 36.19 kg/m??? GEN: Alert and oriented x3, NAD HEENT: Atraumatic, normocephalic CV: No edema visualized PULM: Respirations even and unlabored ABD: Soft, non-tender, non-distended NEURO: Moves all 4 extremities spontaneously, answers questions appropriately LABS AND IMAGING CBC: Lab Results Component Value Date WBC 5.94 02/19/2024 RBC 3.19 (L) 02/19/2024 HGB 9.0 (L) 02/19/2024 HCT 29.3 (L) 02/19/2024 MCV 91.8 02/19/2024 RDW 14.3 02/19/2024 PLT 217 02/19/2024 CMP: Lab Results Component Value Date NA 140 02/18/2024 K 3.5 02/18/2024 CL 110 (H) 02/18/2024 CO2 22 02/18/2024 BUN 3 (L) 02/18/2024 PROT 5.4 (L) 02/19/2024 IMAGING: Esophagogastroduodenoscopy (EGD) Procedure Note 02/16/2024 Endoscopic findings: Normal esophagus Small sliding hiatal hernia Surgical changes consistent with known Clayton-en-Y gastric bypass Large anastomotic ulcer with adherent clot seen on the jejunal side of the gastrojejunal anastomosis Normal gastric pouch otherwise. Biopsies were taken from the stomach to rule out H pylori Normal afferent and efferent jejunal limbs Recommendations: Clear liquid diet today Await pathology results Protonix infusion for 72 hours Repeat EGD in 8 weeks to confirm healing of anastomotic ulcer Counseled to avoid smoking HIDA scan 02/14/24 No cystic duct obstruction. Negative HIDA study. MRCP 02/13/24 *Detailed assessment of the common bile duct compromised on this study due to artifact. Common bile duct appears to measure 0.6 cm in greatest dimension and there is no significant intrahepatic ductal dilatation. Lumen of common bile duct not visualized well enough to exclude choledocholithiasis in the appropriate clinical setting. *Multiple small stones in the gallbladder with mild distention of the gallbladder and bilateral thickening, findings which raises possibility for cholecystitis. Consider HIDA scan. *Reticular T2 hyperintense signal in the posterior aspect of the right hepatic lobe may represent fibrotic changes, without evidence of discrete mass or abnormal enhancement in this region. ASSESSMENT AND PLAN Neela Medrano is a 53 y.o. female with history of gastric bypass in 2021, obesity with BMI 34. The patient presented to [facility] with worsening right upper quadrant pain associated with nausea. At the outside hospital, the patient then developed severe substernal chest pain. Reportedly, EKG x 2 was normal, but troponins were elevated. The patient received aspirin and was started on heparin infusion for suspected NSTEMI. LFTs were mildly elevated with AST 94, ALT 57, alkaline phosphatase 164, bilirubin normal. CT abdomen and pelvis showed hyperdense filling defect in the distal CBD measuring 4 x 9 mm, suspicious for a stone, CBD measuring 5 mm, mild intrahepatic biliary ductal dilation, mildly distended gallbladder, and layering hyperdense material in the gallbladder suggestive of sludge. The patient was transferred to [facility] for GI and cardiology evaluation. Patient was seen this morning. She is doing well. Reports her pain improved significantly. She looks comfortable. Reports that she has been complaining of right upper quadrant pain for the last 9 months. Her pain is intermittent about 10 episodes per month. Pain can last from few hours to an entire day. No clear triggers. Reports associated nausea but no vomiting. No diarrhea or constipation. She is not on blood thinners. Assessment Acute blood loss anemia with concerns of GI bleeding s/p EGD on 02/16/2024, improved. EGD showed findings positive for large anastomotic ulcer with adherent clot seen at the jejunal side of the gastrojejunal anastomosis. Patient was started on IV Protonix infusion 02/16/2024. Concern for choledocholithiasis, improved. Suspicion for cholangitis given possible choledocholithiasis and bacteremia. However no definite CBD stone on imaging, LFTs almost normalized with most recent bilirubin 0.4, and no CBD dilation on imaging studies, which go against cholangitis CT at OSH with filling defect in the distal (more content not included)... [facility] 02-18-2024 Note Hospital Medicine Daily Progress Note - 02/18/2024 12:21 PM; Room: [facility] Admission: 02/13/2024 2:37 AM; Length of stay: 5 days THE HOSPITALIST TEAM PREFERS TO USE [employer] FOR COMMUNICATION 7AM-7PM. IF I DO NOT RESPOND WITHIN 15 MINUTES, PLEASE PAGE ME/CALL THROUGH THE PROJECT MANAGER [employer]. FROM 7PM-7AM, PLEASE PAGE [phone](COVR) Code Status: Full Code Barriers to Discharge: Pending clinical improvement. Active bleeding. PPI for 72 hours Expected Discharge Date: Discharge Destination: home Overview Patient is seen for evaluation and management of bacteremia and NSTEMI. Subjective She had no acute events overnight. Continues to have intermittent black stool. Denies N/V, SOB, CP. RUQ pain improved Tolerating GDMT for heart failure, BP remains soft. Physical Exam Visit Vitals BP 98/60 Pulse 82 Temp 36 ???C (96.8 ???F) (Temporal) Resp 20 Intake/Output Summary (Last 24 hours) at 02/18/2024 1221 Last data filed at 02/18/2024 1033 Gross per 24 hour Intake 2056.67 ml Output 1875 ml Net 181.67 ml Physical Exam Constitutional: Appearance: Normal appearance. Cardiovascular: Rate and Rhythm: Normal rate and regular rhythm. Pulmonary: Effort: Pulmonary effort is normal. Breath sounds: Normal breath sounds. Abdominal: General: Abdomen is flat. Palpations: Abdomen is soft. Tenderness: There is abdominal tenderness (RUQ, mild). Neurological: General: No focal deficit present. Mental Status: She is alert and oriented to person, place, and time. Estimated body mass index is 35.95 kg/m??? as calculated from the following: Height as of this encounter: 1.499 m (4' 11 ). Weight as of this encounter: 80.7 kg (178 lb). 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 - EGD showed large anastomotic ulcer with adherent clot seen on the jejunal side of the gastrojejunal anastomosis. - PPI drip for 72 hours - day 3 - Plan to Repeat EGD in 8 weeks per GI. - Plan to start PO diet today per GI # Sepsis, improving: # E.coli and Klebsiella bacteremia: - Source is likely UTI. - MRCP showed no biliary obstructive. HIDA scan was negative for cholecystitis. - Continue ceftriaxone while inpatient. Discharge on oral Bactrim to complete 10 days. - CT at OSH with filling defect in the distal CBD measuring 4 x 9 mm, suspicious for a stone, CBD measures 5 mm with mild intrahepatic biliary dilation. Reviewed by radiologist at [facility] with no definite evidence for stone MRCP 02/12 could not see CBD 2/2 artifact, CBD 6 mm, no intrahepatic ductal dilation, cholelithiasis, mild distention of GB MRCP on 02/13 did not show CBD stones or obstruction. However, was positive for cholelithiasis. HIDA scan on 02/14/2024 was negative. # NSTEMI: # Takotsubo cardiomyopathy 30%: - Cath showed normal coronaries. - Tolerating GDMT # Hx of Clayton-en-Y gastric bypass. # Tobacco use: - Counseled. Nutrition Screen: Malnutrition Attestation: No dietitian assessment is available at this time. VTE Prophylaxis: Contraindicated due to GI bleed Scheduled Meds buPROPion XL, 300 mg, oral, q AM cefTRIAXone, 1 g, intravenous, q24h lisinopril, 2.5 mg, oral, Daily metoprolol succinate XL, 50 mg, oral, Daily multivitamin with folic acid, 1 tablet, oral, Daily before breakfast Oxygen Therapy, , inhalation, Continuous spironolactone, 25 mg, oral, Daily pantoprazole (ProtoNix) 80 mg in sodium chloride 0.9 % 100 mL (0.8 mg/mL) infusion, 8 mg/hr, Last Rate: 8 mg/hr (02/18/24 0958) Pertinent Investigations Hematology: Results from last 7 days Lab Units 02/18/24 04302/17/24 1750 02/17/24 0541 02/16/24 1612 02/16/2444102/13/24221302/13/24431 WBC AUTO 10*3/uL -- -- 3.39* -- 4.61 < > 12.69* HEMOGLOBIN g/dL 8.8* 8.7* 9.0* < > 8.8* < > 14.2 HEMATOCRIT % 27.2* 27.0* 27.7* < > 27.0* < > 43.1 MCV fL -- -- 89.4 -- 87.4 < > 87.8 PLATELETS AUTO 10*3/uL -- -- 136* -- 102* < > 250 INR -- -- -- -- -- -- 1.29* < > = values in this interval not displayed. Chemistry: Results from last 7 days Lab Units 02/18/2443002/17/2454002/16/24441 SODIUM mmol/L 140 139 140 POTASSIUM mmol/L 3.5 3.2* 3.3* CHLORIDE mmol/L 110* 109* 110* CO2 mmol/L 22 23 24 BUN mg/dL 3* 4* 9 CREATININE mg/dL 0.42* 0.36* 0.38* GLUCOSE mg/dL 86 77 79 MAGNESIUM mg/dL -- 1.9 1.7* CALCIUM mg/dL 7.2* 6.9* 6.9* Results from last 7 days Lab Units (more content not included)... [facility] 02-18-2024 Note -- Attestation signed by Mani De Leon MD at 02/18/2024 12:02 PM I personally saw this patient on the day of the encounter, performed the beasley portion(s) of the service and participated in the management and confirm the resident/fellow???s documentation. Please note there may be additional personal documentation from me Marginal ulcer with the adherent clot Hemoglobin has been stable, no ongoing melena. Continue IV Protonix infusion for another 24 hour Okay to advance diet today Monitor hemoglobin. -- [facility] Teaching GI Service Consult Gastroenterology/Hepatology Progress Note IDENTIFYING DATA PATIENT: Neela Medrano ADMIT DATE: 02/13/2024 TIME OF EVALUATION: 02/18/2024 8:58 AM HOSPITAL STAY: LOS: 5 days REASON FOR HOSPITALIZATION: Abd and chest pain SUBJECTIVE/INTERVAL HISTORY Neela Medrano's overnight events were reviewed. Patient was seen and examined today. Afebrile and hemodynamically stable. Denies having any abdominal pain, no nausea or vomiting. She mentioned that her stool is becoming clearer and last bowel movements were dark brown with some yellowish colors and soft consistency. Patient is tolerating clear liquid and wants her diet to be advanced if possible. OBJECTIVE MEDICATIONS SCHEDULED: @MEDSCURRENTMD@ PRNs: acetaminophen, 650 mg, q6h PRN HYDROcodone-acetaminophen, 1 tablet, q6h PRN ondansetron ODT, 4 mg, q8h PRN Or ondansetron, 4 mg, q6h PRN Physical VITALS: BP 99/50 (BP Location: Right arm, Patient Position: Standing) Pulse 82 Temp 36 ???C (96.8 ???F) (Temporal) Resp 20 Ht 1.499 m (4' 11 ) Wt 80.7 kg (178 lb) SpO2 98% BMI 35.95 kg/m??? GEN: Alert and oriented x3, NAD HEENT: Atraumatic, normocephalic CV: No edema visualized PULM: Respirations even and unlabored ABD: Soft, non-tender, non-distended NEURO: Moves all 4 extremities spontaneously, answers questions appropriately LABS AND IMAGING CBC: Lab Results Component Value Date WBC 3.39 (L) 02/17/2024 RBC 3.10 (L) 02/17/2024 HGB 8.8 (L) 02/18/2024 HCT 27.2 (L) 02/18/2024 MCV 89.4 02/17/2024 RDW 14.1 02/17/2024 PLT 136 (L) 02/17/2024 CMP: Lab Results Component Value Date NA 139 02/17/2024 K 3.2 (L) 02/17/2024 CL 109 (H) 02/17/2024 CO2 23 02/17/2024 BUN 4 (L) 02/17/2024 PROT 4.7 (L) 02/18/2024 IMAGING: HIDA scan 02/14/24 No cystic duct obstruction. Negative HIDA study. MRCP 02/13/24 *Detailed assessment of the common bile duct compromised on this study due to artifact. Common bile duct appears to measure 0.6 cm in greatest dimension and there is no significant intrahepatic ductal dilatation. Lumen of common bile duct not visualized well enough to exclude choledocholithiasis in the appropriate clinical setting. *Multiple small stones in the gallbladder with mild distention of the gallbladder and bilateral thickening, findings which raises possibility for cholecystitis. Consider HIDA scan. *Reticular T2 hyperintense signal in the posterior aspect of the right hepatic lobe may represent fibrotic changes, without evidence of discrete mass or abnormal enhancement in this region. ASSESSMENT AND PLAN Neela Medrano is a 53 y.o. female with history of gastric bypass in 2021, obesity with BMI 34. The patient presented to [facility] with worsening right upper quadrant pain associated with nausea. At the outside hospital, the patient then developed severe substernal chest pain. Reportedly, EKG x 2 was normal, but troponins were elevated. The patient received aspirin and was started on heparin infusion for suspected NSTEMI. LFTs were mildly elevated with AST 94, ALT 57, alkaline phosphatase 164, bilirubin normal. CT abdomen and pelvis showed hyperdense filling defect in the distal CBD measuring 4 x 9 mm, suspicious for a stone, CBD measuring 5 mm, mild intrahepatic biliary ductal dilation, mildly distended gallbladder, and layering hyperdense material in the gallbladder suggestive of sludge. The patient was transferred to [facility] for GI and cardiology evaluation. Patient was seen this morning. She is doing well. Reports her pain improved significantly. She looks comfortable. Reports that she has been complaining of right upper quadrant pain for the last 9 months. Her pain is intermittent about 10 episodes per month. Pain can last from few hours to an entire day. No clear triggers. Reports associated nausea but no vomiting. No diarrhea or constipation. She is not on blood thinners. Assessment Acute blood loss anemia with concerns of GI bleeding s/p EGD on 02/16/2024, globin has been stable.: EGD showed findings positive for large anastomotic ulcer with adherent clot seen at the jejunal side of the gastrojejunal anastomosis. Patient was started on IV Protonix infusion. Elaina (more content not included)... [facility] 02-17-2024 Note Hospital Medicine Daily Progress Note - 02/17/2024 6:05 PM; Room: [id number] Admission: 02/13/2024 2:37 AM; Length of stay: 4 days THE HOSPITALIST TEAM PREFERS TO USE [employer] FOR COMMUNICATION 7AM-7PM. IF I DO NOT RESPOND WITHIN 15 MINUTES, PLEASE PAGE ME/CALL THROUGH THE PROJECT MANAGER [employer]. FROM 7PM-7AM, PLEASE PAGE [phone](COVR) Code Status: Full Code Barriers to Discharge: Pending clinical improvement. Active bleeding. PPI for 72 hours Expected Discharge Date: Discharge Destination: home Overview Patient is seen for evaluation and management of bacteremia and NSTEMI. Subjective She had no acute events overnight. Continues to have intermittent black stool. Denies N/V, SOB, CP. RUQ pain improved BP remains soft. Physical Exam Visit Vitals BP 113/62 (BP Location: Right arm, Patient Position: Standing) Pulse 76 Temp 36.4 ???C (97.5 ???F) (Temporal) Resp 26 Intake/Output Summary (Last 24 hours) at 02/17/2024 1805 Last data filed at 02/17/2024 1720 Gross per 24 hour Intake 3839.75 ml Output 700 ml Net 3139.75 ml Physical Exam Constitutional: Appearance: Normal appearance. Cardiovascular: Rate and Rhythm: Normal rate and regular rhythm. Pulmonary: Effort: Pulmonary effort is normal. Breath sounds: Normal breath sounds. Abdominal: General: Abdomen is flat. Palpations: Abdomen is soft. Tenderness: There is abdominal tenderness (RUQ, mild). Neurological: General: No focal deficit present. Mental Status: She is alert and oriented to person, place, and time. Estimated body mass index is 35.87 kg/m??? as calculated from the following: Height as of this encounter: 1.499 m (4' 11 ). Weight as of this encounter: 80.6 kg (177 lb 9.6 oz). 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 - EGD showed large anastomotic ulcer with adherent clot seen on the jejunal side of the gastrojejunal anastomosis. - PPI drip for 72 hours - day 2 - Plan to Repeat EGD in 8 weeks per GI. # Sepsis, improving: # E.coli and Klebsiella bacteremia: - Source is likely UTI. - MRCP showed no biliary obstructive. HIDA scan was negative for cholecystitis. - Continue ceftriaxone while inpatient. Discharge on oral Bactrim to complete 10 days. - CT at OSH with filling defect in the distal CBD measuring 4 x 9 mm, suspicious for a stone, CBD measures 5 mm with mild intrahepatic biliary dilation. Reviewed by radiologist at [facility] with no definite evidence for stone MRCP 02/12 could not see CBD 2/2 artifact, CBD 6 mm, no intrahepatic ductal dilation, cholelithiasis, mild distention of GB MRCP on 02/13 did not show CBD stones or obstruction. However, was positive for cholelithiasis. HIDA scan on 02/14/2024 was negative. # NSTEMI: # Takotsubo cardiomyopathy 30%: - Cath showed normal coronaries. - Tolerating GDMT # Hx of Clayton-en-Y gastric bypass. # Tobacco use: - Counseled. Nutrition Screen: Malnutrition Attestation: No dietitian assessment is available at this time. VTE Prophylaxis: Contraindicated due to GI bleed Scheduled Meds buPROPion XL, 300 mg, oral, q AM cefTRIAXone, 1 g, intravenous, q24h lisinopril, 2.5 mg, oral, Daily metoprolol succinate XL, 50 mg, oral, Daily multivitamin with folic acid, 1 tablet, oral, Daily before breakfast Oxygen Therapy, , inhalation, Continuous potassium chloride CR, 40 mEq, oral, BID spironolactone, 25 mg, oral, Daily pantoprazole (ProtoNix) 80 mg in sodium chloride 0.9 % 100 mL (0.8 mg/mL) infusion, 8 mg/hr, Last Rate: 8 mg/hr (02/17/24 1720) sodium chloride, 50 mL/hr, Last Rate: 50 mL/hr (02/17/24 1720) Pertinent Investigations Hematology: Results from last 7 days Lab Units 02/17/24 0541 02/16/24 1612 02/16/24 0442 02/13/24 2214 02/13/24 0432 WBC AUTO 10*3/uL 3.39* -- 4.61 < > 12.69* HEMOGLOBIN g/dL 9.0* 8.9* 8.8* < > 14.2 HEMATOCRIT % 27.7* 27.9* 27.0* < > 43.1 MCV fL 89.4 -- 87.4 < > 87.8 PLATELETS AUTO 10*3/uL 136* -- 102* < > 250 INR -- -- -- -- 1.29* < > = values in this interval not displayed. Chemistry: Results from last 7 days Lab Units 02/17/24 0541 02/16/24 0442 02/15/24 0525 SODIUM mmol/L 139 140 140 POTASSIUM mmol/L 3.2* 3.3* 3.7 CHLORIDE mmol/L 109* 110* 108* CO2 mmol/L 23 24 24 BUN mg/dL 4* 9 20 CREATININE mg/dL 0.36* 0.38* 0.40* GLUCOSE mg/dL 77 79 105* MAGNESIUM mg/dL 1.9 1.7* 1.7* CALCIUM mg/dL 6.9* 6.9* 7.5* Results from (more content not included)... [facility] 02-17-2024 Note -- Attestation signed by Mani De Leon MD at 02/17/2024 11:48 AM I personally saw this patient on the day of the encounter, performed the beasley portion(s) of the service and participated in the management and confirm the resident/fellow???s documentation. Please note there may be additional personal documentation from tx -- [facility] Teaching GI Service Consult Gastroenterology/Hepatology Progress Note IDENTIFYING DATA PATIENT: Neela Medrano ADMIT DATE: 02/13/2024 TIME OF EVALUATION: 02/17/2024 9:23 AM HOSPITAL STAY: LOS: 4 days REASON FOR HOSPITALIZATION: Abd and chest pain SUBJECTIVE/INTERVAL HISTORY Neela Medrano's overnight events were reviewed. Patient was seen and examined today. Afebrile and hemodynamically stable. Denies having any abdominal pain, no nausea or vomiting. She was able to tolerate clear liquid diet. Did not have a bowel movement yet. OBJECTIVE MEDICATIONS SCHEDULED: @MEDMOURRENTMD@ PRNs: acetaminophen, 650 mg, q6h PRN HYDROcodone-acetaminophen, 1 tablet, q6h PRN ondansetron ODT, 4 mg, q8h PRN Or ondansetron, 4 mg, q6h PRN Physical VITALS: BP 103/59 (BP Location: Right arm, Patient Position: Standing) Pulse 80 Temp 35.7 ???C (96.3 ???F) (Temporal) Resp 12 Ht 1.499 m (4' 11 ) Wt 80.6 kg (177 lb 9.6 oz) SpO2 98% BMI 35.87 kg/m??? GEN: Alert and oriented x3, NAD HEENT: Atraumatic, normocephalic CV: No edema visualized PULM: Respirations even and unlabored ABD: Soft, non-tender, non-distended NEURO: Moves all 4 extremities spontaneously, answers questions appropriately LABS AND IMAGING CBC: Lab Results Component Value Date WBC 3.39 (L) 02/17/2024 RBC 3.10 (L) 02/17/2024 HGB 9.0 (L) 02/17/2024 HCT 27.7 (L) 02/17/2024 MCV 89.4 02/17/2024 RDW 14.1 02/17/2024 PLT 136 (L) 02/17/2024 CMP: Lab Results Component Value Date NA 139 02/17/2024 K 3.2 (L) 02/17/2024 CL 109 (H) 02/17/2024 CO2 23 02/17/2024 BUN 4 (L) 02/17/2024 PROT 4.6 (L) 02/17/2024 IMAGING: HIDA scan 02/14/24 No cystic duct obstruction. Negative HIDA study. MRCP 02/13/24 *Detailed assessment of the common bile duct compromised on this study due to artifact. Common bile duct appears to measure 0.6 cm in greatest dimension and there is no significant intrahepatic ductal dilatation. Lumen of common bile duct not visualized well enough to exclude choledocholithiasis in the appropriate clinical setting. *Multiple small stones in the gallbladder with mild distention of the gallbladder and bilateral thickening, findings which raises possibility for cholecystitis. Consider HIDA scan. *Reticular T2 hyperintense signal in the posterior aspect of the right hepatic lobe may represent fibrotic changes, without evidence of discrete mass or abnormal enhancement in this region. ASSESSMENT AND PLAN Neela Medrano is a 53 y.o. female with history of gastric bypass in 2021, obesity with BMI 34. The patient presented to [facility] with worsening right upper quadrant pain associated with nausea. At the outside hospital, the patient then developed severe substernal chest pain. Reportedly, EKG x 2 was normal, but troponins were elevated. The patient received aspirin and was started on heparin infusion for suspected NSTEMI. LFTs were mildly elevated with AST 94, ALT 57, alkaline phosphatase 164, bilirubin normal. CT abdomen and pelvis showed hyperdense filling defect in the distal CBD measuring 4 x 9 mm, suspicious for a stone, CBD measuring 5 mm, mild intrahepatic biliary ductal dilation, mildly distended gallbladder, and layering hyperdense material in the gallbladder suggestive of sludge. The patient was transferred to [facility] for GI and cardiology evaluation. Patient was seen this morning. She is doing well. Reports her pain improved significantly. She looks comfortable. Reports that she has been complaining of right upper quadrant pain for the last 9 months. Her pain is intermittent about 10 episodes per month. Pain can last from few hours to an entire day. No clear triggers. Reports associated nausea but no vomiting. No diarrhea or constipation. She is not on blood thinners. Assessment Acute blood loss anemia with concerns of GI bleeding s/p EGD on 02/16/2024: EGD showed findings positive for large anastomotic ulcer with adherent clot seen at the jejunal side of the gastrojejunal anastomosis. Patient was started on IV Protonix infusion. Concern for choledocholithiasis. Suspicion for cholangitis given possible choledocholithiasis and bacteremia. However no definite CBD stone on imaging, LFTs almost normalized with most recent bilirubin 0.4, and no CBD dilation on imaging studies, which go against cholangitis CT at OSH with filling defect in the distal CBD measuring 4 x 9 mm, suspicio (more content not included)... [facility] 02-16-2024 Note Hospital Medicine Daily Progress Note - 02/16/2024 2:26 PM; Room: 3135/3135-01 Admission: 02/13/2024 2:37 AM; Length of stay: 3 days THE HOSPITALIST TEAM PREFERS TO USE [employer] FOR COMMUNICATION 7AM-7PM. IF I DO NOT RESPOND WITHIN 15 MINUTES, PLEASE PAGE ME/CALL THROUGH THE [employer]. FROM 7PM-7AM, PLEASE PAGE [phone](COVR) Code Status: Full Code Barriers to Discharge: Pending clinical improvement. Active bleeding. PPI for 72 hours Expected Discharge Date: Discharge Destination: home Overview Patient is seen for evaluation and management of bacteremia and NSTEMI. Subjective Patient had black stool. Denies N/V, SOB, CP. RUQ pain is improving. BP is soft low. Physical Exam Visit Vitals BP 85/56 Pulse 84 Temp 36.4 ???C (97.5 ???F) (Temporal) Resp 19 Intake/Output Summary (Last 24 hours) at 02/16/2024 1426 Last data filed at 02/16/2024 1308 Gross per 24 hour Intake 4121.8 ml Output 300 ml Net 3821.8 ml Physical Exam Constitutional: Appearance: Normal appearance. Cardiovascular: Rate and Rhythm: Normal rate and regular rhythm. Pulmonary: Effort: Pulmonary effort is normal. Breath sounds: Normal breath sounds. Abdominal: General: Abdomen is flat. Palpations: Abdomen is soft. Tenderness: There is abdominal tenderness (RUQ, mild). Neurological: General: No focal deficit present. Mental Status: She is alert and oriented to person, place, and time. Estimated body mass index is 33.69 kg/m??? as calculated from the following: Height as of this encounter: 1.499 m (4' 11 ). Weight as of this encounter: 75.7 kg (166 lb 12.8 oz). 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 - EGD showed large anastomotic ulcer with adherent clot seen on the jejunal side of the gastrojejunal anastomosis. - PPI drip for 72 hours. - Repeat EGD in 8 weeks. # Sepsis, improving: # E.coli and Klebsiella bacteremia: - Source is likely UTI. - MRCP showed no biliary obstructive. HIDA scan was negative for cholecystitis. - Continue ceftriaxone while inpatient. Discharge on oral Bactrim to complete 10 days. # NSTEMI: # Takotsubo cardiomyopathy 30%: - Cath showed normal coronaries. - We will hold off starting GDMT due to hypotension, bleeding and bacteremia. Address prior to discharge if BP is stable. # Hx of Clayton-en-Y gastric bypass. # Tobacco use: - Counseled. Nutrition Screen: Malnutrition Attestation: No dietitian assessment is available at this time. VTE Prophylaxis: Contraindicated due to GI bleed Scheduled Meds buPROPion XL, 300 mg, oral, q AM [START ON 02/17/2024] cefTRIAXone, 1 g, intravenous, q24h [Held by provider] metoprolol tartrate, 25 mg, oral, BID multivitamin with folic acid, 1 tablet, oral, Daily before breakfast Oxygen Therapy, , inhalation, Continuous pantoprazole (ProtoNix) 80 mg in sodium chloride 0.9 % 100 mL (0.8 mg/mL) infusion, 8 mg/hr, Last Rate: 8 mg/hr (02/16/24 1308) sodium chloride, 125 mL/hr, Last Rate: 125 mL/hr (02/16/24 1308) Pertinent Investigations Hematology: Results from last 7 days Lab Units 02/16/24 04402/15/24 1716 02/15/24 0525 02/13/24 2214 02/13/24 0432 WBC AUTO 10*3/uL 4.61 -- 9.04 < > 12.69* HEMOGLOBIN g/dL 8.8* 10.7* 11.4* < > 14.2 HEMATOCRIT % 27.0* 33.4* 35.5* < > 43.1 MCV fL 87.4 -- 89.2 < > 87.8 PLATELETS AUTO 10*3/uL 102* -- 117* < > 250 INR -- -- -- -- 1.29* < > = values in this interval not displayed. Chemistry: Results from last 7 days Lab Units 02/16/24 0442 02/15/24 0525 02/14/24 0535 SODIUM mmol/L 140 140 138 POTASSIUM mmol/L 3.3* 3.7 3.5 CHLORIDE mmol/L 110* 108* 107 CO2 mmol/L 22 BUN mg/dL 9 20 11 CREATININE mg/dL 0.38* 0.40* 0.56* GLUCOSE mg/dL 79 105* 96 MAGNESIUM mg/dL 1.7* 1.7* 1.8* CALCIUM mg/dL 6.9* 7.5* 7.6* Results from last 7 days Lab Units 02/16/24 0442 02/15/24 0525 02/14/24 0535 AST U/L 16 34 79* ALT U/L 28 50 78* ALK PHOS U/L 76 105* 128* BILIRUBIN TOTAL mg/dL 0.2* 0.4 0.8 BILIRUBIN DIRECT mg/dL 0.0 -- 0.2 Results from last 7 days Lab Units 02/16/24 1032 POCT GLUCOSE mg/dL 90 Historical Values: (Includes values prior to this admission) Lab Results Component Value Date HDL 22 (L) 02/14/2024 LDL 53 02/14/2024 No results found for: [id number] , IRON , TIBC , C3 , C4 , RONY , CANCA , ASO , PSA , CEA , CA125 , CA199 , AFP , CA153 Imaging EGD Tabl (more content not included)... [facility] 02-16-2024 Note Patient: Neela Patelo k Procedure Summary Date: 02/16/24 Room / Location: [facility] Main Operating Room Anesthesia Start: 1056 Anesthesia Stop: 1121 Procedure: EGD Diagnosis: Melena Scheduled Providers: Hannah Guerrero MD Responsible Provider: Ana Lema MD Anesthesia Type: MAC ASA Status: 3 Anesthesia Type: MAC Vitals Value Taken Time BP 88/66 02/16/24 1148 Temp 36.4 ???C (97.5 ???F) 02/16/24 1119 Pulse 84 02/16/24 1152 Resp 26 02/16/24 1152 SpO2 94 % 02/16/24 1152 Vitals shown include unvalidated device data. Anesthesia Post Evaluation Patient location during evaluation: PACU Patient participation: complete - patient participated Level of consciousness: awake Pain score: 0 Pain management: adequate Airway patency: patent Cardiovascular status: acceptable Respiratory status: acceptable Patient is hemodynamically stable and is able to be discharged from PACU per anesthesia protocol. No notable events documented. 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 Procedure Information Date/Time: 02/16/24 1100 Scheduled providers: Hannah Guerrero MD Procedure: EGD Location: [facility] Main Operating Room Past Medical History: Diagnosis Date Anxiety Depression Relevant Problems Cardio (+) NSTEMI (non-ST elevated myocardial infarction) (CMS/HCC) Clinical information reviewed: Tobacco Allergies Meds Med Hx Surg Hx Fam Hx Soc Hx Physical Exam Airway Mallampati: II TM distance: >3 FB Neck ROM: full Cardiovascular - normal exam Dental - normal exam Pulmonary - normal exam Abdominal - normal exam Anesthesia Plan ASA 3 MAC The patient is a current smoker. Patient was previously instructed to abstain from smoking on day of procedure. Patient did not smoke on day of procedure. intravenous induction Anesthetic plan and risks discussed with patient. Plan discussed with CAA. Additional Equipment Requests [facility] 02-16-2024 Note [facility] CARDIOLOGY INPAT IENT PROGRESS NOTE Reason for follow up: new onset HFrEF (Takotsubo), s/p coronary angiogram with normal cors Subjective HPI: Neela Medrano is a 53 y.o. female patient is presents as a transfer from [facility] for continuity of care on 02/13/24. Past medical history includes: HTN Anxiety COPD Smoking Patient was evaluated by the cardiology team 2 years ago for pre-op risk stratification for bariatric surgery. Stress testing was done at that time showing low risk. Patient has been experiencing right sided abdominal pain intermittently for the last period. Last night, it has been progressively worsening, so she presented to the ED. In the ED, she started experiencing epigastric chest discomfort, radiating to all over her chest, described as heaviness, lasting for an hour, no associated nausea, vomiting or arm numbness. Patient reports that she has never had this type of chest pain before. Her lifestyle is sedentary. 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 Upon presentation to the ED, high-sensitivity troponin was elevated, ACS protocol was initiated. CT scan of the abdomen pelvis showed gallbladder distention with sludge, intrahepatic biliary ductal dilatation suspicious for stone. Troponin level at our facility 3.72--3.11; EKG NSR no new ST T wave changes. Cardiac cath on 02/13/24 with normal cors. Echocardiogram findings significant for reduced systolic function, EF 30%, suggestive of Takotsubo. Noted blood cultures obtained 02/13/24 are 2/2 positive for gram negative bacilli. UA positive. Overnight 02/13-02/14, patient with bloody stools x4, bright red blood progressed to dark stools. Hemoglobin from 13 g/dL to 11 g/dL. Vitals remained stable. 02/14: repeat MRCP 02/15: Endoscopy per GI for concern of acute GI bleeding, drop in hemoglobin to 8.8 g/dL Interval: Examined this afternoon after EGD. She is pleasant, asymptomatic. Continues to have dark stools. Hypotensive overnight, BP 80-90s/60-70s. Reviewed heart failure diagnosis, treatment plan once able to tolerate, and plan to follow up in clinic. Tele: SR 82-91 bpm ALLERGIES No Known Allergies CURRENT MEDS buPROPion XL, 300 mg, oral, q AM cefTRIAXone, 2 g, intravenous, q24h [Held by provider] metoprolol tartrate, 25 mg, oral, BID metroNIDAZOLE, 500 mg, intravenous, q12h multivitamin with folic acid, 1 tablet, oral, Daily before breakfast Oxygen Therapy, , inhalation, Continuous pantoprazole, 40 mg, intravenous, q12h SOFIA sodium chloride, 125 mL/hr, Last Rate: 125 mL/hr (02/16/24 0531) PRN medications: acetaminophen, HYDROcodone-acetaminophen, ondansetron ODT OR ondansetron Objective Patient Vitals for the past 24 hrs: BP Temp Temp src Pulse Resp SpO2 02/16/24 0513 93/66 -- -- 88 13 -- 02/16/24 0400 93/52 36.7 ???C (98.1 ???F) [facility] 77 -- 93 % 02/16/24 0007 -- -- -- -- 24 -- 02/16/24 0006 91/54 -- -- 88 -- 100 % 02/16/24 0000 -- -- -- -- 19 -- 02/15/241999 94/59 -- -- 90 -- -- 02/15/24 1944 99/51 37.3 ???C (99.1 ???F) [facility] 92 -- 99 % 02/15/24 1900 -- -- -- -- 25 -- 02/15/24 1655 88/51 -- -- 78 21 94 % 02/15/24 1200 106/60 -- -- 88 16 96 % 02/15/24 1140 106/70 36.5 ???C (97.7 ???F) Temporal 88 25 98 % BP 93/66 Pulse 88 Temp 36.7 ???C (98.1 ???F) (Temporal) Resp 13 Ht 1.499 m (4' 11 ) Wt 75.7 kg (166 lb 12.8 oz) SpO2 93% BMI 33.69 kg/m??? Wt Readings from Last 3 Encounters: 02/15/24 75.7 kg (166 lb 12.8 oz) General: Awake, alert, appropriate mood/affect, NAD Eyes: anicteric sclera. Non-injected conjunctiva. Neck: No elevated JVP. No carotid bruit Pulm: Breath sounds clear to ascultation bilaterally with no wheeze, crackles or rhonchi Cards: HRRR, NL S1, S2. No S3 or S4 gallop. Murmur: none Abd: Soft, Nontender Extr: Lower extremity edema: none. DP pulses present bilaterally Skin: warm, dry, well perfused Neuro: A&Ox3, No gross deficits Lab Results Component Value Date NA 140 02/16/2024 K 3.3 (L) 02/16/2024 CL 110 (H) 02/16/2024 ANIONGAP 9 02/16/2024 BUN 9 02/16/2024 CREATININE 0.38 (L) 02/16/2024 CALCIUM 6.9 (L) 02/16/2024 MG 1.7 (L) 02/16/2024 Lab Results Component Value Date BILITOT 0.2 (L) 02/16/2024 BILIDIR 0.0 02/16/2024 ALKPHOS 76 02/16/2024 AST 16 02/16/2024 ALT 28 02/16/2024 PROT 4.4 (L) 02/16/2024 ALBUMIN 2.4 (L) 02/16/2024 Lab Results Component Value Date CHOLESTEROL 75 (L) 02/14/2024 TRIGLYCERIDES 113 02/14/2024 HDL 22 (L) 02/14/2024 LDL CALC 30 02/14/2024 No results found for: BNP No results found for: THYROID , TSH , FREE T4 No results found for: DIGOXIN LVL Lab Results Component Value Date HGBA1C 5.3 02/14/2024 Lab Results Component Value Date WBC 4.61 02/16/2024 RBC 3.09 (L) 02/16/2024 HGB 8.8 (L) 02/16/2024 HCT 27.0 (L) 02/16/2024 MCV 87.4 02/16/2024 MCH 28.5 02/16/2024 MCHC 32.6 02/16/2024 RDW 14.0 02/16/2024 NEUTOPHILPCT 89.5 (H) 08 (more content not included)... [facility] 02-15-2024 Note Hospital Medicine Daily Progress Note - 02/15/2024 3:27 PM; Room: [address] [place] [address] Admission: 02/13/2024 2:37 AM; Length of stay: 2 days THE HOSPITALIST TEAM PREFERS TO USE [employer] FOR COMMUNICATION 7AM-7PM. IF I DO NOT RESPOND WITHIN 15 MINUTES, PLEASE PAGE ME/CALL THROUGH THE [employer]. FROM 7PM-7AM, PLEASE PAGE [phone](COVR) Code Status: Full Code Barriers to Discharge: Pending clinical improvement Expected Discharge Date: Discharge Destination: home Overview Patient is seen for evaluation and management of bacteremia and NSTEMI. Subjective Patient reports intermittent RUQ pain. Patient developed rectal bleed overnight. Denies N/V, SOB, CP. Physical Exam Visit Vitals BP 106/60 Pulse 88 Temp 36.5 ???C (97.7 ???F) (Temporal) Resp 16 Intake/Output Summary (Last 24 hours) at 02/15/2024 1527 Last data filed at 02/15/2024 1233 Gross per 24 hour Intake 970 ml Output -- Net 970 ml Physical Exam Constitutional: Appearance: Normal appearance. Cardiovascular: Rate and Rhythm: Normal rate and regular rhythm. Pulmonary: Effort: Pulmonary effort is normal. Breath sounds: Normal breath sounds. Abdominal: General: Abdomen is flat. Palpations: Abdomen is soft. Tenderness: There is abdominal tenderness (RUQ, mild). Neurological: General: No focal deficit present. Mental Status: She is alert and oriented to person, place, and time. Estimated body mass index is 33.69 kg/m??? as calculated from the following: Height as of this encounter: 1.499 m (4' 11 ). Weight as of this encounter: 75.7 kg (166 lb 12.8 oz). 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 - MRCP showed no biliary obstructive. HIDA scan was negative for cholecystitis. - Continue ceftriaxone and Flagyl, pending susceptibility. - GI will repeat MRCP. # Acute blood loss anemia, occurred on 02/13: # Rectal bleed, occurred on 02/13: - Monitor Hgb. - GI would like to monitor for now due to high risk for procedure. # NSTEMI: # Takotsubo cardiomyopathy 30%: - Cath showed normal coronaries. - We will hold off starting GDMT due to hypotension and bacteremia. # Tobacco use: - Counseled. Nutrition Screen: Malnutrition Attestation: No dietitian assessment is available at this time. VTE Prophylaxis: Lovenox Scheduled Meds buPROPion XL, 300 mg, oral, q AM cefTRIAXone, 2 g, intravenous, q24h [Held by provider] metoprolol tartrate, 25 mg, oral, BID metroNIDAZOLE, 500 mg, intravenous, q12h multivitamin with folic acid, 1 tablet, oral, Daily before breakfast Oxygen Therapy, , inhalation, Continuous pantoprazole, 40 mg, intravenous, q12h SOFIA sodium chloride, 125 mL/hr, Last Rate: 125 mL/hr (02/15/24 0733) Pertinent Investigations Hematology: Results from last 7 days Lab Units 02/15/24 0525 02/14/24 0535 02/13/24 2214 02/13/24 0432 WBC AUTO 10*3/uL 9.04 14.19* < > 12.69* HEMOGLOBIN g/dL 11.4* 13.4 < > 14.2 HEMATOCRIT % 35.5* 41.0 < > 43.1 MCV fL 89.2 88.6 < > 87.8 PLATELETS AUTO 10*3/uL 117* 149* < > 250 INR -- -- -- 1.29* < > = values in this interval not displayed. Chemistry: Results from last 7 days Lab Units 02/15/24 0525 02/14/24 0535 02/13/24 2214 SODIUM mmol/L 140 138 135* POTASSIUM mmol/L 3.7 3.5 3.5 CHLORIDE mmol/L 108* 107 107 CO2 mmol/L 24 22 21 BUN mg/dL 20 11 11 CREATININE mg/dL 0.40* 0.56* 0.53* GLUCOSE mg/dL 105* 96 105* MAGNESIUM mg/dL 1.7* 1.8* -- CALCIUM mg/dL 7.5* 7.6* 7.3* Results from last 7 days Lab Units 02/15/24 0525 02/14/24 0535 02/13/24 0432 AST U/L 34 79* 93* ALT U/L 50 78* 68* ALK PHOS U/L 105* 128* 123* BILIRUBIN TOTAL mg/dL 0.4 0.8 0.8 BILIRUBIN DIRECT mg/dL -- 0.2 -- Historical Values: (Includes values prior to this admission) Lab Results Component Value Date HDL 22 (L) 02/14/2024 LDL 53 02/14/2024 No results found for: [id number] , IRON , TIBC , C3 , C4 , RONY , CANCA , ASO , PSA , CEA , CA125 , CA199 , AFP , CA153 Imaging MR abdomen wo contrast MRCP Narrative: History: Elevated liver enzymes. Significant artifact on recent 3T MRI obscured portions the common duct. Evaluate for choledocholithiasis. EXAM: MRI MRCP without contrast COMPARISON: MRI abdomen 02/13/2024, HIDA scan 02/14/2024, CT abdomen 02/12/2024. TECHNIQUE: Routine multiplanar multisequence MR imaging of the abdomen was performed without contrast. M.R.C.P. was performed with 3-D volume rendered reformatt (more content not included)... [facility] 02-15-2024 Note Patient admitted to the hospital for: NSTEMI (non-ST elevated myocardial infarction) Chart echo from 02/13/2024 reports: EF 30 %. Current echo report qualifies for Cardiac Rehab services per CMS eligibility criteria. A Cardiac Rehab referral diagnosis and code must also meet CMS criteria. Kailee Hand RN, BSN Cardiology Outpatient Coordinator Cardiopulmonary Rehab [facility] 02-15-2024 Note [facility] CARDIOLOGY INPAT IENT PROGRESS NOTE Reason for follow up: new onset HFrEF (Takotsubo), s/p coronary angiogram with normal cors Subjective HPI: Neela Medrano is a 53 y.o. female patient is presents as a transfer from [facility] for continuity of care on 02/13/24. Past medical history includes: HTN Anxiety COPD Smoking Patient was evaluated by the cardiology team 2 years ago for pre-op risk stratification for bariatric surgery. Stress testing was done at that time showing low risk. Patient has been experiencing right sided abdominal pain intermittently for the last period. Last night, it has been progressively worsening, so she presented to the ED. In the ED, she started experiencing epigastric chest discomfort, radiating to all over her chest, described as heaviness, lasting for an hour, no associated nausea, vomiting or arm numbness. Patient reports that she has never had this type of chest pain before. Her lifestyle is sedentary. 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 Upon presentation to the ED, high-sensitivity troponin was elevated, ACS protocol was initiated. CT scan of the abdomen pelvis showed gallbladder distention with sludge, intrahepatic biliary ductal dilatation suspicious for stone. Troponin level at our facility 3.72--3.11; EKG NSR no new ST T wave changes. Cardiac cath on 02/13/24 with normal cors. Echocardiogram findings significant for reduced systolic function, EF 30%, suggestive of Takotsubo. Noted blood cultures obtained 02/13/24 are 2/2 positive for gram negative bacilli. UA positive. Interval: Repeat MRCP today per GI. Patient with bloody stools overnight x4 episodes, hemoglobin drop 2 g. On exam, patient appears in NAD, on room air, resting in bed. Reports one additional episode dark stool today. Denies nausea, vomiting, abdominal pain, cp, or sob. Vitals stable. Tele: SR 59-101 bpm ALLERGIES No Known Allergies CURRENT MEDS buPROPion XL, 300 mg, oral, q AM cefTRIAXone, 2 g, intravenous, q24h [Held by provider] metoprolol tartrate, 25 mg, oral, BID metroNIDAZOLE, 500 mg, intravenous, q12h multivitamin with folic acid, 1 tablet, oral, Daily before breakfast Oxygen Therapy, , inhalation, Continuous pantoprazole, 40 mg, intravenous, q12h SOFIA sodium chloride, 125 mL/hr, Last Rate: 125 mL/hr (02/15/24 0733) PRN medications: acetaminophen, HYDROcodone-acetaminophen, ondansetron ODT OR ondansetron Objective Patient Vitals for the past 24 hrs: BP Temp Temp src Pulse Resp SpO2 Weight 02/15/24 0703 102/67 -- -- 96 -- -- -- 02/15/24 0702 -- -- -- -- 17 -- -- 02/15/24 0421 -- -- -- -- -- -- 75.7 kg (166 lb 12.8 oz) 02/15/24 0400 99/67 -- -- 87 22 98 % -- 02/15/24 0327 95/65 37 ???C (98.6 ???F) Temporal 88 19 97 % -- 02/15/24 0100 -- -- -- -- 22 -- -- 02/15/24 0000 90/52 -- -- 87 -- 96 % -- 02/14/24 2006 92/60 36.7 ???C (98.1 ???F) Temporal 83 26 99 % -- 02/14/24 1715 97/75 -- -- 89 23 -- -- 02/14/24 1619 -- -- Temporal -- -- -- -- BP 102/67 Pulse 96 Temp 37 ???C (98.6 ???F) (Temporal) Resp 17 Ht 1.499 m (4' 11 ) Wt 75.7 kg (166 lb 12.8 oz) SpO2 98% BMI 33.69 kg/m??? Wt Readings from Last 3 Encounters: 02/15/24 75.7 kg (166 lb 12.8 oz) General: Awake, alert, appropriate mood/affect, NAD Eyes: anicteric sclera. Non-injected conjunctiva. Neck: No elevated JVP. No carotid bruit Pulm: Breath sounds clear to ascultation bilaterally with no wheeze, crackles or rhonchi Cards: HRRR, NL S1, S2. No S3 or S4 gallop. Murmur: none Abd: Soft, Nontender Extr: Lower extremity edema: none. DP pulses present bilaterally Skin: warm, dry, well perfused Neuro: A&Ox3, No gross deficits Lab Results Component Value Date NA 140 02/15/2024 K 3.7 02/15/2024 CL 108 (H) 02/15/2024 ANIONGAP 12 02/15/2024 BUN 20 02/15/2024 CREATININE 0.40 (L) 02/15/2024 CALCIUM 7.5 (L) 02/15/2024 MG 1.7 (L) 02/15/2024 Lab Results Component Value Date BILITOT 0.4 02/15/2024 BILIDIR 0.2 02/14/2024 ALKPHOS 105 (H) 02/15/2024 AST 34 02/15/2024 ALT 50 02/15/2024 PROT 5.1 (L) 02/15/2024 ALBUMIN 2.6 (L) 02/15/2024 Lab Results Component Value Date CHOLESTEROL 75 (L) 02/14/2024 TRIGLYCERIDES 113 02/14/2024 HDL 22 (L) 02/14/2024 LDL CALC 30 02/14/2024 No results found for: BNP No results found for: THYROID , TSH , FREE T4 No results found for: DIGOXIN LVL Lab Results Component Value Date HGBA1C 5.3 02/14/2024 Lab Results Component Value Date WBC 9.04 02/15/2024 RBC 3.98 02/15/2024 HGB 11.4 (L) 02/15/2024 HCT 35.5 (L) 02/15/2024 MCV 89.2 02/15/2024 MCH 28.6 02/15/2024 MCHC 32.1 02/15/2024 RDW 14.0 02/15/2024 NEUTOPHILPCT 89.5 (H) 02/13/2024 LYMPHOPCT 4.7 (L) 02/13/2024 MONOPCT 3.6 (L) 02/13/2024 EOSPCT 0.1 02/13/2024 BASOPCT 0.2 02/13/2024 NEUTROABS 11.36 (H) 02/13/2024 LYMPHSABS 0.60 (L) 02/13/2024 MONOSABS 0.46 02/13/2024 EOSABS 0.01 02/13/2024 BASOSABS 0.02 (more content not included)... [facility] 02-15-2024 Note -- Attestation signed by Hannah Guerrero MD at 02/15/2024 1:43 PM I personally saw and examined the patient on the same date of service as fellow. I discussed the findings and therapeutic plan with the fellow. I agree with the documentation, except for any edits/updates below. -- [facility] Teaching GI Service Consult Gastroenterology/Hepatology Progress Note IDENTIFYING DATA PATIENT: Neela Medrano ADMIT DATE: 02/13/2024 TIME OF EVALUATION: 02/15/2024 8:15 AM HOSPITAL STAY: LOS: 2 days REASON FOR HOSPITALIZATION: Abd and chest pain SUBJECTIVE/INTERVAL HISTORY Neela Medrano's overnight events were reviewed. Patient developed bacteremia yesterday with gram-negative rods. Cultures are now growing E. coli and Klebsiella pneumonia. Urinalysis was positive. HIDA scan was negative for cholecystitis. CT abdomen and pelvis from [facility] was discussed with radiologist Dr. Ramírez and there was no definite evidence of CBD stone. LFTs continue to improve with AST 34, ALT 50, alkaline phosphatase 105, bilirubin 0.4. No biliary dilation seen on imaging. Overnight, patient had 4 bloody bowel movements starting at 2 AM. First 3 episodes were bright red. Last episode was dark red/almost black at 6:30 AM. Hemoglobin this morning 11.4, down from 13.4. OBJECTIVE MEDICATIONS SCHEDULED: @MEDSCURRENTMD@ PRNs: acetaminophen, 650 mg, q6h PRN ondansetron ODT, 4 mg, q8h PRN Or ondansetron, 4 mg, q6h PRN Physical VITALS: BP 102/67 Pulse 96 Temp 37 ???C (98.6 ???F) (Temporal) Resp 17 Ht 1.499 m (4' 11 ) Wt 75.7 kg (166 lb 12.8 oz) SpO2 98% BMI 33.69 kg/m??? GEN: Alert and oriented x3, NAD HEENT: Atraumatic, normocephalic CV: No edema visualized PULM: Respirations even and unlabored ABD: Soft, non-tender, non-distended NEURO: Moves all 4 extremities spontaneously, answers questions appropriately LABS AND IMAGING CBC: Lab Results Component Value Date WBC 9.04 02/15/2024 RBC 3.98 02/15/2024 HGB 11.4 (L) 02/15/2024 HCT 35.5 (L) 02/15/2024 MCV 89.2 02/15/2024 RDW 14.0 02/15/2024 PLT 117 (L) 02/15/2024 CMP: Lab Results Component Value Date NA 140 02/15/2024 K 3.7 02/15/2024 CL 108 (H) 02/15/2024 CO2 24 02/15/2024 BUN 20 02/15/2024 PROT 5.1 (L) 02/15/2024 IMAGING: HIDA scan 02/14/24 No cystic duct obstruction. Negative HIDA study. MRCP 02/13/24 *Detailed assessment of the common bile duct compromised on this study due to artifact. Common bile duct appears to measure 0.6 cm in greatest dimension and there is no significant intrahepatic ductal dilatation. Lumen of common bile duct not visualized well enough to exclude choledocholithiasis in the appropriate clinical setting. *Multiple small stones in the gallbladder with mild distention of the gallbladder and bilateral thickening, findings which raises possibility for cholecystitis. Consider HIDA scan. *Reticular T2 hyperintense signal in the posterior aspect of the right hepatic lobe may represent fibrotic changes, without evidence of discrete mass or abnormal enhancement in this region. ASSESSMENT AND PLAN Neela Medrano is a 53 y.o. female with history of gastric bypass in 2021, obesity with BMI 34. The patient presented to [facility] with worsening right upper quadrant pain associated with nausea. At the outside hospital, the patient then developed severe substernal chest pain. Reportedly, EKG x 2 was normal, but troponins were elevated. The patient received aspirin and was started on heparin infusion for suspected NSTEMI. LFTs were mildly elevated with AST 94, ALT 57, alkaline phosphatase 164, bilirubin normal. CT abdomen and pelvis showed hyperdense filling defect in the distal CBD measuring 4 x 9 mm, suspicious for a stone, CBD measuring 5 mm, mild intrahepatic biliary ductal dilation, mildly distended gallbladder, and layering hyperdense material in the gallbladder suggestive of sludge. The patient was transferred to [facility] for GI and cardiology evaluation. Patient was seen this morning. She is doing well. Reports her pain improved significantly. She looks comfortable. Reports that she has been complaining of right upper quadrant pain for the last 9 months. Her pain is intermittent about 10 episodes per month. Pain can last from few hours to an entire day. No clear triggers. Reports associated nausea but no vomiting. No diarrhea or constipation. She is not on blood thinners. Assessment Concern for choledocholithiasis. Suspicion for cholangitis given possible choledocholithiasis and bacteremia. However no definite CBD stone on imaging, LFTs almost normalized with most recent bilirubin 0.4, and no CBD dilation on imaging studies, which go against cholangitis CT at OSH with filling defect in the distal CBD measu (more content not included)... [facility] 02-15-2024 Note Called to se patient with lower gi bleed earlear had stools mixed with blood but continue to have bleed denies weakness abdominal; pain cramps dyspepsia Pt seen examined Plan discontinue lovenox ,type and screen hgb hct q 12 hours iv protonix iv will contact GI check labs cmp mag as well on iv antibiotics [facility] 02-14-2024 Note Hospital Medicine Daily Progress Note - 02/14/2024 3:27 PM; Room: 3135/3135-01 Admission: 02/13/2024 2:37 AM; Length of stay: 1 days THE HOSPITALIST TEAM PREFERS TO USE [employer] FOR COMMUNICATION 7AM-7PM. IF I DO NOT RESPOND WITHIN 15 MINUTES, PLEASE PAGE ME/CALL THROUGH THE [employer]. FROM 7PM-7AM, PLEASE PAGE [phone](COVR) Code Status: Full Code Barriers to Discharge: Pending cultures and MRCP Expected Discharge Date: Discharge Destination: home Overview Patient is seen for evaluation and management of bacteremia and NSTEMI. Subjective Patient reports intermittent RUQ pain. Denies N/V, SOB, CP. BP is mildly hypotensive. Physical Exam Visit Vitals BP 98/64 Pulse 79 Temp 36.6 ???C (97.9 ???F) Resp 10 Intake/Output Summary (Last 24 hours) at 02/14/2024 1527 Last data filed at 02/14/2024 1249 Gross per 24 hour Intake 1530.45 ml Output 20 ml Net 1510.45 ml Physical Exam Constitutional: Appearance: Normal appearance. Cardiovascular: Rate and Rhythm: Normal rate and regular rhythm. Pulmonary: Effort: Pulmonary effort is normal. Breath sounds: Normal breath sounds. Abdominal: General: Abdomen is flat. Palpations: Abdomen is soft. Neurological: General: No focal deficit present. Mental Status: She is alert and oriented to person, place, and time. Estimated body mass index is 34.01 kg/m??? as calculated from the following: Height as of this encounter: 1.499 m (4' 11 ). Weight as of this encounter: 76.4 kg (168 lb 6.4 oz). 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 - MRCP study was compromised and showed no biliary obstructive. HIDA scan was negative for cholecystitis. - Continue ceftriaxone and Flagyl, pending susceptibility. - GI will repeat MRCP. # NSTEMI: # Takotsubo cardiomyopathy 30%: - Cath showed normal coronaries. - We will hold off starting GDMT due to hypotension and bacteremia. # Tobacco use: - Counseled. Nutrition Screen: Malnutrition Attestation: No dietitian assessment is available at this time. VTE Prophylaxis: Lovenox Scheduled Meds aspirin, 81 mg, oral, Daily with breakfast atorvastatin, 80 mg, oral, Nightly buPROPion XL, 300 mg, oral, q AM cefTRIAXone, 2 g, intravenous, q24h enoxaparin, 40 mg, subcutaneous, q24h SOFIA [Held by provider] metoprolol tartrate, 25 mg, oral, BID metroNIDAZOLE, 500 mg, intravenous, q12h multivitamin with folic acid, 1 tablet, oral, Daily before breakfast Oxygen Therapy, , inhalation, Continuous technetium Tc-99m mebrofenin, 7.5 millicurie, intravenous, Once in imaging Pertinent Investigations Hematology: Results from last 7 days Lab Units 02/14/2453402/13/24221302/13/24431 WBC AUTO 10*3/uL 14.19* 13.46* 12.69* HEMOGLOBIN g/dL 13.4 13.6 14.2 HEMATOCRIT % 41.0 39.8 43.1 MCV fL 88.6 84.0 87.8 PLATELETS AUTO 10*3/uL 149* 160 250 INR -- -- 1.29* Chemistry: Results from last 7 days Lab Units 02/14/24 0535 02/13/24221302/13/242 SODIUM mmol/L 138 135* 139 POTASSIUM mmol/L 3.5 3.5 3.3* CHLORIDE mmol/L 107 107 104 CO2 mmol/L 22 21 24 BUN mg/dL 11 11 14 CREATININE mg/dL 0.56* 0.53* 0.48* GLUCOSE mg/dL 96 105* 136* MAGNESIUM mg/dL 1.8* -- 1.4* CALCIUM mg/dL 7.6* 7.3* 7.8* Results from last 7 days Lab Units 02/14/24 0535 02/13/24 0432 AST U/L 79* 93* ALT U/L 78* 68* ALK PHOS U/L 128* 123* BILIRUBIN TOTAL mg/dL 0.8 0.8 BILIRUBIN DIRECT mg/dL 0.2 -- Historical Values: (Includes values prior to this admission) Lab Results Component Value Date HDL 22 (L) 02/14/2024 LDL 53 02/14/2024 No results found for: [id number] , IRON , TIBC , C3 , C4 , RONY , CANCA , ASO , PSA , CEA , CA125 , CA199 , AFP , CA153 Imaging NM [facility] Narrative: Clinical History: Bladder specimens HIDA scan: 02/14/2024 Procedure: HIDA scan performed using 7.5 mCi Technetium 99m Mebrofenin without complication. Images obtained over the abdomen. Dynamic, lateral evaluation was not performed. Findings: Initial images demonstrate diffuse uptake within the liver. Subsequent images show appropriate excretion into the biliary tree and bowel. There is visualization of the gallbladder biceps the minutes. Impression: No cystic duct obstruction. Negative HIDA study. Electronically signed: Milo Lee. Discharge Planning Expected Discharge Disposition: Home or Self Care (01) Signed Kiara Tineo MD [facility] Medicine 02/14/2024 (more content not included)... [facility] 02-14-2024 Note 02/14/24 1231 Admission Assessment Questions Verify insurance with patient Yes Do you understand medical disease or what brought you into the hospital? Yes Who is your current PCP? [facility] in [place] Can I schedule a follow up appointment for you at the time of discharge? No Do you understand why you are taking your current medications? Yes Are you taking your medications as prescribed? Yes Did patient provide teach back? No Pharmacy Bedside Delivery Status Interested Does the patient have a casework specialist assigned to them through their insurance? No Living Arrangement (Current/Prior to Hospitalization) Private residence;Home self care (lives w/boyfriend in 2 story home. Can stay on first floor if needed. 3 steps to enter) Does the patient have history of HHC or SNF? No Assistive Device Not applicable Patient's goal for discharge home Was patient reminded that goal for discharge is 11am? No Does the patient have transportation at discharge? Yes Type of Residence Private residence Is PT/OT appropriate? No Is PT/OT ordered? No Is SW consult appropriate? No Is SW consult ordered? No Do you understand the benefits of MyChart? Yes Were you able to send link and activate MyChart? Yes [facility] 02-14-2024 Note [facility] Teaching GI Ser vice Consult Gastroenterology/Hepatology Progress Note IDENTIFYING DATA PATIENT: Neela Medrano ADMIT DATE: 02/13/2024 TIME OF EVALUATION: 02/14/2024 9:43 AM HOSPITAL STAY: LOS: 1 day REASON FOR HOSPITALIZATION: Abd and chest pain SUBJECTIVE/INTERVAL HISTORY Neela Medrano's overnight events were reviewed. An MRCP was completed yesterday due to concern for choledocholithiasis, but the study was limited by artifact. The patient is scheduled for a HIDA scan today to further assess the MRCP findings, which showed multiple small stones in the gallbladder with mild distention and wall thickening, raising the possibility of cholecystitis. Labs today are notable for an alkaline phosphatase of 128 (up from 123), AST of 79 (down from 93), ALT of 78 (up from 68), and a total bilirubin of 0.8. WBC is trending up, now at 14.19 from 13.46. The patient reports that her abdominal pain has resolved. Additionally, the patient underwent a cardiac catheterization yesterday, which was normal with findings consistent with non-ischemic cardiomyopathy, likely Takotsubo cardiomyopathy. OBJECTIVE MEDICATIONS SCHEDULED: @MEDSCURRENTMD@ PRNs: acetaminophen, 650 mg, q6h PRN naloxone, 0.2 mg, PRN Or naloxone, 0.2 mg, PRN Or naloxone, 0.2 mg, PRN ondansetron ODT, 4 mg, q8h PRN Or ondansetron, 4 mg, q6h PRN Physical VITALS: BP 96/54 Pulse 102 Temp 37.6 ???C (99.7 ???F) Resp (!) 27 Ht 1.499 m (4' 11 ) Wt 76.4 kg (168 lb 6.4 oz) SpO2 93% BMI 34.01 kg/m??? GEN: Alert and oriented x3, NAD HEENT: Atraumatic, normocephalic CV: No edema visualized PULM: Respirations even and unlabored ABD: Soft, non-tender, non-distended NEURO: Moves all 4 extremities spontaneously, answers questions appropriately LABS AND IMAGING CBC: Lab Results Component Value Date WBC 14.19 (H) 02/14/2024 RBC 4.63 02/14/2024 HGB 13.4 02/14/2024 HCT 41.0 02/14/2024 MCV 88.6 02/14/2024 RDW 14.2 02/14/2024 PLT 149 (L) 02/14/2024 CMP: Lab Results Component Value Date NA 138 02/14/2024 K 3.5 02/14/2024 CL 107 02/14/2024 CO2 22 02/14/2024 BUN 11 02/14/2024 PROT 5.2 (L) 02/14/2024 IMAGING: MRI ABDOMEN WITHOUT AND WITH CONTRAST AND MRCP 02/13/2024 IMPRESSION: *Detailed assessment of the common bile duct compromised on this study due to artifact. Common bile duct appears to measure 0.6 cm in greatest dimension and there is no significant intrahepatic ductal dilatation. Lumen of common bile duct not visualized well enough to exclude choledocholithiasis in the appropriate clinical setting. *Multiple small stones in the gallbladder with mild distention of the gallbladder and bilateral thickening, findings which raises possibility for cholecystitis. Consider HIDA scan. *Reticular T2 hyperintense signal in the posterior aspect of the right hepatic lobe may represent fibrotic changes, without evidence of discrete mass or abnormal enhancement in this region. ASSESSMENT AND PLAN Neela Medrano is a 53 y.o. female with history of gastric bypass in 2021, obesity with BMI 34. The patient presented to [facility] with worsening right upper quadrant pain associated with nausea. At the outside hospital, the patient then developed severe substernal chest pain. Reportedly, EKG x 2 was normal, but troponins were elevated. The patient received aspirin and was started on heparin infusion for suspected NSTEMI. LFTs were mildly elevated with AST 94, ALT 57, alkaline phosphatase 164, bilirubin normal. CT abdomen and pelvis showed hyperdense filling defect in the distal CBD measuring 4 x 9 mm, suspicious for a stone, CBD measuring 5 mm, mild intrahepatic biliary ductal dilation, mildly distended gallbladder, and layering hyperdense material in the gallbladder suggestive of sludge. The patient was transferred to [facility] for GI and cardiology evaluation. Patient was seen this morning. She is doing well. Reports her pain improved significantly. She looks comfortable. Reports that she has been complaining of right upper quadrant pain for the last 9 months. Her pain is intermittent about 10 episodes per month. Pain can last from few hours to an entire day. No clear triggers. Reports associated nausea but no vomiting. No diarrhea or constipation. She is not on blood thinners. Assessment Concern for choledocholithiasis CT at [facility] with filling defect in the distal CBD measuring 4 x 9 mm, suspicious for a stone, seen on CT at outside hospital. CBD measures 5 mm with mild intrahepatic biliary dilation. MRCP 02/12 could not see CBD 2/2 artifact, CBD 6 mm, no intrahepatic ductal dilation, cholelithiasis, mild distention of GBAbnormal LFTs with AST 93, ALT 68, alkaline phosphatase 123, bilirubin 0.8. Suspect secondary to above Mildly distended gallbladder and layering hyperdense material in the gallbladder suggestive of sludge MRCP 02/13/2024 with cholelithiasis, mild di (more content not included)... [facility] 02-14-2024 Note [facility] CARDIOLOGY INPAT IENT PROGRESS NOTE Reason for follow up: new onset HFrEF (Takotsubo), s/p coronary angiogram with normal cors Subjective HPI: Neela Medrano is a 53 y.o. female patient is presents as a transfer from [facility] for continuity of care on 02/13/24. Past medical history includes: HTN Anxiety COPD Smoking Patient was evaluated by the cardiology team 2 years ago for pre-op risk stratification for bariatric surgery. Stress testing was done at that time showing low risk. Patient has been experiencing right sided abdominal pain intermittently for the last period. Last night, it has been progressively worsening, so she presented to the ED. In the ED, she started experiencing epigastric chest discomfort, radiating to all over her chest, described as heaviness, lasting for an hour, no associated nausea, vomiting or arm numbness. Patient reports that she has never had this type of chest pain before. Her lifestyle is sedentary. 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 Upon presentation to the ED, high-sensitivity troponin was elevated, ACS protocol was initiated. CT scan of the abdomen pelvis showed gallbladder distention with sludge, intrahepatic biliary ductal dilatation suspicious for stone. Troponin level at our facility 3.72--3.11; EKG NSR no new ST T wave changes. Interval: Underwent cardiac catheterization yesterday with normal cors. Echocardiogram findings significant for reduced systolic function, EF 30%, suggestive of Takotsubo. Noted blood cultures obtained 02/13/24 are 2/2 positive for gram negative bacilli. Patient examined at bedside. She is asymptomatic. Denies any occurrences of sob, fatigue, palpitations, or chest pain. She endorses recent increased stress from work over last few months. Reports last few months she has noticed increased bilateral lower extremity edema. Denies edema at present. She reports she initially presented with abdominal pain. Currently denies. Denies fever/chills. Tmax 99.7 overnight. Tele: ST 101-112 ALLERGIES No Known Allergies CURRENT MEDS aspirin, 81 mg, oral, Daily with breakfast atorvastatin, 80 mg, oral, Nightly buPROPion XL, 300 mg, oral, q AM cefTRIAXone, 2 g, intravenous, q24h enoxaparin, 40 mg, subcutaneous, q24h SOFIA [Held by provider] metoprolol tartrate, 25 mg, oral, BID metroNIDAZOLE, 500 mg, intravenous, q12h multivitamin with folic acid, 1 tablet, oral, Daily before breakfast Oxygen Therapy, , inhalation, Continuous technetium Tc-99m mebrofenin, 7.5 millicurie, intravenous, Once in imaging PRN medications: acetaminophen, naloxone OR naloxone OR naloxone, ondansetron ODT OR ondansetron Objective Patient Vitals for the past 24 hrs: BP Temp Temp src Pulse Resp SpO2 Weight 02/14/24 1619 -- -- Temporal -- -- -- -- 02/14/24 0900 -- -- -- 79 10 -- -- 02/14/24 0830 98/64 36.6 ???C (97.9 ???F) -- 85 20 -- -- 02/14/24 0548 -- -- -- -- -- -- 76.4 kg (168 lb 6.4 oz) 02/14/24 0500 96/54 -- -- 102 (!) 27 93 % -- 02/14/24 0400 93/56 -- -- 102 (!) 34 94 % -- 02/14/24 0300 (!) 92/49 -- -- 101 15 95 % -- 02/14/24 0200 87/51 -- -- 104 (!) 37 93 % -- 02/14/24 0100 86/50 -- -- 104 22 93 % -- 02/14/24 0000 86/60 -- -- 108 (!) 44 97 % -- 02/13/24 2330 (!) 85/47 -- -- 110 (!) 48 92 % -- 02/13/24 2315 89/50 -- -- 109 (!) 40 92 % -- 02/13/242299 92/53 -- -- 110 (!) 47 92 % -- 02/13/242244 91/54 -- -- 110 (!) 46 93 % -- 02/13/242229 92/53 -- -- 110 (!) 45 93 % -- 02/13/242214 93/52 -- -- 110 (!) 45 93 % -- 02/13/242199 (!) 104/47 -- -- (!) 111 (!) 45 93 % -- 02/13/242144 (!) / -- -- 110 (!) 44 92 % -- 02/13/242129 (!) -- -- 108 (!) 44 93 % -- 02/13/242114 88/50 -- -- 107 (!) 53 93 % -- 02/13/242099 90/60 -- -- 108 (!) 44 93 % -- 02/13/242044 88/51 -- -- 108 (!) 44 92 % -- 02/13/242029 -- -- -- 107 (!) 45 93 % -- 02/13/242014 89/50 -- -- 108 (!) 40 94 % -- 02/13/241999 (!) 87/47 -- -- 105 (!) 28 95 % -- 02/13/241937 92/58 -- -- 98 16 98 % -- 02/13/241916 -- -- -- -- -- 96 % -- 02/13/241916 95/61 -- -- 66 16 96 % -- BP 98/64 Pulse 79 Temp 36.6 ???C (97.9 ???F) Resp 10 Ht 1.499 m (4' 11 ) Wt 76.4 kg (168 lb 6.4 oz) SpO2 93% BMI 34.01 kg/m??? Wt Readings from Last 3 Encounters: 02/14/24 76.4 kg (168 lb 6.4 oz) General: Awake, alert, appropriate mood/affect, NAD Eyes: anicteric sclera. Non-injected conjunctiva. Neck: No elevated JVP. No carotid bruit Pulm: Breath sounds clear to ascultation bilaterally with no wheeze, crackles or rhonchi Cards: HRRR, NL S1, S2. No S3 or S4 gallop. Murmur: none Abd: Soft, Nontender Extr: Lower extremity edema: none. DP pulses present bilaterally Skin: warm, dry, well perfused Neuro: A&Ox3, No gross deficits Lab Results Component Value Date NA 138 02/14/2024 K 3.5 02/14/2024 CL 107 02/14/2024 ANIONGAP 13 02/14/2024 BUN 11 02/14/2024 CREATININE 0.56 (L) 02/14/2024 DASHA (more content not included)... [facility] 02-13-2024 Note Patient: Neela sevilla Procedure Information Date/Time: 02/13/241931 Procedure: Coronary angiography Location: [facility] 3 / [facility] (Cath) Providers: Romie Carroll MD Clinical information reviewed: Tobacco Allergies Meds Med Hx Surg Hx Fam Hx Soc Hx Physical Exam Airway Mallampati: III TM distance: >3 FB Neck ROM: full Cardiovascular Rhythm: regular Rate: normal Dental Pulmonary Abdominal Anesthesia Plan ASA 3 other (Conscious sedation.) Anesthetic plan and risks discussed with patient. Use of blood products discussed with patient who consented to blood products. Additional Equipment Requests [facility] 02-13-2024 Note Clinical History: Bl adder specimens HIDA scan: 02/14/2024 Procedure: HIDA scan performed using 7.5 mCi Technetium 99m Mebrofenin without complication. Images obtained over the abdomen. Dynamic, lateral evaluation was not performed. Findings: Initial images demonstrate diffuse uptake within the liver. Subsequent images show appropriate excretion into the biliary tree and bowel. There is visualization of the gallbladder biceps the minutes. IMPRESSION: No cystic duct obstruction. Negative HIDA study. Electronically signed: Milo Kay [facility] 02-13-2024 Note Hospital Medicine History and Physical 02/13/2024 3:55 AM THE HOSPITALIST TEAM PREFERS TO USE [employer] FOR COMMUNICATION 7AM-7PM. IF I DO NOT RESPOND WITHIN 15 MINUTES, PLEASE PAGE ME/CALL THROUGH THE [employer]. FROM 7PM-7AM, PLEASE PAGE [phone](COVR) Chief Complaint Abdominal pain, chest pain History of Present Illness Neela Medrano is an 53 y.o. female who came from [facility] with complaining of abdominal pain and chest pain. the patient reports that she has been having intermittent episodes of right upper quad abdominal pain for the last 9 months. She has about 10 episodes of pain per month. Pain can last from a few hours to an entire day before subsiding. She cannot identify any trigger in terms of food or activity that alleviates or exacerbates the pain. She was having severe 10 out of 10 pain yesterday which prompted her to go to ER for further evaluation. Was experiencing nausea but no vomiting. While in the ED she started to experience substernal chest pain that was nonradiating, pressure-like, 7 out of 10 intensity, lasted for about an hour before subsiding. She was given aspirin, beta-evan and started on a heparin drip for an NSTEMI.Her high-sensitivity troponin was elevated. Patient's vitals have been hemodynamically stable. She has been afebrile and did not have leukocytosis. CT scan of the abdomen pelvis showed gallbladder distention with sludge, intrahepatic biliary ductal dilatation suspicious for stone. the patient's AST was 94 and ALT was 57, alk phos of 164. Total bilirubin was normal. Patient was transferred to [facility] for higher level care to be seen by GI and cardiology. Past medical history: Obesity, depression and anxiety, previously was told she had CHF but reports that more recent workup was normal past surgical history: Gastric bypass in April 2022 Social history: She smoked for about 30 years, on average half pack per day but more recently has cut down to 2 to 3 cigarettes/day; denies alcohol or illicit drug use Family history: Mom and dad both had heart disease, mom had diabetes as well Review of System and Physical Exam Heart Rate: [96-99] 96 Resp: [12-21] 12 BP: (77-82)/(43-49) 82/49 Physical Exam Vitals reviewed. Constitutional: General: She is not in acute distress. Appearance: Normal appearance. She is obese. She is not ill-appearing or toxic-appearing. HENT: Head: Normocephalic and atraumatic. Right Ear: External ear normal. Left Ear: External ear normal. Nose: Nose normal. Mouth/Throat: Mouth: Mucous membranes are moist. Pharynx: Oropharynx is clear. Eyes: Extraocular Movements: Extraocular movements intact. Conjunctiva/sclera: Conjunctivae normal. Pupils: Pupils are equal, round, and reactive to light. Cardiovascular: Rate and Rhythm: Normal rate and regular rhythm. Pulses: Normal pulses. Heart sounds: Normal heart sounds. Pulmonary: Effort: Pulmonary effort is normal. Breath sounds: Normal breath sounds. Abdominal: General: Abdomen is flat. Bowel sounds are normal. Palpations: Abdomen is soft. Tenderness: There is abdominal tenderness. There is no guarding or rebound. Musculoskeletal: General: Normal range of motion. Cervical back: Normal range of motion and neck supple. Right lower leg: Edema present. Left lower leg: Edema present. Skin: General: Skin is warm. Capillary Refill: Capillary refill takes less than 2 seconds. Findings: No lesion or rash. Neurological: General: No focal deficit present. Mental Status: She is alert and oriented to person, place, and time. Mental status is at baseline. Psychiatric: Mood and Affect: Mood normal. Behavior: Behavior normal. Review of Systems Constitutional: Positive for chills and diaphoresis. Negative for activity change, appetite change, fatigue, fever and unexpected weight change. HENT: Negative. Eyes: Negative. Respiratory: Negative. Cardiovascular: Positive for chest pain and leg swelling. Negative for palpitations. Gastrointestinal: Positive for abdominal pain and nausea. Negative for vomiting. Endocrine: Negative. Genitourinary: Negative. Musculoskeletal: Negative. Skin: Negative. Allergic/Immunologic: Negative. Neurological: Negative. Hematological: Negative. Psychiatric/Behavioral: Negative. All other systems reviewed and are negative. 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 [facility] 05-23-2023 Evaluation note Encounter Date Diagnosis Assessment [...] Tylenol as directed, packs of steroid and [place] as Directed, OTC Flonase, cool mist humidifier, [...] treatment plan. 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 FINDINGS: BONES:Mild degenerative changes of the acromioclavicular joint. No fracture of the clavicle. Unremarkable glenohumeral joint. SOFT TISSUES:No visible soft tissue swelling. EFFUSION:None visible. OTHER: Negative. IMPRESSION: 1. No acute bone abnormality. 2. Mild degenerative joint disease of the right acromioclavicular joint. Electronically authenticated by: KETURAH CARBAJAL Date: 2022-07-07 11:33[facility]09-29-2022 Evaluation note* Encounter Date Diagnosis Assessment Notes Treatment Notes Treatment Clinical Notes Mar, Spasm of muscle of lower [...] Back spasm home care material was printed [facility] Other 03-13-2022 Evaluation note* Encounter Date Diagnosis Assessment Notes Treatment Notes Treatment Clinical Notes Aug, Chronic obstructive pulmonary disease with acute exacerbation (ICD-10 - J44.1) Steroid given in office. Start oral steroid in the morning.Take medications as directed. Use nebulizer or inhaler as directed. Take medication with food to prevent stomach upset. . Follow up with primary care provider is highly recommended since you had to cancel last appointment [facility] Other 01-31-2022 Evaluation note* Encounter Date Diagnosis Assessment Notes Treatment Notes Treatment Clinical Notes Jul, COPD exacerbation (ICD-10 - J44.1) Continue your home medications as prescribed. Take the prednisone as prescribed until gone. Follow-up with your cloth grader as soon as possible. Go to the ER for worsening symptoms or concerns. [facility] Other Evaluation noteNo InformationNort [employer] Other [facility] general Narrative - Reported* Type Description Date Medical History Congestive Heart Failure Medical History hyperlipidemia Medical History Arthritis Medical History mood disorder Surgical History melanoma excision Surgical History tubal ligation Surgical History umbilical hernia repair Surgical History ankle surgery 2017 Hospitalization History depression 08/2013 Hospitalization History see above Hospitalization History upper resp 2018 [facility] Other [facility] general Narrative - Reported* Type Description Date Medical History Congestive Heart Failure Medical History hyperlipidemia Medical History Arthritis Medical History mood disorder Surgical History melanoma excision Surgical History tubal ligation Surgical History umbilical hernia repair Surgical History ankle surgery 2017 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 Hospitalization History depression 08/2013 Hospitalization History see above Hospitalization History upper resp 2018 [facility] Summary Purpose Family History No Family History Records FoundNo Family History Records FoundNo Family History Records FoundNo Family History Records FoundNo Family History Records Found Advance Directives No Advanced Directives Records FoundNo Advanced Directives Records FoundNo Advanced Directives Records FoundNo Advanced Directives Records FoundNo Advanced Directives Records Found Additional Source Comments INFORMATION SOURCE (unrecogn ized section and content) DATE CREATED AUTHOR 12/27/2017 [facility] DATE CREATED AUTHOR AUTHOR'S ORGANIZ ATION 07/14/2022 [facility] DATE CREATED AUTHOR AUTHOR'S ORGANIZ ATION 03/24/2023 [facility] DATE CREATED AUTHOR AUTHOR'S ORGANIZ ATION 02/25/[address] [facility] DATE CREATED AUTHOR AUTHOR'S ORGANIZ ATION 05/01/2024 [facility] REASON FOR VISIT (unrecogniz ed section and content) #8 DONALDSON EQUINOX, COUGH, MERLIN ESTION,#12 COUGH, SOBLOW BACK PAINPATIENT IS HERE AT THE REQUEST OF LESLIE GRIGSBY FOR FOCAL NODULAR HYPERPLASIA OF LIVER. CT SCAN FROM [facility] IN DI TABNo InformationCOUGH, CHEST TIGHTNESS, DRAINAGE, [...] BE BASED ON THE PRIMARY CLINICAL RECORDS. [facility] [employer] provides no warranty or guarantee of the accuracy or completeness of information in this document.
--- NOTE | 2024-05-11 07:34 | ECG_ITS ---
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
--- NOTE | 2024-05-11 07:34 | ED_ITS ---
HPI - Abdominal Pain General Chief Complaint: Abdominal Pain Stated Complaint: gallbladder attack symptoms Time Seen by Provider: 05/11/24 07:32 Source: patient Mode of arrival: Wheelchair Limitations: no limitations History of Present Illness HPI narrative: 54-year-old female presents for abdominal pain. It is in her right upper quadrant and lateral to the right upper quadrant. She states it is a gallbladder attack. She has been diagnosed with gallstones and before the surgery could be performed she had have her ulcer healed. No blood in her stool or hematemesis. She states her ulcer is now healed. The pain is severe and continuous and it woke her up from sleep at 2:00 this morning. Related Data Home Medications ?Medication ?Instructions ?Recorded ?Confirmed bupropion HCl 300 mg 24 hr tablet, 300 mg PO DAILY 02/12/24 05/11/24 extended release hydroxyzine pamoate 25 mg capsule 25 mg PO Q8H PRN nausea and 02/12/24 05/11/24 vomiting lisinopril 2.5 mg tablet 2.5 mg PO DAILY 05/11/24 05/11/24 metoprolol succinate 50 mg 50 mg PO DAILY 05/11/24 05/11/24 tablet,extended release 24 hr pantoprazole 40 mg tablet,delayed 40 mg PO Q12H 05/11/24 05/11/24 release sertraline 50 mg tablet 50 mg PO Q24H 05/11/24 05/11/24 spironolactone 25 mg tablet 25 mg PO DAILY 05/11/24 05/11/24 Previous Rx's ?Medication ?Instructions ?Recorded hydrocodone 5 mg-acetaminophen 325 1 tab PO Q6H PRN pain 5 days #20 05/11/24 mg tablet tabs ondansetron 4 mg disintegrating 4 mg PO Q6H PRN nausea and 05/11/24 tablet vomiting #20 tabs Allergies Allergy/AdvReac Type Severity Reaction Status Date / Time No Known Drug Allergies Allergy Verified 05/11/24 06:40 Review of Systems ROS Narrative A ten point review of systems is negative except as noted above. PFSH PFSH Social History Smoking status: Current every day smoker Exam Narrative Exam Narrative: Nurses note and vital signs reviewed and patient is not hypoxic. General: The patient appears uncomfortable and is mildly diaphoretic Skin: Warm, diaphoretic, no pallor noted. There is no rash noted. Head: Normocephalic, atraumatic Eye: Normal conjunctiva, no drainage Ears, Nose, Mouth, and Throat: oral mucosa is moist. Nares patent. Cardiovascular: Regular Rate and Rhythm Respiratory: Patient is in no distress, no accessory muscle use, lungs are clear to auscultation, no wheezing, rales or rhonchi Back: non-tender GI: Tenderness present in the right upper quadrant only with no masses or diste ntion Musculoskeletal: The patient has no evidence of calf tenderness, no pitting edema, symmetrical pulses noted bilaterally Neurological: A&O, normal speech Psychiatric: Cooperative Constitutional Vital Signs, click to edit/add: Last Vital Signs Pulse 52 L 05/11/24 08:20 Resp 25 H 05/11/24 08:20 BP 168/93 H 05/11/24 07:55 Pulse Ox 96 05/11/24 08:20 Course Vital Signs Vital signs: Vital Signs Pulse Rate 50 L 05/11/24 06:40 Respiratory Rate 28 H 05/11/24 06:40 Blood Pressure 134/113 H 05/11/24 06:40 Pulse Oximetry 100 05/11/24 06:40 Pulse Rate 52 L 05/11/24 08:20 Respiratory Rate 25 H 05/11/24 08:20 Blood Pressure 168/93 H 05/11/24 07:55 Pulse Oximetry 96 05/11/24 08:20 MDM - Abdominal Pain MDM Narrative Medical decision making narrative: Blood work is essentially normal, no evidence of pancreatitis. LFTs are normal. She feels much better after being given IV morphine and Zofran and she is discharged home on [place] and Zofran. She will follow-up with her general surgeon that she is seen already at [facility]. Treatment diagnosis and follow-up were discussed with the patient. Differential Diagnosis Differential diagnosis: Likely abdominal pain, constipation, gastroenteritis, pancreatitis and other (Biliary colic) Lab Data Attestation: I reviewed the patient's lab results. Labs: Lab Results 05/11/24 Range/Units 06:56 WBC 7.9 (4.0-11.0) 10^3/uL RBC 4.88 (4.20-5.40) 10^6/uL Hgb 13.8 (12.0-16.0) g/dL Hct 42.6 (36.0-48.0) % MCV 87.3 (81.0-99.0) fL MCH 28.3 (26.7-34.0) pg MCHC 32.4 (29.9-35.2) g/dL RDW 13.2 (11.0-15.0) % Plt Count 328 (150-450) 10^3/uL MPV 9.1 L (9.5-13.5) fL Neut % (Auto) 66.8 (43.0-75.0) % Lymph % (Auto) 24.8 (20.5-60.0) % [place] % (Auto) 7.2 (1.7-12.0) % Eos % (Auto) 0.6 L (0.9-7.0) % Baso % (Auto) 0.3 (0.2-2.0) % Neut # (Auto) 5.3 (1.4-6.5) 10^3/uL Lymph # (Auto) 2.0 (1.2-3.8) 10^3/uL [place] # (Auto) 0.6 (0.3-0.8) 10^3/uL Eos # (Auto) 0.1 (0.0-0.7) 10^3/uL Baso # (Auto) 0.0 (0.0-0.1) 10^3/uL Abs Immat Gran (auto) 0.02 (0.00-0.03) 10^3/uL Imm/Tot Granulo (auto) 0.3 (0.0-0.5) % Sodium 146 H (136-145) mmol/L Potassium 3.5 (3.5-5.1) mmol/L Chloride 107 (98-107) mmol/L Carbon Dioxide 24.8 (21.0-32.0) mmol/L Anion Gap 17.7 BUN 23.0 H (7.0-18.0) mg/dL Creatinine 0.84 (0.55-1.02) mg/dL Est GFR ( Amer) >60 (>=60 mL/min/1.73m^2) Est GFR (Non-Af Amer) >60 (>=60 mL/min/1.73m^2) BUN/Creatinine Ratio 27.4 Glucose 132 H (74-106) mg/dL Calcium 8.4 L (8.5-10.1) mg/dL Total Bilirubin 0.4 (0.2-1.0) mg/dL Direct Bilirubin 0.1 (0.0-0.2) mg/dL AST 21 (15-37) U/L ALT 15 (14-59) U/L Alkaline Phosphatase 132 H (46-116) U/L Total Protein 6.7 (6.4-8.2) g/dL Albumin 3.2 L (3.4-5.0) g/dL Globulin 3.5 g/dL Albumin/Globulin Ratio 0.9 Amylase 61 (25-115) U/L Lipase 55.0 (16.0-77.0) U/L ECG Data Attestation: I personally reviewed and interpreted this ECG as follows: (EKG on my interpretation shows sinus rhythm with a rate of 50 and no acute change) Discharge Plan Discharge Chief Complaint: Abdominal Pain Clinical Impression: Biliary colic Patient Disposition: Home, Self-Care Time of Disposition Decision: 08:53 Condition: Good Mode of Transportation: Private Vehicle Prescriptions / Home Meds: New hydrocodone-acetaminophen 5-325 mg tablet 1 tab PO Q6H PRN (Reason: pain) 5 Days Qty: 20 0RF ondansetron 4 mg tablet,disintegrating 4 mg PO Q6H PRN (Reason: nausea and vomiting) Qty: 20 0RF No Action bupropion HCl 300 mg tablet extended release 24 hr 300 mg PO DAILY hydroxyzine pamoate 25 mg capsule 25 mg PO Q8H PRN (Reason: nausea and vomiting) metoprolol succinate 50 mg tablet extended release 24 hr 50 mg PO DAILY spironolactone 25 mg tablet 25 mg PO DAILY pantoprazole 40 mg tablet,delayed release (DR/EC) 40 mg PO Q12H sertraline 50 mg tablet 50 mg PO Q24H lisinopril 2.5 mg tablet 2.5 mg PO DAILY Print Language: Kinyarwanda Instructions: Biliary Colic (ED) Additional Instructions: Follow-up with your established general surgeon Referrals: [facility] [Primary Care Provider] - 1 week
[2024-05-11 07:39] LABS: Basophils Percent Auto 0.3 % (0.2-2.0); Eosinophils Absolute Auto 0.1 10^3/uL (0.0-0.7); Eosinophils Percent Auto 0.6 % (0.9-7.0); Hematocrit 42.6 % (36.0-48.0); Hemoglobin 13.8 g/dL (12.0-16.0); Immature Granulocytes Abs Auto 0.02 10^3/uL (0.00-0.03); Immature Granulocytes Pct Auto 0.3 % (0.0-0.5); Lymphocytes Percent Auto 24.8 % (20.5-60.0); Mean Corpuscular HGB Conc 32.4 g/dL (29.9-35.2); Mean Corpuscular Hemoglobin 28.3 pg (26.7-34.0); Mean Corpuscular Volume 87.3 fL (81.0-99.0); Mean Platelet Volume 9.1 fL (9.5-13.5); Monocytes Absolute Auto 0.6 10^3/uL (0.3-0.8); Monocytes Percent Auto 7.2 % (1.7-12.0); Neutrophils Absolute Auto 5.3 10^3/uL (1.4-6.5); Neutrophils Percent Auto 66.8 % (43.0-75.0); Platelet Count 328 10^3/uL (150-450); Red Blood Count 4.88 10^6/uL (4.20-5.40); Red Cell Distribution Width 13.2 % (11.0-15.0); White Blood Count 7.9 10^3/uL (4.0-11.0)
[2024-05-11] MEDS: ONDANSETRON PF 4 MG/2 ML VIAL IV ×2 (07:46→09:00)
[2024-05-11] MEDS: MORPHINE SULFATE 4 MG/ML VIAL IV (07:46)
[2024-05-11 07:49] LABS: Alanine Aminotransferase 15 U/L (14-59); Albumin Globulin Ratio 0.9; Albumin Level 3.2 g/dL (3.4-5.0); Alkaline Phosphatase 132 U/L (46-116); Amylase 61 U/L (25-115); Anion Gap 17.7; Aspartate Amino Transferase 21 U/L (15-37); BUN Creatinine Ratio 27.4; Bilirubin Direct 0.1 mg/dL (0.0-0.2); Bilirubin Total 0.4 mg/dL (0.2-1.0); Calcium 8.4 mg/dL (8.5-10.1); Carbon Dioxide 24.8 mmol/L (21.0-32.0); Chloride 107 mmol/L (98-107); Estimated GFR (African America >60 (>=60 mL/min/1.73m^2); Estimated GFR (Non-African Ame >60 (>=60 mL/min/1.73m^2); Globulin 3.5 g/dL; Glucose 132 mg/dL (74-106); Potassium 3.5 mmol/L (3.5-5.1); Sodium 146 mmol/L (136-145); Total Protein 6.7 g/dL (6.4-8.2)
== END 2024-05-11 09:10 | disposition home or self-care (01) ==
PROVIDERS: Emergency Provider Emergency Medicine
DX: K80.50 Calculus of bile duct without cholangitis or cholecystitis without obstruction (principal); F17.200 Nicotine dependence, unspecified, uncomplicated
CPT/HCPCS: 36415; 80048; 80076; 82150; 83690; 85025; 93005; 96374; 96375; 96376; 99284; J2270; J2405